=== PATIENT | female | born 1970 | race Caucasian/White ===

== ENCOUNTER 2020-02-21 07:58 | Outpatient (REF) | payer OTHER, SELFPAY ==
[2020-02-21 09:25] LABS: Alanine Aminotransferase 40 U/L (0-31); Albumin Level 4.3 g/dL (3.5-5.0); Anion Gap 12 (12-20); Aspartate Amino Transferase 23 U/L (5-31); Bilirubin Total 0.3 mg/dL (0.0-1.0); Blood Urea Nitrogen 9 mg/dL (9-16); Calcium 9.1 mg/dL (8.4-10.2); Carbon Dioxide 27 mmol/L (22-29); Chloride 106 mmol/L (96-108); Cholesterol 244 mg/dL; Estimated Glomerular Filt Rate > 60; Glucose Fasting 105 mg/dL (60-99); HDL Cholesterol 33 mg/dL; LDL Cholesterol Calculated 186 mg/dl; Potassium 4.4 mmol/l (3.3-5.1); Sodium 141 mmol/L (135-145); Total Protein 7.1 g/dL (6.5-8.0); Triglycerides 129 mg/dL
[2020-02-21 09:27] LABS: Alkaline Phosphatase 206 U/L (39-117)
[2020-02-21 09:52] LABS: Vitamin D 25-OH Total 18.6 ng/mL (>30)
[2020-02-21 10:23] LABS: T4 Thyroxine 9.3 ug/dL (4.5-12.0); Thyroid Stimulating Hormone 7.54 mIU/mL (0.32-4.0)
[2020-02-23 09:22] LABS: Folate 8.7 ng/mL (> or = 4.0); Vitamin B12 299 pg/mL (200-900)
== END 2020-02-21 07:59 | disposition home or self-care (01) ==
LOC: HO.LAB 07:58
PROVIDERS: PCP Internal Medicine; Visit Provider Internal Medicine
DX: E03.9 Hypothyroidism, unspecified (principal); E66.01 Morbid (severe) obesity due to excess calories; E78.00 Pure hypercholesterolemia, unspecified; K21.9 Gastro-esophageal reflux disease without esophagitis; Z00.00 Encounter for general adult medical examination without abnormal findings
CPT/HCPCS: 36415; 80053; 80061; 82306; 82607; 82746; 84436; 84443

== ENCOUNTER 2020-03-04 08:20 | Outpatient (REF) | payer OTHER, SELFPAY ==
--- NOTE | 2020-03-04 08:37 | US_ITS ---
EXAMINATION: US ABDOMEN COMPLETE CLINICAL INFORMATION: Abnormal results of liver function studies. COMPARISON: CT abdomen and pelvis 11/21/2019. Ultrasound abdomen 08/23/2007. X-ray abdomen 08/08/2007. TECHNIQUE: Real-time imaging of the abdominal viscera. FINDINGS: PANCREAS: The pancreatic head and body are unremarkable. The pancreatic tail is obscured by gas. ABDOMINAL AORTA: The proximal segment is normal in caliber. INFERIOR VENA CAVA: Visualized portions are normal. LIVER: There is diffuse increased liver parenchymal echogenicity, consistent with hepatic steatosis. The liver is normal in size and contour. No focal lesion or biliary ductal dilatation. GALLBLADDER: Normal. The gallbladder is physiologically distended without evidence of stones, sludge, polyps, wall thickening or pericholecystic fluid. COMMON BILE DUCT: Normal in caliber measuring 0.4 cm in diameter. RIGHT KIDNEY: Normal. No hydronephrosis. No renal calculi or focal parenchymal lesions. The kidney measures 10.7 cm in maximum dimension. LEFT KIDNEY: Normal. No hydronephrosis. No renal calculi or focal parenchymal lesions. The kidney measures 11.8 cm in maximum dimension. SPLEEN: Normal. The spleen measures 11.1 cm in maximum dimension. FREE FLUID: None. IMPRESSION: Hepatic steatosis. No focal hepatic lesion. No ductal dilatation. Otherwise unremarkable abdominal ultrasound.
== END 2020-03-04 08:21 | disposition home or self-care (01) ==
LOC: HO.US 08:20
PROVIDERS: Visit Provider Internal Medicine
DX: R94.5 Abnormal results of liver function studies (principal)
CPT/HCPCS: 76700

== ENCOUNTER 2020-03-17 10:22 | Outpatient (REF) | payer OTHER, SELFPAY ==
[2020-03-17 11:37] LABS: Glucose Urine UA NEG (NEG); Leukocyte Esterase Urine NEG (NEG); Nitrite Urine NEG (NEG); Specific Gravity - Urine >= 1.030 (1.005-1.025); Urine Blood 1+ (NEG); Urine Ketones NEG (NEG); Urine Protein NEG (NEG-TRACE)
[2020-03-17 11:39] LABS: Appearance Urine HAZY; Color Urine YELLOW
[2020-03-17 11:54] LABS: Alanine Aminotransferase 33 U/L (0-31); Albumin Level 4.4 g/dL (3.5-5.0); Alkaline Phosphatase 176 U/L (39-117); Aspartate Amino Transferase 22 U/L (5-31); Bilirubin Direct 0.2 mg/dL (0.0-0.5); Bilirubin Total 0.5 mg/dL (0.0-1.0); Total Protein 7.3 g/dL (6.5-8.0)
[2020-03-17 12:30] LABS: Mucus Urine 1+ /LPF; RBC Urine 0-2 /HPF (0); Squamous Epithelial Cell Urine 2+ /LPF
== END 2020-03-17 10:23 | disposition home or self-care (01) ==
LOC: HO.LAB 10:22
PROVIDERS: PCP Internal Medicine; Visit Provider Internal Medicine
DX: R94.5 Abnormal results of liver function studies (principal); R30.0 Dysuria
CPT/HCPCS: 80076; 81001; 87086

== ENCOUNTER 2020-03-31 09:57 | Outpatient (REF) | payer OTHER, SELFPAY ==
[2020-03-31 11:27] LABS: Glucose Urine UA NEG (NEG); Leukocyte Esterase Urine NEG (NEG); Nitrite Urine NEG (NEG); Specific Gravity - Urine 1.025 (1.005-1.025); Urine Blood TRACE (NEG); Urine Ketones NEG (NEG); Urine Protein NEG (NEG-TRACE)
[2020-03-31 11:30] LABS: Appearance Urine CLOUDY; Color Urine YELLOW
[2020-03-31 11:43] LABS: Bacteria Urine 1+ /LPF; RBC Urine 0-2 /HPF (0); Squamous Epithelial Cell Urine 3+ /LPF; WBC Urine 0-2 /HPF (0-4)
[2020-03-31 13:27] LABS: Free T4 (Free Thyroxine) 1.32 ng/dL (0.71-1.85); Thyroid Stimulating Hormone 3.57 uIU/mL (0.32-4.0)
== END 2020-03-31 09:58 | disposition home or self-care (01) ==
LOC: HO.LAB 09:57
PROVIDERS: PCP Internal Medicine; Visit Provider Internal Medicine
DX: E03.9 Hypothyroidism, unspecified (principal); R30.0 Dysuria
CPT/HCPCS: 81001; 84439; 84443

== ENCOUNTER → 2020-06-01 15:28 | Outpatient (BNVA) | payer OTHER, SELFPAY | PROVIDERS: PCP Internal Medicine; Visit Provider Urology | DX: R31.9 Hematuria, unspecified (principal) | CPT/HCPCS: 81002 ==

== ENCOUNTER 2020-07-01 15:45 | Outpatient (REF) | payer OTHER, SELFPAY ==
--- NOTE | ~2020-07-01 | XR_ITS ---
EXAMINATION: XR KNEE, LEFT CLINICAL INFORMATION: Pain post fall COMPARISON: Previous x-ray June 2011 TECHNIQUE: Four views of the left knee. FINDINGS: Bones and soft tissues are normal. No fracture or joint effusion. Alignment is anatomic. Joint spaces are well maintained. No abnormal soft tissue calcification. XR/XR knee LT 4V IMPRESSION: Normal left knee.
== END 2020-07-01 15:46 | disposition home or self-care (01) ==
LOC: HO.XRAY 15:45
PROVIDERS: PCP Internal Medicine; Visit Provider Nurse Practitioner Family
DX: M25.562 Pain in left knee (principal)
CPT/HCPCS: 73564

== ENCOUNTER 2020-07-29 08:13 | Outpatient (REF) | payer OTHER, SELFPAY ==
--- NOTE | 2020-07-29 08:29 | EMG_ITS ---
Right median and ulnar motor and sensory studies were performed. Right radial sensory study was performed and paraspinal muscles were tested with a needle. IMPRESSION: Unremarkable study with no evidence of entrapment neuropathy or radiculopathy. MD MONAE Jack/DARYA / [id number]
[2020-07-29 09:20] LABS: Glucose Urine UA NEG (NEG); Leukocyte Esterase Urine NEG (NEG); Nitrite Urine NEG (NEG); Specific Gravity - Urine >= 1.030 (1.005-1.025); Urine Blood 1+ (NEG); Urine Ketones NEG (NEG); Urine Protein TRACE MG/DL (NEG-TRACE)
[2020-07-29 09:22] LABS: Appearance Urine CLEAR; Color Urine YELLOW
[2020-07-29 09:31] LABS: Bacteria Urine 3+ /LPF; Mucus Urine 3+ /LPF; Squamous Epithelial Cell Urine 1+ /LPF
[2020-07-29 09:59] LABS: Alanine Aminotransferase 22 U/L (0-31); Albumin Level 4.3 g/dL (3.5-5.0); Alkaline Phosphatase 180 U/L (39-117); Anion Gap 12 (12-20); Aspartate Amino Transferase 14 U/L (5-31); Bilirubin Total 0.7 mg/dL (0.0-1.0); Blood Urea Nitrogen 8 mg/dL (9-16); Calcium 8.8 mg/dL (8.4-10.2); Carbon Dioxide 24 mmol/L (22-29); Chloride 107 mmol/L (96-108); Cholesterol 202 mg/dL; Estimated Glomerular Filt Rate > 60; Glucose Random 103 mg/dL (60-115); HDL Cholesterol 26 mg/dL; LDL Cholesterol Calculated 144 mg/dl; Potassium 4.1 mmol/L (3.3-5.1); Sodium 139 mmol/L (135-145); Total Protein 7.1 g/dL (6.5-8.0); Triglycerides 162 mg/dL
== END 2020-07-29 08:14 | disposition home or self-care (01) ==
LOC: HO.NEURO 08:13
PROVIDERS: PCP Internal Medicine; Visit Provider Internal Medicine
DX: R20.0 Anesthesia of skin (principal); E78.00 Pure hypercholesterolemia, unspecified
CPT/HCPCS: 36415; 80053; 80061; 81001; 95886; 95909

== ENCOUNTER 2020-09-07 11:31 | Outpatient (REF) | payer OTHER, SELFPAY ==
--- NOTE | ~2020-09-07 | XR_ITS ---
EXAMINATION: XR SHOULDER, RIGHT CLINICAL INFORMATION: Right shoulder pain COMPARISON: Radiographs right shoulder 05/16/2019 TECHNIQUE: Right shoulder is imaged in 3 views. FINDINGS: There is no fracture or dislocation or destructive process. The acromioclavicular alignment is normal. The glenohumeral joint is normal. There is borderline spur from the superior aspect greater tuberosity. There are no visible rotator cuff calcifications. XR/XR shoulder RT min 2V IMPRESSION: Unremarkable right shoulder.
== END 2020-09-07 11:32 | disposition home or self-care (01) ==
LOC: HO.HOSX 11:31
PROVIDERS: PCP Internal Medicine; Visit Provider Physician Assistant
DX: M75.41 Impingement syndrome of right shoulder (principal)
CPT/HCPCS: 73030

== ENCOUNTER 2020-09-16 07:00 | Outpatient (RCR) | payer OTHER, SELFPAY | END 2020-09-23 08:47 | disposition other institution (70) | LOC: HO.PTWFD 07:00 | PROVIDERS: PCP Internal Medicine; Visit Provider Internal Medicine | DX: M54.16 Radiculopathy, lumbar region (principal) | CPT/HCPCS: 97014; 97110; 97140; 97162; 97530; 97535 ==

== ENCOUNTER 2020-09-21 17:40 | Outpatient (REF) | payer OTHER, SELFPAY ==
--- NOTE | ~2020-09-21 | MR_ITS ---
EXAMINATION: MR SHOULDER WITHOUT CONTRAST, RIGHT CLINICAL INFORMATION: Impingement syndrome of right shoulder. Patient reports right shoulder pain for 2 years, increased since another fall in June 2020. COMPARISON: XR right shoulder 09/07/2020 TECHNIQUE: MRI of the shoulder without contrast was performed on a high-field scanner. FINDINGS: ROTATOR CUFF: There is a focal full-thickness insertional tear of the distal supraspinatus tendon measuring 11 mm transverse and 11 mm AP. This predominantly involves the anterior fibers. There is patchy tendinosis in the posterior fibers. There is mild distal infraspinatus and subscapularis tendinosis. The teres minor tendon is intact. There is a trace subacromial-subdeltoid bursal effusion. No muscle atrophy or fatty infiltration. BICEPS: Normal. CORACOACROMIAL ARCH: The undersurface of the acromion is flat with a broad-based subacromial spur. There is mild osteoarthritis of the acromioclavicular joint. There is focal moderate edema in the distal clavicle. LABRUM/CAPSULE: Normal. GLENOHUMERAL JOINT/MARROW: Unremarkable. MR/MR shoulder RT wo con IMPRESSION: 1. Focal full-thickness insertional tear of the distal anterior supraspinatus tendon. Mild infraspinatus and subscapularis tendinosis. 2. Broad-based subacromial spur. 3. Mild osteoarthritis of the acromioclavicular joint.
== END 2020-09-21 17:41 | disposition home or self-care (01) ==
LOC: HO.MRI 17:40
PROVIDERS: Visit Provider Physician Assistant
DX: M75.41 Impingement syndrome of right shoulder (principal)
CPT/HCPCS: 73221

== ENCOUNTER → 2020-10-04 14:23 | Outpatient (BNVA) | payer OTHER, SELFPAY | PROVIDERS: Visit Provider Physician Assistant ==

== ENCOUNTER 2020-10-05 07:00 | Outpatient (RCR) | payer OTHER, SELFPAY | END 2021-09-22 15:01 | disposition home or self-care (01) | LOC: HO.PTWFD 07:00 | PROVIDERS: Visit Provider Internal Medicine | DX: R20.0 Anesthesia of skin (principal) | CPT/HCPCS: 97014; 97035; 97110; 97140; 97161; 97535 ==

== ENCOUNTER 2020-10-20 06:00 | Day surgery (SDC) | payer OTHER, SELFPAY ==
[2020-10-13 12:36] VITALS: BMI 43.0
--- NOTE | 2020-10-19 09:08 | P.CONAN_ITS ---
Documented by User: Angelica Villarreal 10/19/20 09:09 HPI - Anesthesia Eval Consult details Narrative: 50yo F for Right Arthroscopic Rotator Cuff Repair PMFSH Active Problems Active Problems: All Active Problems (Updated 10/13/20 @ 12:40 by Roxi Sanchez) Lumbar radicular pain (Acute) Peripheral vascular disease (Acute) Right arm numbness (Acute) Pain in right axilla (Acute) Shoulder pain (Acute) Rotator cuff impingement syndrome of right shoulder (Acute) Rotator cuff tear, right (Acute) Status post rotator cuff repair (Acute) Left leg pain (Acute) Lumbar back pain (Acute) Knee pain, left (Acute) Hematuria (Acute) GERD (gastroesophageal reflux disease) (Acute) Anxiety (Acute) Hypercholesterolemia (Acute) Hypothyroid (Acute) Past Medical History Medical History Allergic rhinitis Anxiety Arthritis COVID-19 vaccine series completed Fatty liver Gallbladder disease GERD (gastroesophageal reflux disease) Hematuria Hypercholesterolemia Hypothyroid Irritable bowel syndrome with constipation Knee pain, left Left leg pain Lumbar back pain Lumbar degenerative disc disease Migraine Obesity Vitamin D deficiency Family History Family History Mother Cancer Heart disease Father Heart problem Surgical History Surgical History History of bladder surgery History of lumbar discectomy History of tonsillectomy Hx of colonoscopy Hx of dilation and curettage Social History Social History Are you a primary healthcare economics consultant to a significant other at home: No Do you presently have visiting nurse or other home services: No Alcohol intake: never Patient Tobacco Use Status: Never used Tobacco Use of substances other than those prescribed or required for medical reasons: No Have you been hit, kicked, punched, or otherwise hurt by someone within the past year? 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 Allergies Allergy/AdvReac Type Severity Reaction Status Date / Time oxycodone [Percocet] Allergy Severe rash Verified 10/20/20 06:32 Home Medications Medication Instructions Recorded Confirmed Last Taken Type folic acid 1 mg tablet 1 mg PO DAILY 04/29/20 10/13/20 Unknown History omeprazole magnesium 20 mg 20 mg PO DAILY 04/29/20 10/13/20 Unknown History tablet,delayed release simvastatin 5 mg tablet 5 mg PO DAILY 04/29/20 10/13/20 Unknown History Exam Exam Date and Time: October 19, 2020 0908 Height,Weight and Vital Signs: Height 5 ft 1 in Weight 103.419 kg Assessment and Plan Assessment Anesthesia Assessment: Chart Reviewed Documented by User: Destinee Thakkar 10/20/20 07:28 [facility] Past Medical History Medical History Allergic rhinitis Anxiety Arthritis COVID-19 vaccine series completed Fatty liver Gallbladder disease GERD (gastroesophageal reflux disease) Hematuria Hypercholesterolemia Hypothyroid Irritable bowel syndrome with constipation Knee pain, left Left leg pain Lumbar back pain Lumbar degenerative disc disease Migraine Obesity Vitamin D deficiency Family History Family History Mother Cancer Heart disease Father Heart problem Surgical History Surgical History History of bladder surgery History of lumbar discectomy History of tonsillectomy Hx of colonoscopy Hx of dilation and curettage Social History Social History Are you a primary healthcare economics consultant to a significant other at home: No Do you presently have visiting nurse or other home services: No Alcohol intake: never Patient Tobacco Use Status: Never used Tobacco Use of substances other than those prescribed or required for medical reasons: No Have you been hit, kicked, punched, or otherwise hurt by someone within the past year? 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 Allergies Allergy/AdvReac Type Severity Reaction Status Date / Time oxycodone [Percocet] Allergy Severe rash Verified 10/20/20 06:32 Home Medications Medication Instructions Recorded Confirmed Last Taken Type folic acid 1 mg tablet 1 mg PO DAILY 04/29/20 10/13/20 Unknown History omeprazole magnesium 20 mg 20 mg PO DAILY 04/29/20 10/13/20 Unknown History tablet,delayed release simvastatin 5 mg tablet 5 mg PO DAILY 04/29/20 10/13/20 Unknown History Exam Airway Mallampati Class: II TM Dist: >3cm Neck ROM: Full Assessment and Plan Assessment Anesthesia Assessment: Anesthesia Plan Discussed and Chart Reviewed Final Anesthetic Review NPO: Yes ASA Class: III Final Preanesthetic Review: No Changes in Pt Med Stat, Meds/Allgs Chart Reviewed, Consent Obtained/Reviewed and Anes Risks/Benef Reviewed Patient Risk: Intermediate Procedure Risk: Low Assessment/Block/Sedation in SS: Assess/Block/Sedation-SS Anesthetic Plan Anesthetic Plan: GA and Regional Block Disposition: Standard PACU
[2020-10-20] VITALS (10 sets, daily range): BP systolic 140–157; BP diastolic 81–88; PULSE 77–90; RESP 16–19; TEMP 36.1–36.6; O2SAT 93–99
[2020-10-20 06:34] LABS: UPreg QC Valid YES; Urine Pregnancy NEGATIVE (NEGATIVE)
[2020-10-20] MEDS: Lactated Ringers 1,000 ML 100 ML IVCONT (06:46)
--- NOTE | 2020-10-20 07:24 | MHC.SHP ---
Pre-Procedural Eval Section A The patient is an INPATIENT: No Changes since office visit: Yes Patient answered all questions; No Cold of Flu in the past 2 weeks, No New Medical Problems and No Changes in Medication The History & Physical has been completed within 30 days and I have reviewed it.: Yes Section B Chief Complaint: rotator cuff tear Allergies: Allergies Allergy/AdvReac Type Severity Reaction Status Date / Time oxycodone [Percocet] Allergy Severe rash Verified 10/20/20 06:32 Plan I have reviewed the history and physical and performed a pertinent physical examination on my patient. No changes have occurred unless specified.
--- NOTE | 2020-10-20 09:19 | PM.OP ---
Brief Operative Note Date of Service: 10/20/20 Pre-op diagnosis: right rtc tear Post-op diagnosis: other (1) right subscapularis tear 2) right supraspinatus tear) Procedure: 1) right subscapularis repair 2) right superior rotator cuff repair Implants: [employer] software and [employer] 5.0 helacoil knotless x 3 and 4.5 double loaded helacoil x2 Surgeon: Johny Villegas MD Anesthesia: GETA and regional Was an Licensing Manager used for this Procedure?: Yes Licensing Manager: Shelbie Hare Estimated blood loss (mL): 10 IV fluids (mL): 1,000 Pathology: none sent Condition: stable Disposition: PACU
--- NOTE | 2020-10-20 09:30 | P.OP_ITS ---
Operative Note Operative Note Date of Service: 10/20/20 Narrative: Pre-op diagnosis: right rtc tear Post-op diagnosis: other (1) right subscapularis tear 2) right supraspinatus tear) Procedure: 1) right subscapularis repair 2) right superior rotator cuff repair Implants: [employer] 5.0 helacoil knotless x 3 and 4.5 double loaded helacoil x2 Surgeon: Johny Villegas MD Anesthesia: GETA and regional Was an Global Project Manager used for this Procedure?: Yes Global Project Manager: Shelbie Hare Estimated blood loss (mL): 10 IV fluids (mL): 1,000 Pathology: none sent Condition: stable Disposition: PACU Procedure in detail: Patient was brought to the operating room and placed the the beach chair position. All bony prominences were well padded and she was prepped and draped in standard sterile fashion. A time out was called to identify proper site, proper procedure and proper surgeon. IV antibiotics per weight were administered. I began by making a posterolateral stab incision with a 15 blade. A blunt trochar was placed into the glenohumeral joint and insufflated the joint with saline and a 30 degree arthroscope was placed. I established an outside- in anterior portal just distal to the biceps tendon. I then began my inspection of the glenohumeral joint. The cartilaginous surfaces were pristine. There was no labral tearing. There was an undersurface superior rotator cuff tear and a insertional subscapularis tear with approximately 60-70% of the tendon torn. I placed two min tapes through the healthy portion of the tendon and then, after burring the insertion, inserted a 5.0 knotless helacoil with the attached suture ends. There was excellent fixation at the insertion site. The biceps was again examined and there was no tearing along its visible course. I then removed the trochar and entered the subacromial space. A direct lateral portal was then established and I performed a bursectomy. The cuff was then examined. There was a full thickness tear of the supraspinatus. I burred the footprint down to bleeding bone. I then placed two medial row 4.5 double loaded suture anchors and then brought these through the cuff. They were then attached to two lateral 4.5 knotless anchors in standard double row crossing pattern. There was excellent compression of the cuff and recreation of the normal anatomy. Once I was happy with the repair final images were captured and I removed all instrumentation. Wounds were closed with nylon and patient was placed in a sterile dressing and a sling. She was then extubated and brought to the recovery room. There were no known complications.
[2020-10-20] MEDS: Acetaminophen 325 MG TABLET 650 MG PO (10:00)
[2020-10-20] MEDS: Ketorolac Tromethamine 30 MG/ML VIAL IVPUSH (10:00)
[2020-10-20] MEDS: fentaNYL citrate/PF 100 MCG/2 ML VIAL 50 MCG IVPUSH (10:15)
== END 2020-10-20 11:48 | disposition home or self-care (01) ==
PROVIDERS: Nurse Practitioner; PCP Internal Medicine; Visit Provider Orthopaedic Surgery
PROC: (CPT 29827; principal; 2020-10-20 07:30)
DX: M75.121 Complete rotator cuff tear or rupture of right shoulder, not specified as traumatic (principal); Z88.8 Allergy status to other drugs, medicaments and biological substances
CPT/HCPCS: 29827; 29826; 81025; C1713; J0171; J0690; J1100; J1885; J2250; J2405; J3010

== ENCOUNTER → 2020-10-26 12:05 | Outpatient (BNVA) | payer OTHER, SELFPAY | PROVIDERS: Visit Provider Physician Assistant ==

== ENCOUNTER → 2020-11-01 08:56 | Outpatient (BNVA) | payer OTHER, SELFPAY | PROVIDERS: Visit Provider Physician Assistant ==

== ENCOUNTER → 2020-12-02 08:29 | Outpatient (BNVA) | payer OTHER, SELFPAY | PROVIDERS: Visit Provider Orthopaedic Surgery ==

== ENCOUNTER 2020-12-20 07:50 | Outpatient (REF) | payer OTHER, SELFPAY ==
[2020-12-20 13:17] LABS: MANUAL DIFF FLAG NO
[2020-12-20 13:22] LABS: Basophils Percent Auto 0.6 % (0-2); Eosinophils Absolute Auto 0.1 X10*3/uL (0.0-0.4); Eosinophils Percent Auto 0.7 % (0-4); Hemoglobin 13.4 g/dl (12.0-16.0); Imm Gran Abs Auto 0.02 X10*3/uL (0.00-0.03); Imm Gran Pct Auto 0.3 % (0.0-0.4); Lymphocytes Absolute Auto 1.8 X10*3/uL (1.2-4.9); Lymphocytes Percent Auto 26.2 % (20-40); Mean Corpuscular HGB Conc 32.7 g/dl (31.0-35.0); Mean Corpuscular Hemoglobin 29.3 pg (27.0-33.0); Mean Corpuscular Volume 89.7 fL (80-98); Mean Platelet Volume 11.9 fL (9.4-12.3); Monocytes Absolute Auto 0.8 X10*3/uL (0.1-1.2); Monocytes Percent Auto 10.8 % (2-11); Neutrophils Absolute Auto 4.3 X10*3/uL (2.0-8.3); Neutrophils Percent Auto 61.4 % (45-73); Platelet Count 282 X10*3/uL (160-400); Red Blood Count 4.57 X10*6/uL (4.20-5.50); Red Cell Distribution Width 11.9 % (11.0-16.0); White Blood Count 6.9 X10*3/uL (4.8-10.8)
[2020-12-20 13:53] LABS: Anion Gap 13 (12-20); Blood Urea Nitrogen 6 mg/dL (9-16); Calcium 9.6 mg/dL (8.4-10.2); Carbon Dioxide 25 mmol/L (22-29); Chloride 108 mmol/L (96-108); Estimated Glomerular Filt Rate > 60; Glucose Random 96 mg/dL (60-115); Potassium 3.8 mmol/L (3.3-5.1); Sodium 142 mmol/L (135-145)
[2020-12-22 21:32] LABS: HPV mRNA E6/E7 rflx Not Detected (Not Detected)
== END 2020-12-20 07:51 | disposition home or self-care (01) ==
LOC: HO.LAB 07:50
PROVIDERS: Absent Provider Internal Medicine; PCP Internal Medicine; Visit Provider Advanced Practice Midwife
DX: Z01.411 Encounter for gynecological examination (general) (routine) with abnormal findings (principal); Z11.51 Encounter for screening for human papillomavirus (HPV); R10.2 Pelvic and perineal pain; R51.9 Headache, unspecified; F43.9 Reaction to severe stress, unspecified
CPT/HCPCS: 36415; 80048; 85025; 87624; 88142

== ENCOUNTER 2021-01-03 09:55 | Outpatient (REF) | payer OTHER, SELFPAY ==
--- NOTE | ~2021-01-03 | XR_ITS ---
EXAMINATION: XR SHOULDER, RIGHT CLINICAL INFORMATION: Pain. COMPARISON: Multiple priors, most recent right shoulder MRI dated 09/21/2020. TECHNIQUE: AP external rotation, Grashey, scapular Y, and axillary views of the right shoulder. FINDINGS: Surgical sutures related to rotator cuff repair within the humeral head. No evidence of hardware complication. No acute fracture or dislocation. Small acromioclavicular and glenohumeral marginal osteophytes, unchanged. Redemonstration of subacromial spurring. No lytic or blastic osseous lesion. No abnormal soft tissue calcification. XR/XR shoulder RT min 2V IMPRESSION: 1. Postsurgical change related to rotator cuff repair. No evidence of hardware complication. 2. Mild acromioclavicular and glenohumeral osteoarthritis, unchanged. 3. Stable subacromial spurring.
== END 2021-01-03 09:56 | disposition home or self-care (01) ==
LOC: HO.HOSX 09:55
PROVIDERS: PCP Internal Medicine; Visit Provider Physician Assistant
DX: M25.511 Pain in right shoulder (principal); Z98.890 Other specified postprocedural states
CPT/HCPCS: 73030

== ENCOUNTER 2021-01-06 10:43 | Outpatient (REF) | payer OTHER, SELFPAY ==
--- NOTE | ~2021-01-06 | US_ITS ---
EXAMINATION: US PELVIS CLINICAL INFORMATION: Pelvic and perineal pain; the last menstrual period is not specified. COMPARISON: Pelvic ultrasound dated 10/21/2019. TECHNIQUE: Ultrasound of the pelvis is performed using both transabdominal and transvaginal transducers along with Doppler. Transvaginal imaging is performed due to inadequate visualization transabdominally. FINDINGS: Uterus: The uterus is anteverted and anteflexed. The uterus measures 10.2 x 4.2 x 5.9 cm. The double wall endometrial thickness is 0.6 mm. An intrauterine device is seen, properly situated within the endometrial canal. The uterus is smooth in contour and has normal myometrial echogenicity. FIBROIDS: There are 2 fibroids seen. 1. Location: Rightward fundus, myometrial. Size: 1.2 x 0.2 x 1.1 cm. Prior: 1.2 x 0.9 x 1.0 cm. Fibroid characteristics: Heterogeneously hypoechoic 2. Location: Posterior fundus, exophytic subserosal. Size: 3.6 x 2.4 x 3.3 cm. Prior: 3.1 x 2.2 x 2.5 cm. Fibroid characteristics: Hypoechoic. 3. Location: Posterior lower body, myometrial. Size: 0.7 x 0.5 x 0.7 cm. Prior: 1.1 x 0.7 x 0.9 cm. Fibroid characteristics: Hypoechoic. Adnexa: Both ovaries are visualized. There is normal color flow to the adnexa. There is no ovarian torsion. There is no pelvic ascites or fluid collection. Right ovary measures 2.4 x 2.0 x 2.1 cm (volume 7.5 mL). The right ovary contains a 2.1 x 2.1 x 1.5 cm anechoic, simple cyst. Left ovary measures 2.9 x 1.2 x 1.6 cm (volume 2.9 mL). US/US pelvic and transvaginal IMPRESSION: 1. Uterine fibroids are redemonstrated, as above. 2. An intrauterine device is seen, properly situated within the endometrial canal. 3. A 2.1 cm simple right ovarian cyst is incidentally noted.
== END 2021-01-06 10:44 | disposition home or self-care (01) ==
LOC: HO.US 10:43
PROVIDERS: PCP Internal Medicine; Visit Provider Advanced Practice Midwife
DX: R10.2 Pelvic and perineal pain (principal)
CPT/HCPCS: 76830; 76856

== ENCOUNTER → 2021-01-17 10:57 | Outpatient (BNVA) | payer OTHER, SELFPAY | PROVIDERS: PCP Internal Medicine; Visit Provider Physician Assistant ==

== ENCOUNTER → 2021-01-20 11:28 | Outpatient (BNVA) | payer OTHER, SELFPAY | PROVIDERS: PCP Internal Medicine; Visit Provider Advanced Practice Midwife ==

== ENCOUNTER → 2021-03-07 10:14 | Outpatient (BNVA) | payer OTHER, SELFPAY | PROVIDERS: Visit Provider Physician Assistant ==

== ENCOUNTER 2021-03-15 11:41 | Outpatient (REF) | payer OTHER, SELFPAY ==
--- NOTE | ~2021-03-15 | MM_ITS ---
EXAMINATION: MM SCREENING DIGITAL BREAST TOMOSYNTHESIS, BILATERAL CLINICAL INFORMATION: Screening. Asymptomatic. The lifetime risk of breast cancer based on the Tyrer-Cuzick Model is 10.5%. COMPARISON: Mammography: December 19, 2019 and studies dating back to May 29, 2013 TECHNIQUE: Digital breast tomosynthesis is performed in both the craniocaudal and mediolateral oblique views along with computer-aided detection (CAD). Synthesized 2D images are generated from the tomosynthesis. FINDINGS: There are scattered areas of fibroglandular density (ACR BI-RADS breast composition Category b). There are no significant masses, abnormal calcifications, or other abnormalities. MM/MM tomosynthesis screening BI IMPRESSION: There are no significant changes from prior study. ASSESSMENT: BI-RADS 1: Negative RECOMMENDATION: Routine annual mammography screening. This patient's information was entered into a reminder system with a target due date for their next mammogram.
== END 2021-03-15 11:42 | disposition home or self-care (01) ==
LOC: HO.MAMMO 11:41
PROVIDERS: Visit Provider Internal Medicine
DX: Z12.31 Encounter for screening mammogram for malignant neoplasm of breast (principal)
CPT/HCPCS: 77063; 77067

== ENCOUNTER 2021-04-21 14:00 | Outpatient (RCR) | payer OTHER, SELFPAY ==
--- NOTE | 2020-12-23 14:04 | MHC.PT.OD ---
[facility] [place] Office [place] Office [place] Office [address] Jamel Warner [address] [phone] F: [phone] F: [phone] F: [phone] F: [phone] Physical Therapy Daily Note Diagnosis: Script: M75.101 Unspecified rotator cuff tear and or rupture of R shoulderb not specified as trauamatic, M75.41 impingement syndrome of R shoulder, Z98.890 other specified post procedural states to bein 5-7 days s/p R RTC repair signed by Shelbie Hare 10/07/20 Date of Surgery: DOS 10/20/20 1) R Supraspinatus repair, 2)R subscapularis repair Dr. Villegas Date of Evaluation: 10/28/20 Date of Treatment: 12/23/20 Treatments to Date: 10 Cancellations to Date: No Shows to Date: Authorized Visits: Insurance End Date: Precautions/ Contraindications:hx R RTC repair 10/20/20 Dr. Villegas *No ER past 30 due to subscap repair* 1) Supraspinatus (complete rupture), 2) Subscapularis 60-70% torn Obtained Protocol per [facility] office on 11/01/20 see chart [employer] Subjective: Pt reports episode on Sunday12/17/20 was visiting who is in rehab for stroke, when he started to slide/slip out of chair, she quiclkly not thinking about it responded resulting in her attempting to lift/aide him with use of her right arm. Pt stated was up all night Sunday due to increased pain, on Sunday, was out walking to mailbox and had sharp pain in R anterior shoulder radiating to height of elbow. Pt spoke with Lisa Koroma PT over the phone on 12/22/20 due to concern (primary PT was unavail) regarding concern for severity of pain. She was advised to ice, monitor sx, and if no better phone Dr. Villegas office. Presents today reporting she cannot lift her arm as much as before, concern for status of RTW and increasing pain levels. Pt has been taking increased levels of extra strength tylenol with limited relief. Pain Score and Location: 7-8 R shoulder Objective Flowsheet: Tests & Measures Per protocol No ER >30 degrees due to subscap repair AROM Cervical ext 30 degrees (+) increased sx anterior R shoulder Increased pain with end range cervical rotation R and R SB, reports numbness radiating to elbow, intermittent to tricep, constant pain underarm, reports sharp and intense, pt ? nerve pain. Pt expressing R sided neck pain as well. Therapist phoned Dr. Villegas office to spoke with EMIR Gonzalez over the phone at time of around 10am (LM with office she was going to write a message to Dr. Villegas office regarding concern for patient status/pain) Pt expressing intermittent sx sharp intense ?nerve pain radiating to height of wrist and elbow, hypersensitive to palpation at site of upper trap, anterior R shoulder, and neck. (+) Spurling R with neck pain Exercises [facility] [address] [place] [address] Drive [address] [place] [address] Office Visit Report Signed Patient: Jose Harris PMR#: [id number] : 1970Acct:[id number] Age/Sex: 50 / FADM Date: 12/02/20 [facility] Attending Provider: Johny Villegas MD cc: Johny Villegas MD; Physician,Unknown ~ Intake Vital Signs 12/02/20 08:39 Height 5 ft 1 in Weight 215 lb BMI 40.6 Temp 97.1 F Temp Source Temporal Artery Scan Intake Visit Reasons: S/P RT.RTC repair 07/20/20 follow up Intake Note: Jose presents here today for S/P RT RTC repair 3. States she has been doing better. She feels like her ROM has been okay. States she is still wearing the sling because she was told to wear until this follow up appt. PT has been helping her with her shoulder movements. States she missed a few appts because her had a massive stroke and he is taking care of him now. Allergies oxycodone [Percocet] Allergy (Severe, Verified 12/02/20 08:43) rash HPI S/P RT.RTC repair 07/20/20 follow up HPI Details 6 weeks s/p right shoulder rtc repair. No complaints. Doing Pt. s/p subscapularis and supraspinatus PFSH Medical History Allergic rhinitis Anxiety Arthritis Fatty liver Gallbladder disease GERD (gastroesophageal reflux disease) Hematuria Hypercholesterolemia Hypothyroid Irritable bowel syndrome with constipation Knee pain, left Lumbar back pain Lumbar degenerative disc disease Migraine Obesity Vitamin D deficiency Surgical History History of bladder surgery History of lumbar discectomy History of tonsillectomy Hx of colonoscopy Hx of dilation and curettage Family History Mother Cancer Heart disease Father Heart problem Social History Are you a primary home child care provider to a significant other at home: No Do you presently have visiting nurse or other home services: No Alcohol intake: never Patient Tobacco Use Status: Never used Tobacco Current occupational status: employed 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 passive er to 30 and abd to 90. active ff to 80 Assessment & Plan Assessment & Plan (1) Status post rotator cuff repair: Code(s): Z98.890 - Other specified postprocedural states Plan - Johny Villegas MD: 2 weeks befor retunring to work. continue PT- large RTC repair protocol. f/u 6 w Coding Level of Care Code Global (22292) Diagnoses Status post rotator cuff repair Z98.890 Documented By:Johny Villegas MD12/02/20 0838 Signed By:<Electronically signed by Johny Villegas MD>12/02/20 0908 Pendulums at start of session, AAROM to 90 degrees limited by pain with compensation of UT observed with attempting to elevate further- Educated to start back slowly with table slides (she reports did not perform AAROM yesterday due to pains) Attempt for gentle PROM with therapist however pt verbalized increased sharp pain ~90 degrees of shoulder flexion supine. Reiterated more frequent icing, gentle AAROM table slides to tolerance, monitoring of sx. Therapist recommending follow up with Dr. Villegas due to episode of lifting/reaching with R UE> last week now increasing pain- episodes described as catching/ Education avoidance of Active abduction, avoidance ER beyond 30 degrees, Education joint protection Pt very sensitive to palpation at site of R UE region, distal repair site, anterior post site of shoulder Reports radiating pain down to height of elbow, lateral shoulder (+) Spurling (+) neck pain R sided ? Cervical radiculopathy compounding R RTC repair recovery- Pt was recently treated in walk-in clinic for concern of shingles along R side of face- now resolved... Await callback from Dr. Villegas office- re: worsening pain and radiating R UE symptoms. Pt advised to continue icing R shoulder x 10 minutes-15 minutes, avoid AROM, ensure movement is AAROM, monitor sx and location/frequency Pt Modalities Followed by 10 minutes ice post stretching to R shoulder. Assessment: Pt expresses episode last Sunday12/17/20 where she quickly used her RUE to aide her as he was sliding out of chair in rehab setting. She does not exhibit any evidence of bruising, reports progressive soreness>pain. Pt was seen Sunday exhibiting average tolerance for AAROM/PROM. On Thursday 12/21, worsening intemittent R UE sharp pain in shoulder. She phoned PT office on 12/22/20, spoke with Lisa Koroma, PT advised to monitor, ice, and if no better phone Dr. Villegas. Pt reports catching/numbness radiating to elbow>hand at times. Therapist phoned Dr. Villegas office today when patient was in office at 10am- recommending patient make a follow up with him due to change in status. AAROM limited by 85 flexion this date, poor tolerance for PROM >90 flexion, far less movement than previously demonstrated. Pt was given medication in walk in office due to concern for Shingles along R side of face (now resolved). She exhibits (+) neck pain, severe TTP distal site of supraspinatus, and along R UT region. She reports radiating R UE sx to elbow, radiating down tricep and into wrist. ? onset cervical radiculopathy vs compromised/inflamed R shoulder following lifting/abrupt use last week. Please advise: PT Plan: 1x/week x 6 weeks, 2x/week x 8 weeks thereafter PROM>AAROM>AROM per protocol NO ER > 30 degrees due to subscap repair Refer to Advanced CEU Medium to Large Rotator cuff repair protocol in chart. Short Term Goals: 1. PROM R shoulder flexion to 90 per protocol timelines. 2. Initiate I with donning/doffing sling MOD I with good safety/understanding. 3. Reduce pain by 25% in R shoulder. 4. Initiate AAROM shoulder program at six weeks per protocol with (+) compliance. 5. Strength R shoulder all planes 3/5 (per protocol guideline/clearance of MD) 6. Dressing MOD I. 7. I with pendulum HEP. Mcfp Goals: 1. AAROM R shoulder flexion to 160 degrees. 2. AAROM R shoulder abduction to 160 degrees with good scapulohumeral rhythm. 3. Strength R shoulder abduction 5/5 per MD /protocol guidance. 4. Lift a gallon of milk out of the fridge R shoulder as cleared per MD protocol guidance. 5. AROM R shoulder IR to midline to don belt. 6. ER AROM to wash hair MOD I with R UE. 7. I HEP AAROM/AROM/Strength upon completion of PT per protocol/clearance. Electronically signed by: Hannah King, PT, DPT
--- NOTE | 2021-03-03 10:53 | MHC.PT.OD ---
[facility] [place] Office [place] Office [place] Office [address] Jamel Warner [address] [phone] F: [phone] F: [phone] F: [phone] F: [phone] Physical Therapy Daily Note Diagnosis: Script: M75.101 Unspecified rotator cuff tear and or rupture of R shoulderb not specified as trauamatic, M75.41 impingement syndrome of R shoulder, Z98.890 other specified post procedural states to bein 5-7 days s/p R RTC repair signed by Shelbie Hare 10/07/20 Date of Surgery: DOS 10/20/20 1) R Supraspinatus repair, 2)R subscapularis repair Dr. Villegas Date of Evaluation: 10/28/20 Date of Treatment: 03/03/21 Treatments to Date: 20 Cancellations to Date: No Shows to Date: Authorized Visits: Insurance End Date: Precautions/ Contraindications:hx R RTC repair 10/20/20 Dr. Villegas *No ER past 30 due to subscap repair* 1) Supraspinatus (complete rupture), 2) Subscapularis 60-70% torn Obtained Protocol per [facility] office on 11/01/20 see chart [employer] Subjective: I had the best night I have had a in a long time. Im seeing the doctor on Sunday. Pain Score and Location: 3 R SHLDER Objective Flowsheet: Tests & Measures AAROM flexion 120 degrees AAROM scaption 130 degrees IR lateral buttocks [facility] [address] [place] [address] Office Visit Report Signed Patient: Jose Harris PMR#: [id number] : 1970Acct:[id number] Age/Sex: 50 / FADM Date: 01/17/21 Loc: HO.HOSDate of Service:01/17/21 Attending Provider: Shelbie Hare PA-C cc: Shelbie Hare PA-C; Calin Marx MD~ Intake Vital Signs 08/30/21 11:08 Height 5 ft 1 in Weight 215 lb BMI 40.6 Temp 97.8 F Intake Visit Reasons: RT.RTC repair 07/20/20 NE, follow up Intake Note: Jose presents today for a follow up of her right shoulder, she is s/p R RTC Repair 07/20/2020. She states that she is stil doing physical therapy and is making small progress. She feels that she is doing well and has no complaints Allergies oxycodone [Percocet] Allergy (Severe, Verified 01/10/21 17:23) rash HPI RT.RTC repair 07/20/20 NE, follow up HPI Details Patient presents the office today for routine follow-up status post right shoulder rotator cuff repair on 07/20/2020 Dr. Villegas. At her last appointment on 01/03/2021 patient states that she had a setback when she was at a rehab facility visiting her when he slid out of the wheelchair twice. She went to going catch him and noticed an increase in pain of the right shoulder. She has been attending physical therapy. She is still not at the range of motion that she was prior to this repeat injury. [facility] Medical History Allergic rhinitis Anxiety Arthritis Fatty liver Gallbladder disease GERD (gastroesophageal reflux disease) Hematuria Hypercholesterolemia Hypothyroid Irritable bowel syndrome with constipation Knee pain, left Lumbar back pain Lumbar degenerative disc disease Migraine Obesity Vitamin D deficiency Surgical History H/O rotator cuff surgery History of bladder surgery History of lumbar discectomy History of tonsillectomy Hx of colonoscopy Hx of dilation and curettage Family History Mother Cancer Heart disease Brain cancer Aortic aneurysm Father Heart problem Maternal Grandfather Lung cancer Paternal Aunt Lung cancer Maternal Aunt Heart disease Sister Substance abuse Maternal Uncle Substance abuse Social History Are you a primary wound care physician to a significant other at home: No Do you presently have visiting nurse or other home services: No Alcohol intake: never Patient Tobacco Use Status: Never used Tobacco service: No Current occupational status: employed 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 Review of Systems Const All systems reviewed & are unremarkable except as noted in HPI and below Physical Exam Vital Signs: Last Vital Signs Temp 97.8 F 01/17/21 11:08 Body Mass Index 40.6 Const General: cooperative and no acute distress Orientation/consciousness: patient oriented x3 Resp Effort & Inspection: normal respiratory effort and able to speak in complete sentences Cardio Peripheral pulses: Peripheral pulses 2+ throughout Skin General skin exam: no rashes or lesions noted Neuro General: patient oriented x3 Extrem Other: Right shoulder prior incision sites remain well approximated and healed. Patient is able to reach about 90? of forward flexion and abduction. Able to reach to back pocket. Sensation is intact. Radial pulse intact. Assessment & Plan Assessment & Plan (1) Rotator cuff tear, right: Code(s): M75.101 - Unspecified rotator cuff tear or rupture of right shoulder, not specified as traumatic Plan: Ms. Harris is a 50-year-old female who presents the office today status post right shoulder rotator cuff repair in 10/20/2020. She will continue working with physical therapy on range of motion. About 5-6 weeks ago she was visiting her in a nursing facility and he was slipping out of his wheelchair where she caught him. This situation happened twice and ever since then she has had a decrease in range of motion. At her last appointment on 01/03/2021 x-rays were obtained with good placement of the anchors. She will continue with physical therapy. I will see her back in 6 weeks for [id number] check, sooner if needed. Coding Level of Care Code Est Pt Level 3 (41572) Diagnoses Rotator cuff tear, right M75.101 Documented By:Shelbie HareC001/17/21 1108 Exercises [facility] [address] [place] [address] Drive [address] [place] [address] Office Visit Report Signed Patient: Jose Harris PMR#: [id number] : 1970Acct:[id number] Age/Sex: 50 / FADM Date: 12/02/20 [facility] Attending Provider: Johny Villegas MD cc: Johny Villegas MD; Physician,Unknown ~ Intake Vital Signs 12/02/20 08:39 Height 5 ft 1 in Weight 215 lb BMI 40.6 Temp 97.1 F Temp Source Temporal Artery Scan Intake Visit Reasons: S/P RT.RTC repair 07/20/20 follow up Intake Note: Jose presents here today for S/P RT RTC repair 07.20.20. States she has been doing better. She feels like her ROM has been okay. States she is still wearing the sling because she was told to wear until this follow up appt. PT has been helping her with her shoulder movements. States she missed a few appts because her had a massive stroke and he is taking care of him now. Allergies oxycodone [Percocet] Allergy (Severe, Verified 12/02/20 08:43) rash HPI S/P RT.RTC repair 07/20/20 follow up HPI Details 6 weeks s/p right shoulder rtc repair. No complaints. Doing Pt. s/p subscapularis and supraspinatus PFSH Medical History Allergic rhinitis Anxiety Arthritis Fatty liver Gallbladder disease GERD (gastroesophageal reflux disease) Hematuria Hypercholesterolemia Hypothyroid Irritable bowel syndrome with constipation Knee pain, left Lumbar back pain Lumbar degenerative disc disease Migraine Obesity Vitamin D deficiency Surgical History History of bladder surgery History of lumbar discectomy History of tonsillectomy Hx of colonoscopy Hx of dilation and curettage Family History Mother Cancer Heart disease Father Heart problem Social History Are you a primary wound care physician to a significant other at home: No Do you presently have visiting nurse or other home services: No Alcohol intake: never Patient Tobacco Use Status: Never used Tobacco Current occupational status: employed 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 passive er to 30 and abd to 90. active ff to 80 Assessment & Plan Assessment & Plan (1) Status post rotator cuff repair: Code(s): Z98.890 - Other specified postprocedural states Plan - Johny Villegas MD: 2 weeks befor retunring to work. continue PT- large RTC repair protocol. f/u 6 w Coding Level of Care Code Global (12344) Diagnoses Status post rotator cuff repair Z98.890 Documented By:Johny Villegas MD12/02/20 0838 Signed By:<Electronically signed by Johny Villegas MD>12/02/20 0908 AAROM bakari flexion and scaption x 10 sec hold x 10R (educated re: benefit of bakari for home). L SL ER for the right x 2 sets 10R with no added weight with towel roll, AAROM table slides reviewed for lumbar flexion shoulder flexion x 5R x 5 sec hold, AAROM shoulder scaption. Reiterated more frequent icing, gentle AAROM table slides to tolerance, monitoring of sx. Therapist recommending follow up with Dr. Villegas due to episode of lifting/reaching with R UE> last week now increasing pain- episodes described as catching/ Education avoidance of Active abduction, avoidance ER beyond 30 degrees, Education joint protection IASTM HG #7 to R anterior lateral deltoid with erythema response; application/removal with use, goals and education of sx to monitor. PROM end range stretching all planes to pain-free comfort pull. Reviewed AAROM HEP exercises. Reviewed body mechanics for assistance with aide of for rolling/bed mobility with cues for squat technique/hip hinge/golfer's lift- safety with R Shoulder- no heavy lifting; Educated to avoid lifting with R UE, continue UE stretching frequently throughout the day. Modalities Ice to R shoulder x 10 minutes. Assessment: Crystal ROM has been improving gradually. She expresses significant reduction in level of her pain since the last time she was seen by orthopedics. She is now able to sleep in SL for short periods; has been expressing intermittent parathesias down R UE. 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 She has been introduced to some positional/gentle light scapular exercises unweighted with good tolerance. Will work to progress formal strengthening if clearance by orthopedics is given at upcoming appt on SundayMar 07. Please advise. PT Plan: Await updated MD orders ? initiate strengthening; ROM at this time only per MD order; 2x/week x 8 weeks thereafter PROM>AAROM>AROM per protocol NO ER > 30 degrees due to subscap repair Refer to Advanced CEU Medium to Large Rotator cuff repair protocol as progressed by physician. Short Term Goals: 1. PROM R shoulder flexion to 90 per protocol timelines. 2. Initiate I with donning/doffing sling MOD I with good safety/understanding. 3. Reduce pain by 25% in R shoulder. 4. Initiate AAROM shoulder program at six weeks per protocol with (+) compliance. 5. Strength R shoulder all planes 3/5 (per protocol guideline/clearance of MD) 6. Dressing MOD I. 7. I with pendulum HEP. Prison Goals: 1. AAROM R shoulder flexion to 160 degrees. 2. AAROM R shoulder abduction to 160 degrees with good scapulohumeral rhythm. 3. Strength R shoulder abduction 5/5 per MD /protocol guidance. 4. Lift a gallon of milk out of the fridge R shoulder as cleared per MD protocol guidance. 5. AROM R shoulder IR to midline to don belt. 6. ER AROM to wash hair MOD I with R UE. 7. I HEP AAROM/AROM/Strength upon completion of PT per protocol/clearance. Electronically signed by: Hannah King, PT, DPT
== END 2021-06-07 07:37 | disposition home or self-care (01) ==
LOC: HO.PTWFD 14:00
PROVIDERS: PCP Internal Medicine; Visit Provider Orthopaedic Surgery
DX: M75.101 Unspecified rotator cuff tear or rupture of right shoulder, not specified as traumatic (principal); M75.41 Impingement syndrome of right shoulder; Z98.890 Other specified postprocedural states
CPT/HCPCS: 97014; 97110; 97140; 97162; 97530; 97535

== ENCOUNTER 2021-06-17 12:16 | Outpatient (REF) | payer OTHER, SELFPAY ==
--- NOTE | ~2021-06-17 | XR_ITS ---
EXAMINATION: XR LUMBOSACRAL SPINE CLINICAL INFORMATION: Lumbago with sciatica right side. COMPARISON: None TECHNIQUE: Three views of the lumbosacral spine. FINDINGS: There is normal lumbar lordosis. The vertebral heights and alignment are normal. There is loss of L4-L5 disc height with ventral spondylosis noted. The rest of the disc heights are normal. No visible acute fracture, dislocation or lytic process seen. Bilateral SI joints are symmetrical and normal. The paravertebral soft tissues are normal. XR/XR lumbar spine 2-3V IMPRESSION: Mild degenerative changes L4-L5 disc level with ventral spondylosis.
== END 2021-06-17 12:17 | disposition home or self-care (01) ==
LOC: HO.XRAY 12:16
PROVIDERS: Absent Provider Nurse Practitioner Family; PCP Internal Medicine; Visit Provider Physician Assistant
DX: G89.29 Other chronic pain (principal); M54.41 Lumbago with sciatica, right side; M54.42 Lumbago with sciatica, left side; M54.12 Radiculopathy, cervical region; Z98.890 Other specified postprocedural states
CPT/HCPCS: 72100

== ENCOUNTER 2021-07-19 07:46 | Outpatient (REF) | payer OTHER, SELFPAY ==
[2021-07-19 11:35] LABS: MANUAL DIFF FLAG NO
[2021-07-19 11:51] LABS: Basophils Absolute Auto 0.1 X10*3/uL (0.0-0.2); Basophils Percent Auto 0.7 % (0-2); Eosinophils Absolute Auto 0.1 X10*3/uL (0.0-0.4); Eosinophils Percent Auto 0.9 % (0-4); Hematocrit 41.3 % (37.0-47.0); Hemoglobin 13.6 g/dl (12.0-16.0); Imm Gran Abs Auto 0.02 X10*3/uL (0.00-0.03); Imm Gran Pct Auto 0.3 % (0.0-0.4); Lymphocytes Absolute Auto 1.5 X10*3/uL (1.2-4.9); Lymphocytes Percent Auto 20.5 % (20-40); Mean Corpuscular HGB Conc 32.9 g/dl (31.0-35.0); Mean Corpuscular Hemoglobin 29.9 pg (27.0-33.0); Mean Corpuscular Volume 90.8 fL (80.0-98.0); Mean Platelet Volume 11.6 fL (9.4-12.3); Monocytes Absolute Auto 0.7 X10*3/uL (0.1-1.2); Monocytes Percent Auto 9.5 % (2-11); Neutrophils Absolute Auto 5.1 x10*3/uL (2.0-8.3); Neutrophils Percent Auto 68.1 % (45-73); Platelet Count 271 X10*3/uL (160-400); Red Blood Count 4.55 X10*6/uL (4.20-5.50); Red Cell Distribution Width 12.1 % (11.0-16.0); White Blood Count 7.5 X10*3/uL (4.8-10.8)
[2021-07-19 12:02] LABS: Alanine Aminotransferase 35 U/L (0-31); Albumin Level 4.1 g/dL (3.5-5.0); Alkaline Phosphatase 241 U/L (39-117); Anion Gap 11 (12-20); Aspartate Amino Transferase 21 U/L (5-31); Bilirubin Total 0.4 mg/dL (0.0-1.0); Blood Urea Nitrogen 12 mg/dL (9-16); Calcium 9.9 mg/dL (8.4-10.2); Carbon Dioxide 26 mmol/L (22-29); Chloride 107 mmol/L (96-108); Cholesterol 232 mg/dL; Estimated Glomerular Filt Rate > 60; Glucose Random 104 mg/dL (60-115); HDL Cholesterol 35 mg/dL; LDL Cholesterol Calculated 168 mg/dl; Potassium 4.3 mmol/L (3.3-5.1); Sodium 140 mmol/L (135-145); Total Protein 6.9 g/dL (6.5-8.0); Triglycerides 145 mg/dL
[2021-07-19 12:23] LABS: Free T4 (Free Thyroxine) 1.12 ng/dL (0.71-1.85); Thyroid Stimulating Hormone 0.33 uIU/mL (0.32-4.0); Vitamin D 25-OH Total 14.3 ng/mL (>30)
[2021-07-19 12:49] LABS: Folate 2.5 ng/mL (> or = 4.0); Vitamin B12 333 pg/mL (200-900)
== END 2021-07-19 07:47 | disposition home or self-care (01) ==
LOC: HO.WFDLDS 07:46
PROVIDERS: Visit Provider Internal Medicine
DX: E78.00 Pure hypercholesterolemia, unspecified (principal)
CPT/HCPCS: 36415; 80053; 80061; 82306; 82607; 82746; 84439; 84443; 85025

== ENCOUNTER 2021-07-26 07:59 | Outpatient (REF) | payer OTHER, SELFPAY ==
[2021-07-26 11:51] LABS: Gamma Glutamyl Transpeptidase 49 U/L (7-33)
[2021-07-27 13:15] LABS: Mitochondrial Antibodies NEGATIVE (NEGATIVE)
[2021-07-29 11:17] LABS: 5' Nucleotidase 5 U/L (0-10); Angiotensin Converting Enzyme 94 U/L (9-67)
== END 2021-07-26 08:00 | disposition home or self-care (01) ==
LOC: HO.WFDLDS 07:59
PROVIDERS: Visit Provider Internal Medicine
DX: R74.8 Abnormal levels of other serum enzymes (principal)
CPT/HCPCS: 36415; 82164; 82977; 83915; 86255; 86256

== ENCOUNTER 2021-08-01 15:26 | Outpatient (REF) | payer OTHER, SELFPAY ==
--- NOTE | ~2021-08-01 | XR_ITS ---
EXAMINATION: XR KNEE, RIGHT CLINICAL INFORMATION: Arthritis COMPARISON: None TECHNIQUE: Four views of the right knee. FINDINGS: Bone alignment is normal. No fracture or dislocation is seen. The joint spaces are normal. There is no joint effusion. XR/XR knee RT 4V IMPRESSION: Normal right knee.
--- NOTE | ~2021-08-01 | XR_ITS ---
EXAMINATION: XR HIP, LEFT CLINICAL INFORMATION: Pain COMPARISON: None TECHNIQUE: Two views of the left hip. FINDINGS: Bone alignment is normal. No fracture or dislocation is seen. There are osteophytes at the superior lateral acetabulum. Joint space is otherwise normal. There is an IUD in the pelvis. Soft tissues are otherwise normal. XR/XR hip LT min 2V IMPRESSION: Mild arthritis.
== END 2021-08-01 15:27 | disposition home or self-care (01) ==
LOC: HO.XRAY 15:26
PROVIDERS: PCP Internal Medicine; Visit Provider Nurse Practitioner Women's Health
DX: M25.552 Pain in left hip (principal); M17.11 Unilateral primary osteoarthritis, right knee
CPT/HCPCS: 73502; 73564

== ENCOUNTER → 2021-08-08 14:11 | Outpatient (BNVA) | payer OTHER, SELFPAY | PROVIDERS: PCP Internal Medicine; Visit Provider Anesthesiology | DX: M96.1 Postlaminectomy syndrome, not elsewhere classified (principal); M54.12 Radiculopathy, cervical region; G89.4 Chronic pain syndrome | CPT/HCPCS: 99202 ==

== ENCOUNTER 2021-08-19 07:00 | Outpatient (RCR) | payer OTHER, SELFPAY | END 2021-12-02 14:30 | disposition home or self-care (01) | LOC: HO.PTWFD 07:00 | PROVIDERS: Visit Provider Nurse Practitioner Family | DX: M54.41 Lumbago with sciatica, right side (principal); M54.42 Lumbago with sciatica, left side; G89.29 Other chronic pain | CPT/HCPCS: 97012; 97014; 97110; 97140; 97162; 97535 ==

== ENCOUNTER 2021-09-15 07:49 | Outpatient (REF) | payer OTHER, SELFPAY ==
[2021-09-15 10:40] LABS: HBS Num1 10.44 mIU/mL (0-7.99); HBc Num1 0.11 S/CO (0.00-0.79); HBsAGNum1 0.18 S/CO (0.00-0.99); HIV AB/AG Nonreactive (Nonreactive); HIV Num 1 0.07 S/CO (0.00-0.99); Hepatitis B Core Antibody Nonreactive (Nonreactive); Hepatitis B Surface Antigen Negative (Negative); ~HepC Num1 0.09 S/CO (0.00-0.79); ~Hepatitis C Antibody Nonreactive (Nonreactive)
[2021-09-15 10:53] LABS: Ferritin 68 ng/mL (10-250)
[2021-09-15 11:38] LABS: HBS Num2 10.73 mIU/mL (0-7.99); HBS Num3 10.91 mIU/mL (0-7.99); ~Hepatitis B Surface Antibody GRAYZONE (Nonreactive)
[2021-09-16 07:30] LABS: Hepatitis A Antibody IgM 0.12 Index (0-0.79); ~Hepatitis A Antibody IgM Nonreactive (Nonreactive)
[2021-09-19 12:37] LABS: Alpha Fetoprotein 9.2 ng/mL
[2021-09-21 14:02] LABS: Smooth Muscle Antibody <20 U (<20)
== END 2021-09-15 07:50 | disposition home or self-care (01) ==
LOC: HO.LAB 07:49
PROVIDERS: PCP Internal Medicine; Referring Provider Internal Medicine; Visit Provider Nurse Practitioner
DX: R79.89 Other specified abnormal findings of blood chemistry (principal)
CPT/HCPCS: 36415; 82105; 82728; 86015; 86704; 86706; 86709; 86803; 87340; 87389

== ENCOUNTER 2021-10-06 10:37 | Outpatient (REF) | payer OTHER, SELFPAY ==
--- NOTE | ~2021-10-06 | US_ITS ---
EXAMINATION: US COMPLETE ABDOMEN WITH LIVER ELASTOGRAPHY CLINICAL INFORMATION: Abnormal LFTs. COMPARISON: None. TECHNIQUE: Real-time imaging of the abdominal viscera. Noninvasive ultrasound liver fibrosis assessment is performed using Matthew ElastPQ point quantification shear wave elastography (2D-SWE) with a C5-2 MHz transducer. Multiple elastography samples are obtained. FINDINGS: PANCREAS: The visualized pancreatic head and body are normal in appearance. The remainder of the pancreas is obscured from visualization by the overlying bowel gas. ABDOMINAL AORTA: The proximal, middle, and distal aortic segments are normal in caliber. INFERIOR VENA CAVA: Visualized portions are normal. LIVER: Normal. The liver demonstrates normal size, contour and echogenicity. No focal lesion or intrahepatic biliary duct dilatation. The right lobe measures 14.4 cm in length. The left lobe measures 11.4 cm in length. Portal flow is hepatopedal. Shear wave liver elastography median stiffness is 1.71 m/s (reference: normal median stiffness is 1.3 m/s or less). IQR/median stiffness to assess sampling precision is 0.11 (reference: good quality data set is IQR/median stiffness of 0.15 or less). GALLBLADDER: There are multiple radiopaque gallstones, at least 4, with one of the stones placed in the neck of the gallbladder. No wall thickening seen. No pericholecystic fluid collection. COMMON BILE DUCT: Normal in caliber measuring 0.2 cm in diameter. RIGHT KIDNEY: Normal. No hydronephrosis. No renal calculi or focal parenchymal lesions. The kidney measures 10.6 cm in maximum dimension. LEFT KIDNEY: Normal. No hydronephrosis. No renal calculi or focal parenchymal lesions. The kidney measures 10.9 cm in maximum dimension. SPLEEN: Normal. The spleen measures 11.3 cm in maximum dimension. There is a small accessory splenule measuring 1.4 x 1.6 x 1.7 cm. FREE FLUID: None. US/US abdomen comp w elastography IMPRESSION: 1. Cholelithiasis without wall thickening. One of the stones appears to be in the gallbladder neck. The rest of the abdominal ultrasound is unremarkable. 2. Liver elastography: Median liver stiffness. cACLD ruled out. REFERENCE: Society of Radiologists in Ultrasound Liver Stiffness Thresholds (2020): LIVER STIFFNESS THRESHOLDS: *Liver Stiffness equal or less than 1.3 m/s: High probability of being normal. *Liver Stiffness less than 1.7 m/s: In the absence of other known clinical signs, rules out compensated advanced chronic liver disease. *Liver Stiffness 1.7-2.1 m/s: Suggestive of compensated advanced chronic liver disease but need further test for confirmation. *Liver Stiffness over 2.1 m/s: Rules in compensated advanced chronic liver disease. *Liver Stiffness over 2.4 m/s: Suggestive of clinically significant portal hypertension. QUALITY OF DATA SET: *IQR/Median value equal or less than 0.15 implies a quality data set. *IQR/Median value over 0.15 implies a poor quality data set. SIGNIFICANT CHANGE FROM PRIOR EXAM: Significant change if liver stiffness measurement is 10% or greater from prior exam. OTHER CONSIDERATIONS: The stage of liver fibrosis may be overestimated in the setting of acute hepatitis, liver inflammation, elevated liver function tests, hepatic vascular congestion, obstructive cholestasis, non-fasting state, and infiltrative diseases such as amyloidosis and lymphoma. In some patients with NAFLD, the liver stiffness thresholds for compensated advanced chronic liver disease may be lower. In causes other than viral hepatitis and NAFLD, liver stiffness thresholds are not well established.
== END 2021-10-06 10:38 | disposition home or self-care (01) ==
LOC: HO.US 10:37
PROVIDERS: Visit Provider Nurse Practitioner
DX: R79.89 Other specified abnormal findings of blood chemistry (principal)
CPT/HCPCS: 76705; 76981

== ENCOUNTER 2021-10-11 11:36 | Outpatient (REF) | payer OTHER, SELFPAY ==
[2021-10-11 13:05] LABS: INTERNATIONAL NORM RATIO 1.1 (0.9-1.1); Prothrombin Time 12.6 SEC (9.9-13.0)
[2021-10-11 13:47] LABS: Alanine Aminotransferase 27 U/L (0-31); Alkaline Phosphatase 206 U/L (39-117); Aspartate Amino Transferase 17 U/L (5-31); Bilirubin Direct < 0.2 mg/dL (0.0-0.5); Bilirubin Total 0.3 mg/dL (0.0-1.0); Total Protein 6.8 g/dL (6.5-8.0)
[2021-10-12 09:41] LABS: EBV-VCA IgG Ab >750.00 U/mL; EBV-VCA IgM Ab <36.00 U/mL
[2021-10-12 13:07] LABS: Ceruloplasmin 26 mg/dL (18-53)
[2021-10-12 13:11] LABS: IgA 148 mg/dL (47-310); IgG 1058 mg/dL (600-1640); IgM 89 mg/dL (50-300)
== END 2021-10-11 11:37 | disposition home or self-care (01) ==
LOC: HO.LAB 11:36
PROVIDERS: PCP Internal Medicine; Referring Provider Internal Medicine; Visit Provider Nurse Practitioner
DX: R79.89 Other specified abnormal findings of blood chemistry (principal); K21.9 Gastro-esophageal reflux disease without esophagitis; K80.20 Calculus of gallbladder without cholecystitis without obstruction
CPT/HCPCS: 36415; 80076; 82390; 82784; 85610; 86664; 86665

== ENCOUNTER → 2021-10-21 07:38 | Outpatient (REF) | payer OTHER, SELFPAY ==
--- NOTE | ~2021-10-21 | NM_ITS ---
EXAMINATION: NM BILIARY TRACT WITH ORAL FATTY MEAL CLINICAL INFORMATION: Abnormal findings of blood chemistry, abdominal pain and bloating. COMPARISON: No previous biliary scan is available for comparison. Abdominal ultrasound dated 10/06/2021 is available for comparison. CT scan of the abdomen done pelvis dated 11/21/2019 is also available for comparison. TECHNIQUE: Serial gamma scintillation camera images were obtained over the abdomen for a total observation period of 128 minutes following the intravenous administration of 5 mCi Tc-99m Mebrofenin. FINDINGS: There is good concentration of activity in the liver by 5 minutes post injection. Biliary activity is visualized by 12 minutes. The gallbladder is well visualized by 30 minutes. Small bowel is well visualized by 20 minutes. At 60 minutes post Mebrofenin injection, 8 ounces of Ensure-plus Brand was administered orally and an additional 60 minutes of images were obtained. There is good emptying of the gallbladder following ingestion of the fatty meal. At the end of the study there is good clearance of activity from the liver and visualization of diffuse small bowel activity. The calculated gallbladder ejection fraction is 56% (normal gallbladder ejection fraction using Ensure supplement orally is greater than 33%). NM/NM hepatobiliary wo pharm IMPRESSION: Visualization of the gallbladder is evidence of a patent cystic duct and strong evidence against the diagnosis of acute cholecystitis. The common bile duct is patent. Gallbladder emptying and ejection fraction are normal. Liver function appears normal.
== END ==
LOC: HO.NUCMED 07:38
PROVIDERS: PCP Internal Medicine; Visit Provider Nurse Practitioner
DX: R79.89 Other specified abnormal findings of blood chemistry (principal)
CPT/HCPCS: 78226; A9537

== ENCOUNTER 2021-10-24 09:19 | Day surgery (SDC) | payer OTHER, SELFPAY ==
[2021-10-24] VITALS (7 sets, daily range): BP systolic 115–138; BP diastolic 58–83; PULSE 66–75; RESP 16–18; TEMP 36.1–36.7; O2SAT 98–100; BMI 37.8
--- NOTE | ~2021-10-24 | US_ITS ---
EXAMINATION: US-GUIDED LIVER BIOPSY CLINICAL INFORMATION: Elevated liver function tests. Fatty liver. COMPARISON: Previous abdominal ultrasound most recent September 2021. TECHNIQUE: Procedure and risks and benefits including bleeding and infection were discussed with the patient and informed consent was obtained. The right upper quadrant was prepped and draped in the usual sterile fashion. The skin and soft tissues were anesthetized with 1% lidocaine plain. Using ultrasound guidance and a coaxial system, access to the right lobe of the liver was obtained. Three 20-gauge FNA specimens were obtained. There is no complication. The patient received Versed 1 mg and fentanyl 50 mcg intravenously during the procedure. Total sedation time was 12 minutes. FINDINGS: Liver echotexture is slightly increased. No ascites or hematoma is seen post liver biopsy. US/US biopsy liver IMPRESSION: Ultrasound-guided liver biopsy.
[2021-10-24 10:15] LABS: MANUAL DIFF FLAG NO
[2021-10-24 10:20] LABS: Basophils Percent Auto 0.6 % (0-2); Eosinophils Absolute Auto 0.1 X10*3/uL (0.0-0.4); Eosinophils Percent Auto 0.8 % (0-4); Hematocrit 41.1 % (37.0-47.0); Hemoglobin 13.6 g/dl (12.0-16.0); Imm Gran Abs Auto 0.03 X10*3/uL (0.00-0.03); Imm Gran Pct Auto 0.4 % (0.0-0.4); Lymphocytes Absolute Auto 1.7 X10*3/uL (1.2-4.9); Lymphocytes Percent Auto 24.2 % (20-40); Mean Corpuscular HGB Conc 33.1 g/dl (31.0-35.0); Mean Corpuscular Hemoglobin 29.7 pg (27.0-33.0); Mean Corpuscular Volume 89.7 fL (80.0-98.0); Mean Platelet Volume 10.5 fL (9.4-12.3); Monocytes Absolute Auto 0.6 X10*3/uL (0.1-1.2); Monocytes Percent Auto 8.1 % (2-11); Neutrophils Absolute Auto 4.7 x10*3/uL (2.0-8.3); Neutrophils Percent Auto 65.9 % (45-73); Platelet Count 258 X10*3/uL (160-400); Red Blood Count 4.58 X10*6/uL (4.20-5.50); Red Cell Distribution Width 11.7 % (11.0-16.0); White Blood Count 7.1 X10*3/uL (4.8-10.8)
[2021-10-24 10:28] LABS: INTERNATIONAL NORM RATIO 1.1 (0.9-1.1); Prothrombin Time 12.1 SEC (9.9-13.0)
[2021-10-24] MEDS: Lidocaine HCl 1 % MPF 5 ML VIAL SUBCUT (11:39)
--- NOTE | 2021-10-24 11:42 | HO.RADPN ---
RADIOLOGY Narrative Narrative: Right lobe liver biopsy using coaxial system. 3 20 g core biopsies. No complication.
== END 2021-10-24 13:43 | disposition home or self-care (01) ==
PROVIDERS: Radiology Diagnostic Radiology; PCP Internal Medicine; Visit Provider Nurse Practitioner
DX: R74.8 Abnormal levels of other serum enzymes (principal); K75.81 Nonalcoholic steatohepatitis (NASH); K76.0 Fatty (change of) liver, not elsewhere classified; K80.20 Calculus of gallbladder without cholecystitis without obstruction; K21.9 Gastro-esophageal reflux disease without esophagitis; K58.1 Irritable bowel syndrome with constipation; E66.01 Morbid (severe) obesity due to excess calories; Z68.38 Body mass index [BMI] 38.0-38.9, adult; E78.00 Pure hypercholesterolemia, unspecified; E55.9 Vitamin D deficiency, unspecified; Z79.899 Other long term (current) drug therapy; Z88.8 Allergy status to other drugs, medicaments and biological substances
CPT/HCPCS: 36415; 47000; 76942; 85025; 85610; 85730; 88307; 88313; 99152; J2250; J3010

== ENCOUNTER 2021-12-27 08:13 | Outpatient (REF) | payer OTHER, SELFPAY ==
[2021-12-28 21:12] LABS: Follicle Stimulating Hormone 66.3 mIU/mL
== END 2021-12-27 08:14 | disposition home or self-care (01) ==
LOC: HO.WFDLDS 08:13
PROVIDERS: Visit Provider Advanced Practice Midwife
DX: R23.2 Flushing (principal)
CPT/HCPCS: 36415; 83001

== ENCOUNTER → 2022-01-18 12:46 | Outpatient (BNVA) | payer OTHER, SELFPAY | PROVIDERS: PCP Internal Medicine; Visit Provider Nurse Practitioner | DX: R10.10 Upper abdominal pain, unspecified (principal) | CPT/HCPCS: 99212 ==

== ENCOUNTER 2022-02-02 09:37 | Outpatient (REF) | payer OTHER, SELFPAY ==
--- NOTE | ~2022-02-02 | FL_ITS ---
EXAMINATION: XR UPPER GI SERIES WITH SMALL BOWEL CLINICAL INFORMATION: Upper abdominal pain. COMPARISON: None. TECHNIQUE: Routine upper GI air-contrast study was performed. Plant And Equipment Worker abdominal exam was obtained prior to GI study. FINDINGS: Following oral administration of thick barium and effervescent granules, there is normal propagation bolus from the oral cavity through the pharynx, esophagus into stomach without any evidence of obstruction, narrowing or stricture. On placing patient supine and prone, the course, caliber and peristalsis of the stomach and the duodenum and the duodenal loop is normal. No gastroesophageal reflux or hiatal hernia seen. On sequential images obtained through the small bowel loops, the course and caliber of the small bowel loops is normal. The ileocecal junction and the cecum is normal. Appendix is not seen. Plant And Equipment Worker view of the abdomen reveals scattered stool in the colon. There is an IUD in the pelvis. FLUOROSCOPY TIME: 2.9 minutes DOSE AREA PRODUCT: 59.529 uGy-m2 (microgray-meter squared) FL/FL upper GI small bowel IMPRESSION: Unremarkable upper GI exam and small bowel follow-through. The small bowel transit time is 60 minutes and less.
== END 2022-02-02 09:38 | disposition home or self-care (01) ==
LOC: HO.XRAY 09:37
PROVIDERS: PCP Internal Medicine; Visit Provider Nurse Practitioner
DX: R10.10 Upper abdominal pain, unspecified (principal)
CPT/HCPCS: 74240; 74248

== ENCOUNTER → 2022-02-07 12:37 | Outpatient (BNVA) | payer OTHER, SELFPAY | PROVIDERS: PCP Internal Medicine; Visit Provider Surgery | DX: K80.20 Calculus of gallbladder without cholecystitis without obstruction (principal); K75.81 Nonalcoholic steatohepatitis (NASH); G89.4 Chronic pain syndrome; K59.04 Chronic idiopathic constipation; M96.1 Postlaminectomy syndrome, not elsewhere classified; E66.9 Obesity, unspecified; Z68.41 Body mass index [BMI] 40.0-44.9, adult; K21.9 Gastro-esophageal reflux disease without esophagitis; F41.1 Generalized anxiety disorder | CPT/HCPCS: 99202 ==

== ENCOUNTER → 2022-02-14 08:39 | Outpatient (BNVA) | payer OTHER, SELFPAY | PROVIDERS: PCP Internal Medicine; Visit Provider Orthopaedic Surgery | DX: M65.4 Radial styloid tenosynovitis [de Quervain] (principal); R20.0 Anesthesia of skin | CPT/HCPCS: 20550; 99202; J1100 ==

== ENCOUNTER → 2022-02-15 12:19 | Outpatient (BNVA) | payer OTHER, SELFPAY | PROVIDERS: PCP Internal Medicine; Visit Provider Nurse Practitioner | DX: R10.10 Upper abdominal pain, unspecified (principal); K21.9 Gastro-esophageal reflux disease without esophagitis | CPT/HCPCS: 99212 ==

== ENCOUNTER 2022-03-09 06:51 | Day surgery (SDC) | payer OTHER, SELFPAY ==
[2022-03-03 15:15] VITALS: BMI 40.3
--- NOTE | 2022-03-08 12:06 | HO.ANESPROP2 ---
Documented by User: Angelica Villarreal NP 03/08/22 12:12 HPI - Anesthesia Eval Consult details Narrative: 52yo F for Cholecystectomy Laparoscopic, possible open, possible cholangiogram s/p liver biopsy 10/2021 with [facility] Active Problems Active Problems: All Active Problems (Updated 02/15/22 @ 14:03 by DEUCE Desai) Status post rotator cuff repair (Acute) Cervical radiculopathy (Acute) Degenerative lumbar disc (Acute) Spondylosis (Acute) Obesity (BMI 30-39.9) (Acute) Folic acid deficiency (Acute) Gallstones (Acute) Annual physical exam (Acute) LUCERO (nonalcoholic steatohepatitis) (Acute) Generalized anxiety disorder (Acute) Thumb tendonitis (Acute) Upper abdominal pain (Acute) De Quervain's tenosynovitis, right (Acute) Numbness of right hand (Acute) Chronic pain syndrome (Acute) Postlaminectomy syndrome of lumbar region (Acute) Fibroids (Acute) GERD (gastroesophageal reflux disease) (Acute) Hypercholesterolemia (Acute) Hypothyroid (Acute) Past Medical History Medical History Alkaline phosphatase elevation Allergic rhinitis Ankle swelling Annual physical exam Anxiety Arthritis Chronic idiopathic constipation Chronic low back pain with bilateral sciatica Chronic pain syndrome Elevated LFTs Encounter for annual routine gynecological examination Encounter to discuss test results Fatty liver Fibroids Folic acid deficiency Gallbladder disease GERD (gastroesophageal reflux disease) Hematuria Hot flashes Hypercholesterolemia Hypothyroid Irritable bowel syndrome with constipation Knee pain, left Lumbar back pain Lumbar degenerative disc disease Lumbar radicular pain Migraine Obesity Pain in right axilla Palpitations Pelvic pain in female Peripheral vascular disease Postlaminectomy syndrome of lumbar region Right arm numbness Rotator cuff tear, right Shoulder pain Vitamin D deficiency Family History Family History Mother Cancer Heart disease Brain cancer Aortic aneurysm Father Heart problem Maternal Grandfather Lung cancer Paternal Aunt Lung cancer Maternal Aunt Heart disease Sister Substance abuse Maternal Uncle Substance abuse Maternal Grandmother Brain cancer Surgical History Surgical History H/O colonoscopy H/O rotator cuff surgery History of bladder surgery History of liver biopsy History of lumbar discectomy History of tonsillectomy Hx of dilation and curettage Social History Social History Housing: House Are you a primary career orientation teacher to a significant other at home: No Do you presently have visiting nurse or other home services: No Alcohol intake: never Patient Tobacco Use Status: Never used Tobacco e-Cigarette/Vaping Use: Never Used Second Hand Smoke Exposure: No Use of substances other than those prescribed or required for medical reasons: No Are you DNR?: No Advance Directives: No Advance Directives Information Provided: Yes Patient : No service: No Current occupational status: employed 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 Current occupational exposures/hazards: No Cognitive needs: No Hearing needs: No Vision needs: No Meds Allergies Allergy/AdvReac Type Severity Reaction Status Date / Time oxycodone [Percocet] Allergy Severe rash Verified 03/09/22 07:49 Home Medications Medication Instructions Recorded Confirmed Last Taken Type omeprazole magnesium 20 mg 20 mg PO DAILY 04/29/20 03/03/22 Unknown History tablet,delayed release (Prilosec OTC) levonorgestrel 20 mcg/24 hours (8 1 device intrauterine ONCE 12/22/21 03/03/22 Unknown History yrs) 52 mg intrauterine device (Mirena) cholecalciferol (vitamin D3) 25 25 mcg PO DAILY 01/18/22 03/03/22 Unknown History mcg (1,000 unit) capsule Exam Exam Date and Time: March 08, 2022 1206 Height,Weight and Vital Signs: Height 5 ft 1 in Weight 96.785 kg Pertinent Lab Results Pertinent Lab Results: Laboratory Tests 10/24/21 10:11 WBC 7.1 Hgb 13.6 Hct 41.1 Plt Count 258 Laboratory Tests 10/24/21 10:11 PT 12.1 INR 1.1 APTT 35.0 Laboratory Tests 10/11/21 10/11/21 12:42 12:42 Total Bilirubin 0.3 Direct Bilirubin < 0.2 AST 17 ALT 27 Alkaline Phosphatase 206 H Total Protein 6.8 Albumin 4.0 Ceruloplasmin 26 Assessment and Plan Assessment Anesthesia Assessment: Chart Reviewed Documented by User: Jenny Wharton MD 03/09/22 09:17 [facility] Past Medical History Medical History Alkaline phosphatase elevation Allergic rhinitis Ankle swelling Annual physical exam Anxiety Arthritis Chronic idiopathic constipation Chronic low back pain with bilateral sciatica Chronic pain syndrome Elevated LFTs Encounter for annual routine gynecological examination Encounter to discuss test results Fatty liver Fibroids Folic acid deficiency Gallbladder disease GERD (gastroesophageal reflux disease) Hematuria Hot flashes Hypercholesterolemia Hypothyroid Irritable bowel syndrome with constipation Knee pain, left Lumbar back pain Lumbar degenerative disc disease Lumbar radicular pain Migraine Obesity Pain in right axilla Palpitations Pelvic pain in female Peripheral vascular disease Postlaminectomy syndrome of lumbar region Right arm numbness Rotator cuff tear, right Shoulder pain Vitamin D deficiency Functional capacity: independent ambulation Patient : No Family History Family History Mother Cancer Heart disease Brain cancer Aortic aneurysm Father Heart problem Maternal Grandfather Lung cancer Paternal Aunt Lung cancer Maternal Aunt Heart disease Sister Substance abuse Maternal Uncle Substance abuse Maternal Grandmother Brain cancer Family history of problems with anesthesia: No Surgical History Surgical History H/O colonoscopy H/O rotator cuff surgery History of bladder surgery History of liver biopsy History of lumbar discectomy History of tonsillectomy Hx of dilation and curettage History of Problems with Anesthesia: No Social History Social History Housing: House Are you a primary career orientation teacher to a significant other at home: No Do you presently have visiting nurse or other home services: No Alcohol intake: never Patient Tobacco Use Status: Never used Tobacco e-Cigarette/Vaping Use: Never Used Second Hand Smoke Exposure: No Use of substances other than those prescribed or required for medical reasons: No Are you DNR?: No Advance Directives: No Advance Directives Information Provided: Yes Patient : No service: No Current occupational status: employed 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 Current occupational exposures/hazards: No Cognitive needs: No Hearing needs: No Vision needs: No Meds Allergies Allergy/AdvReac Type Severity Reaction Status Date / Time oxycodone [Percocet] Allergy Severe rash Verified 03/09/22 07:49 Home Medications Medication Instructions Recorded Confirmed Last Taken Type omeprazole magnesium 20 mg 20 mg PO DAILY 04/29/20 03/03/22 Unknown History tablet,delayed release (Prilosec OTC) levonorgestrel 20 mcg/24 hours (8 1 device intrauterine ONCE 12/22/21 03/03/22 Unknown History yrs) 52 mg intrauterine device (Mirena) cholecalciferol (vitamin D3) 25 25 mcg PO DAILY 01/18/22 03/03/22 Unknown History mcg (1,000 unit) capsule Exam Airway Mallampati Class: III TM Dist: >3cm Neck ROM: Full Denture: Upper Heart: RRR Lungs: CTA Assessment and Plan Final Anesthetic Review Family History of Problems with Anesthesia: No History of Problems with Anesthesia: No ASA Class: II Final Preanesthetic Review: No Changes in Pt Med Stat, Meds/Allgs Chart Reviewed, Consent Obtained/Reviewed and Anes Risks/Benef Reviewed Patient Risk: Intermediate Procedure Risk: Intermediate Anesthetic Plan Anesthetic Plan: GA Disposition: Standard PACU
[2022-03-09] VITALS (10 sets, daily range): BP systolic 120–157; BP diastolic 71–85; PULSE 76–94; RESP 14–16; TEMP 36.6–37.2; O2SAT 95–98
[2022-03-09] MEDS: Lactated Ringers 1,000 ML 100 ML IVCONT (08:10)
[2022-03-09 08:16] LABS: Anion Gap 14 (12-20); Blood Urea Nitrogen 12 mg/dL (9-16); Calcium 9.4 mg/dL (8.4-10.2); Carbon Dioxide 26 mmol/L (22-29); Chloride 107 mmol/L (96-108); Creatinine Clr Calc Pharmacy 101.2; Estimated Glomerular Filt Rate > 60; Glucose Fasting 106 mg/dL (60-99); Sodium 143 mmol/L (135-145)
--- NOTE | 2022-03-09 08:29 | MHC.SHP ---
Pre-Procedural Eval Section A Date of Service: 03/09/22 The patient is an INPATIENT: No The History & Physical has been completed within 30 days and I have reviewed it.: Yes Section B Chief Complaint: Calculus of gallbladder without cholecystitis with Allergies: Allergies Allergy/AdvReac Type Severity Reaction Status Date / Time oxycodone [Percocet] Allergy Severe rash Verified 03/09/22 07:49 Plan I have reviewed the history and physical and performed a pertinent physical examination on my patient. No changes have occurred unless specified.
--- NOTE | 2022-03-09 08:29 | W.PM.OPN ---
Operative Note Operative Note Date of Service: 03/09/22 Narrative: Preop diagnosis: [Biliary colic] Postop diagnosis: [Same and] Procedure: [Laparoscopic cholecystectomy] Surgeon: Shamar Borjas MD Assist: [Lilli Storm PA-C] Anesthesia: [GET] Estimated blood loss: [10 cc] Specimen: [Gallbladder with contents] Intraoperative findings: [Cystic duct: 4-5 mm; cystic artery 2-3 mm. Critical view of safety demonstrated. Adhesions from the omentum to the neck and mid gallbladder requiring lysis of adhesions were noted] Indications: [The patient is a 52-year-old woman who is experienced several episodes of biliary colic, has a recent ultrasound demonstrating gallstones, when prior ultrasound did not demonstrate anything other than LUCERO. Interventional radiology biopsy of her liver confirms LUCERO.. She also has a history of chronic constipation and is followed in GI clinic for what sounds like irritable bowel syndrome with constipation features. We discussed the fact that some of her symptoms and like chronic calculous cholecystitis and her normal ejection fraction from HIDA scan did not reproduce symptoms, however she was interested in proceeding with cholecystectomy because the symptoms are progressing and impacting her ability to care for her . I explained the symptoms of biliary colic and recommended laparoscopic cholecystectomy. I reviewed the option of continued observation and 2nd opinion which was declined. I also reviewed the inherent risks to surgery which include, but are not limited to: Bleeding that could require another operation or blood transfusion, the need for open surgery, the unlikely but possible issue of bile leak that could require an ERCP, the risk of retained common duct stones that could require an ERCP, the risk of common bile duct injury which would require transfer to a larger institution for another operation. Patient seemed to understand her options, declined a gis physical scientist or 2nd opinion and wants to proceed. Instructions regarding diet and activity reviewed and apparently understood. The patient is advised to avoid rich fatty foods postoperatively to avoid GI distress/diarrhea and advised to not lift more than 20 lb for medical reasons to minimize the risk of hernia postoperatively. I recommended that she discuss these restrictions with her employer and that she is not disabled during this time frame but can perform light duty. The patient's questions seemed to be satisfactorily answered. The fact that some of her GI complaints including constipation or GI distress may not improve and may actually worsen was also discussed with the patient and understood.] Procedure: [The patient was identified in the preoperative holding area and again in a were room 3. She voided her urinary bladder phototypesetting equipment monitor, received Ancef, 2 g IV, sequential compression stockings were in place and she was placed supine on the table.The patient was identified in preoperative holding and again in the operating room and placed supine on the table. The patient voided bladder phototypesetting equipment monitor, sequential compression stockings were in place, subcu heparin had been administered and antibiotics per protocol were given. The patient was induced in general endotracheal anesthesia administered with excellent effect. An appropriate time-out was performed. A footboard was utilized. The patient's abdomen was widely prepped and draped in the usual manner for surgery using chlorhexidine. Preemptive local was used at all trocar insertion sites. At the supraumbilical location, after infiltrating local, a stab incision was made and placed a Veress needle without difficulty. An appropriate drop test was performed and a pneumoperitoneum of 15 mmHg was obtained using carbon dioxide. opening pressure was 7 mmHg. Next, the needle was withdrawn and a 5 mm/30 degree laparoscoped over Optiview trocar was used to access the abdomen without incident. Upon examining the abdomen, there was no evidence of injury from the Veress needle or trocar. Next, 5 mm trocars were placed in the epigastric, subcostal and right anterior axillary line just above the line of the umbilicus. Under direct laparoscopic vision, the 5 mm umbilical port was upsized to a 12 mm. The patient was then positioned in reverse Trendelenburg position and banked left. The gallbladder was clearly identified and grasped by its fundus. Adhesions from the omentum to the mid gallbladder and down to the neck were noted in required careful lysis of adhesions using sparing electrocautery on a setting of 25 w. The gallbladder was retracted cranially and anteriorly and dissection began in the cystic triangle. The cystic duct was identified at its junction on the gallbladder and dissection began laterally, then circumferentially dissected using the [place] dissector and hook. The cystic artery was then carefully identified and circumferentially dissected. Once dissection of both structures was complete and the critical view of safety demonstrated, the duct and artery were double clipped proximally and once distally and sharply divided. Electrocautery was used to remove the gallbladder from its fossa on the liver. Liver bed was inspected for hemostasis and the clips were noted to be on the respective structures. The gallbladder was placed in an Endo-Catch bag and delivered through the umbilicus under direct laparoscopic vision. The abdomen was again inspected with the laparoscoped and a abdomen deflated to assess for hemostasis. The patient was returned to neutral position, the abdomen deflated and the fascia of the supraumbilical incision closed with interrupted Vicryl sutures. Skin was closed with 4-0 Monocryl subcuticular sutures. Mastisol and Steri-Strips were applied followed by Band-Aids. The patient tolerated the procedure well and was extubated recovered in stable condition. All sponge instrument counts were correct. At the patient's request I called her , Mc, at [phone]. There was no answer, so a message was left noting that the operation went well and that staff would be in touch.
[2022-03-09 09:00] LABS: COVID-19 Test Negative (Negative); IDNOW Serial# 16C4AD1C
[2022-03-09] MEDS: fentaNYL citrate/PF 100 MCG/2 ML VIAL 25 MCG IVPUSH ×3 (10:19→10:34)
== END 2022-03-09 12:05 | disposition home or self-care (01) ==
PROVIDERS: Nurse Practitioner; PCP Internal Medicine; Visit Provider Surgery
PROC: 0FT44ZZ Resection of Gallbladder, Percutaneous Endoscopic Approach (ICD-10-PCS; CPT 47562; principal; 2022-03-09 08:40)
DX: K80.10 Calculus of gallbladder with chronic cholecystitis without obstruction (principal); K82.8 Other specified diseases of gallbladder; K75.81 Nonalcoholic steatohepatitis (NASH); K58.1 Irritable bowel syndrome with constipation; K21.9 Gastro-esophageal reflux disease without esophagitis; M54.42 Lumbago with sciatica, left side; M54.41 Lumbago with sciatica, right side; G89.4 Chronic pain syndrome; M96.1 Postlaminectomy syndrome, not elsewhere classified; I73.9 Peripheral vascular disease, unspecified; E55.9 Vitamin D deficiency, unspecified; E66.9 Obesity, unspecified; Z68.41 Body mass index [BMI] 40.0-44.9, adult; F41.1 Generalized anxiety disorder; Z79.899 Other long term (current) drug therapy; Z88.8 Allergy status to other drugs, medicaments and biological substances; Z20.822 Contact with and (suspected) exposure to COVID-19
CPT/HCPCS: 47562; 36415; 80048; 87635; 88304; C9088; J0131; J0690; J1100; J1885; J2250; J2405; J2795; J3010

== ENCOUNTER 2022-04-04 14:32 | Outpatient (REF) | payer OTHER, SELFPAY ==
--- NOTE | ~2022-04-04 | MM_ITS ---
EXAMINATION: MM SCREENING DIGITAL BREAST TOMOSYNTHESIS, BILATERAL CLINICAL INFORMATION: Screening. Asymptomatic. The lifetime risk of breast cancer based on the Tyrer-Cuzick Model is 15%. COMPARISON: Mammography: 03/15/2021, 12/19/2019, 08/02/2018 TECHNIQUE: Digital breast tomosynthesis is performed in both the craniocaudal and mediolateral oblique views along with computer-aided detection (CAD). Synthesized 2D images are generated from the tomosynthesis. FINDINGS: There are scattered areas of fibroglandular density (ACR BI-RADS breast composition Category b). There are no significant masses, abnormal calcifications, or other abnormalities. Parenchymal pattern is similar to prior studies. There is stable nodule central outer left breast. No developing density. The axilla and skin contours are unremarkable. MM/MM tomosynthesis screening BI IMPRESSION: No mammographic evidence of malignancy. ASSESSMENT: BI-RADS 2: Benign RECOMMENDATION: Routine annual mammography screening. This patient's information was entered into a reminder system with a target due date for their next mammogram.
[2022-04-04 16:35] LABS: Alanine Aminotransferase 64 U/L (0-31); Albumin Level 4.4 g/dL (3.5-5.0); Alkaline Phosphatase 196 U/L (39-117); Anion Gap 14 (12-20); Aspartate Amino Transferase 37 U/L (5-31); Bilirubin Total 0.7 mg/dL (0.0-1.0); Blood Urea Nitrogen 9 mg/dL (9-16); Calcium 9.8 mg/dL (8.4-10.2); Carbon Dioxide 25 mmol/L (22-29); Chloride 107 mmol/L (96-108); Cholesterol 225 mg/dL; Estimated Glomerular Filt Rate > 60; Free T4 (Free Thyroxine) 1.28 ng/dL (0.71-1.85); Glucose Random 88 mg/dL (60-115); HDL Cholesterol 35 mg/dL; LDL Cholesterol Calculated 164 mg/dl; Potassium 3.9 mmol/L (3.3-5.1); Sodium 142 mmol/L (135-145); Thyroid Stimulating Hormone 0.93 uIU/mL (0.32-4.0); Total Protein 7.1 g/dL (6.5-8.0); Triglycerides 131 mg/dL
== END 2022-04-04 14:33 | disposition home or self-care (01) ==
LOC: HO.MAMMO 14:32
PROVIDERS: PCP Internal Medicine; Visit Provider Internal Medicine
DX: Z12.31 Encounter for screening mammogram for malignant neoplasm of breast (principal); E03.9 Hypothyroidism, unspecified; E78.00 Pure hypercholesterolemia, unspecified
CPT/HCPCS: 36415; 77063; 77067; 80053; 80061; 84439; 84443

== ENCOUNTER 2022-07-24 12:48 | Outpatient (REF) | payer OTHER, SELFPAY ==
[2022-07-24 14:50] LABS: Alanine Aminotransferase 62 U/L (0-31); Albumin Level 4.3 g/dL (3.5-5.0); Alkaline Phosphatase 203 U/L (39-117); Anion Gap 12 (12-20); Aspartate Amino Transferase 34 U/L (5-31); Bilirubin Total 0.9 mg/dL (0.0-1.0); Blood Urea Nitrogen 7 mg/dL (9-16); Calcium 9.6 mg/dL (8.4-10.2); Carbon Dioxide 27 mmol/L (22-29); Chloride 107 mmol/L (96-108); Cholesterol 164 mg/dL; Estimated Glomerular Filt Rate > 60; Glucose Random 83 mg/dL (60-115); HDL Cholesterol 35 mg/dL; LDL Cholesterol Calculated 113 mg/dl; Potassium 4.2 mmol/L (3.3-5.1); Sodium 142 mmol/L (135-145); Total Protein 6.6 g/dL (6.5-8.0); Triglycerides 82 mg/dL
== END 2022-07-24 12:49 | disposition home or self-care (01) ==
LOC: HO.WFDLDS 12:48
PROVIDERS: Visit Provider Internal Medicine
DX: E78.00 Pure hypercholesterolemia, unspecified (principal)
CPT/HCPCS: 36415; 80053; 80061

== ENCOUNTER 2022-08-21 08:00 | Outpatient (RCR) | payer OTHER, SELFPAY | END 2023-06-19 12:06 | disposition home or self-care (01) | LOC: HO.PTWFD 08:00 | PROVIDERS: PCP Internal Medicine; Visit Provider Neurological Surgery | DX: Z98.890 Other specified postprocedural states (principal) | CPT/HCPCS: 97110; 97140; 97150; 97163; 97530; 97535 ==

== ENCOUNTER → 2022-12-06 10:16 | Outpatient (REF) | payer OTHER, SELFPAY ==
--- NOTE | 2022-12-06 10:19 | HM_ITS ---
* Total monitoring time 3 days. * Underlying rhythm is sinus. Average ventricular rate 70/Min. Range 50 to 112/Min. * Rare supraventricular ectopy with minimal burden. * Rare ventricular ectopy. One run of 5 beats. Monomorphic. * No significant pauses or AV blocks. * One patient marker, associated with sinus rhythm. MTDD
== END ==
LOC: HO.CARD 10:16
PROVIDERS: PCP Internal Medicine; Visit Provider Internal Medicine
DX: R00.2 Palpitations (principal)
CPT/HCPCS: 93242

== ENCOUNTER → 2022-12-06 10:19 | Outpatient (BNV) | payer OTHER, SELFPAY | PROVIDERS: PCP Internal Medicine; Visit Provider Internal Medicine | DX: I47.1 Supraventricular tachycardia (principal) | CPT/HCPCS: 93244 ==

== ENCOUNTER → 2023-01-10 12:54 | Outpatient (REF) | payer OTHER, SELFPAY ==
[2023-01-10 13:09] LABS: MANUAL DIFF FLAG NO
[2023-01-10 13:37] LABS: Basophils Absolute Auto 0.1 X10*3/uL (0.0-0.2); Basophils Percent Auto 0.6 % (0-2); Eosinophils Absolute Auto 0.1 X10*3/uL (0.0-0.4); Eosinophils Percent Auto 1.5 % (0-4); Hematocrit 41.5 % (37.0-47.0); Imm Gran Abs Auto 0.03 X10*3/uL (0.00-0.03); Imm Gran Pct Auto 0.4 % (0.0-0.4); Lymphocytes Absolute Auto 2.2 X10*3/uL (1.2-4.9); Lymphocytes Percent Auto 28.7 % (20-40); Mean Corpuscular HGB Conc 33.7 g/dl (31.0-35.0); Mean Corpuscular Volume 89.1 fL (80.0-98.0); Mean Platelet Volume 10.6 fL (9.4-12.3); Monocytes Absolute Auto 0.6 X10*3/uL (0.1-1.2); Monocytes Percent Auto 8.2 % (2-11); Neutrophils Absolute Auto 4.7 x10*3/uL (2.0-8.3); Neutrophils Percent Auto 60.6 % (45-73); Platelet Count 282 X10*3/uL (160-400); Red Blood Count 4.66 X10*6/uL (4.20-5.50); Red Cell Distribution Width 11.7 % (11.0-16.0); White Blood Count 7.8 X10*3/uL (4.8-10.8)
[2023-01-10 14:33] LABS: Alanine Aminotransferase 43 U/L (0-31); Albumin Level 4.4 g/dL (3.5-5.0); Alkaline Phosphatase 209 U/L (39-117); Anion Gap 12 (12-20); Aspartate Amino Transferase 26 U/L (5-31); Bilirubin Total 0.7 mg/dL (0.0-1.0); Blood Urea Nitrogen 7 mg/dL (9-16); Carbon Dioxide 27 mmol/L (22-29); Chloride 107 mmol/L (96-108); Cholesterol 203 mg/dL (<200); Estimated Glomerular Filt Rate > 60; Glucose Random 89 mg/dL (60-115); HDL Cholesterol 36 mg/dL (>40); LDL Cholesterol Calculated 145 mg/dL (<100); Potassium 3.5 mmol/L (3.3-5.1); Sodium 142 mmol/L (135-145); Total Protein 7.3 g/dL (6.5-8.0); Triglycerides 110 mg/dL (<150)
[2023-01-10 14:39] LABS: Thyroid Stimulating Hormone 2.87 uIU/mL (0.32-4.0); Vitamin D 25-OH Total 22.9 ng/mL (>30)
[2023-01-10 14:54] LABS: Vitamin B12 985 pg/mL (200-900)
== END ==
LOC: HO.SL 12:54
PROVIDERS: PCP Internal Medicine; Visit Provider Internal Medicine
DX: G47.10 Hypersomnia, unspecified (principal); R06.83 Snoring; R00.2 Palpitations; E78.00 Pure hypercholesterolemia, unspecified; E55.9 Vitamin D deficiency, unspecified
CPT/HCPCS: 36415; 80053; 80061; 82306; 82607; 82746; 84439; 84443; 85025; 95806

== ENCOUNTER → 2023-01-10 13:17 | Outpatient (BNV) | payer OTHER, SELFPAY | PROVIDERS: PCP Internal Medicine; Visit Provider Internal Medicine | DX: R06.83 Snoring (principal) | CPT/HCPCS: 95806 ==

== ENCOUNTER 2023-02-02 15:59 | Outpatient (AMB) | payer OTHER, SELFPAY ==
[2023-02-02 16:09] VITALS: BP 124/58; PULSE 67; O2SAT 100; BMI 42.3
--- NOTE | 2023-02-02 16:09 | MHC.PC.OV ---
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 [employer] Distribution: Not Required per policy Accompanied by: Self / Same As Patient Allergies oxycodone [Percocet] Allergy (Severe, Verified 02/02/23 16:09) rash Medication List - Last Reconciled 02/02/23 by Calin Marx MD cholecalciferol (vitamin D3) 25 mcg PO DAILY clotrimazole 1% 1 appl topical BID 4 weeks compress.stocking,knee,reg,lrg As directed 20-30 mm HG folic acid 1 mg PO DAILY 90 days levonorgestrel (Mirena) 1 device intrauterine ONCE levothyroxine 100 mcg PO QAM miconazole nitrate 2% (Zeasorb AF) 1 appl topical DAILY omeprazole magnesium (Prilosec OTC) 20 mg PO DAILY simvastatin 10 mg PO DAILY 90 days Tobacco use date assessed: 08/03/22 Dental Screening Dental Screen Date: 02/02/23 Did you have a dental visit in the last 12 months?: No Did you have a dental problem in the last 6 months where you did not have access to dental care?: Yes Was dental information given to patient?: Patient has dentist HPI PHYSICAL HPI Details 52-year-old obese female with fatty liver hypothyroid hypercholesterolemia GERD coming in for physical exam last seen in October 2022. Patient has lumbar disc herniation also has had surgery done May 2022. Mammogram is due March and colonoscopy is up-to-date. Patient had a sleep study 01/10/2023 for hypersomnia negative for sleep apnea. With the palpitations Holter monitor was done sinus rhythm average of 70 rare ventricular ectopy. [facility] Medical History Hot flashes Encounter for annual routine gynecological examination Chronic idiopathic constipation Elevated LFTs Chronic pain syndrome Postlaminectomy syndrome of lumbar region Folic acid deficiency Chronic low back pain with bilateral sciatica Pelvic pain in female Fibroids Encounter to discuss test results Palpitations Alkaline phosphatase elevation Annual physical exam Ankle swelling Arthritis Rotator cuff tear, right Shoulder pain Lumbar back pain Knee pain, left Pain in right axilla Right arm numbness Hematuria Peripheral vascular disease Lumbar radicular pain Fatty liver Gallbladder disease Anxiety Irritable bowel syndrome with constipation Hypercholesterolemia Obesity GERD (gastroesophageal reflux disease) Lumbar degenerative disc disease Vitamin D deficiency Migraine Allergic rhinitis Hypothyroid Surgical History History of liver biopsy Gallstones H/O colonoscopy H/O rotator cuff surgery History of bladder surgery History of tonsillectomy Hx of dilation and curettage History of lumbar discectomy Family History (Updated 02/02/23 @ 16:33 by Calin Marx MD) Mother Cancer Heart disease Brain cancer Aortic aneurysm Father Heart problem Maternal Grandfather Lung cancer Paternal Aunt Lung cancer Maternal Aunt Heart disease Sister Substance abuse Maternal Uncle Substance abuse Heart problem Maternal Grandmother Brain cancer Social History Housing: House Are you a primary pediatric care coordinator to a significant other at home: No Do you presently have visiting nurse or other home services: No Alcohol intake: never Patient Tobacco Use Status: Never used Tobacco e-Cigarette/Vaping Use: Never Used Second Hand Smoke Exposure: No service: No Current occupational status: employed 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 1. Little interest or pleasure in doing things: nearly every day 2. Feeling down, depressed, or hopeless: nearly every day 3. Trouble falling or staying asleep, or sleeping too much: nearly every day 4. Feeling tired or having little energy: nearly every day 5. Poor appetite or overeating: nearly every day 6. Feeling bad about yourself - or that you are a failure or have let yourself or your family down: nearly every day 7. Trouble concentrating on things, such as reading the newspaper or watching television: nearly every day 8. Moving or speaking so slowly that other people could have noticed. Or the opposite - being so fidgety or restless that you have been moving around a lot more than usual: nearly every day 9. Thoughts that you would be better off or of hurting yourself in some way: nearly every day Total score: 27 Depression Screening Interpretation: Positive Source: Developed by Drs. Hector Hou, Monica Torres, Reynaldo Medley and colleagues, with an educational bernard from [employer]. Thrive Questionnaire Date Thrive assessed: 08/03/22 AUDIT C Alcohol Use Questionnaire (AUDIT-C) 1. How often do you have a drink containing alcohol?: Never Total Score: 0 CAROLE-7 AMB Questionnaire CAROLE-7 Date CAROLE - 7 assessed: 08/03/22 Source: Developed by Drs. Hector Hou, Monica Torres, Reynaldo Medley and colleagues, with an educational bernard from [employer]. Review of Systems Const Denies poor appetite and Denies weakness Eyes Denies no additional complaints ENT Reports Normal hearing present, Denies dizziness, Denies nasal congestion, Denies tinnitus and Denies sore throat Card Denies chest pain, Denies syncope, Denies rapid heart rate and Denies dyspnea Resp Denies cough and Denies dyspnea GI Denies change in stool character, Reports constipation, Denies diarrhea, Denies nausea and Denies vomiting Denies urinary frequency, Denies difficulty voiding and Denies dysuria Neuro Reports Normal hearing present, Denies confusion, Denies dizziness, Denies syncope and Denies weakness Psych Denies confusion Physical exam (Primary Care) Vital Signs: Last Vital Signs Pulse 67 02/02/23 16:09 BP 124/58 L 02/02/23 16:09 Pulse Ox 100 02/02/23 16:09 Oxygen Delivery Method Room Air 02/02/23 16:09 BMI result Body Mass Index 42.3 Tobacco/Smoking Status: Tobacco use Status Tobacco use date assessed 08/03/22 02/02/23 16:13 Patient Tobacco Use Status Never used Tobacco 02/02/23 16:13 e-Cigarette/Vaping Use Never Used 02/02/23 16:13 PHQ-9: PHQ-9 Score PHQ-9: Total score 27 02/02/23 16:13 Depression Screening Interpretation: Positive Thrive Assessment: Date of Thrive Assessment Date Thrive assessed 08/03/22 02/02/23 16:13 Const General: No confusion Orientation/consciousness: No confusion HENMT Head: Yes normocephalic Ears: external ears normal and TM's normal bilaterally Face and sinus: Yes normal facial exam Mouth: moist mucous membranes Throat: Yes tonsils normal Eyes Conjunctivae: conjunctivae normal Pupils: Equal, round and reactive pupils present and Pupil accommodation reflex normal Direct Ophthalmoscopy: normal light reflex Neck Neck: No lymphadenopathy Thyroid: Thyroid normal Chest Chest palpation & inspection: normal inspection of the chest Resp Effort & Inspection: normal respiratory effort and no audible wheezes Auscultation: clear to auscultation bilaterally, no crackles, no wheezes and lung sounds not diminished Cardio Rate: regular rate Rhythm: regular rhythm Peripheral pulses: radial pulses present and dorsalis pedis present GI Palpation (GI): no masses Auscultation: normal bowel sounds and normoactive bowel sounds Rectal Exam - Female: deferred Skin General skin exam: no rashes or lesions noted Rashes: no rashes Neuro General: No confusion Cranial nerves: Yes Equal, round and reactive pupils present and Yes Normal hearing present Cognition (Neuro): normal cognition Gait exam (Neuro): Normal gait present Motor exam (neuro): 5/5 motor strength present throughout Deep tendon reflexes (DTR's): Right brachioradialis reflex intensity grade: 2+, Left brachioradialis reflex intensity grade: 2+, Right patellar reflex intensity grade: 2+ and Left patellar reflex intensity grade: 2+ Extrem General: No edema Assessment and Plan Assessment & Plan (1) Annual physical exam: Code(s): Z00.00 - Encounter for general adult medical examination without abnormal findings (2) LUCERO (nonalcoholic steatohepatitis): Code(s): K75.81 - Nonalcoholic steatohepatitis (LUCERO) Plan: Low-fat diet and exercise. patient needs to lose weight (3) Obesity (BMI 30-39.9): Code(s): E66.9 - Obesity, unspecified Plan: Diet and exercise (4) Generalized anxiety disorder: Code(s): F41.1 - Generalized anxiety disorder (5) Hypothyroid: Code(s): E03.9 - Hypothyroidism, unspecified Qualifiers: Hypothyroidism type: acquired Qualified Code(s): E03.9 - Hypothyroidism, unspecified Plan: Continue with thyroid medication (6) GERD (gastroesophageal reflux disease): Code(s): K21.9 - Gastro-esophageal reflux disease without esophagitis Qualifiers: Esophagitis presence: without esophagitis Qualified Code(s): K21.9 - Gastro-esophageal reflux disease without esophagitis Plan: Avoid the foods that causes that usually spicy foods, tomato products, juices, coffee, soda and foods that your sensitive to. After eating do not lie down, allow 3-4 hours before in lie down. And keep the head of bed above 30 degrees to avoid the acid from going up. (7) Hypercholesterolemia: Code(s): E78.00 - Pure hypercholesterolemia, unspecified Plan: Avoid fried foods, chicken skin, eggs, butter margarine, pastries and meat. Be it pork or beef they have a lot of cholesterol LDL goal of less than 130 and triglyceride of less than 150. Patient is on simvastatin 10 mg (8) Lumbar disc herniation: Comment: L4-L5 May 2022Jan2022 bilateral decompression with left-sided complete facetectomy and pars ectomy L4-L5 left transforaminal an annulotomy, diskectomy with bilateral [address] Robertson Code(s): M51.26 - Other intervertebral disc displacement, lumbar region (9) Hearing difficulty: Code(s): H91.90 - Unspecified hearing loss, unspecified ear (10) Urinary incontinence: Code(s): R32 - Unspecified urinary incontinence Orders: Orders US renal BI Today R32 - Unspecified urinary incontinence Lipid Panel 3 Months E78.00 - Pure hypercholesterolemia, unspecified Comprehensive Met. Panel 3 Months E78.00 - Pure hypercholesterolemia, unspecified PT Evaluation and Treatment Today M96.1 - Postlaminectomy syndrome, not elsewhere classified US bladder Today R32 - Unspecified urinary incontinence Referrals Speech and Hearing Referral H91.90 - Unspecified hearing loss, unspecified ear Coding Level of Care Code Est Pt Prev Care 40-64y(10757) Diagnoses Annual physical exam Z00.00 LUCERO (nonalcoholic steatohepatitis) K75.81 Obesity (BMI 30-39.9) E66.9 Generalized anxiety disorder F41.1 Acquired hypothyroidism E03.9 Hypothyroidism type: acquired Gastroesophageal reflux disease without esophagitis K21.9 Esophagitis presence: without esophagitis Hypercholesterolemia E78.00 Lumbar disc herniation M51.26 Hearing difficulty H91.90 Urinary incontinence R32 Additional Codes PHQ-9 - 46617 - PHQ-9 Billing: ([id number])
== END 2023-02-02 16:55 | disposition home or self-care (01) ==
PROVIDERS: PCP Internal Medicine; Visit Provider Internal Medicine
DX: Z00.00 Encounter for general adult medical examination without abnormal findings (principal); E03.9 Hypothyroidism, unspecified; E66.01 Morbid (severe) obesity due to excess calories; Z68.41 Body mass index [BMI] 40.0-44.9, adult; K75.81 Nonalcoholic steatohepatitis (NASH); F41.1 Generalized anxiety disorder; E78.00 Pure hypercholesterolemia, unspecified; M51.26 Other intervertebral disc displacement, lumbar region; H91.90 Unspecified hearing loss, unspecified ear; R32 Unspecified urinary incontinence
CPT/HCPCS: 99396

== ENCOUNTER 2023-02-16 12:23 | Outpatient (REF) | payer OTHER, SELFPAY ==
--- NOTE | ~2023-02-16 | US_ITS ---
EXAMINATION: US RETROPERITONEAL COMPLETE (RENAL) CLINICAL INFORMATION: Unspecified urinary incontinence. COMPARISON: Ultrasound abdomen complete with the elastography 10/06/2021. Ultrasound abdomen complete 03/04/2020. CT abdomen and pelvis 11/21/2019. TECHNIQUE: Real-time imaging of the kidneys and bladder. FINDINGS: RIGHT KIDNEY: 11.4 x 5.1 x 5.0 cm (SAG x AP x TRV). The kidney is normal in size, contour, and echogenicity. Renal cortical thickness is normal. No calculi or focal parenchymal lesions. No hydronephrosis. LEFT KIDNEY: 11.0 x 4.8 x 5.4 cm (SAG x AP x TRV). The kidney is normal in size, contour, and echogenicity. Renal cortical thickness is normal. No calculi or focal parenchymal lesions. No hydronephrosis. BLADDER: Well distended and normal. Bilateral ureteral jets are demonstrated. Prevoid bladder volume is 204 mL. Postvoid bladder volume is 4 mL. US/US retroperitoneal comp IMPRESSION: Unremarkable examination.
== END 2023-02-16 12:24 | disposition home or self-care (01) ==
LOC: HO.US 12:23
PROVIDERS: PCP Internal Medicine; Visit Provider Internal Medicine
DX: R32 Unspecified urinary incontinence (principal)
CPT/HCPCS: 76770

== ENCOUNTER 2023-03-07 07:38 | Outpatient (AMB) | payer OTHER, SELFPAY ==
--- NOTE | 2023-03-07 08:01 | A.OFFVIS_ITS ---
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 Scribed for ANDRIA Brandt by Myrna Read medical assistant float, on 03/07/2023 EST. Dietetics Teacher Required: No Information Interpreted: non-clinical & clinical Health Unit Supervisor: Health Unit Supervisor Present (Aidyn) Allergies oxycodone [Percocet] Allergy (Severe, Verified 03/07/23 09:07) rash Is last menstrual period known: No Post menopausal: Yes HPI HPI Comments History of Present Illness Details She is a postmenopausal woman presenting for annual exam. Patient admits she tries to eat a healthy diet including Calcium and Vitamin D. She does not stay active with exercise. Admits hot flashes. Currently not sexually active. Uses Mirena and is doing well. Denies vaginal itching and irritation. Denies family hx of breast, colon and ovarian cancer. Last pap smear 12/20/20. Last mammogram 04/04/22. UTD on colonoscopy. FOR[facility]LY [facility], [facility]–1983 Medical History Hot flashes Encounter for annual routine gynecological examination Chronic idiopathic constipation Elevated LFTs Chronic pain syndrome Postlaminectomy syndrome of lumbar region Folic acid deficiency Chronic low back pain with bilateral sciatica Pelvic pain in female Fibroids Encounter to discuss test results Palpitations Alkaline phosphatase elevation Annual physical exam Ankle swelling Arthritis Rotator cuff tear, right Shoulder pain Lumbar back pain Knee pain, left Pain in right axilla Right arm numbness Hematuria Peripheral vascular disease Lumbar radicular pain Fatty liver Gallbladder disease Anxiety Irritable bowel syndrome with constipation Hypercholesterolemia Obesity GERD (gastroesophageal reflux disease) Lumbar degenerative disc disease Vitamin D deficiency Migraine Allergic rhinitis Hypothyroid Surgical History History of liver biopsy Gallstones H/O colonoscopy H/O rotator cuff surgery History of bladder surgery History of tonsillectomy Hx of dilation and curettage History of lumbar discectomy Family History Mother Cancer Heart disease Brain cancer Aortic aneurysm Father Heart problem Maternal Grandfather Lung cancer Paternal Aunt Lung cancer Maternal Aunt Heart disease Sister Substance abuse Maternal Uncle Substance abuse Heart problem Maternal Grandmother Brain cancer Social History Housing: House Are you a primary urgent care nurse practitioner to a significant other at home: No Do you presently have visiting nurse or other home services: No Alcohol intake: never Patient Tobacco Use Status: Never used Tobacco e-Cigarette/Vaping Use: Never Used Second Hand Smoke Exposure: No service: No Current occupational status: employed 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 Current occupational exposures/hazards: No Cognitive needs: No Hearing needs: No Vision needs: Yes Female Reproductive History Menstrual Age of Menarche: 11 control method: progestin IUCD (Mirena; IUD strings visible 03/07/23.) Total pregnancies: 3 Ab spontaneous: 3 Date of last pap smear: 12/20/20 (negative) Date of Mammogram: 04/04/22 Physical Exam Vital Signs: Last Vital Signs BP 120/76 03/07/23 08:09 BMI result Body Mass Index 42.5 Const General: cooperative, healthy appearing, no acute distress, well developed and alert Orientation/consciousness: patient oriented x3 HEENT Head: Yes normal to inspection Eyes General: appearance normal, both eyes and all related structures Neck Neck: Yes normal visual inspection Thyroid: Thyroid normal Chest Chest palpation & inspection: normal inspection of the chest Breast/axilla inspection: normal inspection of the breasts (no puckering, dimpling, peau de orange, retraction, discharge, masses) Breast/axilla palpation: normal palpation of the breasts Resp Effort & Inspection: normal respiratory effort GI Inspection: Yes normal to inspection Palpation (GI): Soft to palpation (to palpation) Rectal Exam - Female: deferred General: Yes bladder normal to inspection External Female Exam: normal external appearance and normal appearance of the urethra Speculum Exam - Vagina: normal appearance of the vagina, normal palpation and normal vaginal discharge Speculum Exam - Cervix: normal appearance of the cervix, normal palpation and Other cervical findings present (IUD strings visible) Bimanual exam- vagina & uterus: normal palpation and normal palpation Bimanual Exam- Adnexa, other: normal adnexae and no masses Skin General skin exam: no rashes or lesions noted Neuro General: patient oriented x3 Cognition (Neuro): normal cognition Extrem General: Yes normal to inspection Psych Attitude: cooperative Thought process: Normal thought process present Assessment & Plan Assessment & Plan (1) Encounter for well woman exam: Code(s): Z01.419 - Encounter for gynecological examination (general) (routine) without abnormal findings Plan: Discussed: Current recommendations for pap smears per ASCCP guidelines. Breast awareness and periodic self breast exams. Encouraged yearly mammograms. Maintaining a healthy lifestyle including a well balanced diet including Calcium and Vitamin D and routine exercise. All of her questions and concerns were addressed to the best of my ability. RTO in 1 year for AG. (2) Hot flashes: Code(s): R23.2 - [place] Plan: Lab work ordered. Pending results, follow up yearly for level, consider IUD removal when FSH level is sustained or if there is any other CI to continued IUD use sooner. Orders: Orders Follicle Stimulating Hormone Today R23.2 - [place] Coding Level of Care Code Est Pt Prev Care 40-64y(69881) Diagnoses Encounter for well woman exam Z01.419 Hot flashes R23.2
[2023-03-07 08:09] VITALS: BP 120/76; BMI 42.5
== END 2023-03-07 08:27 | disposition home or self-care (01) ==
PROVIDERS: PCP Internal Medicine; Visit Provider Advanced Practice Midwife
DX: Z01.419 Encounter for gynecological examination (general) (routine) without abnormal findings (principal); R23.2 Flushing
CPT/HCPCS: 99396

== ENCOUNTER → 2023-03-07 07:38 | Outpatient (BNVA) | payer OTHER, SELFPAY | PROVIDERS: PCP Internal Medicine; Visit Provider Advanced Practice Midwife ==

== ENCOUNTER 2023-03-07 08:36 | Outpatient (AMB) | payer OTHER, SELFPAY ==
[2023-03-07 08:41] VITALS: BP 130/84; PULSE 67; O2SAT 99; BMI 42.3
--- NOTE | 2023-03-07 08:41 | MHC.PC.OV ---
Vital Signs 03/07/23 08:41 Height 5 ft 1 in Weight 224 lb 0.4 oz BMI 42.3 BP 130/84 Blood Pressure Location Lt brachial Position Sitting Pulse 67 Pulse Source Pulse Oximeter Temp Source Skin Pulse Oximetry (%) 99 Oxygen Delivery Method Room Air Intake Visit Reasons: Right Arm Hard To Lift Intake Note: pt states right arm X1 week Allergies oxycodone [Percocet] Allergy (Severe, Verified 03/07/23 09:07) rash Medication List - Last Reconciled 03/07/23 by CAM Casanova cholecalciferol (vitamin D3) 25 mcg PO DAILY compress.stocking,knee,reg,lrg As directed 20-30 mm HG folic acid 1 mg PO DAILY 90 days levonorgestrel (Mirena) 1 device intrauterine ONCE levothyroxine 100 mcg PO QAM omeprazole magnesium (Prilosec OTC) 20 mg PO DAILY simvastatin 10 mg PO DAILY 90 days Tobacco use date assessed: 03/07/23 HPI Right Arm Hard To Lift HPI Details Patient is a 53-year-old female who presents today for office visit due to right elbow pain that radiates down to her fingers. Patient of Dr. Marx. Medical history significant for hypothyroid, hypercholesterolemia, GERD, numbness of right hand, chronic pain syndrome among others. Patient denies any right elbow injury. Patient reports hard time to lift things with her right hand. Reports intermittent tingling in her right hand fingers. Reports taking ibuprofen 400 mg with no much improvement. Reports that pain is worse at night. Pain presently 5/10 scale and slightly worse with range of motion. [facility] Medical History Hot flashes Encounter for annual routine gynecological examination Chronic idiopathic constipation Elevated LFTs Chronic pain syndrome Postlaminectomy syndrome of lumbar region Folic acid deficiency Chronic low back pain with bilateral sciatica Pelvic pain in female Fibroids Encounter to discuss test results Palpitations Alkaline phosphatase elevation Annual physical exam Ankle swelling Arthritis Rotator cuff tear, right Shoulder pain Lumbar back pain Knee pain, left Pain in right axilla Right arm numbness Hematuria Peripheral vascular disease Lumbar radicular pain Fatty liver Gallbladder disease Anxiety Irritable bowel syndrome with constipation Hypercholesterolemia Obesity GERD (gastroesophageal reflux disease) Lumbar degenerative disc disease Vitamin D deficiency Migraine Allergic rhinitis Hypothyroid Surgical History History of liver biopsy Gallstones H/O colonoscopy H/O rotator cuff surgery History of bladder surgery History of tonsillectomy Hx of dilation and curettage History of lumbar discectomy Family History Mother Cancer Heart disease Brain cancer Aortic aneurysm Father Heart problem Maternal Grandfather Lung cancer Paternal Aunt Lung cancer Maternal Aunt Heart disease Sister Substance abuse Maternal Uncle Substance abuse Heart problem Maternal Grandmother Brain cancer Social History Housing: House Are you a primary critical care clinical nurse specialist to a significant other at home: No Do you presently have visiting nurse or other home services: No Alcohol intake: never Patient Tobacco Use Status: Never used Tobacco e-Cigarette/Vaping Use: Never Used Second Hand Smoke Exposure: No service: No Current occupational status: employed 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 How often do you have a drink containing alcohol?: Never Total Score: 0 Score Reviewed/Action Taken: No CAROLE-7 AMB Questionnaire CAROLE-7 Date CAROLE - 7 assessed: 08/03/22 Source: Developed by Drs. Hector Hou, Monica Torres, Reynaldo Medley and colleagues, with an educational bernard from [employer]. Review of Systems Const Denies body aches, Denies chills, Denies fever(s) and Denies headache(s) ENT Denies dizziness, Denies otalgia, Denies headache(s), Denies nasal discharge, Denies sinus pain and Denies sore throat Card Denies chest pain, Denies edema, Denies lightheadedness and Denies dyspnea Resp Denies cough, Denies dyspnea and Denies wheezing GI Denies abdominal pain and Denies nausea Musc Reports as per HPI, Denies myalgias, Reports arthralgias and Reports tingling Skin/Breast Denies rash Neuro Denies dizziness, Denies headache(s) and Reports tingling Aller/Immun Denies wheezing Physical exam (Primary Care) Vital Signs: Last Vital Signs Pulse 67 03/07/23 08:41 BP 130/84 03/07/23 08:41 Pulse Ox 99 03/07/23 08:41 Oxygen Delivery Method Room Air 03/07/23 08:41 BMI result Body Mass Index 42.3 Tobacco/Smoking Status: Tobacco use Status Tobacco use date assessed 03/07/23 03/07/23 08:47 Patient Tobacco Use Status Never used Tobacco 03/07/23 08:42 e-Cigarette/Vaping Use Never Used 03/07/23 08:42 Thrive Assessment: Date of Thrive Assessment Date Thrive assessed 08/03/22 03/07/23 08:42 Const General: cooperative and no acute distress Orientation/consciousness: patient oriented x3 HENMT Head: Yes normocephalic and Yes atraumatic Throat: Yes posterior oropharynx normal Eyes General: appearance normal, both eyes and all related structures Neck Neck: Yes normal visual inspection and Yes full ROM Resp Effort & Inspection: normal respiratory effort and able to speak in complete sentences Auscultation: clear to auscultation bilaterally, no crackles, no rales, no rhonchi and no wheezes Cardio Rate: regular rate Rhythm: regular rhythm Heart sounds: S1 normal heart sound present and S2 normal heart sound present GI Auscultation: normal bowel sounds Skin General skin exam: no rashes or lesions noted Neuro General: patient oriented x3 Gait exam (Neuro): Normal gait present Motor exam (neuro): 5/5 motor strength present throughout Extrem Other: Right hand negative Phalen's and Tinel's General: Yes full ROM and No edema Right upper extremity: elbow/forearm Details: normal to inspection, tenderness (Lateral anterior aspect), abnormal ROM (Mild pain with range of motion) and distal pulses intact; no swelling, no unusual warmth, no ecchymosis and no crepitus Assessment and Plan Assessment & Plan (1) Right elbow pain: Code(s): M25.521 - Pain in right elbow Plan: Suspect lateral epicondylitis - will treat with ibuprofen 600 mg every 8 hours as needed, will provide patient with cyclobenzaprine b.i.d. p.r.n.-educated about drowsiness. Will refer to occupational therapy. Patient can also try heat/cold packs p.r.n.. Follow-up if no improvement after OT. Patient agreed with the plan. Orders: Orders OT Evaluation and Treatment Today M25.521 - Pain in right elbow Medications: New ibuprofen 600 mg PO Q8H PRN 30 tabs 0RF pain M25.521 - Pain in right elbow cyclobenzaprine 5 mg PO BID PRN 14 tabs 0RF muscle spasm M25.521 - Pain in right elbow Coding Level of Care Code Est Pt Level 3 (55553) Diagnoses Right elbow pain M25.521
== END 2023-03-07 09:18 | disposition home or self-care (01) ==
PROVIDERS: PCP Internal Medicine; Visit Provider Nurse Practitioner Family
DX: M25.521 Pain in right elbow (principal)
CPT/HCPCS: 99213

== ENCOUNTER 2023-04-10 15:40 | Outpatient (REF) | payer OTHER, SELFPAY ==
--- NOTE | ~2023-04-10 | MM_ITS ---
EXAMINATION: MM SCREENING DIGITAL BREAST TOMOSYNTHESIS, BILATERAL CLINICAL INFORMATION: Screening. Asymptomatic. COMPARISON: Mammography: 04/04/2022, 03/15/2021, 12/19/2019, 08/02/2018 TECHNIQUE: Digital breast tomosynthesis is performed in both the craniocaudal and mediolateral oblique views along with computer-aided detection (CAD). Synthesized 2D images are generated from the tomosynthesis. FINDINGS: There are scattered areas of fibroglandular density (ACR BI-RADS breast composition Category b). There are no suspicious masses, suspicious grouped calcifications, or areas of architectural distortion in either breast. The parenchymal pattern is stable from prior exams. There is stable nodule central outer left breast. No developing density. The axilla and skin contours are unremarkable. MM/MM tomosynthesis screening BI IMPRESSION: No mammographic evidence of malignancy. ASSESSMENT: BI-RADS BI-RADS 2 - Benign Findings RECOMMENDATION: Routine annual mammography screening. 1 year F/U This examination should not preclude the clinical evaluation of a suspicious palpable abnormality. This patient's information was entered into a reminder system with a target due date for their next mammogram.
== END 2023-04-10 15:41 | disposition home or self-care (01) ==
LOC: HO.MAMMO 15:40
PROVIDERS: PCP Internal Medicine; Visit Provider Internal Medicine
DX: Z12.31 Encounter for screening mammogram for malignant neoplasm of breast (principal)
CPT/HCPCS: 77063; 77067

== ENCOUNTER → 2023-04-10 16:00 | Outpatient (BNV) | payer OTHER, SELFPAY | PROVIDERS: PCP Internal Medicine; Visit Provider Radiology Diagnostic Radiology | DX: Z12.31 Encounter for screening mammogram for malignant neoplasm of breast (principal) | CPT/HCPCS: 77063; 77067 ==

== ENCOUNTER 2023-04-24 15:00 | Outpatient (RCR) | payer OTHER, SELFPAY ==
--- NOTE | 2023-03-27 15:25 | MHC.OT.EP ---
[address] [phone] Occupational Therapy Plan of Care Patient Name: Jose Harris Date of Evaluation: 03/27/23 Diagnosis: Right elbow pain Pain Location: Resting ache/discomfort 3/10 Sharp shooting pain w/ heavier use or poor positioning, radiates to hand Pain Score: 3 Pain Scale Used: Numeric (0 - 10) Aggravating Factors: Heavy use, sleep position Alleviating Factors: Ibuprofen 600 mg, ice packs works in the moment Assessment: 53 yo female presents w/ right elbow pain, worsening over the past few months. No specific trauma noted, but having more difficulty w/ daily activities and requested PCP assessment, now w/ referral to OT. On assessment, pt noted pain in elbow and dorsal forearm that radiates down to her hand w/ numbness and tingling worsening at nighttime. She has good range and sensation, but decreased gross grasp and even moreso w/ elbow extended. Pt w/ tenderness to palpate over dorsal forearm and increased pain/tingling w/ prolonged elbow flex test. Symptoms consistent w/ lateral epicondylitis/radial extensor overuse injury. She will benefit from cont'd therapy to address activity modification, joint protection, pain/inflammation management and progression of functional strength. Frequency and Duration: The patient will be seen 2x/wk for 4 weeks Short Term Goals: Ind w/ nighttime position modification to reduce numbness/tingling symptoms Ind w/ activity modification to reduce outstretched reaching/use Good follow through w/ initiation of HEP and Mill's stretch Animal Rides Manager Goals: Pain free right elbow/forearm Gross grasp >40lb w/ zero to minimal pain Pt to report ease w/ moderate lifting tasks in home (cooking, cleaning, assisting , etc) Ind w/ progression of isometric strengthening exercises Treatment Plan: Therapeutic Exercise Therapeutic Activity Home Exercise Program Splinting Patient Education ADL Training Ultrasound Iontophoresis MHP Cold Packs Soft Tissue Mobilization Kinesiotaping Dexamethasone Nighttime resting wrist orthosis PRN Electronically Signed By: Shannan Williamson OTR/L CHT Please Sign and return to therapist. Thank you once again for your referral.
--- NOTE | 2023-04-26 13:53 | MHC.OT.DC ---
[address] [phone] F: [phone] Occupational Therapy Discharge Note Patient Name: Jose Harris Provider: CAM Casanova Diagnosis: Right elbow pain Date of Evaluation: 03/27/23 Date of Discharge: 04/26/23 Treatments to Date: 5 Discharge Status: Recommend MD Follow-up Discharge Summary: Jose was referred to OT w/ right lateral epicondylitis, likely resulting from overuse w/ home activities. We have trialed course of occupational therapy w/ thermal/cold modalities, stretching, counter force brace wear, joint protection, soft tissue massage and mobilization and iontophoresis w/ dexamethasone. 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 Pain continues to be exacerbated w/ heavy work and unable to progress past stretches for lat epi program. She has good understanding of home program to this point, but may benefit from referral to orthopedics if unable to implement changes in her daily routine. Electronically Signed By: RAVEN Martin/[place] RICHEY Reviewed/agree with student documentation: Therapist: RAVEN Martin/[place] RICHEY Please Sign and return to therapist, thank you for your referral.
== END 2023-04-26 13:54 | disposition home or self-care (01) ==
LOC: HO.OT 15:00
PROVIDERS: PCP Internal Medicine; Visit Provider Nurse Practitioner Family
DX: M25.521 Pain in right elbow (principal)
CPT/HCPCS: 29125; 97033; 97035; 97140; 97165; 97535; 97760

== ENCOUNTER 2023-05-26 09:15 | Outpatient (REF) | payer OTHER, SELFPAY ==
[2023-05-28 18:19] LABS: Follicle Stimulating Hormone 77.9 mIU/mL
== END 2023-05-26 09:16 | disposition home or self-care (01) ==
LOC: HO.LAB 09:15
PROVIDERS: Absent Provider Internal Medicine; PCP Internal Medicine; Visit Provider Advanced Practice Midwife
DX: R23.2 Flushing (principal); E78.00 Pure hypercholesterolemia, unspecified
CPT/HCPCS: 36415; 80053; 80061; 83001

== ENCOUNTER 2023-06-12 13:18 | Outpatient (AMB) | payer OTHER, SELFPAY ==
--- NOTE | 2023-06-12 13:32 | A.OFFVIS_ITS ---
Intake Intake Visit Reasons: New Prob- Right tennis elbow Intake Note: Jose is a 53 year old right hand dominant female who presents today for a evaluation of her right elbow pain. Patient reports off and on pain for a couple months. Patient is taking ibuprofen which is giving her mild relief. Hx of PT with no relief. Patient states that her pain is focused on her elbow, however it radiates up to her bicep causing her to have a burning sensation. Having numbness and tingling at night in her whole arm. Allergies oxycodone [Percocet] Allergy (Severe, Verified 06/12/23 13:35) rash HPI New Prob- Right tennis elbow HPI Details 53-year-old female who presents in the [facility] today for an evaluation of right elbow pain. The patient was seen by her PCP on 03/07/2023 where she reported difficulty lifting and radiating pain from her right elbow to her right hand. She was referred to occupational therapy, which she did attend, but found no relief. While in the office today the patient reports intermittent pain for a few months. She states she has been taking Ibuprofen with mild relief. She reports her pain is mainly in her right elbow and states it radiates up to her bicep with a burning sensation. She confirms numbness and tingling through out the entire upper extremity at night. She reports the elbow pain radiates down towards the hand and occasionally towards the bicep area to the shoulder when she raises her arm above her head. She reports feeling a pulling sensation in the shoulder. [facility] Medical History Hot flashes Encounter for annual routine gynecological examination Chronic idiopathic constipation Elevated LFTs Chronic pain syndrome Postlaminectomy syndrome of lumbar region Folic acid deficiency Chronic low back pain with bilateral sciatica Pelvic pain in female Fibroids Encounter to discuss test results Palpitations Alkaline phosphatase elevation Annual physical exam Ankle swelling Arthritis Rotator cuff tear, right Shoulder pain Lumbar back pain Knee pain, left Pain in right axilla Right arm numbness Hematuria Peripheral vascular disease Lumbar radicular pain Fatty liver Gallbladder disease Anxiety Irritable bowel syndrome with constipation Hypercholesterolemia Obesity GERD (gastroesophageal reflux disease) Lumbar degenerative disc disease Vitamin D deficiency Migraine Allergic rhinitis Hypothyroid Surgical History History of liver biopsy Gallstones H/O colonoscopy H/O rotator cuff surgery History of bladder surgery History of tonsillectomy Hx of dilation and curettage History of lumbar discectomy Family History Mother Cancer Heart disease Brain cancer Aortic aneurysm Father Heart problem Maternal Grandfather Lung cancer Paternal Aunt Lung cancer Maternal Aunt Heart disease Sister Substance abuse Maternal Uncle Substance abuse Heart problem Maternal Grandmother Brain cancer Social History Housing: House Are you a primary critical care rn to a significant other at home: No Do you presently have visiting nurse or other home services: No Alcohol intake: never Patient Tobacco Use Status: Never used Tobacco e-Cigarette/Vaping Use: Never Used Second Hand Smoke Exposure: No service: No Current occupational status: employed 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 Current occupational exposures/hazards: No Cognitive needs: No Hearing needs: No Vision needs: Yes Female Reproductive History Menstrual Age of Menarche: 11 Review of Systems Const All systems reviewed & are unremarkable except as noted in HPI and below Physical Exam Const General: cooperative and no acute distress Orientation/consciousness: patient oriented x3 Resp Effort & Inspection: normal respiratory effort and able to speak in complete sentences Cardio Peripheral pulses: Peripheral pulses 2+ throughout Skin General skin exam: no rashes or lesions noted Neuro General: patient oriented x3 Extrem Other: Right elbow: Normal to inspection. No ecchymosis, erythema, or edema. No tenderness to palpation over the olecranon. No tenderness to the medial. Pain reported at the lateral epicondyle, this is not reproducible. NVI. Right hand: Normal to inspection. No ecchymosis, erythema, or edema. Able to perform full finger flexion, extension, abduction, adduction, finger cross, okay sign, and thumbs up without deficit. Able to make a closed fist. Sensation intact. Capillary refill is brisk. Radial pulse intact. Right shoulder: Full shoulder ROM. Pain is unchanged with head rotation, flexion, or extension. Assessment & Plan Assessment & Plan (1) Cervical radiculopathy: Code(s): M54.12 - Radiculopathy, cervical region Plan Ms. Harris is a 53-year-old female who presents in the office today for an evaluation of right elbow pain. The patient was seen by her PCP on 03/07/2023 where she reported difficulty lifting and radiating pain from her right elbow to her right hand. She was referred to occupational therapy, which she did attend, but found no relief. While in the office today the patient reports intermittent pain for a few months. She states she has been taking Ibuprofen with mild relief. She reports her pain is mainly in her right elbow and states it radiates up to her bicep with a burning sensation. She confirms numbness and tingling through out the entire upper extremity at night. She reports the elbow pain radiates down towards the hand and occasionally towa rds the bicep area to the shoulder when she raises her arm above her head. She reports feeling a pulling sensation in the shoulder. Due to the patient reporting total right upper extremity numbness and tingling at night I have ordered an EMG study. The patient had an EMG in 07/2020 but states her current symptoms are completely different from the symptoms she was having in 2020. Follow up will be after the EMG is obtained, or sooner if needed. EMG of the right upper extremity, obtained on 07/29/2020, revealed: Unremarkable study with no evidence of entrapment neuropathy or radiculopathy. Orders: Orders NE electromyogram (EMG) Today M25.521 - Pain in right elbow Patient Instructions: Scribed for Shelbie Hare PA-C by Diana Roger medical unit secretary, on 06/12/2023 at 1:26 pm, EST. Coding Level of Care Code Est Pt Level 3 (68317) Diagnoses Cervical radiculopathy M54.12
== END 2023-06-12 13:46 | disposition home or self-care (01) ==
PROVIDERS: PCP Internal Medicine; Visit Provider Physician Assistant
DX: M54.12 Radiculopathy, cervical region (principal)
CPT/HCPCS: 99213

== ENCOUNTER → 2023-06-12 13:18 | Outpatient (BNVA) | payer OTHER, SELFPAY | PROVIDERS: PCP Internal Medicine; Visit Provider Physician Assistant ==

== ENCOUNTER 2023-06-26 15:59 | Outpatient (AMB) | payer OTHER, SELFPAY ==
[2023-06-26 15:59] VITALS: BP 128/82; PULSE 63; O2SAT 100; BMI 41.8
--- NOTE | 2023-06-26 15:59 | A.OFFPC_ITS ---
Vital Signs 06/26/23 15:59 Height 5 ft 1 in Weight 221 lb 0.2 oz BMI 41.8 BP 128/82 Blood Pressure Location Lt brachial Position Sitting Pulse 63 Pulse Source Pulse Oximeter Pulse Oximetry (%) 100 Oxygen Delivery Method Room Air Intake Visit Reasons: Bilateral Ear Pain Reserve Operator Required: No Allergies oxycodone [Percocet] Allergy (Severe, Verified 06/26/23 16:04) rash Tobacco use date assessed: 06/26/23 Dental Screening Dental Screen Date: 06/26/23 HPI Bilateral Ear Pain HPI Details 53-year-old obese female with LUCERO gener alized anxiety disorder hypothyroidism GERD hypercholesterolemia coming in for an acute problem. Complaining of bilateral ear pain. hearing piercing sound bilateral for: Months now. No vomiting no fevers no cough does have morning allergies of sneezing and stuffiness prompting for consultation. [facility] Medical History Hot flashes Encounter for annual routine gynecological examination Chronic idiopathic constipation Elevated LFTs Chronic pain syndrome Postlaminectomy syndrome of lumbar region Folic acid deficiency Chronic low back pain with bilateral sciatica Pelvic pain in female Fibroids Encounter to discuss test results Palpitations Alkaline phosphatase elevation Annual physical exam Ankle swelling Arthritis Rotator cuff tear, right Shoulder pain Lumbar back pain Knee pain, left Pain in right axilla Right arm numbness Hematuria Peripheral vascular disease Lumbar radicular pain Fatty liver Gallbladder disease Anxiety Irritable bowel syndrome with constipation Hypercholesterolemia Obesity GERD (gastroesophageal reflux disease) Lumbar degenerative disc disease Vitamin D deficiency Migraine Allergic rhinitis Hypothyroid Surgical History History of liver biopsy Gallstones H/O colonoscopy H/O rotator cuff surgery History of bladder surgery History of tonsillectomy Hx of dilation and curettage History of lumbar discectomy Family History Mother Cancer Heart disease Brain cancer Aortic aneurysm Father Heart problem Maternal Grandfather Lung cancer Paternal Aunt Lung cancer Maternal Aunt Heart disease Sister Substance abuse Maternal Uncle Substance abuse Heart problem Maternal Grandmother Brain cancer Social History Housing: House Are you a primary geriatric personal care aide to a significant other at home: No Do you presently have visiting nurse or other home services: No Alcohol intake: never Patient Tobacco Use Status: Never used Tobacco e-Cigarette/Vaping Use: Never Used Second Hand Smoke Exposure: No service: No Current occupational status: employed 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 Current occupational exposures/hazards: No Cognitive needs: No Hearing needs: No Vision needs: Yes Female Reproductive History Menstrual Age of Menarche: 11 Questionnaire Thrive Questionnaire Date Thrive assessed: 06/26/23 I am a: Patient What is your living situation today?: I have a steady place to live Within the past 12 months, did the food you bought not last and you didn't have the money to get more?: Never true Within the past 12 months, did you worry whether your food would run out before you got money to buy more?: Never true Do you have trouble paying for medicines?: No Do you have trouble getting transportation to medical appointments?: No Do you have trouble paying your heating and electricity bill?: No Do you have trouble taking care of your child, family member or friend?: No Do you have trouble with day-to-day activities such as bathing, preparing meals, shopping, managing finances, etc.?: No Are you currently unemployed and looking for a job?: No Are you interested in more education?: No Please select the resources that you would like help with: None THRIVE Score: 0 AUDIT C Alcohol Use Questionnaire (AUDIT-C) 1. How often do you have a drink containing alcohol?: Never Total Score: 0 Score Reviewed/Action Taken: No CAROLE-7 AMB Questionnaire CAROLE-7 Date CAROLE - 7 assessed: 06/26/23 Source: Developed by Drs. Hector Hou, Monica Torres, Reynaldo Medley and colleagues, with an educational bernard from [employer]. Physical exam (Primary Care) Vital Signs: Last Vital Signs Pulse 63 06/26/23 15:59 BP 128/82 06/26/23 15:59 Pulse Ox 100 06/26/23 15:59 Oxygen Delivery Method Room Air 06/26/23 15:59 BMI result Body Mass Index 41.8 Tobacco/Smoking Status: Tobacco use Status Tobacco use date assessed 06/26/23 06/26/23 16:01 Patient Tobacco Use Status Never used Tobacco 06/26/23 16:01 e-Cigarette/Vaping Use Never Used 06/26/23 16:01 Thrive Assessment: Date of Thrive Assessment Date Thrive assessed 06/26/23 06/26/23 16:01 Const Other: NOTED bilateral perforated TM Assessment and Plan Assessment & Plan (1) Otitis media: Code(s): H66.90 - Otitis media, unspecified, unspecified ear Plan: antibiotic sent and if not better - call and will refer to ENT Medications: New amoxicillin-pot clavulanate 875-125 mg 1 tab PO BID 14 tabs 0RF H66.90 - Otitis media, unspecified, unspecified ear Coding Level of Care Code Est Pt Level 3 (46872) Diagnoses Otitis media H66.90
== END 2023-06-26 16:37 | disposition home or self-care (01) ==
PROVIDERS: PCP Internal Medicine; Visit Provider Internal Medicine
DX: H66.90 Otitis media, unspecified, unspecified ear (principal)
CPT/HCPCS: 99213

== ENCOUNTER 2023-07-19 13:01 | Outpatient (REF) | payer OTHER, SELFPAY ==
--- NOTE | 2023-07-19 13:44 | EMG_ITS ---
Chief complaint: Right elbow pain, numbness in fingers Reason for referral: Evaluate for Carpal Tunnel Syndrome versus ulnar neuropathy Referred by: Shelbie DALTON Procedure done: Right upper extremity NCS/EMG Precautions and/or limitations: None The limb temperature was monitored continuously and remained between 32-36 degrees C during the performance of the NCS. Nerve Conduction Studies Anti Sensory Summary Table ?Stim Site NR Onset (ms) Norm Onset (ms) Peak (ms) Norm Peak (ms) O-P Amp (?V) Norm O-P Amp Site1 Site2 Delta-0 (ms) Dist (cm) Teo (m/s) Norm Teo (m/s) Right Median Anti Sensory (2nd Digit) Wrist ? 3.0 3.6 <3.6 73.8 >10 Wrist 2nd Digit 3.0 14.0 47 Right Ulnar Anti Sensory (5th Digit) Wrist ? 2.7 3.3 <3.7 19.3 >15.0 Wrist 5th Digit 2.7 14.0 52 Motor Summary Table ?Stim Site NR Onset (ms) Norm Onset (ms) O-P Amp (mV) Norm O-P Amp iAmp (mV) Amp (1st) (%) Site1 Site2 Delta-0 (ms) Dist (cm) Teo (m/s) Norm Teo (m/s) Right Median Motor (Abd Poll Brev) Wrist ? 3.3 <3.9 12.5 >4.5 13.7 100.0 Elbow Wrist 3.5 20.0 57 >45 Elbow ? 6.8 12.5 13.6 100.0 Right Ulnar Motor (Abd Dig Minimi) Wrist ? 2.8 <3.0 8.5 >5 10.6 100.0 B Elbow Wrist 3.0 17.0 57 >45 B Elbow ? 5.8 7.9 10.1 92.9 A Elbow B Elbow 1.1 10.0 91 >45 A Elbow ? 6.9 8.0 10.2 94.1 Comparison Summary Table ?Stim Site NR Peak (ms) Norm Peak (ms) P-T Amp (?V) Site1 Site2 Delta-P (ms) Norm Delta (ms) Right Median/Radial Dig I Comparison (Digit 1 - 10cm) Median ? 2.8 <2.9 135.7 Median Radial 0.3 Radial ? 2.5 <2.8 43.7 EMG ?Side Muscle Nerve Root Ins Act Fibs Psw Amp Dur Poly Recrt Int Pat Comment Right 1stDorInt Ulnar C8-T1 Nml Nml Nml Nml Nml 0 Nml Complete Right FlexCarRad Median C6-7 Nml Nml Nml Nml Nml 0 Nml Complete Right Biceps Musculocut C5-6 Nml Nml Nml Nml Nml 0 Nml Complete Right Triceps Radial C6-7-8 Nml Nml Nml Nml Nml 0 Nml Complete Right Deltoid Axillary C5-6 Nml Nml Nml Nml Nml 0 Nml Complete FINDINGS: All motor and sensory nerves tested showed normal latencies, amplitudes and conduction velocities. Concentric needle EMG was performed in selected muscles of the right upper extremity. Study did not reveal signs of electric abnormalities as shown in the table below. IMPRESSION: 1. This is a normal study. 2. There is no electrodiagnostic evidence for median neuropathy, ulnar neuropathy, brachial plexopathy, or cervical radiculopathy. Thank you for your kind referral. Sherry Gama MD, ELIE Board Certified, [place] [employer] and Rehabilitation (ABPMR) Board Certified, [place] Board [employer] Electrodiagnostic Medicine (ABEM) [place] [id number] [facility]
== END 2023-07-19 13:02 | disposition home or self-care (01) ==
LOC: HO.NEURO 13:01
PROVIDERS: PCP Internal Medicine; Visit Provider Physician Assistant
DX: M25.521 Pain in right elbow (principal); R20.0 Anesthesia of skin
CPT/HCPCS: 95886; 95909

== ENCOUNTER → 2023-07-19 13:44 | Outpatient (BNV) | payer OTHER, SELFPAY | PROVIDERS: PCP Internal Medicine; Visit Provider Physical Medicine & Rehabilitation | DX: M25.521 Pain in right elbow (principal); R20.0 Anesthesia of skin | CPT/HCPCS: 95886; 95909 ==

== ENCOUNTER 2023-08-02 13:36 | Outpatient (AMB) | payer OTHER, SELFPAY ==
[2023-08-02 13:40] VITALS: BP 148/88; PULSE 73; O2SAT 98; BMI 41.9
--- NOTE | 2023-08-02 13:40 | MHC.PC.OV ---
Vital Signs 08/02/23 13:40 Height 5 ft 1 in Weight 222 lb BMI 41.9 BP 148/88 H Blood Pressure Location Lt brachial Position Sitting Pulse 73 Pulse Source Pulse Oximeter Pulse Oximetry (%) 98 Oxygen Delivery Method Room Air Intake Visit Reasons: follow up, lab review Allergies oxycodone [Percocet] Allergy (Severe, Verified 08/02/23 13:41) rash Tobacco use date assessed: 06/26/23 Dental Screening Dental Screen Date: 08/02/23 Did you have a dental visit in the last 12 months?: Yes Did you have a dental problem in the last 6 months where you did not have access to dental care?: No Was dental information given to patient?: Patient has dentist HPI follow up, lab review HPI Details 53-year-old morbidly obese female with hypothyroidism hypercholesterolemia GERD post laminectomy syndrome of the lumbar region with chronic pain generalized anxiety disorder fatty liver coming in for follow-up. Last seen in June having ear infection. And patient was treated with no relief and so referred to ear nose and throat. Patient's mammogram is up-to-date colonoscopy up-to-date. Review of the notes patient had a nerve conduction test showing normal study right elbow [facility] Medical History Hot flashes Encounter for annual routine gynecological examination Chronic idiopathic constipation Elevated LFTs Chronic pain syndrome Postlaminectomy syndrome of lumbar region Folic acid deficiency Chronic low back pain with bilateral sciatica Pelvic pain in female Fibroids Encounter to discuss test results Palpitations Alkaline phosphatase elevation Annual physical exam Ankle swelling Arthritis Rotator cuff tear, right Shoulder pain Lumbar back pain Knee pain, left Pain in right axilla Right arm numbness Hematuria Peripheral vascular disease Lumbar radicular pain Fatty liver Gallbladder disease Anxiety Irritable bowel syndrome with constipation Hypercholesterolemia Obesity GERD (gastroesophageal reflux disease) Lumbar degenerative disc disease Vitamin D deficiency Migraine Allergic rhinitis Hypothyroid Surgical History History of liver biopsy Gallstones H/O colonoscopy H/O rotator cuff surgery History of bladder surgery History of tonsillectomy Hx of dilation and curettage History of lumbar discectomy Family History Mother Cancer Heart disease Brain cancer Aortic aneurysm Father Heart problem Maternal Grandfather Lung cancer Paternal Aunt Lung cancer Maternal Aunt Heart disease Sister Substance abuse Maternal Uncle Substance abuse Heart problem Maternal Grandmother Brain cancer Social History Housing: House Are you a primary career representative to a significant other at home: No Do you presently have visiting nurse or other home services: No Alcohol intake: never Patient Tobacco Use Status: Never used Tobacco e-Cigarette/Vaping Use: Never Used Second Hand Smoke Exposure: No service: No Current occupational status: employed 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 1. Little interest or pleasure in doing things: nearly every day 2. Feeling down, depressed, or hopeless: nearly every day 3. Trouble falling or staying asleep, or sleeping too much: nearly every day 4. Feeling tired or having little energy: nearly every day 5. Poor appetite or overeating: nearly every day 6. Feeling bad about yourself - or that you are a failure or have let yourself or your family down: nearly every day 7. Trouble concentrating on things, such as reading the newspaper or watching television: nearly every day 8. Moving or speaking so slowly that other people could have noticed. Or the opposite - being so fidgety or restless that you have been moving around a lot more than usual: nearly every day 9. Thoughts that you would be better off or of hurting yourself in some way: nearly every day Total score: 27 Depression Screening Interpretation: Positive Depression Screening Done: Yes Source: Developed by Drs. Hector Hou, Monica Torres, Reynaldo Medley and colleagues, with an educational bernard from [employer]. Thrive Questionnaire Date Thrive assessed: 06/26/23 AUDIT C Alcohol Use Questionnaire (AUDIT-C) 1. How often do you have a drink containing alcohol?: Never Total Score: 0 Score Reviewed/Action Taken: No CAROLE-7 AMB Questionnaire CAROLE-7 Date CAROLE - 7 assessed: 06/26/23 Source: Developed by Monica Mcleod B.W. Brian, Reynaldo Medley and colleagues, with an educational bernard from [employer]. Physical exam (Primary Care) Vital Signs: Last Vital Signs Pulse 73 08/02/23 13:40 BP 148/88 H 08/02/23 13:40 Pulse Ox 98 08/02/23 13:40 Oxygen Delivery Method Room Air 08/02/23 13:40 BMI result Body Mass Index 41.9 Tobacco/Smoking Status: Tobacco use Status Tobacco use date assessed 06/26/23 08/02/23 13:45 Patient Tobacco Use Status Never used Tobacco 08/02/23 13:45 e-Cigarette/Vaping Use Never Used 08/02/23 13:45 PHQ-9: PHQ-9 Score PHQ-9: Total score 27 08/02/23 13:45 Depression Screening Interpretation: Positive Thrive Assessment: Date of Thrive Assessment Date Thrive assessed 06/26/23 08/02/23 13:45 Const General: alert; No acute distress Eyes Conjunctivae: conjunctivae normal Resp Auscultation: clear to auscultation bilaterally Cardio Rate: regular rate Rhythm: regular rhythm GI Inspection: Yes normal to inspection Extrem General: Yes normal to inspection and No edema Assessment and Plan Assessment & Plan (1) Hypothyroid: Code(s): E03.9 - Hypothyroidism, unspecified Qualifiers: Hypothyroidism type: acquired Qualified Code(s): E03.9 - Hypothyroidism, unspecified Plan: Continue with thyroid medication (2) Hypercholesterolemia: Code(s): E78.00 - Pure hypercholesterolemia, unspecified Plan: Avoid fried foods, chicken skin, eggs, butter margarine, pastries and meat. Be it pork or beef they have a lot of cholesterol LDL goal of less than 130 and triglyceride of less than 150 on simvastatin 10 mg once a day (3) GERD (gastroesophageal reflux disease): Code(s): K21.9 - Gastro-esophageal reflux disease without esophagitis Qualifiers: Esophagitis presence: without esophagitis Qualified Code(s): K21.9 - Gastro-esophageal reflux disease without esophagitis Plan: Avoid the foods that causes that usually spicy foods, tomato products, juices, coffee, soda and foods that your sensitive to. After eating do not lie down, allow 3-4 hours before in lie down. And keep the head of bed above 30 degrees to avoid the acid from going up. (4) Generalized anxiety disorder: Code(s): F41.1 - Generalized anxiety disorder Plan: decline referral counselling nor med (5) LUCERO (nonalcoholic steatohepatitis): Code(s): K75.81 - Nonalcoholic steatohepatitis (LUCERO) Plan: Low-fat diet and exercise (6) Morbid obesity: Code(s): E66.01 - Morbid (severe) obesity due to excess calories Plan: Patient is advised to keep active and exercise (7) Blood pressure elevated without history of HTN: Code(s): R03.0 - Elevated blood-pressure reading, without diagnosis of hypertension Plan: check BP at home and record (8) Impaired fasting glucose: Code(s): R73.01 - Impaired fasting glucose Orders: Orders Complete Blood Count Auto Diff 6 Months E03.9 - Hypothyroidism, unspecified Comprehensive Met. Panel 6 Months E03.9 - Hypothyroidism, unspecified Free T4 (Free Thyroxine) 6 Months E03.9 - Hypothyroidism, unspecified Vitamin B12 and Folate 6 Months E03.9 - Hypothyroidism, unspecified Thyroid Stimulating Hormone 6 Months E03.9 - Hypothyroidism, unspecified Hemoglobin A1c 6 Months E03.9 - Hypothyroidism, unspecified Vitamin D 25-OH Total 6 Months E03.9 - Hypothyroidism, unspecified Lipid Panel 6 Months E03.9 - Hypothyroidism, unspecified, E78.00 - Pure hypercholesterolemia, unspecified Erythrocyte Sedimentation Rate 6 Months E03.9 - Hypothyroidism, unspecified C Reactive Protein 6 Months E03.9 - Hypothyroidism, unspecified Coding Level of Care Code Est Pt Level 4 (73763) Diagnoses Acquired hypothyroidism E03.9 Hypothyroidism type: acquired Hypercholesterolemia E78.00 Gastroesophageal reflux disease without esophagitis K21.9 Esophagitis presence: without esophagitis Generalized anxiety disorder F41.1 LUCERO (nonalcoholic steatohepatitis) K75.81 Morbid obesity E66.01 Blood pressure elevated without history of HTN R03.0 Impaired fasting glucose R73.01 Additional Codes PHQ-9 - 34279 - PHQ-9 Billing: ([id number])
== END 2023-08-02 14:02 | disposition home or self-care (01) ==
PROVIDERS: PCP Internal Medicine; Visit Provider Internal Medicine
DX: E03.9 Hypothyroidism, unspecified (principal); E78.00 Pure hypercholesterolemia, unspecified; K21.9 Gastro-esophageal reflux disease without esophagitis; F41.1 Generalized anxiety disorder; K75.81 Nonalcoholic steatohepatitis (NASH); R03.0 Elevated blood-pressure reading, without diagnosis of hypertension; R73.01 Impaired fasting glucose
CPT/HCPCS: 99214

== ENCOUNTER 2023-08-09 15:00 | Outpatient (RCR) | payer OTHER, SELFPAY ==
--- NOTE | 2023-07-02 17:19 | MHC.PT.EP ---
[facility] [place] [facility] [place] [facility] [place] [facility] [address] Jamel Warner [address] [phone] F: [phone] F: [phone] F: [phone] F: [phone] Physical Therapy Plan of Care Date of Evaluation: 07/02/23 Date of Surgery: one year Diagnosis: Dx: postlaminectomy syndrome of lumbar spine (RL) PT Dx: post-lumbar fusion L4-L5 Assessment: pt is a 53 y/o female presenting to physical therapy w/ referring diagnosis of postlaminectomy syndrome of lumbar spine. pt most recently had L4-L5 spinal fusion back in June 2022. Impairments include pain, decreased range of motion, decreased strength, impaired functional mobility, impaired postural awareness, and altered ambulation mechanics. pt is a good candidate for skilled PT due to age, potential remediation of impairments, typical disease/condition progression and prognosis, comorbidities, and motivation. pt would benefit from skilled PT intervention to provide a tailored strengthening and stretching exercise program, functional training, gait training, postural re-training, neuromuscular re-education, modalities as needed for pain, equipment safety demonstration. Frequency and Duration: The patient will be seen 2x/wk for 5 wks Short Term Goals: pt will be I w/ HEP to promote self-management of condition. pt will demo proper sitting posture w/ lumbar roll to promote neutral spine w/ seated ADLs. Communicable Disease Specialist Goals: pt will report a statistically significant improvement in self-reported outcome measure, Chu, to promote return to PLOF. pt will demo proper lifting/transferring mechanics w/ neutral spine for caretaking activities. Treatment Plan: Modalities to reduce pain, spasms and effusion. Manual therapy to restore motion and function. Therapeutic exercise to improve strength and flexibility. Neuromuscular re-education for posture and balance. Therapeutic activities to return to functional activities of daily living. Electronically signed by: Dorcas Ruiz PT, DPT Please sign and return to therapist. Thank you for your referral.
--- NOTE | 2023-09-13 11:55 | MHC.PT.DC ---
[facility] [place] Office [place] Office [place] Office [address] Jamel Warner [address] [phone] F: [phone] F: [phone] F: [phone] F: [phone] Physical Therapy Discharge Report Diagnosis: MD Dx: postlaminectomy syndrome of lumbar spine (RL) PT Dx: post-lumbar fusion L4-L5 Date of Surgery: one year Date of Evaluation: 07/02/23 Date of Discharge: 09/13/23 Treatments to Date: 8 Cancellations to Date: 3 No Shows to Date: 2 Discharge Status: Visit Non-compliance Discharge Summary: The patient overall feels she is doing the same. I do not feel she is compliant with her home exercise program as she required cueing on how to perform exercises she's been doing since her first visit. I encouraged her to take more ownership of her HEP. We discussed following up for one time a week for a few more weeks to oversee her taking ownership of her HEP but she no showed two consecutive visits. She is discharged for non-compliance. Electronically signed by: Dorcas Ruiz PT, DPT Please sign and return to therapist. Thank you for your referral.
== END 2023-09-13 11:56 | disposition home or self-care (01) ==
LOC: HO.PT 15:00
PROVIDERS: PCP Internal Medicine; Visit Provider Internal Medicine
DX: M96.1 Postlaminectomy syndrome, not elsewhere classified (principal)
CPT/HCPCS: 97110; 97140; 97162; 97530

== ENCOUNTER 2023-08-22 13:16 | Outpatient (AMB) | payer OTHER, SELFPAY ==
--- NOTE | 2023-08-22 13:24 | A.OFFVIS_ITS ---
Intake Vital Signs 08/22/23 13:25 Height 5 ft 1 in Weight 222 lb BMI 41.9 BP 124/76 Intake Visit Reasons: IUd removal Clinical Rn Manager: Clinical Rn Manager Present (E[place]) Allergies oxycodone [Percocet] Allergy (Severe, Verified 08/22/23 13:25) rash HPI HPI Comments History of Present Illness Details Patient is here today for an IUD removal. [facility] Medical History Hot flashes Encounter for annual routine gynecological examination Chronic idiopathic constipation Elevated LFTs Chronic pain syndrome Postlaminectomy syndrome of lumbar region Folic acid deficiency Chronic low back pain with bilateral sciatica Pelvic pain in female Fibroids Encounter to discuss test results Palpitations Alkaline phosphatase elevation Annual physical exam Ankle swelling Arthritis Rotator cuff tear, right Shoulder pain Lumbar back pain Knee pain, left Pain in right axilla Right arm numbness Hematuria Peripheral vascular disease Lumbar radicular pain Fatty liver Gallbladder disease Anxiety Irritable bowel syndrome with constipation Hypercholesterolemia Obesity GERD (gastroesophageal reflux disease) Lumbar degenerative disc disease Vitamin D deficiency Migraine Allergic rhinitis Hypothyroid Surgical History History of liver biopsy Gallstones H/O colonoscopy H/O rotator cuff surgery History of bladder surgery History of tonsillectomy Hx of dilation and curettage History of lumbar discectomy Family History Mother Cancer Heart disease Brain cancer Aortic aneurysm Father Heart problem Maternal Grandfather Lung cancer Paternal Aunt Lung cancer Maternal Aunt Heart disease Sister Substance abuse Maternal Uncle Substance abuse Heart problem Maternal Grandmother Brain cancer Social History Housing: House Are you a primary healthcare economics manager to a significant other at home: No Do you presently have visiting nurse or other home services: No Alcohol intake: never Patient Tobacco Use Status: Never used Tobacco e-Cigarette/Vaping Use: Never Used Second Hand Smoke Exposure: No service: No Current occupational status: employed 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 Current occupational exposures/hazards: No Cognitive needs: No Hearing needs: No Vision needs: Yes Female Reproductive History Menstrual Age of Menarche: 11 Review of Systems Const All systems reviewed & are unremarkable except as noted in HPI and below Physical Exam Vital Signs: Last Vital Signs BP 124/76 08/22/23 13:25 BMI result Body Mass Index 41.9 Const General: cooperative, healthy appearing and no acute distress Orientation/consciousness: patient oriented x3 GI Inspection: Yes normal to inspection Palpation (GI): Soft to palpation and Other GI palpation findings present (Nontender) Rectal Exam - Female: visual inspection normal General: Yes bladder normal to palpation External Female Exam: normal appearance of the urethra Speculum Exam - Vagina: normal appearance of the vagina, normal palpation and normal vaginal discharge Speculum Exam - Cervix: normal appearance of the cervix, normal palpation and Other cervical findings present (IUD strings present at the os) Bimanual exam- vagina & uterus: normal bimanual exam, normal palpation, uterine size normal, bladder normal to palpation, normal palpation, uterine shape normal and non-tender Bimanual Exam- Adnexa, other: normal adnexae Neuro General: patient oriented x3 Office Procedures Contraception Insert/Removal Details Details: She was counseled regarding the removal of her IUD. She was consented for the procedure along with anticipatory guidance for the removal and the consents form was signed. She desires to proceed with the IUD removal. IUD Removal Procedure: The patient was placed in the dorsal lithotomy position. A speculum was inserted vaginally and the cervix and strings were visualized at the os. A ring forcep was utilized, and the patient was asked to give a deep cough while the strings were grasped and gently tugged at the same time, removing the IUD device intact. Minimal bleeding was observed. All of the equipment was removed. The patient tolerated the procedure well and left the office in good condition. IUD Removal Information: You may have light bleeding for several days, tapering off to a brown or pink color. Mild cramping after removal is common. Monitor menses, if any heavy or prolonged or closely spaced bleeding episodes to call the office for further evaluation. Menopausal diagnosis will be after no menses for 12 months. This note is constructed using voice recognition software. While every effort has been made to ensure accuracy, field hockey coach errors may have been included. 68719 - Removal Assessment & Plan Assessment & Plan (1) Encounter for IUD removal: Code(s): Z30.432 - Encounter for removal of intrauterine contraceptive device Plan See procedure notes. Next visit is plan for her annual February 2024. This note is constructed using voice recognition software. While every effort has been made to ensure accuracy, field hockey coach errors may have been included. Coding Level of Care Code Procedure Only Diagnoses Encounter for IUD removal Z30.432 CPT Codes Details - Contraception: 53941 - Removal ([id number])
[2023-08-22 13:25] VITALS: BP 124/76; BMI 41.9
== END 2023-08-22 14:17 | disposition home or self-care (01) ==
LOC: HO.HWS 13:16
PROVIDERS: PCP Internal Medicine; Visit Provider Advanced Practice Midwife
DX: Z30.432 Encounter for removal of intrauterine contraceptive device (principal)
CPT/HCPCS: 58301

== ENCOUNTER → 2023-08-22 13:16 | Outpatient (BNVA) | payer OTHER, SELFPAY | PROVIDERS: PCP Internal Medicine; Visit Provider Advanced Practice Midwife | DX: Z30.432 Encounter for removal of intrauterine contraceptive device (principal) | CPT/HCPCS: 58301 ==

== ENCOUNTER 2023-09-27 10:39 | Outpatient (REF) | payer OTHER, SELFPAY ==
[2023-09-27 10:57] LABS: MANUAL DIFF FLAG NO
[2023-09-27 11:11] LABS: Basophils Percent Auto 0.4 % (0-2); Eosinophils Absolute Auto 0.1 X10*3/uL (0.0-0.4); Eosinophils Percent Auto 1.1 % (0-4); Hematocrit 41.3 % (37.0-47.0); Hemoglobin 14.2 g/dl (12.0-16.0); Imm Gran Abs Auto 0.03 X10*3/uL (0.00-0.03); Imm Gran Pct Auto 0.4 % (0.0-0.4); Lymphocytes Absolute Auto 2.1 X10*3/uL (1.2-4.9); Lymphocytes Percent Auto 28.3 % (20-40); Mean Corpuscular HGB Conc 34.4 g/dl (31.0-35.0); Mean Corpuscular Hemoglobin 30.3 pg (27.0-33.0); Mean Corpuscular Volume 88.2 fL (80.0-98.0); Mean Platelet Volume 11.1 fL (9.4-12.3); Monocytes Absolute Auto 0.6 X10*3/uL (0.1-1.2); Monocytes Percent Auto 8.7 % (2-11); Neutrophils Absolute Auto 4.4 x10*3/uL (2.0-8.3); Neutrophils Percent Auto 61.1 % (45-73); Platelet Count 258 X10*3/uL (160-400); Red Blood Count 4.68 X10*6/uL (4.20-5.50); Red Cell Distribution Width 11.7 % (11.0-16.0); White Blood Count 7.3 X10*3/uL (4.8-10.8)
[2023-09-27 11:22] LABS: Estimated Average Glucose 105 mg/dL; Hemoglobin A1c % 5.3 % (<6.0)
[2023-09-27 11:55] LABS: Erythrocyte Sedimentation Rate 18 MM/HR (0-20)
[2023-09-27 12:33] LABS: Alanine Aminotransferase 43 U/L (0-31); Albumin Level 4.2 g/dL (3.5-5.0); Alkaline Phosphatase 202 U/L (39-117); Anion Gap 14 (12-20); Aspartate Amino Transferase 27 U/L (5-31); Bilirubin Total 0.6 mg/dL (0.0-1.0); Blood Urea Nitrogen 6 mg/dL (9-16); C Reactive Protein 0.93 mg/dL (< or = 0.50); Calcium 9.8 mg/dL (8.4-10.2); Carbon Dioxide 24 mmol/L (22-29); Chloride 108 mmol/L (96-108); Cholesterol 151 mg/dL (<200); Estimated Glomerular Filt Rate > 60; Glucose Random 94 mg/dL (60-115); HDL Cholesterol 38 mg/dL (>40); LDL Cholesterol Calculated 98 mg/dL (<100); Sodium 142 mmol/L (135-145); Total Protein 7.2 g/dL (6.5-8.0); Triglycerides 78 mg/dL (<150)
[2023-09-27 12:35] LABS: Free T4 (Free Thyroxine) 1.16 ng/dL (0.71-1.85); Thyroid Stimulating Hormone 0.66 uIU/mL (0.32-4.0); Vitamin D 25-OH Total 17.9 ng/mL (>30)
[2023-09-27 12:40] LABS: Folate 5.8 ng/mL (> or = 4.0); Vitamin B12 1058 pg/mL (200-900)
== END 2023-09-27 10:40 | disposition home or self-care (01) ==
LOC: HO.LAB 10:39
PROVIDERS: PCP Internal Medicine; Visit Provider Internal Medicine
DX: E03.9 Hypothyroidism, unspecified (principal); E78.00 Pure hypercholesterolemia, unspecified
CPT/HCPCS: 36415; 80053; 80061; 82306; 82607; 82746; 83036; 84439; 84443; 85025; 85652; 86140

== ENCOUNTER 2023-10-12 07:50 | Outpatient (REF) | payer OTHER, SELFPAY ==
[2023-10-12 08:50] LABS: Appearance Urine Cloudy; Color Urine Yellow; Glucose Urine UA Negative (Negative); Leukocyte Esterase Urine Moderate (2+) (Negative); Nitrite Urine Negative (Negative); PH 5.5 (5.0-9.0); Specific Gravity - Urine 1.025 (1.005-1.025); UMIC TRIGGER UACC YES; Urine Blood Moderate (2+) (Negative); Urine Ketones Negative (Negative); Urine Protein Trace mg/dL (Neg-Trace)
[2023-10-12 09:15] LABS: Bacteria Urine 4+ (None Seen); Calcium Oxalate Crystals Urine Present; Hyaline Casts Urine 0-2 /LPF (0-2); RBC Urine 0-2 /HPF (0-2); UACC Culture Trigger YES
== END 2023-10-12 07:51 | disposition home or self-care (01) ==
LOC: HO.LAB 07:50
PROVIDERS: PCP Internal Medicine; Visit Provider Internal Medicine
DX: R39.9 Unspecified symptoms and signs involving the genitourinary system (principal)
CPT/HCPCS: 81001; 87086

== ENCOUNTER 2023-11-13 07:55 | Outpatient (REF) | payer OTHER, SELFPAY ==
[2023-11-13 09:07] LABS: Appearance Urine Clear; Color Urine Yellow; Glucose Urine UA Negative (Negative); Leukocyte Esterase Urine Trace (Negative); Nitrite Urine Negative (Negative); PH 5.5 (5.0-9.0); UMIC TRIGGER UACC YES; Urine Blood Negative (Negative); Urine Ketones Negative (Negative); Urine Protein Negative (Neg-Trace)
[2023-11-13 09:21] LABS: Bacteria Urine 2+ (None Seen); Calcium Oxalate Crystals Urine Present; Hyaline Casts Urine 0-2 /LPF (0-2); RBC Urine 0-2 /HPF (0-2); Squamous Epithelial Cell Urine 0-2 /HPF (0-2); WBC Urine 0-5 /HPF (0-5)
== END 2023-11-13 07:56 | disposition home or self-care (01) ==
LOC: HO.LAB 07:55
PROVIDERS: PCP Internal Medicine; Visit Provider Internal Medicine
DX: R39.9 Unspecified symptoms and signs involving the genitourinary system (principal)
CPT/HCPCS: 81001; 81003

== ENCOUNTER 2024-01-03 14:52 | Emergency (ER) | payer OTHER, SELFPAY ==
--- NOTE | ~2024-01-03 | XR_ITS ---
EXAMINATION: XR CHEST CLINICAL INFORMATION: Left-sided chest pain. COMPARISON: Chest radiograph dated 08/28/2015. TECHNIQUE: 2 views of the chest were obtained. FINDINGS: The heart is normal in size. The lungs are clear. There is no pleural effusion or pneumothorax. No acute osseous abnormality. There are cholecystectomy clips. XR/XR chest 2V IMPRESSION: No acute cardiopulmonary disease.
--- NOTE | 2024-01-03 14:55 | ECG_ITS ---
Test Reason : CHEST PAINS Blood Pressure : / mmHG Vent. Rate : 078 BPM Atrial Rate : 078 BPM P-R Int : 142 ms QRS Dur : 072 ms QT Int : 408 ms P-R-T Axes : 060 -07 044 degrees QTc Int : 465 ms Normal sinus rhythm Normal ECG When compared with ECG of 19-AUG-2015 15:31, No significant change was found Referred By: Diana Del Cid Electronically Signed By:EDY AVITIA
[2024-01-03 15:29] VITALS: BP 150/83; PULSE 77; RESP 16; TEMP 37; O2SAT 96; BMI 42.5
--- NOTE | 2024-01-03 15:29 | ED.CHESTPAIN ---
HPI - Chest Pain General Chief Complaint: Chest Pain Stated Complaint: Chest pain Time Seen by Provider: 01/03/24 18:29 Source: patient Mode of arrival: ambulatory Limitations: no limitations History of Present Illness ED Provider: Nadine RICHARDS HPI narrative: 53-year-old female history of obesity, hypertension, hyperlipidemia, nonalcoholic steatohepatitis, anxiety, hypothyroidism, GERD presenting with left-sided chest pain that started at approximately 08:30 this morning, she reports stabbing pain that lasted continuously for about a minute and then has been having intermittent aching sharp pains in the left side of her chest with some associated shortness of breath. Patient denies smoking, history of malignancy, long travel, history of PE or DVT. Patient is not on blood thinners. Denies fevers, chills, cough, nausea, vomiting, abdominal pain, sick contacts, headache, vision changes, weakness Related Data Home Medications ?Medication ?Instructions ?Recorded ?Confirmed omeprazole magnesium 20 mg 20 mg PO DAILY 04/29/20 03/07/23 tablet,delayed release (Prilosec OTC) cholecalciferol (vitamin D3) 25 25 mcg PO DAILY 01/18/22 03/07/23 mcg (1,000 unit) capsule Previous Rx's ?Medication ?Instructions ?Recorded folic acid 1 mg tablet 1 mg PO DAILY 90 days #90 tabs 01/22/22 compress.stocking,knee,reg,lrg #12 ea 11/16/22 cyclobenzaprine 5 mg tablet 5 mg PO BID PRN muscle spasm #14 03/07/23 tabs ibuprofen 600 mg tablet 600 mg PO Q8H PRN pain #30 tabs 03/07/23 simvastatin 10 mg tablet 10 mg PO DAILY 90 days #90 tabs 06/03/23 sulfamethoxazole 800 1 tab PO BID #14 tabs 10/12/23 mg-trimethoprim 160 mg tablet (Bactrim DS) levothyroxine 100 mcg tablet 100 mcg PO QAM #90 tabs 10/22/23 Allergies Allergy/AdvReac Type Severity Reaction Status Date / Time oxycodone [Percocet] Allergy Severe rash Verified 01/03/24 15:31 Review of Systems Review of Systems: Yes all other systems are reviewed and are negative PMFSH Past Medical History Attestation statement: The following information was validated with the patient. Source: old records reviewed and nursing notes reviewed Medical History Hot flashes Encounter for annual routine gynecological examination Chronic idiopathic constipation Elevated LFTs Chronic pain syndrome Postlaminectomy syndrome of lumbar region Folic acid deficiency Chronic low back pain with bilateral sciatica Pelvic pain in female Fibroids Encounter to discuss test results Palpitations Alkaline phosphatase elevation Annual physical exam Ankle swelling Arthritis Rotator cuff tear, right Shoulder pain Lumbar back pain Knee pain, left Pain in right axilla Right arm numbness Hematuria Peripheral vascular disease Lumbar radicular pain Fatty liver Gallbladder disease Anxiety Irritable bowel syndrome with constipation Hypercholesterolemia Obesity GERD (gastroesophageal reflux disease) Lumbar degenerative disc disease Vitamin D deficiency Migraine Allergic rhinitis Hypothyroid Surgical History History of liver biopsy Gallstones H/O colonoscopy H/O rotator cuff surgery History of bladder surgery History of tonsillectomy Hx of dilation and curettage History of lumbar discectomy Family History Family History Mother Cancer Heart disease Brain cancer Aortic aneurysm Father Heart problem Maternal Grandfather Lung cancer Paternal Aunt Lung cancer Maternal Aunt Heart disease Sister Substance abuse Maternal Uncle Substance abuse Heart problem Maternal Grandmother Brain cancer Social History Social History Housing: House Are you a primary weekend caregiver to a significant other at home: No Do you presently have visiting nurse or other home services: No Alcohol intake: never Patient Tobacco Use Status: Never used Tobacco e-Cigarette/Vaping Use: Never Used Second Hand Smoke Exposure: No Advance Directives: No Advance Directives Information Provided: No service: No Current occupational status: employed 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 Oriented X3.? No acute distress.? Head: Normocephalic, atraumatic, no step-offs or deformities Eyes: Pupils equal, round and reactive to light.? ENT: Pharynx normal.? Neck: Normal inspection.? Neck supple.? CVS: Normal heart rate and rhythm.? Pulses normal.? Respiratory: No respiratory distress.? Breath sounds normal.? Abdomen: Soft and nontender.? Skin: Skin warm and dry.? Normal skin color.? Normal skin turgor.? Extremities: No lower extremity edema.? No calf ttp. 5/5 strength to bilateral upper and lower extremities Neuro: Oriented X 3.? No motor deficit.? No sensory deficit. CN 2-12 intact Course Course Course Narrative: This is a Rapid Medical Examination (RME) performed by Yogesh Del Cid PA-C in triage. Full HPI, ROS, assessment and treatment plan per primary provider in the Main ED. 53 yo female with history of morbid obesity, PVS, hypothyroidism, HLD, GERD, chronic pain syndrome, nonsmoker who presents to the ER for evaluation of acute onset of sharp non-radiating left sided chest pain that occurred at 830am, lasted about 1 minute and took her breath away. Has some mild, 1/10 residual dull pain. No hx similar episodes. VSS in triage. Plan: EKG, CXR, Labs Reevaluation(s) Reevaluation #1: CBC unremarkable. Chemistry no acute findings requiring intervention chronically elevated ALT and alk-phos. Troponin negative x2 BNP normal. D-dimer negative low suspicion for PE. No indication for CTA unlikely that this is pulmonary embolism. Chest x-ray unremarkable. COVID negative. At this time patient will be discharged home. Advised to return with any new or worsening symptoms. Will give her cardiology follow-up. Educated patient on diagnosis and treatment plan, answered all question, patient verbalizes understanding. At this time patient will be discharged home, advised to return with new or worsening symptoms. Educated on worrisome signs and symptoms and when to return. At this time I feel comfortable discharge home. Time: 19:40 Medical Decision Making Medical Decision Making MDM Narrative: 53-year-old female presents with chest pain since this morning with some residual discomfort and shortness of breath Physical exam benign History and physical exam concerning for ACS versus stable angina versus noncardiac related chest pain versus PE. Unlikely dissection, acute respiratory distress. Pneumonia and viral symptoms will be ruled out. Also rule out metabolic derangements. I do not suspect CHF. Plan labs, imaging, viral testing Differential Diagnosis Differential Diagnoses: The differential diagnosis associated with the presentation includes History and physical exam concerning for ACS versus stable angina versus noncardiac related chest pain versus PE. Unlikely dissection, acute respiratory distress. Pneumonia and viral symptoms will be ruled out. Also rule out metabolic derangements. I do not suspect CHF. Admission/Observation Consideration of admission/observation: Escalation of care including admission/observation considered Possible Lab Data MDM Lab Attestation statement: I reviewed the patient's lab results. 01/03/24 16:13 01/03/24 16:13 Labs: Lab Results 01/03/24 01/03/24 01/03/24 Range/Units 16:13 18:02 18:44 WBC 8.7 (4.8-10.8) X10*3/uL RBC 4.73 (4.20-5.50) X10*6/uL Hgb 14.3 (12.0-16.0) g/dl Hct 42.1 (37.0-47.0) % MCV 89.0 (80.0-98.0) fL MCH 30.2 (27.0-33.0) pg MCHC 34.0 (31.0-35.0) g/dl RDW 11.9 (11.0-16.0) % Plt Count 276 (160-400) X10*3/uL MPV 10.8 (9.4-12.3) fL Immature Gran % (Auto) 0.3 (0.0-0.4) % Neut % (Auto) 63.4 (45-73) % Lymph % (Auto) 25.1 (20-40) % Amelia % (Auto) 9.6 (2-11) % Eos % (Auto) 1.0 (0-4) % Baso % (Auto) 0.6 (0-2) % Lymph # (Auto) 2.2 (1.2-4.9) X10*3/uL Amelia # (Auto) 0.8 (0.1-1.2) X10*3/uL Eos # (Auto) 0.1 (0.0-0.4) X10*3/uL Baso # (Auto) 0.1 (0.0-0.2) X10*3/uL Abs Immat Gran (auto) 0.03 (0.00-0.03) X10*3/uL Absolute Neuts (auto) 5.5 (2.0-8.3) x10*3/uL Absolute Nucleated RBC 0.000 (0.0-0.012) X10*3/uL Nucleated RBC % (auto) 0.0 (0.0-0.2) /100WBC D-Dimer High Sensitivty 188 NG/ML Sodium 142 (135-145) mmol/L Potassium 4.0 (3.3-5.1) mmol/L Chloride 108 (96-108) mmol/L Carbon Dioxide 29 (22-29) mmol/L Anion Gap 9 L (12-20) BUN 7 L (9-16) mg/dL Creatinine 0.68 (0.5-1.4) mg/dL Estim Creat Clear Calc 106.2 Estimated GFR > 60 Random Glucose 110 (60-115) mg/dL Calcium 10.2 (8.4-10.2) mg/dL Magnesium 2.0 (1.6-2.6) mg/dL Total Bilirubin 0.3 (0.0-1.0) mg/dL Direct Bilirubin 0.1 (0.0-0.5) mg/dL AST 24 (5-31) U/L ALT 46 H (0-31) U/L Alkaline Phosphatase 222 H (39-117) U/L Troponin I High Sens < 2.7 < 2.7 (<3.5-17.0) ng/L B-Natriuretic Peptide 29 (<100) pg/mL Total Protein 7.3 (6.5-8.0) g/dL Albumin 4.3 (3.5-5.0) g/dL Independent Interpretation I performed an independent interpretation of an: EKG (non ischemic Vent. Rate : 078 BPM Atrial Rate : 078 BPM P-R Int : 142 ms QRS Dur : 072 ms QT Int : 408 ms P-R-T Axes : 060 -07 044 degrees QTc Int : 465 ms Normal sinus rhythm Normal ECG When compared with ECG of 19-AUG-2015 15:31, No significant change was found) and Plain X-Ray (XR/XR chest 2V IMPRESSION: No acute cardiopulmonary disease.) Tests considered The following testing was considered but not selected: Dimer negative w/ low suspicion --> no indication for CTA HEART Score for Major Cardiac Events from [email or web address] on 01/03/2024 All calculations should be rechecked by clinician prior to use RESULT SUMMARY: 2 points Low Score (0-3 points)

Risk of MACE of 0.9-1.7%. INPUTS: History ?> 0 = Slightly suspicious EKG ?> 0 = Normal Age ?> 1 = 45-64 Risk factors ?> 1 = 1-2 risk factors Initial troponin ?> 0 = <=ormal limit Critical Care Time Critical Care Time Critical Care Time: Yes Total Critical Care Time: 35 Attestation: I attest to this time spent taking care of the patient, obtaining history, physical, reviewing labs, imaging, speaking to my attending, specialist or hospitalist. Discharge Plan Discharge Clinical Impression: Chest pain Patient Disposition: Still a Patient Instructions: Chest Pain (ED) Additional Instructions: Take your medications as prescribed. If you were prescribed antibiotics today, it is important that you take your medication to their entirety, do not skip any doses, do not finish them early. Follow-up with your primary care provider this week. Return to the emergency department with new or worsening symptoms. Such as fevers, chills, chest pain, shortness of breath, nausea, vomiting, dizziness, headache, vision changes, lethargy In case of emergency call 911 Please follow-up with cardiology may require a Holter monitor for further evaluation of this. No signs of heart attack at this time. Screening test for blood clot was negative. Your vital signs are good and your cardiac enzymes were good. XR/XR chest 2V IMPRESSION: No acute cardiopulmonary disease. Prescriptions: No Action folic acid 1 mg tablet 1 mg PO DAILY 90 Days Qty: 90 1RF simvastatin 10 mg tablet 10 mg PO DAILY 90 Days Qty: 90 3RF sulfamethoxazole-trimethoprim [Bactrim DS] 800-160 mg tablet 1 tab PO BID Qty: 14 0RF levothyroxine 100 mcg tablet 100 mcg PO QAM Qty: 90 3RF omeprazole magnesium [Prilosec OTC] 20 mg tablet,delayed release (DR/EC) 20 mg PO DAILY (DME) compress.stocking,knee,reg,lrg Misc See Rx Instructions .Route Qty: 12 0RF Rx Instructions: As directed 20-30 mm HG ibuprofen 600 mg tablet 600 mg PO Q8H PRN (Reason: pain) Qty: 30 0RF cyclobenzaprine 5 mg tablet 5 mg PO BID PRN (Reason: muscle spasm) Qty: 14 0RF cholecalciferol (vitamin D3) 25 mcg (1,000 unit) capsule 25 mcg PO DAILY Referrals: [facility] [Provider Group] - 2 days ED Physician,Generic [Physician] - 2 days Print Language: Divehi
[2024-01-03 16:00] VITALS: BP 156/95; PULSE 81; RESP 20; TEMP 36.7; O2SAT 100
[2024-01-03 16:18] LABS: MANUAL DIFF FLAG NO
[2024-01-03 16:19] LABS: Basophils Absolute Auto 0.1 X10*3/uL (0.0-0.2); Basophils Percent Auto 0.6 % (0-2); Eosinophils Absolute Auto 0.1 X10*3/uL (0.0-0.4); Hematocrit 42.1 % (37.0-47.0); Hemoglobin 14.3 g/dl (12.0-16.0); Imm Gran Abs Auto 0.03 X10*3/uL (0.00-0.03); Imm Gran Pct Auto 0.3 % (0.0-0.4); Lymphocytes Absolute Auto 2.2 X10*3/uL (1.2-4.9); Lymphocytes Percent Auto 25.1 % (20-40); Mean Corpuscular Hemoglobin 30.2 pg (27.0-33.0); Mean Platelet Volume 10.8 fL (9.4-12.3); Monocytes Absolute Auto 0.8 X10*3/uL (0.1-1.2); Monocytes Percent Auto 9.6 % (2-11); Neutrophils Absolute Auto 5.5 x10*3/uL (2.0-8.3); Neutrophils Percent Auto 63.4 % (45-73); Platelet Count 276 X10*3/uL (160-400); Red Blood Count 4.73 X10*6/uL (4.20-5.50); Red Cell Distribution Width 11.9 % (11.0-16.0); White Blood Count 8.7 X10*3/uL (4.8-10.8)
[2024-01-03 16:37] LABS: Alanine Aminotransferase 46 U/L (0-31); Albumin Level 4.3 g/dL (3.5-5.0); Alkaline Phosphatase 222 U/L (39-117); Anion Gap 9 (12-20); Aspartate Amino Transferase 24 U/L (5-31); Bilirubin Direct 0.1 mg/dL (0.0-0.5); Bilirubin Total 0.3 mg/dL (0.0-1.0); Blood Urea Nitrogen 7 mg/dL (9-16); Calcium 10.2 mg/dL (8.4-10.2); Carbon Dioxide 29 mmol/L (22-29); Chloride 108 mmol/L (96-108); Creatinine Clr Calc Pharmacy 106.2; Estimated Glomerular Filt Rate > 60; Glucose Random 110 mg/dL (60-115); Sodium 142 mmol/L (135-145); Total Protein 7.3 g/dL (6.5-8.0)
[2024-01-03 16:49] LABS: Troponin-I High Sensitivity < 2.7 ng/L (<3.5-17.0)
[2024-01-03 18:00] VITALS: BP 173/95; PULSE 78; RESP 14; TEMP 36.9; O2SAT 100
[2024-01-03 18:33] LABS: Troponin-I High Sensitivity < 2.7 ng/L (<3.5-17.0)
[2024-01-03 19:02] LABS: D Dimer High Sensitivity 188 NG/ML
[2024-01-03 19:06] LABS: B Type Natriuretic Peptide 29 pg/mL (<100)
[2024-01-03 19:53] VITALS: BP 148/78; PULSE 78; RESP 14; TEMP 36.9; O2SAT 100
[2024-01-03 19:57] VITALS: BP 148/78; PULSE 76; RESP 14; TEMP 36.7; O2SAT 99
== END 2024-01-03 19:59 | disposition home or self-care (01) ==
PROVIDERS: Physician Assistant; Emergency Provider Emergency Medicine Emergency Medical Services; PCP Internal Medicine
DX: R07.89 Other chest pain (principal); R06.02 Shortness of breath; Z79.899 Other long term (current) drug therapy
CPT/HCPCS: 36415; 71046; 80048; 80076; 83735; 83880; 84484; 85025; 85379; 93005; 99283; 99284

== ENCOUNTER 2024-01-09 08:44 | Outpatient (AMB) | payer OTHER, SELFPAY ==
[2024-01-09 08:50] VITALS: BP 138/70; PULSE 72; O2SAT 98; BMI 42.7
--- NOTE | 2024-01-09 08:50 | MHC.PC.OV ---
Vital Signs 01/09/24 08:50 Height 5 ft 1 in Weight 226 lb BMI 42.7 BP 138/70 Blood Pressure Location Lt brachial Position Sitting Pulse 72 Pulse Source Pulse Oximeter Pulse Oximetry (%) 98 Oxygen Delivery Method Room Air Intake Visit [place]asons[place] [facility] [place] Chest pain Intake Note: Patient is here for hospital discharge follow up. 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 Allergies oxycodone [Percocet] Allergy (Severe, Verified 01/09/24 08:50) rash Medication List - Last Reconciled 01/09/24 by Renetta Brannon PA-C cholecalciferol (vitamin D3) 25 mcg PO DAILY compress.stocking,knee,reg,lrg As directed 20-30 mm HG cyclobenzaprine 5 mg PO BID PRN folic acid 1 mg PO DAILY 90 days ibuprofen 600 mg PO Q8H PRN levothyroxine 100 mcg PO QAM omeprazole magnesium (Prilosec OTC) 20 mg PO DAILY simvastatin 10 mg PO DAILY 90 days sulfamethoxazole-trimethoprim 800-160 mg (Bactrim DS) 1 tab PO BID Tobacco use date assessed: 06/26/23 Dental Screening Dental Screen Date: 08/02/23 HPI [facility] [place] Chest pain HPI Details 53-year-old female with past medical history of hypothyroid, hypercholesterolemia, GERD, generalized anxiety disorder, LUCERO, impaired glucose tolerance last seen by Dr. Marx July 2023 coming in for hospital follow up.? In review of the notes, patient was seen in [facility] ED 01/03/2024 for chest pain lab work and troponins within normal limits, chest x-ray unremarkable, EKG normal, COVID negative.? Patient was discharged home and follow up with Cardiology. Since she was sitting at her desk when she extreme chest pain that took her breath away. Since the initial episode that brought her to the ER she has not had repeat of this chest pain. She does mentioned she has been having palpitations for several months now she has them throughout the day but also at night often wakes her up from sleep. The palpitations she describes as pounding sometimes associated with shortness of breath. The longest episodes last 5-10 minutes however most episodes last a few seconds. She has not ever been evaluated by Cardiology but has had a Holter monitor in the past. Denies any chest pain with exercise. [facility] Medical History Hot flashes Encounter for annual routine gynecological examination Chronic idiopathic constipation Elevated LFTs Chronic pain syndrome Postlaminectomy syndrome of lumbar region Folic acid deficiency Chronic low back pain with bilateral sciatica Pelvic pain in female Fibroids Encounter to discuss test results Palpitations Alkaline phosphatase elevation Annual physical exam Ankle swelling Arthritis Rotator cuff tear, right Shoulder pain Lumbar back pain Knee pain, left Pain in right axilla Right arm numbness Hematuria Peripheral vascular disease Lumbar radicular pain Fatty liver Gallbladder disease Anxiety Irritable bowel syndrome with constipation Hypercholesterolemia Obesity GERD (gastroesophageal reflux disease) Lumbar degenerative disc disease Vitamin D deficiency Migraine Allergic rhinitis Hypothyroid Surgical History History of liver biopsy Gallstones H/O colonoscopy H/O rotator cuff surgery History of bladder surgery History of tonsillectomy Hx of dilation and curettage History of lumbar discectomy Family History Mother Cancer Heart disease Brain cancer Aortic aneurysm Father Heart problem Maternal Grandfather Lung cancer Paternal Aunt Lung cancer Maternal Aunt Heart disease Sister Substance abuse Maternal Uncle Substance abuse Heart problem Maternal Grandmother Brain cancer Social History Housing: House Are you a primary family day care provider to a significant other at home: No Do you presently have visiting nurse or other home services: No Alcohol intake: never Patient Tobacco Use Status: Never used Tobacco e-Cigarette/Vaping Use: Never Used Second Hand Smoke Exposure: No service: No Current occupational status: employed 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 How often do you have a drink containing alcohol?: Never 3. How often do you have six or more drinks on one occasion?: Never Total Score: 0 Score Reviewed/Action Taken: No CAROEL-7 AMB Questionnaire CAROLE-7 Date CAROLE - 7 assessed: 06/26/23 Source: Developed by Drs. Hector Hou, Monica Torres, Reynaldo Medley and colleagues, with an educational bernard from [employer]. Review of Systems Const Denies body aches, Denies chills, Denies fever(s) and Reports headache(s) (Occasional) Eyes Reports no additional complaints ENT Denies dizziness and Reports headache(s) (Occasional) Card Denies chest pain, Denies syncope, Denies edema, Reports irregular heart rhythm, Denies lightheadedness and Denies dyspnea Resp Denies cough and Denies dyspnea GI Denies abdominal pain, Denies nausea and Denies vomiting Reports no additional complaints Musc Reports no additional complaints and Denies abnormal gait Skin/Breast Reports system reviewed and no additional complaints, except as documented Neuro Denies abnormal gait, Denies dizziness, Denies syncope and Reports headache(s) (Occasional) Psych Reports no additional complaints Physical exam (Primary Care) Vital Signs: Last Vital Signs Pulse 72 01/09/24 08:50 BP 138/70 01/09/24 08:50 Pulse Ox 98 01/09/24 08:50 Oxygen Delivery Method Room Air 01/09/24 08:50 BMI result Body Mass Index 42.7 Tobacco/Smoking Status: Tobacco use Status Tobacco use date assessed 06/26/23 01/09/24 08:51 Patient Tobacco Use Status Never used Tobacco 01/09/24 08:51 e-Cigarette/Vaping Use Never Used 01/09/24 08:51 Thrive Assessment: Date of Thrive Assessment Date Thrive assessed 06/26/23 01/09/24 08:51 Const General: cooperative, healthy appearing, comfortable and no acute distress Orientation/consciousness: patient oriented x3 HENMT Head: Yes normocephalic Ears: hearing grossly normal bilaterally General nose exam: Normal external nose present Eyes General: appearance normal, both eyes and all related structures Conjunctivae: conjunctivae normal Neck Neck: Yes full ROM and Yes no lymphadenopathy Resp Effort & Inspection: normal respiratory effort Auscultation: clear to auscultation bilaterally, no crackles, no rales, no rhonchi and no wheezes Cardio Rate: regular rate Rhythm: regular rhythm Skin General skin exam: no rashes or lesions noted Neuro General: patient oriented x3 Gait exam (Neuro): Normal gait present Extrem General: Yes normal to inspection, Yes full ROM and No edema Psych Affect: normal affect Attitude: cooperative Insight: Good insight present (Psych) Judgement: Good judgement present (Psych) Assessment and Plan Assessment & Plan (1) Palpitations: Code(s): R00.2 - Palpitations Plan: Patient has history of palpitations and has previously had Holter monitor which she had revealed an underlying rhythm of normal sinus rhythm. We will order for repeat Holter monitor as palpitations have been worsening and increasing. Also referred to Cardiology per recommendation from ER. Follow up at next appointment or sooner pending results of Holter monitor. (2) Generalized anxiety disorder: Code(s): F41.1 - Generalized anxiety disorder Plan: Patient has been having increased anxiety and stress surrounding family matters. Has previously had a counselor in the past and found this beneficial. Referral for counselor sent today. Plan This note was constructed using voice recognition software. While every effort has been made to ensure accuracy and development manager, still areas may have been included sometimes these areas may affect the content or meeting of the given symptoms. Total time spent caring for the patient today was 30 minutes. This includes time spent before the visit reviewing the chart, time spent during the visit, and time spent after the visit and documentation. Orders: Orders ECG 3 day holter monitor Today R00.2 - Palpitations Referrals Counseling Referral F41.1 - Generalized anxiety disorder Cardiology Referral R00.2 - Palpitations Coding Level of Care Code Est Pt Level 4 (66724) Diagnoses Palpitations R00.2 Generalized anxiety disorder F41.1
== END 2024-01-09 09:23 | disposition home or self-care (01) ==
PROVIDERS: PCP Internal Medicine
DX: R00.2 Palpitations (principal); F41.1 Generalized anxiety disorder
CPT/HCPCS: 99214

== ENCOUNTER → 2024-01-16 12:50 | Outpatient (REF) | payer OTHER, SELFPAY ==
--- NOTE | 2024-01-16 12:54 | HM_ITS ---
* Total monitoring time about 3 days. * Underlying rhythm is sinus with an average rate of 73/Min. * Rare supraventricular ectopy. * Occasional ventricular ectopy with a burden of 1.3%. Rare couplets. No significant runs. * No significant pauses or AV blocks. * No patient markers or diary events. MTDD
== END ==
LOC: HO.CARD 12:50
PROVIDERS: PCP Internal Medicine
DX: R00.2 Palpitations (principal)
CPT/HCPCS: 93242

== ENCOUNTER → 2024-01-16 12:54 | Outpatient (BNV) | payer OTHER, SELFPAY | PROVIDERS: PCP Internal Medicine; Visit Provider Internal Medicine | DX: I47.10 Supraventricular tachycardia, unspecified (principal) | CPT/HCPCS: 93244 ==

== ENCOUNTER 2024-02-05 12:21 | Outpatient (AMB) | payer OTHER, SELFPAY ==
[2024-02-05 12:29] VITALS: BP 132/80; PULSE 69; O2SAT 95; BMI 42.9
--- NOTE | 2024-02-05 12:29 | A.OFFPC_ITS ---
Vital Signs 02/05/24 12:29 Height 5 ft 1 in Weight 227 lb BMI 42.9 BP 132/80 Blood Pressure Location Lt brachial Position Sitting Pulse 69 Pulse Source Pulse Oximeter Pulse Oximetry (%) 95 Oxygen Delivery Method Room Air Intake Visit Reasons: PE needs repeat leslye w md anders Allergies oxycodone [Percocet] Allergy (Severe, Verified 01/09/24 08:50) rash Medication List - Last Reconciled 02/05/24 by Calin Marx MD compress.stocking,knee,reg,lrg As directed 20-30 mm HG ibuprofen 600 mg PO Q8H PRN levothyroxine 100 mcg PO QAM omeprazole magnesium (Prilosec OTC) 20 mg PO DAILY simvastatin 10 mg PO DAILY 90 days Tobacco use date assessed: 06/26/23 Dental Screening Dental Screen Date: 08/02/23 HPI PE needs repeat leslye anders HPI Details 53-year-old morbidly obese female with g eneralized anxiety disorder hypothyroid hypercholesterolemia GERD lumbar post laminectomy syndrome Patterson coming in for physical exam last seen in 01/08/2024. Patient's mammogram is up-to-date colonoscopy December 2017. Patient had a Holter done for palpitations 01/27/2024 patient was also in the emergency room in January 02 for chest pain workup has been negative. hearing problem [facility] Medical History (Updated 02/05/24 @ 12:42 by Calin Marx MD) Obesity (BMI 30-39.9) Hot flashes Encounter for annual routine gynecological examination Chronic idiopathic constipation Elevated LFTs Chronic pain syndrome Postlaminectomy syndrome of lumbar region Folic acid deficiency Chronic low back pain with bilateral sciatica Pelvic pain in female Fibroids Encounter to discuss test results Palpitations Alkaline phosphatase elevation Annual physical exam Ankle swelling Arthritis Rotator cuff tear, right Shoulder pain Lumbar back pain Knee pain, left Pain in right axilla Right arm numbness Hematuria Peripheral vascular disease Lumbar radicular pain Fatty liver Gallbladder disease Anxiety Irritable bowel syndrome with constipation Hypercholesterolemia Obesity GERD (gastroesophageal reflux disease) Lumbar degenerative disc disease Vitamin D deficiency Migraine Allergic rhinitis Hypothyroid Surgical History History of liver biopsy Gallstones H/O colonoscopy H/O rotator cuff surgery History of bladder surgery History of tonsillectomy Hx of dilation and curettage History of lumbar discectomy Family History Mother Cancer Heart disease Brain cancer Aortic aneurysm Father Heart problem Maternal Grandfather Lung cancer Paternal Aunt Lung cancer Maternal Aunt Heart disease Sister Substance abuse Maternal Uncle Substance abuse Heart problem Maternal Grandmother Brain cancer Social History Housing: House Are you a primary career education teacher to a significant other at home: No Do you presently have visiting nurse or other home services: No Alcohol intake: never Patient Tobacco Use Status: Never used Tobacco Tobacco use type: Cigarette e-Cigarette/Vaping Use: Never Used Second Hand Smoke Exposure: No service: No Current occupational status: employed 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 1. Little interest or pleasure in doing things: not at all 2. Feeling down, depressed, or hopeless: not at all 3. Trouble falling or staying asleep, or sleeping too much: not at all 4. Feeling tired or having little energy: not at all 5. Poor appetite or overeating: not at all 6. Feeling bad about yourself - or that you are a failure or have let yourself or your family down: not at all 7. Trouble concentrating on things, such as reading the newspaper or watching television: not at all 8. Moving or speaking so slowly that other people could have noticed. Or the opposite - being so fidgety or restless that you have been moving around a lot more than usual: not at all 9. Thoughts that you would be better off or of hurting yourself in some way: not at all Total score: 0 Depression Screening Interpretation: Negative Depression Screening Done: Yes 76479 - PHQ-9 Billing: Yes Source: Developed by Drs. Hector Hou, Monica Torres, Reynaldo Medley and colleagues, with an educational bernard from [employer]. Thrive Questionnaire Date Thrive assessed: 02/03/24 I am a: Patient What is your living situation today?: I have a steady place to live Within the past 12 months, did the food you bought not last and you didn't have the money to get more?: Sometimes True Within the past 12 months, did you worry whether your food would run out before you got money to buy more?: I choose not to answer this question Do you have trouble paying for medicines?: No Do you have trouble getting transportation to medical appointments?: No Do you have trouble paying your heating and electricity bill?: Yes Do you have trouble taking care of your child, family member or friend?: I choose not to answer this question Do you have trouble with day-to-day activities such as bathing, preparing meals, shopping, managing finances, etc.?: No Are you currently unemployed and looking for a job?: No Are you interested in more education?: I choose not to answer this question Please select the resources that you would like help with: None Currently or been in a relationship where the following occur: No concerns reported THRIVE Score: 2 AUDIT C Alcohol Use Questionnaire (AUDIT-C) 1. How often do you have a drink containing alcohol?: Never 3. How often do you have six or more drinks on one occasion?: Never Total Score: 0 CAROLE-7 AMB Questionnaire CAROLE-7 Date CAROLE - 7 assessed: 02/05/24 Feeling nervous, anxious, or on edge: 0 = Not at all Not being able to stop or control worryin = Not at all Worrying too much about different things: 0 = Not at all Trouble relaxin = Not at all Being so restless that it is hard to sit still: 0 = Not at all Becoming easily annoyed or irritable: 0 = Not at all Feeling afraid as if something awful might happen: 0 = Not at all Total CAROLE-7 score (0-4 normal; 5-9 mild; 10-14 moderate; 15-21 severe): 0 Source: Developed by Drs. Hector Hou, Monica Torres, Reynaldo Medley and colleagues, with an educational bernard from [employer] CAROLE-7 Assessment Billing CAROLE-7 Assessment Tool: CAROLE-7 Assessment 75321 Review of Systems Const Denies poor appetite and Denies weakness Eyes Denies no additional complaints ENT Reports Normal hearing present, Denies dizziness, Denies nasal congestion, Denies tinnitus and Denies sore throat Card Denies chest pain, Denies syncope, Denies rapid heart rate and Denies dyspnea Resp Denies cough and Denies dyspnea GI Denies change in stool character, Reports constipation, Denies diarrhea, Denies nausea and Denies vomiting Denies urinary frequency, Denies difficulty voiding and Denies dysuria Neuro Reports Normal hearing present, Denies confusion, Denies dizziness, Denies syncope and Denies weakness Psych Denies confusion Physical exam (Primary Care) Vital Signs: Last Vital Signs Pulse 69 02/05/24 12:29 BP 132/80 02/05/24 12:29 Pulse Ox 95 02/05/24 12:29 Oxygen Delivery Method Room Air 02/05/24 12:29 BMI result Body Mass Index 42.9 Tobacco/Smoking Status: Tobacco use Status Tobacco use date assessed 06/26/23 02/05/24 12:36 Patient Tobacco Use Status Never used Tobacco 02/05/24 12:36 Tobacco use type Cigarette 02/05/24 12:36 e-Cigarette/Vaping Use Never Used 02/05/24 12:36 PHQ-9: PHQ-9 Score PHQ-9: Total score 0 02/05/24 12:36 Depression Screening Interpretation: Negative Thrive Assessment: Date of Thrive Assessment Date Thrive assessed 02/03/24 02/05/24 12:36 Currently or been in a relationship where the following occur: No concerns reported Const General: No confusion Orientation/consciousness: No confusion HENMT Head: Yes normocephalic Ears: external ears normal and TM's normal bilaterally Face and sinus: Yes normal facial exam Mouth: moist mucous membranes Throat: Yes tonsils normal Eyes Conjunctivae: conjunctivae normal Pupils: Equal, round and reactive pupils present and Pupil accommodation reflex normal Direct Ophthalmoscopy: normal light reflex Neck Neck: No lymphadenopathy Thyroid: Thyroid normal Chest Chest palpation & inspection: normal inspection of the chest Resp Effort & Inspection: normal respiratory effort and no audible wheezes Auscultation: clear to auscultation bilaterally, no crackles, no wheezes and lung sounds not diminished Cardio Rate: regular rate Rhythm: regular rhythm Peripheral pulses: radial pulses present and dorsalis pedis present GI Other: guaiac negative Palpation (GI): no masses Auscultation: normal bowel sounds and normoactive bowel sounds Skin General skin exam: no rashes or lesions noted Rashes: no rashes Neuro General: No confusion Cranial nerves: Yes Equal, round and reactive pupils present and Yes Normal hearing present Cognition (Neuro): normal cognition Gait exam (Neuro): Normal gait present Motor exam (neuro): 5/5 motor strength present throughout Deep tendon reflexes (DTR's): Right brachioradialis reflex intensity grade: 2+, Left brachioradialis reflex intensity grade: 2+, Right patellar reflex intensity grade: 2+ and Left patellar reflex intensity grade: 2+ Extrem General: No edema Assessment and Plan Assessment & Plan (1) Annual physical exam: Code(s): Z00.00 - Encounter for general adult medical examination without abnormal findings Plan: Patient is advised to eat healthy, keep well hydrated, keep active and have adequate sleep. (2) Morbid obesity: Code(s): E66.01 - Morbid (severe) obesity due to excess calories Plan: Diet and exercise (3) Impaired fasting glucose: Code(s): R73.01 - Impaired fasting glucose Plan: Decrease the amount of carbohydrate intake, pasta, bread, rice and potatoes are all sugar and that is aside from all the sweet stuff, remember that fruits are good but they are Sweet also. (4) PATTERSON (nonalcoholic steatohepatitis): Code(s): K75.81 - Nonalcoholic steatohepatitis (PATTERSON) Plan: Low-fat diet and exercise (5) Generalized anxiety disorder: Code(s): F41.1 - Generalized anxiety disorder Plan: Discussed about counseling and therapy (6) Postlaminectomy syndrome of lumbar region: Code(s): M96.1 - Postlaminectomy syndrome, not elsewhere classified Plan: Continue to keep active and lose the weight (7) Hypothyroid: Code(s): E03.9 - Hypothyroidism, unspecified Qualifiers: Hypothyroidism type: acquired Qualified Code(s): E03.9 - Hypothyroidism, unspecified Plan: Continue with thyroid medication (8) Hypercholesterolemia: Code(s): E78.00 - Pure hypercholesterolemia, unspecified Plan: Avoid fried foods, chicken skin, eggs, butter margarine, pastries and meat. Be it pork or beef they have a lot of cholesterol on simvastatin LDL goal of less than 130 and triglyceride of less than 150 (9) GERD (gastroesophageal reflux disease): Code(s): K21.9 - Gastro-esophageal reflux disease without esophagitis Qualifiers: Esophagitis presence: without esophagitis Qualified Code(s): K21.9 - Gastro-esophageal reflux disease without esophagitis Plan: Avoid the foods that causes that usually spicy foods, tomato products, juices, coffee, soda and foods that your sensitive to. After eating do not lie down, allow 3-4 hours before in lie down. And keep the head of bed above 30 degrees to avoid the acid from going up. Orders: Orders Complete Blood Count Auto Diff 6 Months E78.00 - Pure hypercholesterolemia, unspecified Hemoglobin A1c 6 Months E78.00 - Pure hypercholesterolemia, unspecified Vitamin D 25-OH Total 6 Months E78.00 - Pure hypercholesterolemia, unspecified Thyroid Stimulating Hormone 6 Months E78.00 - Pure hypercholesterolemia, unspecified Comprehensive Met. Panel 6 Months E78.00 - Pure hypercholesterolemia, unspecified Lipid Panel 6 Months E78.00 - Pure hypercholesterolemia, unspecified Free T4 (Free Thyroxine) 6 Months E78.00 - Pure hypercholesterolemia, unspecified Vitamin B12 and Folate 6 Months E78.00 - Pure hypercholesterolemia, unspecified Referrals Psychiatry Outpatient Consultation Service F41.1 - Generalized anxiety disorder Coding Level of Care Code Est Pt Prev Care 40-64y(78484) Diagnoses Annual physical exam Z00.00 Morbid obesity E66.01 Impaired fasting glucose R73.01 PATTERSON (nonalcoholic steatohepatitis) K75.81 Generalized anxiety disorder F41.1 Postlaminectomy syndrome of lumbar region M96.1 Acquired hypothyroidism E03.9 Hypothyroidism type: acquired Hypercholesterolemia E78.00 Gastroesophageal reflux disease without esophagitis K21.9 Esophagitis presence: without esophagitis Additional Codes CAROLE-7 Assessment Billing - CAROLE-7 Assessment Tool: CAROLE-7 Assessment 65879 ([id number])
== END 2024-02-05 13:07 | disposition home or self-care (01) ==
PROVIDERS: PCP Internal Medicine; Visit Provider Internal Medicine
DX: Z00.00 Encounter for general adult medical examination without abnormal findings (principal); E66.01 Morbid (severe) obesity due to excess calories; R73.01 Impaired fasting glucose; K75.81 Nonalcoholic steatohepatitis (NASH); F41.1 Generalized anxiety disorder; M96.1 Postlaminectomy syndrome, not elsewhere classified; E03.9 Hypothyroidism, unspecified; E78.00 Pure hypercholesterolemia, unspecified; K21.9 Gastro-esophageal reflux disease without esophagitis

== ENCOUNTER → 2024-02-05 12:21 | Outpatient (BNVA) | payer OTHER, SELFPAY | PROVIDERS: PCP Internal Medicine; Visit Provider Internal Medicine | DX: Z00.00 Encounter for general adult medical examination without abnormal findings (principal); R73.01 Impaired fasting glucose; K75.81 Nonalcoholic steatohepatitis (NASH); F41.1 Generalized anxiety disorder; E66.01 Morbid (severe) obesity due to excess calories; Z68.41 Body mass index [BMI] 40.0-44.9, adult; M96.1 Postlaminectomy syndrome, not elsewhere classified; E03.9 Hypothyroidism, unspecified; E78.00 Pure hypercholesterolemia, unspecified; K21.9 Gastro-esophageal reflux disease without esophagitis | CPT/HCPCS: 96127 ==

== ENCOUNTER 2024-03-19 07:54 | Outpatient (AMB) | payer OTHER, SELFPAY ==
--- NOTE | 2024-03-19 07:55 | A.OFFVIS_ITS ---
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 She is doing well with no concerns. Attempting to eat a healthy diet and stays active. Currently not sexually active due to husbands medical condition. Last pap smear; 2020. Last mammogram; 2022. Appointment scheduled for April. Colonoscopy is UTD. Denies any family history of breast, ovarian or colon cancer. [facility] Medical History (Updated 03/19/24 @ 08:33 by Chloe Michael CNM) Generalized anxiety disorder Obesity (BMI 30-39.9) Hot flashes Encounter for annual routine gynecological examination Chronic idiopathic constipation Elevated LFTs Chronic pain syndrome Postlaminectomy syndrome of lumbar region Folic acid deficiency Chronic low back pain with bilateral sciatica Pelvic pain in female Fibroids Encounter to discuss test results Palpitations Alkaline phosphatase elevation Annual physical exam Ankle swelling Arthritis Rotator cuff tear, right Shoulder pain Lumbar back pain Knee pain, left Pain in right axilla Right arm numbness Hematuria Peripheral vascular disease Lumbar radicular pain Fatty liver Gallbladder disease Anxiety Irritable bowel syndrome with constipation Hypercholesterolemia Obesity GERD (gastroesophageal reflux disease) Lumbar degenerative disc disease Vitamin D deficiency Migraine Allergic rhinitis Hypothyroid Surgical History History of liver biopsy Gallstones H/O colonoscopy H/O rotator cuff surgery History of bladder surgery History of tonsillectomy Hx of dilation and curettage History of lumbar discectomy Family History Mother Cancer Heart disease Brain cancer Aortic aneurysm Father Heart problem Maternal Grandfather Lung cancer Paternal Aunt Lung cancer Maternal Aunt Heart disease Sister Substance abuse Maternal Uncle Substance abuse Heart problem Maternal Grandmother Brain cancer Social History Housing: House Are you a primary home visit field care manager to a significant other at home: No Do you presently have visiting nurse or other home services: No Alcohol intake: never Patient Tobacco Use Status: Never used Tobacco Tobacco use type: Cigarette e-Cigarette/Vaping Use: Never Used Second Hand Smoke Exposure: No service: No Current occupational status: employed 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 Current occupational exposures/hazards: No Cognitive needs: No Hearing needs: No Vision needs: Yes Female Reproductive History Menstrual Age of Menarche: 11 Menopause type: natural Total pregnancies: 3 Full term: 3 Number of Living Children: 3 Date of last pap smear: 12/20/20 (neg pap and hpv) Date of Mammogram: 04/10/23 (Bir[facility] 2) Physical Exam Vital Signs: Last Vital Signs BP 110/74 03/19/24 07:57 BMI result Body Mass Index 43.5 Assessment & Plan Assessment & Plan (1) Encounter for well woman exam with routine gynecological exam: Code(s): Z01.419 - Encounter for gynecological examination (general) (routine) without abnormal findings Category: Medical Plan: Discussed: Current recommendations for pap smears per ASCCP guidelines. Breast awareness, periodic self breast exams and yearly mammogram. Maintain a healthy lifestyle, well balanced diet including Calcium 1,200 mg and Vitamin D 600 IU daily, and routine exercise. Contact the office with any postmenopausal bleeding. Patient verbalizes understanding and agrees to the plan of care. She was given opportunity to ask questions and all questions were answered to the best of my ability. RTO in 1 year for annual statement services representative exam. This note is constructed using voice recognition software. While every effort has been made to ensure accuracy, leasing associate errors may have been included. Coding Level of Care Code Est Pt Prev Care 40-64y(57542) Diagnoses Encounter for well woman exam with routine gynecological exam Z01.419
[2024-03-19 07:57] VITALS: BP 110/74; BMI 43.5
== END 2024-03-19 09:13 | disposition home or self-care (01) ==
LOC: HO.HWS 07:55
PROVIDERS: PCP Internal Medicine; Visit Provider Advanced Practice Midwife
DX: Z01.419 Encounter for gynecological examination (general) (routine) without abnormal findings (principal)
CPT/HCPCS: 99396

== ENCOUNTER → 2024-03-19 07:54 | Outpatient (BNVA) | payer OTHER, SELFPAY | PROVIDERS: PCP Internal Medicine; Visit Provider Advanced Practice Midwife ==

== ENCOUNTER 2024-03-26 13:42 | Outpatient (AMB) | payer OTHER, SELFPAY ==
[2024-03-26 13:48] VITALS: BP 136/80; PULSE 71; O2SAT 98; BMI 43.1
--- NOTE | 2024-03-26 13:48 | MHC.PC.OV ---
Vital Signs 03/26/24 13:48 Height 5 ft 1 in Weight 228 lb BMI 43.1 BP 136/80 Blood Pressure Location Lt brachial Position Sitting Pulse 71 Pulse Source Pulse Oximeter Pulse Oximetry (%) 98 Oxygen Delivery Method Room Air Intake Visit Reasons: Lower back pain radiating left leg after fall. Allergies oxycodone [Percocet] Allergy (Severe, Verified 03/26/24 13:49) rash Tobacco use date assessed: 06/26/23 Dental Screening Dental Screen Date: 08/02/23 HPI Lower back pain radiating left leg after fall. HPI Details 54-year-old morbidly obese female with hypothyroidism hypercholesterolemia GERD history of post laminectomy syndrome lumbar generalized anxiety disorder nonalcoholic steatohepatitis impaired glucose tolerance coming in for an acute problem last seen in 02/08/2024. Patient's mammogram is due, colonoscopy done in 2018. decline flu shot hanging up clothes - fell backward. 3 weeks ago had bruise. low back pain R shoulder pain. Patient's last fall was in June for the lower back this time slipped in ice. Discussed about avoiding falls with preventing stepping on stools. [facility] Medical History (Updated 03/26/24 @ 14:16 by Calin Marx MD) Generalized anxiety disorder Obesity (BMI 30-39.9) Hot flashes Encounter for annual routine gynecological examination Chronic idiopathic constipation Elevated LFTs Chronic pain syndrome Postlaminectomy syndrome of lumbar region Folic acid deficiency Chronic low back pain with bilateral sciatica Pelvic pain in female Fibroids Encounter to discuss test results Palpitations Alkaline phosphatase elevation Annual physical exam Ankle swelling Arthritis Rotator cuff tear, right Shoulder pain Lumbar back pain Knee pain, left Pain in right axilla Right arm numbness Hematuria Peripheral vascular disease Lumbar radicular pain Fatty liver Gallbladder disease Anxiety Irritable bowel syndrome with constipation Hypercholesterolemia Obesity GERD (gastroesophageal reflux disease) Lumbar degenerative disc disease Vitamin D deficiency Migraine Allergic rhinitis Hypothyroid Surgical History History of liver biopsy Gallstones H/O colonoscopy H/O rotator cuff surgery History of bladder surgery History of tonsillectomy Hx of dilation and curettage History of lumbar discectomy Family History Mother Cancer Heart disease Brain cancer Aortic aneurysm Father Heart problem Maternal Grandfather Lung cancer Paternal Aunt Lung cancer Maternal Aunt Heart disease Sister Substance abuse Maternal Uncle Substance abuse Heart problem Maternal Grandmother Brain cancer Social History Housing: House Are you a primary childcare center administrator to a significant other at home: No Do you presently have visiting nurse or other home services: No Alcohol intake: never Patient Tobacco Use Status: Never used Tobacco Tobacco use type: Cigarette e-Cigarette/Vaping Use: Never Used Second Hand Smoke Exposure: No service: No Current occupational status: employed 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 1. Little interest or pleasure in doing things: not at all 2. Feeling down, depressed, or hopeless: not at all 3. Trouble falling or staying asleep, or sleeping too much: not at all 4. Feeling tired or having little energy: not at all 5. Poor appetite or overeating: not at all 6. Feeling bad about yourself - or that you are a failure or have let yourself or your family down: not at all 7. Trouble concentrating on things, such as reading the newspaper or watching television: not at all 8. Moving or speaking so slowly that other people could have noticed. Or the opposite - being so fidgety or restless that you have been moving around a lot more than usual: not at all 9. Thoughts that you would be better off or of hurting yourself in some way: not at all Total score: 0 Depression Screening Interpretation: Negative Depression Screening Done: Yes 24441 - PHQ-9 Billing: Yes Source: Developed by Drs. Hector Hou, Monica Torres, Reynaldo Medley and colleagues, with an educational bernard from [employer]. Thrive Questionnaire Date Thrive assessed: 02/03/24 I am a: Patient What is your living situation today?: I have a steady place to live Within the past 12 months, did the food you bought not last and you didn't have the money to get more?: Sometimes True Within the past 12 months, did you worry whether your food would run out before you got money to buy more?: I choose not to answer this question Do you have trouble paying for medicines?: No Do you have trouble getting transportation to medical appointments?: No Do you have trouble paying your heating and electricity bill?: Yes Do you have trouble taking care of your child, family member or friend?: I choose not to answer this question Do you have trouble with day-to-day activities such as bathing, preparing meals, shopping, managing finances, etc.?: No Are you currently unemployed and looking for a job?: No Are you interested in more education?: I choose not to answer this question Please select the resources that you would like help with: None Currently or been in a relationship where the following occur: No concerns reported THRIVE Score: 2 AUDIT C Alcohol Use Questionnaire (AUDIT-C) 1. How often do you have a drink containing alcohol?: Never 3. How often do you have six or more drinks on one occasion?: Never Total Score: 0 CAROLE-7 AMB Questionnaire CAROLE-7 Date CAROLE - 7 assessed: 02/05/24 Source: Developed by Drs. Hector Hou, Monica Torres, Reynaldo Medley and colleagues, with an educational bernard from [employer]. Physical exam (Primary Care) Vital Signs: Last Vital Signs Pulse 71 03/26/24 13:48 BP 136/80 03/26/24 13:48 Pulse Ox 98 03/26/24 13:48 Oxygen Delivery Method Room Air 03/26/24 13:48 BMI result Body Mass Index 43.1 Tobacco/Smoking Status: Tobacco use Status Tobacco use date assessed 06/26/23 03/26/24 13:59 Patient Tobacco Use Status Never used Tobacco 03/26/24 13:59 Tobacco use type Cigarette 03/26/24 13:59 e-Cigarette/Vaping Use Never Used 03/26/24 13:59 PHQ-9: PHQ-9 Score PHQ-9: Total score 0 03/26/24 13:59 Depression Screening Interpretation: Negative Thrive Assessment: Date of Thrive Assessment Date Thrive assessed 02/03/24 03/26/24 13:59 Currently or been in a relationship where the following occur: No concerns reported Const General: alert; No acute distress Eyes Conjunctivae: conjunctivae normal Resp Auscultation: clear to auscultation bilaterally Cardio Rate: regular rate Rhythm: regular rhythm GI Inspection: Yes normal to inspection Back/Spine/Pelvis Other: Tender on the lumbar vertebral area as well as on paravertebral as well as sacroiliac area no gluteal tenderness. As for the right shoulder can move all ranges of motion with some tenderness on palpation of the shoulder. Bicipital tendonitis right shoulder Extrem General: Yes normal to inspection and No edema Coding Level of Care Code Est Pt Level 4 (13846) Diagnoses Breast cancer screening by mammogram Z12.31 Acquired hypothyroidism E03.9 Hypothyroidism type: acquired Hypercholesterolemia E78.00 Lumbar disc herniation M51.26 Acute midline low back pain without sciatica M54.50 Chronicity: acute Back pain laterality: midline Sciatica presence: without sciatica Injury of right shoulder, initial encounter S49.91XA Encounter type: initial encounter Additional Codes PHQ-9 - 75724 - PHQ-9 Billing: Yes ([id number]) Assessment & Plan Assessment & Plan (1) Breast cancer screening by mammogram: Code(s): Z. - Encounter for screening mammogram for malignant neoplasm of breast Category: Medical Plan: Patient is reminded about mammogram (2) Hypothyroid: Code(s): E03.9 - Hypothyroidism, unspecified Category: Medical Qualifiers: Hypothyroidism type: acquired Qualified Code(s): E03.9 - Hypothyroidism, unspecified Plan: Last thyroid test was done in 10/08/2023 (3) Hypercholesterolemia: Code(s): E78.00 - Pure hypercholesterolemia, unspecified Category: Medical Plan: Avoid fried foods, chicken skin, eggs, butter margarine, pastries and meat. Be it pork or beef they have a lot of cholesterol LDL goal of less than 130 and triglyceride of less than 150 on simvastatin and the last blood work was in 10/08/2023 (4) Lumbar disc herniation: Comment: L4-L5 May 2022Jan2022 bilateral decompression with left-sided complete facetectomy and pars ectomy L4-L5 left transforaminal an annulotomy, diskectomy with bilateral [address] Robertson Code(s): M51.26 - Other intervertebral disc displacement, lumbar region Category: Medical Plan: Patient is taking some anti-inflammatory, because of the fall x-ray is requested (5) Low back pain: Comment: fall 02/2024 Code(s): M54.50 - Low back pain, unspecified Category: Medical Qualifiers: Chronicity: acute Back pain laterality: midline Sciatica presence: without sciatica Qualified Code(s): M54.50 - Low back pain, unspecified Plan: Because of the fall x-ray is requested and physical therapy (6) Right shoulder injury: Comment: 02/2024 Code(s): S49.91XA - Unspecified injury of right shoulder and upper arm, initial encounter Category: Medical Qualifiers: Encounter type: initial encounter Qualified Code(s): S49.91XA - Unspecified injury of right shoulder and upper arm, initial encounter Plan: Because of the fall x-rays requested as well as physical therapy Orders: Orders XR shoulder RT min 2V Today S49.91XA - Unspecified injury of right shoulder and upper arm, initial encounter XR lumbar spine 2-3V Today M54.50 - Low back pain, unspecified PT Evaluation and Treatment Today M54.50 - Low back pain, unspecified, S49.91XA - Unspecified injury of right shoulder and upper arm, initial encounter
== END 2024-03-26 14:14 | disposition home or self-care (01) ==
LOC: HO.HMCH 13:42
PROVIDERS: PCP Internal Medicine; Visit Provider Internal Medicine
DX: E03.9 Hypothyroidism, unspecified (principal); E78.00 Pure hypercholesterolemia, unspecified; Z12.31 Encounter for screening mammogram for malignant neoplasm of breast; M51.26 Other intervertebral disc displacement, lumbar region; M54.50 Low back pain, unspecified; S49.91XA Unspecified injury of right shoulder and upper arm, initial encounter

== ENCOUNTER 2024-03-26 13:42 | Outpatient (REF) | payer OTHER, SELFPAY ==
--- NOTE | ~2024-03-26 | XR_ITS ---
EXAMINATION: XR LUMBOSACRAL SPINE CLINICAL INFORMATION: Low back pain, unspecified M54.50. Patient states fall a week ago and pain in shoulder/back. COMPARISON: XR Lumbar spine 06/17/2021 . TECHNIQUE: Three views of the lumbosacral spine. FINDINGS: Since the prior exam, there has been posterior fusion and discectomy of L4-5 with transpedicular screws, posterior connecting rods, and disc prosthesis. Hardware is intact, well seated, in anatomic alignment. No periscrew lucencies. Otherwise, minimal levoconvex scoliosis. Mild straightening normal lordosis. No significant subluxation. No compression deformities, fractures, or suspicious bone lesions. Mild degenerative disc changes present with moderate changes at L3-4. Mild changes at L5-S1. Degenerative facet changes spanning L3-S1. Imaged sacrum and SI joints appear normal. No soft tissue abnormalities aside from cholecystectomy clips. XR/XR lumbar spine 2-3V IMPRESSION: 1. Post TLIF L4-5 without complication. 2. No acute findings lumbar spine. 3. Degenerative ancillary findings as detailed. Electronically signed by: Raman Cary MD 05/08/2024 11:30 AM [facility]
--- NOTE | ~2024-03-26 | XR_ITS ---
EXAMINATION: XR SHOULDER RIGHT CLINICAL INFORMATION: Unspecified injury of right shoulder and upper arm, initial encounter S49.91XA. Patient states fall a week ago and pain in shoulder/back. COMPARISON: XR Right shoulder 01/03/2021 TECHNIQUE: AP external rotation, Grashey, scapular Y, and axillary views of the right shoulder. FINDINGS: Normal bony mineralization. No fracture, dislocation, or suspicious bone lesion. Minor/minimal subluxation and degenerative change of the AC joint. Low-grade AC separation is a consideration. Correlate with point tenderness. Mild degenerative changes in the glenohumeral joint. There has been prior rotator cuff repair with surgical anchors in the humeral head. Subacromial space is preserved. No significant subacromial spurring. Remainder the bony and soft tissue structures appear normal. XR/XR shoulder RT min 2V IMPRESSION: 1. No fracture or suspicious bone lesion. Possible low-grade AC separation versus chronic from mild degenerative change. Correlate with point tenderness. 2. Mild degenerative changes glenohumeral joint. 3. Post rotator cuff repair. No subacromial narrowing. Electronically signed by: Raman Cary MD 05/08/2024 11:15 AM [facility]
== END 2024-03-26 13:43 | disposition home or self-care (01) ==
LOC: HO.XRAY 13:42
PROVIDERS: PCP Internal Medicine; Visit Provider Internal Medicine
DX: S49.91XA Unspecified injury of right shoulder and upper arm, initial encounter (principal); M54.50 Low back pain, unspecified
CPT/HCPCS: 72100; 73030; 96127

== ENCOUNTER → 2024-03-26 14:26 | Outpatient (BNV) | payer OTHER, SELFPAY | PROVIDERS: PCP Internal Medicine; Visit Provider Radiology Diagnostic Radiology | DX: M54.50 Low back pain, unspecified (principal); M25.511 Pain in right shoulder | CPT/HCPCS: 72100; 73030 ==

== ENCOUNTER 2024-04-10 15:35 | Outpatient (REF) | payer OTHER, SELFPAY ==
[2024-04-10 17:39] LABS: Appearance Urine Cloudy; Color Urine Yellow; Glucose Urine UA Negative (Negative); Leukocyte Esterase Urine Moderate (2+) (Negative); Nitrite Urine Negative (Negative); Specific Gravity - Urine 1.015 (1.005-1.025); UMIC TRIGGER UACC YES; Urine Blood Negative (Negative); Urine Ketones Negative (Negative); Urine Protein Negative (Neg-Trace)
[2024-04-10 17:51] LABS: Bacteria Urine 4+ (None Seen); RBC Urine 0-2 /HPF (0-2); UACC Culture Trigger YES; WBC Urine 21-50 /HPF (0-5)
== END 2024-04-10 15:36 | disposition home or self-care (01) ==
LOC: HO.LAB 15:35
PROVIDERS: PCP Internal Medicine; Visit Provider Internal Medicine
DX: R39.9 Unspecified symptoms and signs involving the genitourinary system (principal)
CPT/HCPCS: 81001; 87086

== ENCOUNTER 2024-04-23 14:59 | Outpatient (REF) | payer OTHER, SELFPAY ==
--- NOTE | ~2024-04-23 | MM_ITS ---
EXAMINATION: MM SCREENING DIGITAL BREAST TOMOSYNTHESIS, BILATERAL CLINICAL INFORMATION: Screening. Asymptomatic. COMPARISON: Mammography: Comparison is made with available priors TECHNIQUE: Digital breast mammography with tomosynthesis is performed in both the craniocaudal and mediolateral oblique views along with computer-aided detection (CAD). FINDINGS: There are scattered areas of fibroglandular density (ACR BI-RADS breast composition Category b). Oval mass upper outer left breast anterior to middle depth is stable dating back to 2021. There are no significant masses, abnormal calcifications, or other abnormalities. MM/MM tomosynthesis screening BI IMPRESSION: No mammographic evidence of malignancy. ASSESSMENT: BI-RADS BI-RADS 1 - Negative RECOMMENDATION: Routine annual mammography screening. 1 year F/U This examination should not preclude the clinical evaluation of a suspicious palpable abnormality. This patient's information was entered into a reminder system with a target due date for their next mammogram. Electronically signed by: Lorena Fang DO 04/30/2024 08:46 AM [facility]
== END 2024-04-23 15:00 | disposition home or self-care (01) ==
LOC: HO.MAMMO 14:59
PROVIDERS: PCP Internal Medicine; Visit Provider Internal Medicine
DX: Z12.31 Encounter for screening mammogram for malignant neoplasm of breast (principal)
CPT/HCPCS: 77063; 77067

== ENCOUNTER → 2024-04-23 15:45 | Outpatient (BNV) | payer OTHER, SELFPAY | PROVIDERS: PCP Internal Medicine; Visit Provider Internal Medicine | DX: Z12.31 Encounter for screening mammogram for malignant neoplasm of breast (principal) | CPT/HCPCS: 77063; 77067 ==

== ENCOUNTER 2024-04-28 14:33 | Outpatient (AMB) | payer OTHER, SELFPAY ==
[2024-04-28 14:43] VITALS: BP 120/62; PULSE 73; BMI 44.2
--- NOTE | 2024-04-28 14:43 | A.OFFVIS_ITS ---
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 Patient is a pleasant 54-year-old female with prior history of impaired fasting glucose, obesity, hyperlipidemia. Has had palpitations for many years, mostly felt as fluttering in his chest and sometimes skipped heartbeats. More recently around the time of the Holter monitor she had more frequent palpitations including waking her from sleep. Her she is more bothered by episodes of chest discomfort which describes as sharp chest pain that happen while she was sitting at work not excessively stressed out suddenly having chest pain associated shortness of breath that lasted for about a minute. Since then she has had couple more episodes. No exertional related chest pain. She does not exercise much as she says she is full-time working as well as taking care of her who had a stroke in the past. She is taking all her medications but not interested in additional medications. She had a Holter monitor in December which showed frequent isolated PVCs, reviewing the strip appear to be unifocal. She says the symptoms of palpitation/fluttering have improved. She denies any heart failure symptoms. Denies any lightheadedness, syncope. [facility] Medical History Generalized anxiety disorder Obesity (BMI 30-39.9) Hot flashes Encounter for annual routine gynecological examination Chronic idiopathic constipation Elevated LFTs Chronic pain syndrome Postlaminectomy syndrome of lumbar region Folic acid deficiency Chronic low back pain with bilateral sciatica Pelvic pain in female Fibroids Encounter to discuss test results Palpitations Alkaline phosphatase elevation Annual physical exam Ankle swelling Arthritis Rotator cuff tear, right Shoulder pain Lumbar back pain Knee pain, left Pain in right axilla Right arm numbness Hematuria Peripheral vascular disease Lumbar radicular pain Fatty liver Gallbladder disease Anxiety Irritable bowel syndrome with constipation Hypercholesterolemia Obesity GERD (gastroesophageal reflux disease) Lumbar degenerative disc disease Vitamin D deficiency Migraine Allergic rhinitis Hypothyroid Surgical History History of liver biopsy Gallstones H/O colonoscopy H/O rotator cuff surgery History of bladder surgery History of tonsillectomy Hx of dilation and curettage History of lumbar discectomy Family History Mother Cancer Heart disease Brain cancer Aortic aneurysm Father Heart problem Maternal Grandfather Lung cancer Paternal Aunt Lung cancer Maternal Aunt Heart disease Sister Substance abuse Maternal Uncle Substance abuse Heart problem Maternal Grandmother Brain cancer Social History Housing: House Are you a primary spiritual care coordinator to a significant other at home: No Do you presently have visiting nurse or other home services: No Alcohol intake: never Patient Tobacco Use Status: Never used Tobacco Tobacco use type: Cigarette e-Cigarette/Vaping Use: Never Used Second Hand Smoke Exposure: No service: No Current occupational status: employed 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 Current occupational exposures/hazards: No Cognitive needs: No Hearing needs: No Vision needs: Yes Female Reproductive History Menstrual Age of Menarche: 11 Review of Systems Const Denies weakness ENT Denies dizziness Card Denies chest pain, Denies chest pain with activity, Denies syncope, Denies rapid heart rate, Denies pedal edema, Denies edema, Denies leg edema, Denies lightheadedness, Reports palpitations, Denies dyspnea, Denies dyspnea on exert ion and Denies orthopnea Resp Denies cough, Denies dyspnea and Denies dyspnea on exertion GI Denies hematochezia and Denies change in stool character Musc Denies abnormal gait, Denies muscle cramps, Denies muscle weakness, Denies numbness, Denies radiating pain into limb and Denies tingling Neuro Denies abnormal gait, Denies dizziness, Denies syncope, Denies numbness, Denies tingling and Denies weakness Endo Reports palpitations Physical Exam Vital Signs: Last Vital Signs Pulse 73 04/28/24 14:43 BP 120/62 04/28/24 14:43 BMI result Body Mass Index 44.2 Const General: cooperative, comfortable, no acute distress, alert, awake, Physically active and well groomed Nutritional Appearance: obese Orientation/consciousness: patient oriented x3 Limitations: no limitations HEENT Head: Yes normocephalic and Yes atraumatic Neck Neck: Yes trachea midline, Yes supple and Yes no JVD Resp Effort & Inspection: normal respiratory effort Auscultation: clear to auscultation bilaterally Cardio Jugular venous distension: no JVD Rate: regular rate Rhythm: regular rhythm Heart sounds: S1 normal heart sound present, S2 normal heart sound present, no click, no gallops, no murmurs and no rubs GI Auscultation: normal bowel sounds Skin General skin exam: no rashes or lesions noted Neuro General: patient oriented x3 and no focal motor deficits Extrem General: Yes no clubbing, cyanosis or edema Psych Appearance: grossly normal Office Procedures EKG Details: EKG shows normal sinus rhythm with low-voltage QRS most likely due to body habitus otherwise normal EKG 86321-[id number], Complete Assessment & Plan Assessment & Plan (1) Atypical chest pain: Code(s): R07.89 - Other chest pain Category: Medical Plan: Atypical chest pain this middle-aged woman with risk factors of hyperlipidemia borderline elevated sugar levels with obesity. Likelihood of obstructive coronary artery disease lows. Baseline EKGs normal. Would suggest exercise treadmill stress test to evaluate for myocardial ischemia. Also suggest an echocardiogram to evaluate LV systolic and diastolic function to evaluate for RV size and function as well as RV systolic pressure. These tests will be scheduled in near future. If stress test is normal at optimal workload, would suggest further screening if she is interested with coronary calcium score. (2) PVC (premature ventricular contraction): Code(s): I49.3 - Ventricular premature depolarization Category: Medical Plan: Presence of PVCs which isolated unifocal. Will suggest a structural workup of the heart including with the he in exercise treadmill stress test to evaluate for ischemia and echocardiogram to evaluate LV systolic function. She says she is not significantly bothered or limited in her functionality with PVCs and would likely not pursue pharmacotherapy. We discussed options of treatment with beta-blockers. She is at this point time wanting to defer medical therapy unless needed. We discussed benign nature of isolated PVCs in the setting of normal structure of the heart. She understands and agrees. Will follow up in the clinic in 2 months time, sooner p.r.n.. Thank you for allowing me to partake in his care Orders: Orders CA echo transthoracic complete Today I49.3 - Ventricular premature depolarization CA stress test Today R07.89 - Other chest pain Coding Level of Care Code New Pt Level 4 (44125) Complex EM visit Add On G2211 Diagnoses Atypical chest pain R07.89 PVC (premature ventricular contraction) I49.3 CPT Codes EKG - CPT: 50717-[id number], Complete ([id number])
== END 2024-04-28 15:06 | disposition home or self-care (01) ==
PROVIDERS: PCP Internal Medicine; Visit Provider Internal Medicine Cardiovascular Disease
DX: R07.89 Other chest pain (principal); I49.3 Ventricular premature depolarization
CPT/HCPCS: 93010; 99204

== ENCOUNTER → 2024-04-28 14:33 | Outpatient (BNVA) | payer OTHER, SELFPAY | PROVIDERS: PCP Internal Medicine; Visit Provider Internal Medicine Cardiovascular Disease | DX: R07.89 Other chest pain (principal); I49.3 Ventricular premature depolarization | CPT/HCPCS: 93005 ==

== ENCOUNTER 2024-05-12 08:51 | Outpatient (AMB) | payer OTHER, SELFPAY ==
--- NOTE | 2024-05-12 09:05 | MHC.OFFVIS ---
Intake Visit Reasons: OV - right shoulder pain Intake Note: Jose is a 54 year old female who presents today for a follow up of her right shoulder pain. Hx of Rt RTC Repair 07/20/2020 KI. Patient reports about a month ago she feel while she was hanging her husbands clothes while she was standing on a stool. She mentions that her pain is anterior and sometimes radiates up to her neck. Reaching and laying down makes her pain worse. Patient has tried and failed Tylenol. Allergies oxycodone [Percocet] Allergy (Severe, Verified 05/12/24 09:11) rash HPI HPI OV - right shoulder pain: Details: 54-year-old noeki-ndri-kttorxsn female who presents in the office today, for an evaluation of right shoulder pain. The patient was seen by her PCP on 03/26/24 and complained experiencing right shoulder pain and low back pain. She has a history of multiple falls. She had a fall in 02/2024. She was hanging up her clothes and fell backward. X-rays of the right shoulder were ordered. I last saw the patient in the office on 06/12/23, when an EMG order was placed for further evaluation of her symptoms. While in the office today, the patient reports right shoulder pain. She mentions experiencing pain on the anterior part that occasionally radiates up to her neck. Her pain aggravates when reaching and lying down. She confirms her fall that occurred a month ago. She had a fall while hanging her 's clothes standing on a stool. She has tried and failed Tylenol without benefit. The patient has a surgical history of right rotator cuff repair on 07/21/23 KI. [facility] Medical History Generalized anxiety disorder Obesity (BMI 30-39.9) Hot flashes Encounter for annual routine gynecological examination Chronic idiopathic constipation Elevated LFTs Chronic pain syndrome Postlaminectomy syndrome of lumbar region Folic acid deficiency Chronic low back pain with bilateral sciatica Pelvic pain in female Fibroids Encounter to discuss test results Palpitations Alkaline phosphatase elevation Annual physical exam Ankle swelling Arthritis Rotator cuff tear, right Shoulder pain Lumbar back pain Knee pain, left Pain in right axilla Right arm numbness Hematuria Peripheral vascular disease Lumbar radicular pain Fatty liver Gallbladder disease Anxiety Irritable bowel syndrome with constipation Hypercholesterolemia Obesity GERD (gastroesophageal reflux disease) Lumbar degenerative disc disease Vitamin D deficiency Migraine Allergic rhinitis Hypothyroid Surgical History History of liver biopsy Gallstones H/O colonoscopy H/O rotator cuff surgery History of bladder surgery History of tonsillectomy Hx of dilation and curettage History of lumbar discectomy Family History Mother Cancer Heart disease Brain cancer Aortic aneurysm Father Heart problem Maternal Grandfather Lung cancer Paternal Aunt Lung cancer Maternal Aunt Heart disease Sister Substance abuse Maternal Uncle Substance abuse Heart problem Maternal Grandmother Brain cancer Social History Housing: House Are you a primary home care and home health aides teacher to a significant other at home: No Do you presently have visiting nurse or other home services: No Alcohol intake: never Patient Tobacco Use Status: Never used Tobacco Tobacco use type: Cigarette e-Cigarette/Vaping Use: Never Used Second Hand Smoke Exposure: No service: No Current occupational status: employed 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 Current occupational exposures/hazards: No Cognitive needs: No Hearing needs: No Vision needs: Yes Female Reproductive History Menstrual Age of Menarche: 11 Review of Systems Const All systems reviewed & are unremarkable except as noted in HPI and below Physical Exam Const General: cooperative, healthy appearing and no acute distress Resp Effort & Inspection: normal respiratory effort and able to speak in complete sentences Cardio Rate: regular rate Peripheral pulses: Peripheral pulses 2+ throughout GI Palpation (GI): Soft to palpation Skin Lesions: no lesions Rashes: no rashes Extrem Other: Right shoulder: Forward flexion and abduction to 80 degrees. Able to reach the back pocket. Pain with crossbody reach. 3/4 strength with an empty can test. Negative drop arm. 4/5 strength with belly lift off. NVI. Assessment & Plan Assessment & Plan (1) Hx of repair of right rotator cuff: Code(s): Z98.890 - Other specified postprocedural states Category: Surgical (2) Painful arc syndrome of right shoulder: Code(s): M75.101 - Unspecified rotator cuff tear or rupture of right shoulder, not specified as traumatic Category: Medical Plan 54-year-old tzaqr-ohxx-cyenlzom female who presents in the office today, for an evaluation of right shoulder pain. The patient was seen by her PCP on 03/26/24 and complained experiencing right shoulder pain and low back pain. She has a history of multiple falls. She had a fall in 02/2024. She was hanging up her clothes and fell backward. X-rays of the right shoulder were ordered. I last saw the patient in the office on 06/12/23, when an EMG order was placed for further evaluation of her symptoms. While in the office today, the patient reports right shoulder pain. She mentions experiencing pain on the anterior part that occasionally radiates up to her neck. Her pain aggravates when reaching and lying down. She confirms her fall that occurred a month ago. She had a fall while hanging her 's clothes standing on a stool. She has tried and failed Tylenol without benefit. The patient has a surgical history of right rotator cuff repair on 07/21/23 KI. I have placed a referral to physical therapy today. Should the patient continue to experience pain after 6 weeks, then the next step would be MRI imaging of the right shoulder to further evaluate the integrity of the shoulder and surrounding structures. Follow-up will be in 6 weeks, or sooner if needed. X-rays of the right shoulder, which were obtained while in the office today and were reviewed by me, Shelbie Hare PA-C, revealed: Negative for any acute fracture or dislocation. Prior rotator cuff anchor remains intact. X-rays of the right shoulder, obtained on 03/26/24, revealed: 1. No fracture or suspicious bone lesion. Possible low-grade AC separation versus chronic from mild degenerative change. Correlate with point tenderness. 2. Mild degenerative changes glenohumeral joints. 3. Post rotator cuff repair. No subacromial narrowing. Orders: Orders XR shoulder LT min 2V 05/12/24 M25.519 - Pain in unspecified shoulder PT Evaluation and Treatment 05/12/24 M75.101 - Unspecified rotator cuff tear or rupture of right shoulder, not specified as traumatic, S46.001A - Unspecified injury of muscle(s) and tendon(s) of the rotator cuff of right shoulder, initial encounter, Z98.890 - Other specified postprocedural states Patient Instructions: Scribed by Maria C Young, medical office technologist, for Shelbie Hare PA-C on 05/12/24 at 9:18 am EST. Coding Level of Care Code Global (00328) Diagnoses Hx of repair of right rotator cuff Z98.890 Painful arc syndrome of right shoulder M75.101
== END 2024-05-12 09:30 | disposition home or self-care (01) ==
PROVIDERS: PCP Internal Medicine; Visit Provider Physician Assistant
DX: M25.511 Pain in right shoulder (principal); M75.101 Unspecified rotator cuff tear or rupture of right shoulder, not specified as traumatic
CPT/HCPCS: 99213

== ENCOUNTER 2024-05-12 15:26 | Outpatient (REF) | payer OTHER, SELFPAY | END 2024-05-12 15:27 | disposition home or self-care (01) | LOC: HO.HOSX 15:26 | PROVIDERS: Visit Provider Physician Assistant | DX: Z13.89 Encounter for screening for other disorder (principal) ==

== ENCOUNTER → 2024-05-26 07:44 | Outpatient (REF) | payer OTHER, SELFPAY ==
--- NOTE | 2024-05-26 07:47 | CA_ITS ---
Transthoracic Echocardiogram Patient (Last, First, Middle): Gavi Harris P Gender: Female Date of : 1970 Age: 54 Procedure Date: 05/26/2024 Procedure Type: Transthoracic Echocardiogram Location: OP Height: 154. cm Weight: 102.06 kg BSA: 1.98 m2 Heart Rate: 61 bpm BP: 132 / 80 mmHg Cell Biologist: DONG Referring MD: Sesar Randle MD Symptoms: I49.3 - Ventricular premature depolarization Study Quality: Adequate ECG Rhythm: Sinus Conclusions: - The left ventricular systolic function is normal. The calculated ejection fraction is 65% by biplane method. - No obvious valvular pathology seen on this study. Findings Left Ventricle Normal left ventricular cavity size. There is normal left ventricular wall thickness. The left ventricular systolic function is normal. The calculated ejection fraction is 65% by biplane method. There is no evidence of regional wall motion abnormalities. Diastolic function is normal for age. LV peak GLS -18.1%. Right Ventricle Normal right ventricular cavity size and systolic function. Atria Both atria are normal in size. Aortic Valve There is a normal trileaflet aortic valve. There is no aortic valve stenosis. There is no aortic valve regurgitation. Mitral Valve The mitral valve appears normal. There is no mitral valve regurgitation. There is no mitral valve stenosis. Pulmonic Valve The pulmonic valve is likely normal. Tricuspid Valve Normal tricuspid valve structure. There is no tricuspid valve regurgitation. There is no evidence of pulmonary hypertension. Great Vessels The asc aorta is normal in size. Venous The inferior vena cava is normal in size and collapses greater than 50% with inspiration. Pericardium/Pleural There is no evidence of pericardial effusion. Prior Study Comparison No significant change compared to prior study dated: 09/20/2015. Recommendations, Care & Conclusions No obvious valvular pathology seen on this study. Measurements 2D Linear Measurements IVSd: 0.88 0.6-0.9/0.6-1.0 cm LVIDd: 4.14 3.9-5.3/4.2-5.9 cm LVIDd Index: 2.09 2.4-3.2/2.2-3.1 cm/m2 LVIDs: 2.52 2.0-3.6 cm LVPWd: 0.95 0.7-1.1 cm LA Diam: 3.40 2.7-3.8/3.0-4.0 cm LAIDs Index: 1.72 1.5-2.3 cm/m2 LV Mass: 146.82 67-162/88-224 g LV Mass Index: 74.15 43-95/49-115 g/m2 LVOT Diam: 1.90 3.0+(-)1.3 cm 2D Systolic Function EF 4C: 61.50 >55% EF 2C: 68.90 >55% EF BiP: 64.70 >55% Mitral Valve MV Pk E: 0.84 MV PK A: 0.89 MV Decel Time: 222.00 E/A: 0.90 E'Lateral: 10.40 E'Medial: 8.70 E/E' Med: 9.60 E/E' Lat: 8.00 PHT: 65.00 MVA PHT: 3.38 Decel Thayer: 3.77 Aortic Valve AoV Pk Teo: 1.16 AoV Mn Teo: 0.88 AoV VTI: 0.29 AoV Pk Grad: 5.00 Aov Mn Grad: 3.00 PARISH Cont.VTI: 2.31 LVOT LVOT Pk Teo: 1.04 LVOT Mn Teo: 0.72 LVOT VTI: 0.24 LVOT Pk Grad: 4.00 LVOT Mn Grad: 2.00 LVOT Diam: 1.90 LVOT Area: 2.84 Diastolic Function MV Pk E: 0.84 MV Pk A: 0.89 E/A: 0.90 E'Medial: 8.70 E/E' Med: 9.60 E' Laterial: 10.40 E/E' Lat: 8.00 Right Ventricle TAPSE (mm): 22.60 TVS' Teo: 11.40 Tricuspid Valve RA Press: 3.00 Great Vessels Aorta Sinus of Valsalva: 3.00 2.0-3.5 cm Ao Asc: 2.90 2.1-3.4 cm Pulmonary Valve PV Pk Teo: 0.87 Peak PV Grad: 3.00 Updated in Other Vendor System with Status of Final Avila Medrano MD electronically signed on 05/27/2024 3:48:11 PM with status of Final
--- NOTE | 2024-05-26 07:47 | CA_ITS ---
Acquisition Time: 2024-05-26 08:55:22 Total Exercise Time: 00:07:01 Test Indications: Abnormal ECG CP Medications: LEVOTHYROXINE SIMVASTATIN OMEPRAZOLE Protocol: KEERTHI Max HR: 146 BPM 87% of Pred: 167 BPM Max BP: 168/088 mmHG Max Work Load: 7.9 METS Exercise Stress Test with exercise 7 mins and 1 secs of Keerthi Protocol, slowed the speed at Stage 3 to 3 mph per request, achieving 87% MPHR, with moderate SOB, no chest discomfort, with isolated PAC, with normotensive response to exercise. Without EKG changes meeting criteria for ischemia. In recovery, breathing returned to baseline. Test reviewed with Dr. Medrano. Referred By: Sesar Randle Overread By: Arnaud Michaels
== END ==
LOC: HO.CARD 07:44
PROVIDERS: PCP Internal Medicine; Visit Provider Internal Medicine Cardiovascular Disease
DX: I49.3 Ventricular premature depolarization (principal)
CPT/HCPCS: 93017; 93306; 93356

== ENCOUNTER → 2024-05-26 07:47 | Outpatient (BNV) | payer OTHER, SELFPAY | PROVIDERS: PCP Internal Medicine | DX: R06.02 Shortness of breath (principal); I49.1 Atrial premature depolarization | CPT/HCPCS: 93016; 93018; 93320; 93350; 93356 ==

== ENCOUNTER 2024-06-18 07:57 | Outpatient (REF) | payer OTHER, SELFPAY ==
[2024-06-18 09:05] LABS: MANUAL DIFF FLAG NO
[2024-06-18 09:34] LABS: Basophils Absolute Auto 0.1 X10*3/uL (0.0-0.2); Basophils Percent Auto 0.8 % (0-2); Eosinophils Absolute Auto 0.1 X10*3/uL (0.0-0.4); Eosinophils Percent Auto 1.4 % (0-4); Hematocrit 42.9 % (37.0-47.0); Hemoglobin 14.5 g/dl (12.0-16.0); Imm Gran Abs Auto 0.02 X10*3/uL (0.00-0.03); Imm Gran Pct Auto 0.3 % (0.0-0.4); Lymphocytes Absolute Auto 1.8 X10*3/uL (1.2-4.9); Lymphocytes Percent Auto 25.5 % (20-40); Mean Corpuscular HGB Conc 33.8 g/dl (31.0-35.0); Mean Corpuscular Volume 88.6 fL (80.0-98.0); Mean Platelet Volume 11.3 fL (9.4-12.3); Monocytes Absolute Auto 0.7 X10*3/uL (0.1-1.2); Monocytes Percent Auto 9.2 % (2-11); Neutrophils Absolute Auto 4.5 x10*3/uL (2.0-8.3); Neutrophils Percent Auto 62.8 % (45-73); Platelet Count 297 X10*3/uL (160-400); Red Blood Count 4.84 X10*6/uL (4.20-5.50); Red Cell Distribution Width 11.7 % (11.0-16.0); White Blood Count 7.1 X10*3/uL (4.8-10.8)
[2024-06-18 09:35] LABS: Appearance Urine Cloudy; Color Urine Yellow; Glucose Urine UA Negative (Negative); Leukocyte Esterase Urine Small (1+) (Negative); Nitrite Urine Negative (Negative); PH 5.5 (5.0-9.0); UMIC TRIGGER UACC YES; Urine Blood Negative (Negative); Urine Ketones Negative (Negative); Urine Protein Negative (Neg-Trace)
[2024-06-18 09:44] LABS: Estimated Average Glucose 103 mg/dL; Hemoglobin A1C 124.7426 umol/L; Hemoglobin A1c % 5.2 % (<6.0); Total Hemoglobin (HGBA1C) 3770.5179 umol/L
[2024-06-18 09:53] LABS: Bacteria Urine 3+ (None Seen); Hyaline Casts Urine 0-2 /LPF (0-2); RBC Urine 0-2 /HPF (0-2); UACC Culture Trigger YES
[2024-06-18 10:05] LABS: Alanine Aminotransferase 59 U/L (0-31); Albumin Level 4.3 g/dL (3.5-5.0); Anion Gap 12 (12-20); Aspartate Amino Transferase 37 U/L (5-31); Bilirubin Total 0.4 mg/dL (0.0-1.0); Blood Urea Nitrogen 5 mg/dL (9-16); Calcium 10.1 mg/dL (8.4-10.2); Carbon Dioxide 25 mmol/L (22-29); Chloride 108 mmol/L (96-108); Cholesterol 211 mg/dL (<200); Estimated Glomerular Filt Rate > 60; Glucose Random 105 mg/dL (60-115); HDL Cholesterol 37 mg/dL (>40); LDL Cholesterol Calculated 146 mg/dL (<100); Sodium 141 mmol/L (135-145); Total Protein 7.8 g/dL (6.5-8.0); Triglycerides 141 mg/dL (<150)
[2024-06-18 10:27] LABS: Thyroid Stimulating Hormone 0.41 uIU/mL (0.32-4.0); Vitamin D 25-OH Total 18.2 ng/mL (>30)
[2024-06-18 10:37] LABS: Folate 6.7 ng/mL (> or = 4.0); Vitamin B12 1286 pg/mL (200-900)
[2024-06-18 11:01] LABS: Alkaline Phosphatase 237 U/L (39-117)
== END 2024-06-18 07:58 | disposition home or self-care (01) ==
LOC: HO.LAB 07:57
PROVIDERS: PCP Internal Medicine; Visit Provider Internal Medicine
DX: E78.00 Pure hypercholesterolemia, unspecified (principal)
CPT/HCPCS: 36415; 80053; 80061; 81001; 82306; 82607; 82746; 83036; 84439; 84443; 85025; 87086

== ENCOUNTER 2024-06-27 09:38 | Outpatient (AMB) | payer OTHER, SELFPAY ==
--- NOTE | 2024-06-27 09:39 | A.OFFVIS_ITS ---
Vital Signs 06/27/24 09:47 Height 5 ft 1 in Weight 233 lb BMI 44.0 Handedness Right Intake Visit Reasons: OV - right shoulder pain Intake Note: Jose is a 54 year old right hand dominant female who presents today for a follow up of her right shoulder pain. Hx of Rt RTC Repair 07/20/2020 KI. Patient reports she had a fall about 2 weeks ago. She was going to grab her mail and it was dark, she was wearing flip flops. When her flip fop got stuck on the concrete out side which lead her to trip and fall. She mentions that she is feeling very sore on her clavicle, shoulder and elbow. Allergies oxycodone [Percocet] Allergy (Severe, Verified 06/27/24 09:43) rash HPI HPI OV - right shoulder pain: Details: Ms. Harris is a 54-year-old right-hand dominant female who presents to the office today for follow-up of right shoulder pain. The patient had a right shoulder rotator cuff repair performed on 07/19/[address] Allen. She has been attending physical therapy. However, about 2 weeks ago she was wearing flip-flops and she tripped over a curb landing on outstretched hands trying to brace her fall and protect her head. Ever since then, she has reported a decrease in range of motion and an increase in pain. [facility] Medical History Generalized anxiety disorder Obesity (BMI 30-39.9) Hot flashes Encounter for annual routine gynecological examination Chronic idiopathic constipation Elevated LFTs Chronic pain syndrome Postlaminectomy syndrome of lumbar region Folic acid deficiency Chronic low back pain with bilateral sciatica Pelvic pain in female Fibroids Encounter to discuss test results Palpitations Alkaline phosphatase elevation Annual physical exam Ankle swelling Arthritis Rotator cuff tear, right Shoulder pain Lumbar back pain Knee pain, left Pain in right axilla Right arm numbness Hematuria Peripheral vascular disease Lumbar radicular pain Fatty liver Gallbladder disease Anxiety Irritable bowel syndrome with constipation Hypercholesterolemia Obesity GERD (gastroesophageal reflux disease) Lumbar degenerative disc disease Vitamin D deficiency Migraine Allergic rhinitis Hypothyroid Surgical History History of liver biopsy Gallstones H/O colonoscopy H/O rotator cuff surgery History of bladder surgery History of tonsillectomy Hx of dilation and curettage History of lumbar discectomy Family History Mother Cancer Heart disease Brain cancer Aortic aneurysm Father Heart problem Maternal Grandfather Lung cancer Paternal Aunt Lung cancer Maternal Aunt Heart disease Sister Substance abuse Maternal Uncle Substance abuse Heart problem Maternal Grandmother Brain cancer Social History Housing: House Are you a primary doggy daycare activities director to a significant other at home: No Do you presently have visiting nurse or other home services: No Alcohol intake: never Patient Tobacco Use Status: Never used Tobacco Tobacco use type: Cigarette e-Cigarette/Vaping Use: Never Used Second Hand Smoke Exposure: No service: No Current occupational status: employed 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 Current occupational exposures/hazards: No Cognitive needs: No Hearing needs: No Vision needs: Yes Female Reproductive History Menstrual Age of Menarche: 11 Review of Systems Const All systems reviewed & are unremarkable except as noted in HPI and below Physical Exam Vital Signs: BMI result Body Mass Index 44.0 Const General: cooperative, healthy appearing and no acute distress Resp Effort & Inspection: normal respiratory effort and able to speak in complete sentences Cardio Rate: regular rate Peripheral pulses: Peripheral pulses 2+ throughout GI Palpation (GI): Soft to palpation Skin Lesions: no lesions Rashes: no rashes Extrem Other: Right shoulder: Forward flexion and abduction to 90 degrees. Able to reach the back pocket. Pain with crossbody reach. 3/4 strength with an empty can test. Negative drop arm. 4/5 strength with belly lift off. NVI. Assessment & Plan Assessment & Plan (1) Status post rotator cuff repair: Code(s): Z98.890 - Other specified postprocedural states Category: Surgical (2) Hx of repair of right rotator cuff: Code(s): Z98.890 - Other specified postprocedural states Category: Surgical (3) Injury of right rotator cuff: Code(s): S46.001A - Unspecified injury of muscle(s) and tendon(s) of the rotator cuff of right shoulder, initial encounter Category: Medical Plan Ms. Harris is a 54-year-old right-hand dominant female who presents to the office today for follow-up of right shoulder pain. The patient had a right shoulder rotator cuff repair performed on 07/19/[address] Allen. She has been attending physical therapy. However, about 2 weeks ago she was wearing flip-flops and she tripped over a curb landing on outstretched hands trying to brace her fall and protect her head. Ever since then, she has reported a decrease in range of motion and an increase in pain. Hole in the office today, we discussed the role of MRI to further evaluate the integrity of the right shoulder. As the patient has had continuing pain and repeat injuries to the right shoulder. She will continue to attend physical therapy in the meantime. I would like to see her back after the MRI is obtained, sooner if needed. Orders: Orders MR shoulder RT wo con Today S46.001A - Unspecified injury of muscle(s) and tendon(s) of the rotator cuff of right shoulder, initial encounter, Z98.890 - Other specified postprocedural states Coding Level of Care Code Est Pt Level 3 (02282) Diagnoses Status post rotator cuff repair Z98.890 Hx of repair of right rotator cuff Z98.890 Injury of right rotator cuff S46.001A
[2024-06-27 09:47] VITALS: BMI 44.0
== END 2024-06-27 10:07 | disposition home or self-care (01) ==
PROVIDERS: PCP Internal Medicine; Visit Provider Physician Assistant
DX: S46.001A Unspecified injury of muscle(s) and tendon(s) of the rotator cuff of right shoulder, initial encounter (principal)
CPT/HCPCS: 99213

== ENCOUNTER → 2024-06-27 09:38 | Outpatient (BNVA) | payer OTHER, SELFPAY | PROVIDERS: PCP Internal Medicine; Visit Provider Physician Assistant ==

== ENCOUNTER 2024-06-30 08:55 | Outpatient (AMB) | payer OTHER, SELFPAY ==
[2024-06-30 09:11] VITALS: BP 138/78; PULSE 65; BMI 43.7
--- NOTE | 2024-06-30 09:11 | MHC.OFFVIS ---
Vital Signs 06/30/24 09:11 Height 5 ft 1 in Weight 231 lb 7.766 oz BMI 43.7 BP 138/78 Blood Pressure Location Lt brachial Position Sitting Pulse 65 Pulse Source Pulse Oximeter Intake Visit Reasons: 2 mth s/p ett/ echo/ NS [employer]ification Operator Required: No Allergies oxycodone [Percocet] Allergy (Severe, Verified 06/30/24 09:13) rash Medication List - Last Reconciled 06/30/24 by ALEIDA SainzC [email or web address],lrg As directed 20-30 mm HG ibuprofen 600 mg PO Q8H PRN levothyroxine 100 mcg PO QAM omeprazole magnesium (Prilosec OTC) 20 mg PO DAILY simvastatin 10 mg PO DAILY 90 days HPI HPI 2 mth s/p ett/ echo/ NS: Details: Coco Kirkland is a 54-year-old female with past medical history of morbid obesity, impaired fasting glucose, hyperlipidemia who underwent cardiac evaluation for atypical chest discomfort. She had a echocardiogram, stress test and Holter monitor and now presents for follow-up. Today she reports that she has not had recurrent chest discomfort since her last visit in April. She tells me she had been getting sharp pains below her left breast and 1 episode where it was extreme. Her symptom is not brought on by exertion. No shortness of breath, PND, orthopnea or edema. She will feel an occasional heart palpitation which does not cause much concern. She admits to being under high stress. No lightheadedness, presyncope, syncope. She reports being active throughout the day but does no routine exercise. She was not taking her cholesterol medication consistently at the time of most recent labs. [facility] Medical History Generalized anxiety disorder Obesity (BMI 30-39.9) Hot flashes Encounter for annual routine gynecological examination Chronic idiopathic constipation Elevated LFTs Chronic pain syndrome Postlaminectomy syndrome of lumbar region Folic acid deficiency Chronic low back pain with bilateral sciatica Pelvic pain in female Fibroids Encounter to discuss test results Palpitations Alkaline phosphatase elevation Annual physical exam Ankle swelling Arthritis Rotator cuff tear, right Shoulder pain Lumbar back pain Knee pain, left Pain in right axilla Right arm numbness Hematuria Peripheral vascular disease Lumbar radicular pain Fatty liver Gallbladder disease Anxiety Irritable bowel syndrome with constipation Hypercholesterolemia Obesity GERD (gastroesophageal reflux disease) Lumbar degenerative disc disease Vitamin D deficiency Migraine Allergic rhinitis Hypothyroid Surgical History History of liver biopsy Gallstones H/O colonoscopy H/O rotator cuff surgery History of bladder surgery History of tonsillectomy Hx of dilation and curettage History of lumbar discectomy Family History Mother Cancer Heart disease Brain cancer Aortic aneurysm Father Heart problem Maternal Grandfather Lung cancer Paternal Aunt Lung cancer Maternal Aunt Heart disease Sister Substance abuse Maternal Uncle Substance abuse Heart problem Maternal Grandmother Brain cancer Social History Housing: House Are you a primary home visit field care manager to a significant other at home: No Do you presently have visiting nurse or other home services: No Alcohol intake: never Patient Tobacco Use Status: Never used Tobacco Tobacco use type: Cigarette e-Cigarette/Vaping Use: Never Used Second Hand Smoke Exposure: No service: No Current occupational status: employed 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 Current occupational exposures/hazards: No Cognitive needs: No Hearing needs: No Vision needs: Yes Female Reproductive History Menstrual Age of Menarche: 11 Review of Systems Const All systems reviewed & are unremarkable except as noted in HPI and below ENT Denies dizziness Card Details: brief stabbing below left breast, heart palpitations Denies chest pain, Denies chest pain at rest, Denies chest pain with activity, Denies rapid heart rate, Denies pedal edema, Denies edema, Denies leg edema, Denies lightheadedness, Denies palpitations, Denies dyspnea, Denies dyspnea on exertion and Denies orthopnea Resp Denies cough, Denies dyspnea and Denies dyspnea on exertion GI Denies hematochezia and Denies change in stool character Musc Denies abnormal gait, Denies limited range of motion, Denies muscle cramps, Denies muscle weakness, Denies numbness, Denies radiating pain into limb, Denies stiffness and Denies tingling Neuro Denies abnormal gait, Denies dizziness, Denies numbness and Denies tingling Endo Denies palpitations Physical Exam Vital Signs: Last Vital Signs Pulse 65 06/30/24 09:11 BP 138/78 02/10/25 09:11 BMI result Body Mass Index 43.7 Const General: cooperative, healthy appearing, comfortable and no acute distress Orientation/consciousness: patient oriented x3 Neck Neck: Yes normal visual inspection and Yes no JVD Resp Effort & Inspection: normal respiratory effort Auscultation: clear to auscultation bilaterally, no crackles, no rales, no rhonchi and no wheezes Cardio Jugular venous distension: no JVD Rate: regular rate Rhythm: regular rhythm Heart sounds: S1 normal heart sound present, S2 normal heart sound present, no murmurs and no rubs Neuro General: patient oriented x3 Extrem General: Yes normal to inspection, No no pedal edema and No calf tenderness Psych Appearance: grossly normal Mental Status: mental status grossly normal Speech and movement: Normal speech and movement present Assessment & Plan Assessment & Plan (1) Atypical chest pain: Code(s): R07.89 - Other chest pain Category: Medical Plan: Report of sharp pains below left breast -nonexertional. Overall atypical for angina. She does have cardiac risk factors of obesity, impaired fasting glucose and hyperlipidemia. Her EKG last visit shows normal sinus rhythm with no acute ST or T-wave abnormalities, rate 73. Echocardiogram done 05/26/2024 shows EF 65%, no valve abnormalities. Exercise stress test done 05/26/2024 with exercise 7 minutes, moderate shortness of breath and no EKG changes. Test results reviewed with her in detail. Her sharp pains have improved. Offered reassurance that this is noncardiac pain. Discussed risk factor modification and signs and symptoms of true angina. Benefits of exercise and weight loss reviewed. Cardiology follow-up p.r.n.. (2) Hypercholesterolemia: Code(s): E78.00 - Pure hypercholesterolemia, unspecified Category: Medical Plan: [place] LDL goal less than 100. She has impaired fasting glucose and if she does become diabetic her LDL goal will be less than 70. Labs done 06/18/2024 showed LDL 146 which is elevated. She is on simvastatin but tells me she was not taking it consistently at the time of that lab draw. Recommend that she have a repeat lab draw in the upcoming months to re-evaluate. (3) Morbid obesity: Code(s): E66.01 - Morbid (severe) obesity due to excess calories Category: Medical Plan: As above (4) PVC (premature ventricular contraction): Code(s): I49.3 - Ventricular premature depolarization Category: Medical Plan: She had previously reported heart palpitations. A Holter monitor done 01/16/2024 shows sinus rhythm with average heart rate 73, frequent isolated PVCs, 1.3%. This was reviewed with her on last visit. At this time she still reports occasional palpitations but she is not overly concerned. Reviewed stress reduction, adequate rest, exercise and reduction in caffeine as ways to help reduce palpitations/PVCs. No med management needed at this time Plan Time spent on chart review, documentation, interview and assessment Coding Level of Care Code Est Pt Level 3 (81139) Complex EM visit Add On G2211 Diagnoses Atypical chest pain R07.89 Hypercholesterolemia E78.00 Morbid obesity E66.01 PVC (premature ventricular contraction) I49.3 Time Spent (min) 24
== END 2024-06-30 09:32 | disposition home or self-care (01) ==
PROVIDERS: PCP Internal Medicine; Visit Provider Nurse Practitioner Family
DX: R07.89 Other chest pain (principal); E78.00 Pure hypercholesterolemia, unspecified; E66.01 Morbid (severe) obesity due to excess calories; I49.3 Ventricular premature depolarization
CPT/HCPCS: 99213

== ENCOUNTER → 2024-06-30 08:55 | Outpatient (BNVA) | payer OTHER, SELFPAY | PROVIDERS: PCP Internal Medicine; Visit Provider Nurse Practitioner Family ==

== ENCOUNTER → 2024-07-17 07:47 | Outpatient (BNV) | payer OTHER, SELFPAY | PROVIDERS: PCP Internal Medicine; Visit Provider Radiology Diagnostic Radiology | DX: M67.813 Other specified disorders of tendon, right shoulder (principal) | CPT/HCPCS: 73221 ==

== ENCOUNTER 2024-07-17 07:48 | Outpatient (REF) | payer OTHER, SELFPAY ==
--- NOTE | ~2024-07-17 | MR_ITS ---
EXAMINATION: MR SHOULDER, RIGHT CLINICAL INFORMATION: Prior rotator cuff surgery 2020, recent injury from falling. Decreased range of motion. 54-year-old female. COMPARISON: MR right shoulder 09/21/2020. Right shoulder plain films 03/26/2024. TECHNIQUE: Multiplanar multisequence MR imaging of the right shoulder was done without IV contrast. Examination performed on a 1.5 [employer] Siemens unit utilizing standard sequences. FINDINGS: Surgical anchors present within the greater tuberosity of the humerus, relating to supraspinatus and subscapularis tendon repairs. Rotator Cuff and Biceps Tendon: Supraspinatus: Prior repair. There is a focal likely full-thickness tear of the mid/posterior aspect of the tendon, measuring 10 mm in sagittal plane, and 8 mm in coronal plane (series 17, image 14; series 13, images 8-9). A few scant fibers remain intact although this is likely a full-thickness tear of the posterior and mid tendon. The anterior fibers of the tendon appear intact. There is increased intrasubstance signal within the posterior fibers with mild mild thickening, findings consistent with tendinopathy. There is a small fluid signal gap of the interface of the infraspinatus and supraspinatus tendons (series 13, image 12), measuring 3 mm in diameter. This may be related to prior surgical change as opposed to recurrent tearing. The supraspinatus muscle belly is normal in appearance and signal. No atrophy. Infraspinatus: Grossly the tendon appears intact without discrete tear. No significant signal alterations. The muscle belly is mildly atrophic. Subscapularis: Prior repair. The repaired tendon appears intact without discrete tear. The muscle belly is normal in bulk and signal. Teres Minor: Intact and normal in signal. Normal muscular bulk and signal. Biceps Long Head: Normally located within the bicipital groove. The tendon has normal morphology. Tendon is subluxed medially superiorly, unknown if this is residua of prior subscapularis/transverse humeral ligament tear. It had a similar appearance on the prior exam. The rotator interval aspect of the tendon demonstrates increased intrasubstance signal and mild thickening, suggestive of tendinopathy. The anchor appears intact. AC Joint and Acromiohumeral Arch: Mild hypertrophic arthropathy with mild joint capsular distention, and mild periarticular edema. There is mild undersurface and superior surface spurring. No definite AC separation. There is no significant encroachment on the supraspinatus outlet. There is a type II acromion present. Glenohumeral Joint and Labrum: Normal joint fluid. Mild signal alteration in the anterior labrum could represent degenerative type tearing. Grossly the inferior labrum, posterior labrum, and superior labrum appear intact. There is a probable superior sublabral foramen. Mild signal alteration in the inferior glenoid cartilage without definite defects seen. Normal cartilaginous thickness without focal defect. Mild superficial eburnation and minimal thinning of the humeral head articular cartilage. No full-thickness defects identified. No regions of subchondral bone plate edema. Osseous Structures: Aside from the above, no additional gross bone marrow edema or suspicious abnormal signal. Susceptibility artifact in the humeral head abutting the surgical anchors. Spino-glenoid Notch: Normal. Quadrilateral Space: Normal. Other: There is fluid in the subacromial/subdeltoid bursa, nonspecific in the setting of a full-thickness rotator cuff tear. MR/MR shoulder RT wo con IMPRESSION: 1. Prior supraspinatus and subscapularis rotator cuff repair with surgical anchors in place. There appears to be a likely full-thickness supraspinatus tear involving the mid and posterior fibers, measuring 10 x 8 mm. There is associated tendinopathy of the intact anterior fibers. 2. No definite recurrent tear of the subscapularis tendon. No tear of the infraspinatus tendon. Infraspinatus muscle belly is somewhat small, likely reflective of mild atrophy. 3. There is probable mild degenerative type tearing of the anterior labrum. 4. The long head of the biceps tendon is mildly subluxed anteriorly out of the groove superiorly, likely related to old subscapularis tearing. 5. Mild degenerative arthritis in the glenohumeral joint without full-thickness cartilaginous defect. Moderate AC joint arthritis with mild undersurface spurring. No definite AC separation. Electronically signed by: Raman Cary MD 07/17/2024 09:18 AM [facility]
== END 2024-07-17 07:49 | disposition home or self-care (01) ==
LOC: HO.MRI 07:48
PROVIDERS: PCP Internal Medicine; Visit Provider Physician Assistant
DX: S46.001D Unspecified injury of muscle(s) and tendon(s) of the rotator cuff of right shoulder, subsequent encounter (principal); Z98.890 Other specified postprocedural states
CPT/HCPCS: 73221

== ENCOUNTER 2024-08-04 15:44 | Outpatient (AMB) | payer OTHER, SELFPAY ==
[2024-08-04 16:13] VITALS: BP 126/82; PULSE 83; O2SAT 98; BMI 43.5
--- NOTE | 2024-08-04 16:13 | A.OFFPC_ITS ---
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 Required: No Accompanied by: Self / Same As Patient Allergies oxycodone [Percocet] Allergy (Severe, Verified 08/04/24 16:13) rash Medication List - Last Reconciled 08/04/24 by Calin Marx MD compress.[email or web address],reg,lrg As directed 20-30 mm HG ibuprofen 600 mg PO Q8H PRN levothyroxine 100 mcg PO QAM omeprazole magnesium (Prilosec OTC) 20 mg PO DAILY simvastatin 10 mg PO DAILY 90 days Tobacco use date assessed: 08/04/24 Dental Screening Dental Screen Date: 08/04/24 Did you have a dental visit in the last 12 months?: Yes Did you have a dental problem in the last 6 months where you did not have access to dental care?: No Was dental information given to patient?: Patient has dentist [facility] Medical History Generalized anxiety disorder Obesity (BMI 30-39.9) Hot flashes Encounter for annual routine gynecological examination Chronic idiopathic constipation Elevated LFTs Chronic pain syndrome Postlaminectomy syndrome of lumbar region Folic acid deficiency Chronic low back pain with bilateral sciatica Pelvic pain in female Fibroids Encounter to discuss test results Palpitations Alkaline phosphatase elevation Annual physical exam Ankle swelling Arthritis Rotator cuff tear, right Shoulder pain Lumbar back pain Knee pain, left Pain in right axilla Right arm numbness Hematuria Peripheral vascular disease Lumbar radicular pain Fatty liver Gallbladder disease Anxiety Irritable bowel syndrome with constipation Hypercholesterolemia Obesity GERD (gastroesophageal reflux disease) Lumbar degenerative disc disease Vitamin D deficiency Migraine Allergic rhinitis Hypothyroid Surgical History History of liver biopsy Gallstones H/O colonoscopy H/O rotator cuff surgery History of bladder surgery History of tonsillectomy Hx of dilation and curettage History of lumbar discectomy Family History Mother Cancer Heart disease Brain cancer Aortic aneurysm Father Heart problem Maternal Grandfather Lung cancer Paternal Aunt Lung cancer Maternal Aunt Heart disease Sister Substance abuse Maternal Uncle Substance abuse Heart problem Maternal Grandmother Brain cancer Social History Housing: House Are you a primary career services manager to a significant other at home: No Do you presently have visiting nurse or other home services: No Alcohol intake: never Patient Tobacco Use Status: Never used Tobacco Tobacco use type: Cigarette e-Cigarette/Vaping Use: Never Used Second Hand Smoke Exposure: No service: No Current occupational status: employed 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 1. Little interest or pleasure in doing things: not at all 2. Feeling down, depressed, or hopeless: not at all 3. Trouble falling or staying asleep, or sleeping too much: not at all 4. Feeling tired or having little energy: not at all 5. Poor appetite or overeating: not at all 6. Feeling bad about yourself - or that you are a failure or have let yourself or your family down: not at all 7. Trouble concentrating on things, such as reading the newspaper or watching television: not at all 8. Moving or speaking so slowly that other people could have noticed. Or the opposite - being so fidgety or restless that you have been moving around a lot more than usual: not at all 9. Thoughts that you would be better off or of hurting yourself in some way: not at all Total score: 0 Depression Screening Interpretation: Negative Depression Screening Done: Yes 00306 - PHQ-9 Billing: Yes Source: Developed by Drs. Hector Hou, Monica Torres, Reynaldo Medley and colleagues, with an educational bernard from [employer]. Thrive Questionnaire Date Thrive assessed: 08/04/24 I am a: Patient What is your living situation today?: I have a steady place to live Within the past 12 months, did the food you bought not last and you didn't have the money to get more?: Sometimes True Within the past 12 months, did you worry whether your food would run out before you got money to buy more?: I choose not to answer this question Do you have trouble paying for medicines?: No Do you have trouble getting transportation to medical appointments?: No Do you have trouble paying your heating and electricity bill?: Yes Do you have trouble taking care of your child, family member or friend?: I choose not to answer this question Do you have trouble with day-to-day activities such as bathing, preparing meals, shopping, managing finances, etc.?: No Are you currently unemployed and looking for a job?: No Are you interested in more education?: I choose not to answer this question Please select the resources that you would like help with: None Currently or been in a relationship where the following occur: No concerns reported THRIVE Score: 2 AUDIT C Alcohol Use Questionnaire (AUDIT-C) 1. How often do you have a drink containing alcohol?: Never 3. How often do you have six or more drinks on one occasion?: Never Total Score: 0 CAROLE-7 AMB Questionnaire CAROLE-7 Date CAROLE - 7 assessed: 08/04/24 Feeling nervous, anxious, or on edge: 0 = Not at all Not being able to stop or control worryin = Not at all Worrying too much about different things: 0 = Not at all Trouble relaxin = Not at all Being so restless that it is hard to sit still: 0 = Not at all Becoming easily annoyed or irritable: 0 = Not at all Feeling afraid as if something awful might happen: 0 = Not at all Total CAROLE-7 score (0-4 normal; 5-9 mild; 10-14 moderate; 15-21 severe): 0 Source: Developed by Drs. Hector Hou, Monica Torres, Reynaldo Medley and colleagues, with an educational bernard from [employer]. Physical exam (Primary Care) Vital Signs: Last Vital Signs Pulse 83 08/04/24 16:13 BP 126/82 08/04/24 16:13 Pulse Ox 98 08/04/24 16:13 Oxygen Delivery Method Room Air 08/04/24 16:13 BMI result Body Mass Index 43.5 Tobacco/Smoking Status: Tobacco use Status Tobacco use date assessed 08/04/24 08/04/24 16:19 Patient Tobacco Use Status Never used Tobacco 08/04/24 16:19 Tobacco use type Cigarette 08/04/24 16:19 e-Cigarette/Vaping Use Never Used 08/04/24 16:19 PHQ-9: PHQ-9 Score PHQ-9: Total score 0 08/04/24 16:58 Depression Screening Interpretation: Negative Thrive Assessment: Date of Thrive Assessment Date Thrive assessed 08/04/24 08/04/24 16:19 Currently or been in a relationship where the following occur: No concerns reported Const General: alert; No acute distress Eyes Conjunctivae: conjunctivae normal Resp Auscultation: clear to auscultation bilaterally Cardio Rate: regular rate Rhythm: regular rhythm GI Inspection: Yes normal to inspection Extrem General: Yes normal to inspection and No edema Coding Level of Care Code Est Pt Level 4 (87594) Diagnoses Hx of repair of right rotator cuff Z98.890 Atypical chest pain R07.89 Impaired fasting glucose R73.01 Morbid obesity E66.01 Hypercholesterolemia E78.00 Acquired hypothyroidism E03.9 Hypothyroidism type: acquired Gastroesophageal reflux disease without esophagitis K21.9 Esophagitis presence: without esophagitis Generalized anxiety disorder F41.1 Additional Codes PHQ-9 - 09567 - PHQ-9 Billing: Yes ([id number]) Assessment & Plan Assessment & Plan (1) Hx of repair of right rotator cuff: Code(s): Z98.890 - Other specified postprocedural states Category: Surgical Plan: Patient is being followed up by ortho and has advised physical therapy (2) Atypical chest pain: Code(s): R07.89 - Other chest pain Category: Medical Plan: Patient has seen Cardiology, noncardiac (3) Impaired fasting glucose: Code(s): R73.01 - Impaired fasting glucose Category: Medical Plan: Decrease the amount of carbohydrate intake, pasta, bread, rice and potatoes are all sugar and that is aside from all the sweet stuff, remember that fruits are good but they are Sweet also. (4) Morbid obesity: Code(s): E66.01 - Morbid (severe) obesity due to excess calories Category: Medical Plan: Diet and exercise (5) Hypercholesterolemia: Code(s): E78.00 - Pure hypercholesterolemia, unspecified Category: Medical Plan: Avoid fried foods, chicken skin, eggs, butter margarine, pastries and meat. Be it pork or beef they have a lot of cholesterol LDL goal of less than 100 and triglyceride of less than 150 patient on simvastatin 10 mg once a day (6) Hypothyroid: Code(s): E03.9 - Hypothyroidism, unspecified Category: Medical Qualifiers: Hypothyroidism type: acquired Qualified Code(s): E03.9 - Hypothyroidism, unspecified Plan: Continue with thyroid medication (7) GERD (gastroesophageal reflux disease): Code(s): K21.9 - Gastro-esophageal reflux disease without esophagitis Category: Medical Qualifiers: Esophagitis presence: without esophagitis Qualified Code(s): K21.9 - Gastro-esophageal reflux disease without esophagitis Plan: Avoid the foods that causes that usually spicy foods, tomato products, juices, coffee, soda and foods that your sensitive to. After eating do not lie down, allow 3-4 hours before in lie down. And keep the head of bed above 30 degrees to avoid the acid from going up. (8) Generalized anxiety disorder: Comment: [facility] mike[facility]ram 07/2024 Code(s): F41.1 - Generalized anxiety disorder Category: Medical Plan: Discussed about counseling and therapy Plan History of Present Illness The patient is a 54-year-old female presenting with multiple chronic conditions and a recent follow-up on musculoskeletal issues. Her medical history includes hypothyroidism, hypercholesterolemia, lumbar postlaminectomy syndrome, and generalized anxiety disorder. She follows up on a recent fall that led to a shoulder injury confirmation through MRI, which indicated rotator cuff repair with associated tendinopathy and mild degenerative changes. Her LDL cholesterol level remains elevated despite simvastatin treatment, and recent cardiovascular evaluation painted a reassuring picture with normal echocardiogram and stress test results. Her diabetes management is under control, though recent labs point to elevated liver enzymes and low vitamin D. Ongoing anxiety management involves therapy without pharmacologic treatment, and GERD is controlled with medication. Health Maintenance - LDL cholesterol management discussions targeted a goal of less than 100 mg/dL, with adjustments to simvastatin dosage planned. - Vitamin D deficiency identified, with supplementation recommended. - Cardiovascular risk management includes ongoing lipid control and cardiovascular assessment (stress test, echocardiogram). - Patient is up to date with mammograms and colon screenings. - Discussed flu and tetanus vaccinations, with the patient declining the flu vaccine but confirmed tetanus vaccine status. Social History - Family stressors noted with no specific details on family planning or employment. - Currently receiving counseling for anxiety. - Reported lack of vitamin D supplementation and minimal flu vaccine uptake. Review of Systems - Musculoskeletal: Reports chronic lumbar pain and issues following a shoulder injury and past rotator cuff repair. - Cardiovascular: Reports non-cardiac chest pain episodes. - Gastrointestinal: Reports GERD but denies recent exacerbations. - Psychiatric: Reports anxiety and ongoing counseling but denies the use of psychotropic medications. Physical Exam Results - Imaging: MRI revealed history of rotator cuff repair with tendinopathy and mild degenerative changes in the anterior labrum; degenerative arthritis in the glenohumeral joint and AC joint arthritis. - Echocardiogram: Ejection fraction 65% with no obvious valvular pathology. - Stress test: No ECG changes. - Labs: Normal blood count and electrolytes; elevated liver function tests; fasting glucose elevated, A1c is within target range; LDL 146 mg/dL; vitamin D deficiency. Plan We have continued with a multidisciplinary approach to address the numerous chronic and acute conditions of the patient. Her simvastatin dosage has been increased to improve cholesterol management, and vitamin D supplementation was prescribed. GERD treatment will continue, and anxiety will be managed through ongoing counseling. It's pivotal to ensure regular follow-ups with orthopedics and close monitoring of her hepatic status. Cardiovascular health appears stable as per recent cardiology evaluations, but ongoing vigilance is required given her cholesterol status. A detailed review of upcoming lab tests and diagnostic imaging, particularly concerning endocrine and hepatic function, has been initiated. Patient was informed and verbally consented to the use of an ambient scribe for clinic note documentation during this visit. Discussion Notes I have discussed the importance of optimizing her cholesterol levels and the potential benefits of increasing simvastatin dosage to 20 mg daily as part of cardiovascular risk reduction. The patient consented to this adjustment with the understanding of its purpose and significance. We reviewed the importance of managing vitamin D deficiency and its implications, especially in the colder months when sunlight exposure is reduced. We explored options for anxiety management, emphasizing therapy and lifestyle modifications without the introduction of additional pharmacotherapy at this moment. The impact of family stress was acknowledged, and the patient was supported in her current counseling efforts. Furthermore, the patient has been informed about the normal findings from her recent cardiovascular evaluations and the rationale for continuing her current comprehensive management strategy. Future steps will be contingent upon follow-up results and the manifestation of any emerging symptoms. Patient Instructions - Increase simvastatin dose to 20 mg daily to help lower cholesterol. - Start vitamin D supplementation, especially during the winter months. - Continue current GERD medications as prescribed. - Maintain regular counseling sessions for anxiety support. - Monitor blood sugar levels regularly and maintain a balanced diet. - Follow-up with ortho and physical therapy as advised. - Keep up with regular lab work and follow-up appointments to track health status. Orders: Orders Comprehensive Met. Panel 3 Months E78.00 - Pure hypercholesterolemia, unspecified Free T4 (Free Thyroxine) 3 Months E78.00 - Pure hypercholesterolemia, unspecified Lipid Panel 3 Months E78.00 - Pure hypercholesterolemia, unspecified Complete Blood Count Auto Diff 3 Months E78.00 - Pure hypercholesterolemia, unspecified Thyroid Stimulating Hormone 3 Months E78.00 - Pure hypercholesterolemia, unspecified Medications: New cholecalciferol (vitamin D3) 50 mcg PO DAILY 90 caps 3RF 90 days E55.9 - Vitamin D deficiency, unspecified, E78.00 - Pure hypercholesterolemia, unspecified Changed From simvastatin 10 mg PO DAILY 90 days 90 tabs 3RF E78.00 - Pure hypercholesterolemia, unspecified To simvastatin 20 mg PO DAILY 90 tabs 3RF 90 days E78.00 - Pure hypercholesterolemia, unspecified
== END 2024-08-04 17:08 | disposition home or self-care (01) ==
LOC: HO.HMCH 15:45
PROVIDERS: PCP Internal Medicine; Visit Provider Internal Medicine
DX: R73.01 Impaired fasting glucose (principal); E66.01 Morbid (severe) obesity due to excess calories; Z68.41 Body mass index [BMI] 40.0-44.9, adult; R07.89 Other chest pain; Z98.890 Other specified postprocedural states; E78.00 Pure hypercholesterolemia, unspecified; E03.9 Hypothyroidism, unspecified; K21.9 Gastro-esophageal reflux disease without esophagitis; F41.1 Generalized anxiety disorder

== ENCOUNTER → 2024-08-04 15:44 | Outpatient (BNVA) | payer OTHER, SELFPAY | PROVIDERS: PCP Internal Medicine; Visit Provider Internal Medicine | DX: E03.9 Hypothyroidism, unspecified (principal); R07.89 Other chest pain; R73.01 Impaired fasting glucose; E78.00 Pure hypercholesterolemia, unspecified; K21.9 Gastro-esophageal reflux disease without esophagitis; F41.1 Generalized anxiety disorder; Z79.899 Other long term (current) drug therapy; Z98.890 Other specified postprocedural states | CPT/HCPCS: 96127 ==

== ENCOUNTER 2024-08-11 08:54 | Outpatient (RCR) | payer OTHER, SELFPAY ==
--- NOTE | 2024-06-03 16:02 | MHC.PT.EP ---
[facility] [place] Office [place] Office [place] Office [address] Jamel Warner [address] [phone] F: [phone] F: [phone] F: [phone] F: [phone] Physical Therapy Plan of Care Date of Evaluation: 06/02/24 Date of Surgery: Diagnosis: s/p RTC repair fall with painful arc. Assessment: Pt is a 54 y/o female with PMHx of Chronic pain syndrome, Arthritis,, Peripheral vascular disease, GERD, Hypothyroid, lumbar discectomy who is referred to PT for eval and treat of R shoulder pain s/p fall who is s/p R RTC performed on 07/20/2020 who reports about 9 weeks ago she was standing on a stool to hang some laundry and fell backwards while trying to grab on with R arm; her condition is resulting in decreased tolerance for reaching high shelves, dressing pullovers, carrying objects of weight, laying on her R side, as well as performing heavy HH chores and reaching her back and neck for hygiene and dressing secondary to decreased R shoulder ROM and strength, decreased scapular posture, TTP of anterior/ superior R shoulder and pain. Pt is deemed an appropriate candidate to receive skilled PT services to address their physical impairments in order to improve their functional ability. Frequency and Duration: The patient will be seen 2 x/ wk x 5 wks. Short Term Goals: Initiate home program. Improve baseline pain to < 4/10; initial: 6/10 Shelter Goals: I with home program. Pt will improve SPADI outcome by at least 13 points. Pt will be able to dress pullovers with managed Sx. Pt will be able to place objects on high shelves with managed Sx. Treatment Plan: Modalities to reduce pain, spasms and effusion. Manual therapy to restore motion and function. Therapeutic exercise to improve strength and flexibility. Neuromuscular re-education for posture and balance. Therapeutic activities to return to functional activities of daily living. Electronically signed by: Isaias Vickers PT. Please sign and return to therapist. Thank you for your referral.
--- NOTE | 2024-10-01 11:38 | MHC.PT.DC ---
[facility] [place] [facility] [place] [facility] [place] [facility] [address] Jamel Warner [address] [phone] F: [phone] F: [phone] F: [phone] F: [phone] Physical Therapy Discharge Report Diagnosis: s/p RTC repair fall with painful arc. Date of Surgery: Date of Evaluation: 06/02/24 Date of Discharge: 10/01/24 Treatments to Date: 13 Cancellations to Date: 4 No Shows to Date: Discharge Status: Patient Elected to Stop Discharge Summary: Pt had been making slow progress in therapy before her last apt where she reported she closed a trunk door on it that AM and stated she may reach out to the surgeon for her concerns. Pt had not followed up with therapy since logging 4 cancellations. Electronically signed by: Isaias Vickers PT. Please sign and return to therapist. Thank you for your referral.
== END 2024-10-01 11:38 | disposition home or self-care (01) ==
LOC: HO.PT 08:54
PROVIDERS: PCP Internal Medicine; Visit Provider Physician Assistant
DX: M75.101 Unspecified rotator cuff tear or rupture of right shoulder, not specified as traumatic (principal); S46.001D Unspecified injury of muscle(s) and tendon(s) of the rotator cuff of right shoulder, subsequent encounter; Z98.890 Other specified postprocedural states
CPT/HCPCS: 97110; 97140; 97161

== ENCOUNTER 2024-08-22 12:09 | Outpatient (AMB) | payer OTHER, SELFPAY ==
--- NOTE | 2024-08-22 12:13 | MHC.OFFVIS ---
Vital Signs 08/22/24 12:15 Height 5 ft 1 in Weight 230 lb BMI 43.5 Intake Visit Reasons: OV- Right shoulder MRI review Intake Note: Gavi is a 54 year old right hand dominant female who presents today for a right shoulder MRI review. Hx of Rt RTC Repair 07/20/2020 KI, with a fall in June causing increased pain. Allergies oxycodone [Percocet] Allergy (Severe, Verified 08/22/24 12:15) rash HPI HPI OV- Right shoulder MRI review: Details: Gavi is a 54 year old right hand dominant female who presents today for a right shoulder MRI review. Hx of Rt RTC Repair 07/20/2020 KI, with a fall in June causing increased pain. SHe has had worsening right shoulder pain for about one year. She describes sharp pain with abduction. She states it feels weak and she is not able to perform the activities she was able to after the initial surgery. [facility] [place] Medical History Generalized anxiety disorder Obesity (BMI 30-39.9) Hot flashes Encounter for annual routine gynecological examination Chronic idiopathic constipation Elevated LFTs Chronic pain syndrome Postlaminectomy syndrome of lumbar region Folic acid deficiency Chronic low back pain with bilateral sciatica Pelvic pain in female Fibroids Encounter to discuss test results Palpitations Alkaline phosphatase elevation Annual physical exam Ankle swelling Arthritis Rotator cuff tear, right Shoulder pain Lumbar back pain Knee pain, left Pain in right axilla Right arm numbness Hematuria Peripheral vascular disease Lumbar radicular pain Fatty liver Gallbladder disease Anxiety Irritable bowel syndrome with constipation Hypercholesterolemia Obesity GERD (gastroesophageal reflux disease) Lumbar degenerative disc disease Vitamin D deficiency Migraine Allergic rhinitis Hypothyroid Surgical History History of liver biopsy Gallstones H/O colonoscopy H/O rotator cuff surgery History of bladder surgery History of tonsillectomy Hx of dilation and curettage History of lumbar discectomy Family History Mother Cancer Heart disease Brain cancer Aortic aneurysm Father Heart problem Maternal Grandfather Lung cancer Paternal Aunt Lung cancer Maternal Aunt Heart disease Sister Substance abuse Maternal Uncle Substance abuse Heart problem Maternal Grandmother Brain cancer Social History Housing: House Are you a primary residential child care counselor to a significant other at home: No Do you presently have visiting nurse or other home services: No Alcohol intake: never Patient Tobacco Use Status: Never used Tobacco Tobacco use type: Cigarette e-Cigarette/Vaping Use: Never Used Second Hand Smoke Exposure: No service: No Current occupational status: employed 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 IMPRESSION: 1. Prior supraspinatus and subscapularis rotator cuff repair with surgical anchors in place. There appears to be a likely full-thickness supraspinatus tear involving the mid and posterior fibers, measuring 10 x 8 mm. There is associated tendinopathy of the intact anterior fibers. 2. No definite recurrent tear of the subscapularis tendon. No tear of the infraspinatus tendon. Infraspinatus muscle belly is somewhat small, likely reflective of mild atrophy. 3. There is probable mild degenerative type tearing of the anterior labrum. 4. The long head of the biceps tendon is mildly subluxed anteriorly out of the groove superiorly, likely related to old subscapularis tearing. 5. Mild degenerative arthritis in the glenohumeral joint without full-thickness cartilaginous defect. Moderate AC joint arthritis with mild undersurface spurring. No definite AC separation. Assessment & Plan Assessment & Plan (1) Hx of repair of right rotator cuff: Code(s): Z98.890 - Other specified postprocedural states Category: Surgical Plan: This is a 54-year-old woman with a injury to her right rotator cuff. She had rotator cuff surgery about 4 years ago and seems to have re-injured her shoulder. She has tried physical therapy and has not had any benefit. MRI shows a full-thickness tear adjacent to the prior repair. I had a long discussion regarding treatment options and I recommend surgical rotator cuff repair. I discussed the risks, benefits and alternatives to surgery. She expressed understanding and we will proceed forward accordingly. Coding Level of Care Code Est Pt Level 4 (55357) Diagnoses Hx of repair of right rotator cuff Z98.890
[2024-08-22 12:15] VITALS: BMI 43.5
== END 2024-08-22 12:36 | disposition home or self-care (01) ==
LOC: HO.HOS 12:11
PROVIDERS: PCP Internal Medicine; Visit Provider Orthopaedic Surgery
DX: S46.011A Strain of muscle(s) and tendon(s) of the rotator cuff of right shoulder, initial encounter (principal); S46.111A Strain of muscle, fascia and tendon of long head of biceps, right arm, initial encounter; M19.011 Primary osteoarthritis, right shoulder
CPT/HCPCS: 99214

== ENCOUNTER → 2024-08-22 12:09 | Outpatient (BNVA) | payer OTHER, SELFPAY | PROVIDERS: PCP Internal Medicine; Visit Provider Orthopaedic Surgery ==

== ENCOUNTER 2024-09-01 07:41 | Emergency (ER) | payer OTHER, SELFPAY ==
[2024-09-01 07:43] VITALS: BP 152/79; PULSE 88; RESP 16; TEMP 37.2; O2SAT 100; BMI 44.1
[2024-09-01 07:59] LABS: MANUAL DIFF FLAG NO
[2024-09-01 08:03] LABS: Basophils Absolute Auto 0.1 X10*3/uL (0.0-0.2); Basophils Percent Auto 0.9 % (0-2); Eosinophils Absolute Auto 0.1 X10*3/uL (0.0-0.4); Eosinophils Percent Auto 2.1 % (0-4); Hematocrit 41.9 % (37.0-47.0); Hemoglobin 14.1 g/dl (12.0-16.0); Imm Gran Abs Auto 0.03 X10*3/uL (0.00-0.03); Imm Gran Pct Auto 0.6 % (0.0-0.4); Lymphocytes Absolute Auto 1.1 X10*3/uL (1.2-4.9); Lymphocytes Percent Auto 20.4 % (20-40); Mean Corpuscular HGB Conc 33.7 g/dl (31.0-35.0); Mean Corpuscular Hemoglobin 30.1 pg (27.0-33.0); Mean Corpuscular Volume 89.3 fL (80.0-98.0); Mean Platelet Volume 10.7 fL (9.4-12.3); Monocytes Absolute Auto 0.8 X10*3/uL (0.1-1.2); Monocytes Percent Auto 14.4 % (2-11); Neutrophils Absolute Auto 3.3 x10*3/uL (2.0-8.3); Neutrophils Percent Auto 61.6 % (45-73); Platelet Count 207 X10*3/uL (160-400); Red Blood Count 4.69 X10*6/uL (4.20-5.50); Red Cell Distribution Width 11.6 % (11.0-16.0); White Blood Count 5.4 X10*3/uL (4.8-10.8)
[2024-09-01 08:21] LABS: Anion Gap 14 (12-20); Blood Urea Nitrogen 8 mg/dL (9-16); Calcium 9.4 mg/dL (8.4-10.2); Carbon Dioxide 24 mmol/L (22-29); Chloride 107 mmol/L (96-108); Creatinine Clr Calc Pharmacy 104.2; Estimated Glomerular Filt Rate > 60; Glucose Random 108 mg/dL (60-115); Potassium 3.7 mmol/L (3.3-5.1); Sodium 141 mmol/L (135-145)
--- NOTE | 2024-09-01 08:54 | ED.GENADULT ---
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 Patient reports she started developing a erythematous painful area on her forehead and swollen lymph nodes on Sunday08/26/24, which she initially believed to be a pimple or bug bite. She reports the redness continued to spread down her forehead towards her eye and the pain worsened, so she went to the [facility] urgent care in [place] on Sunday08/29/24, where she was diagnosed with cellulitis and prescribed cephalexin. She presents today complaining of worsening symptoms and now a 2nd area of localized pain/erythema of the nasal bridge. She reports associated symptoms of clear watery discharge from her eyes. Denies fever, chills, drainage/oozing, recent illness/sick contacts, hearing changes, sore throat, chest pain, SOB, abdominal pain, N/V/D, urinary symptoms, numbness/tingling, other new wounds/rashes, trauma to area. Denies alcohol, drug, cigarette use. Denies hx of varicella or shingles vaccination. States that she has been taking her medication as prescribed, including her cephalexin. Onset (ago): day(s) Location: face Relieving factors: none Exacerbating factors: none Associated symptoms: headaches Treatments prior to arrival: NSAID and other (cephalexin as prescribed) Related Data Home Medications ?Medication ?Instructions ?Recorded ?Confirmed omeprazole magnesium 20 mg 20 mg PO DAILY 04/29/20 08/04/24 tablet,delayed release (Prilosec OTC) Previous Rx's ?Medication ?Instructions ?Recorded compress.stocking,knee,reg,lrg #12 ea 11/16/22 ibuprofen 600 mg tablet 600 mg PO Q8H PRN pain #30 tabs 03/07/23 levothyroxine 100 mcg tablet 100 mcg PO QAM #90 tabs 10/22/23 cholecalciferol (vitamin D3) 50 50 mcg PO DAILY 90 days #90 caps 08/04/24 mcg (2,000 unit) capsule simvastatin 20 mg tablet 20 mg PO DAILY 90 days #90 tabs 08/04/24 prednisone 20 mg tablet 40 mg (2 x 20 mg) PO DAILY 5 days 09/01/24 #10 tabs valacyclovir 1 gram tablet 1,000 mg PO TID 7 days #21 tabs 09/01/24 Allergies Allergy/AdvReac Type Severity Reaction Status Date / Time oxycodone [Percocet] Allergy Severe rash Verified 09/01/24 07:45 Review of Systems Constitutional: Constitutional: Reports no additional constitutional complaints, Denies chills, Denies fever(s), Reports headache(s) and Denies night sweats Eyes: Eyes: Reports no additional eye complaints, Denies diplopia, Reports eye discharge (watery from both eyes), Denies loss of vision and Denies eye pain Comments: Reports clear watery discharge since Sunday08/29/24. Denies vision loss or pain and has full EOM. ENT: Reports Normal hearing present, Denies dizziness, Denies ear discharge, Reports headache(s) and Denies nasal congestion Cardiovascular: Cardiovascular: Reports no additional cardiovascular complaints, Denies chest pain, Denies lightheadedness, Denies Loss of Consciousness and Denies dyspnea Respiratory: Respiratory: Reports no additional respiratory complaints and Denies dyspnea Gastrointestinal: Gastrointestinal: Reports no additional gastrointestinal complaints, Denies abdominal pain, Denies melena, Denies hematochezia, Denies change in bowel habits and Denies change in stool character Genitourinary: Genitourinary: Denies hematuria, Denies urinary frequency, Denies dysuria, Denies urinary incontinence, Denies urinary hesitancy and Denies urinary urgency Musculoskeletal: Musculoskeletal: Reports no additional musculoskeletal complaints, Denies numbness and Denies tingling Neurologic: Reports Normal hearing present, Denies dizziness, Reports headache(s), Denies loss of vision, Denies numbness and Denies tingling Psychiatric: Psychiatric: Reports no additional psychiatric complaints Endocrine: Endocrine: Reports no additional endocrine complaints Hematologic/Lymphatic: Hematologic/Lymphatic: Reports no additional hematologic/lymphatic complaints Allergic/Immunologic: Allergic/Immunologic: Reports no additional allergic/immunologic complaints PMFSH Past Medical History Attestation statement: The following information was validated with the patient. Source: old records reviewed and nursing notes reviewed Medical History Generalized anxiety disorder Obesity (BMI 30-39.9) Hot flashes Encounter for annual routine gynecological examination Chronic idiopathic constipation Elevated LFTs Chronic pain syndrome Postlaminectomy syndrome of lumbar region Folic acid deficiency Chronic low back pain with bilateral sciatica Pelvic pain in female Fibroids Encounter to discuss test results Palpitations Alkaline phosphatase elevation Annual physical exam Ankle swelling Arthritis Rotator cuff tear, right Shoulder pain Lumbar back pain Knee pain, left Pain in right axilla Right arm numbness Hematuria Peripheral vascular disease Lumbar radicular pain Fatty liver Gallbladder disease Anxiety Irritable bowel syndrome with constipation Hypercholesterolemia Obesity GERD (gastroesophageal reflux disease) Lumbar degenerative disc disease Vitamin D deficiency Migraine Allergic rhinitis Hypothyroid Surgical History History of liver biopsy Gallstones H/O colonoscopy H/O rotator cuff surgery History of bladder surgery History of tonsillectomy Hx of dilation and curettage History of lumbar discectomy Family History Family History Mother Cancer Heart disease Brain cancer Aortic aneurysm Father Heart problem Maternal Grandfather Lung cancer Paternal Aunt Lung cancer Maternal Aunt Heart disease Sister Substance abuse Maternal Uncle Substance abuse Heart problem Maternal Grandmother Brain cancer Social History Social History Housing: House Are you a primary professional healthcare representative to a significant other at home: No Do you presently have visiting nurse or other home services: No Alcohol intake: never Patient Tobacco Use Status: Never used Tobacco Tobacco use type: Cigarette Smoked in Last 30 Days: No e-Cigarette/Vaping Use: Never Used Second Hand Smoke Exposure: No Use of substances other than those prescribed or required for medical reasons: No Advance Directives: No Advance Directives Information Provided: Yes Patient : No service: No Current occupational status: employed 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 Current occupational exposures/hazards: No Cognitive needs: No Hearing needs: No Vision needs: Yes Physical Exam ED Vital Signs: Vital Signs - 24 hr 09/01/24 07:43 09/01/24 10:44 Temperature 98.9 F 98.2 F Pulse Rate 88 86 Respiratory Rate 16 16 Blood Pressure 152/79 H 148/80 H Pulse Oximetry 100 100 Oxygen Delivery Method Room Air Room Air BMI result Body Mass Index 44.1 Const General: cooperative, no acute distress, alert and awake Nutritional Appearance: well nourished Orientation/consciousness: patient oriented x3 Limitations: no limitations HENMT Other: Erythematous, tender area with 3 crusted lesions, centrally located on the forehead without fluctuance/induration, drainage/oozing. Smaller, similar area present on the superior nasal bridge. No painful EOM, bruising, or other signs of trauma. Head: Yes normal to inspection, Yes atraumatic and No periorbital ecchymosis Ears: hearing grossly normal bilaterally and external ears normal General nose exam: Normal external nose present, no nasal discharge noted and no epistaxis Face and sinus: Yes sinuses nontender, Yes face symmetric, No abrasion, No ecchymosis, Yes erythema, No fluctuance, No laceration and Yes Facial tenderness on exam of face and sinuses Face images: 1. erythematous area with 3 scabbed over areas - consistent with ruptured vesicles 2. small erythematous area with a central scab consistent with a ruptured vesicle Mouth: Normal oral and palatal mucosa present, moist mucous membranes, no drooling and no muffled voice Teeth and gingiva: dentures Throat: Yes posterior oropharynx normal and Yes uvula midline Eyes General: appearance normal, both eyes and all related structures Periorbital: periorbital findings normal Eyelids: Yes eyelids normal Conjunctivae: conjunctivae normal Pupils: Equal, round and reactive pupils present EOM: EOMs intact bilaterally Neck Neck: Yes normal visual inspection, Yes full ROM and Yes lymphadenopathy (Anterior chain/postauriclar lymphadenopathy present) Chest Chest palpation & inspection: normal inspection of the chest Resp Effort & Inspection: normal respiratory effort and able to speak in complete sentences GI Inspection: Yes normal to inspection Neuro General: patient oriented x3, moves all extremities and CN's II-XI intact bilaterally Cranial nerves: Yes Equal, round and reactive pupils present and Yes Normal hearing present Cognition (Neuro): normal cognition Extrem General: Yes normal to inspection, Yes full ROM and Yes capillary refill normal Psych Appearance: grossly normal Mental Status: mental status grossly normal Affect: normal affect Attitude: cooperative Thought process: Normal thought process present Thought content: Normal thought content present Insight: Good insight present (Psych) Medications Administered Discontinued Medications Generic Name Dose Route Start Last Admin Trade Name Alexandr PRN Reason Stop Dose Admin Fluorescein Sodium 1 strip 09/01/24 10:07 09/01/24 10:10 Fluorescein Sodium Strip EYE-RIGHT 09/01/24 10:08 1 strip ONCE ONE Administration Medical Decision Making Medical Decision Making 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 Patient's physical exam was as noted in the physical exam portion of this note and more concerning for shingles rather than cellulitis. Patient's blood work showed an elevated ESR of 21 and CRP of 1.09 but otherwise unremarkable. I consulted with my attending physician, Dr. Eugene, who agreed with probable shingles and recommended treatment with PO Prednisone, PO Valcyclovir, and finishing her previously prescribed cephalexin. Patient's right eye was examined with fluorescein and was normal. I explained my physical exam findings as well as all test results to the patient. I answered all questions asked by the patient. I stressed the importance of the patient taking her medication as directed (either prescribed or as the over the counter packaging recommends). I stressed the importance of the patient following up with her primary care provider and an tube sizer and cutter operator. I stressed the importance of the patient returning to the emergency department immediately if her symptoms were to worsen or if she were to develop any dizziness, shortness of breath, difficulty breathing, chest pain, blurry vision, loss of vision, nausea, vomiting, abdominal pain, fever, chills, back pain, or any other complaints. Patient verbalized agreement and understanding with this treatment plan and discharge. Differential Diagnosis Differential Diagnoses: The differential diagnosis associated with the presentation includes Shingles Worsening cellulitis Rash Admission/Observation Consideration of admission/observation: Escalation of care including admission/observation considered Patient would have been admitted to the hospital had her work up had any findings where hospital admission was appropriate and her clinical presentation warranted hospital admission. Lab Data [facility] Lab Attestation statement: I reviewed the patient's lab results. My interpretation of these results are in the [facility] Rationale portion of this note. 09/01/24 07:55 09/01/24 07:55 Labs: Lab Results 09/01/24 Range/Units 07:55 WBC 5.4 (4.8-10.8) X10*3/uL RBC 4.69 (4.20-5.50) X10*6/uL Hgb 14.1 (12.0-16.0) g/dl Hct 41.9 (37.0-47.0) % MCV 89.3 (80.0-98.0) fL MCH 30.1 (27.0-33.0) pg MCHC 33.7 (31.0-35.0) g/dl RDW 11.6 (11.0-16.0) % Plt Count 207 D (160-400) X10*3/uL MPV 10.7 (9.4-12.3) fL Immature Gran % (Auto) 0.6 H (0.0-0.4) % Neut % (Auto) 61.6 (45-73) % Lymph % (Auto) 20.4 (20-40) % [place] % (Auto) 14.4 H (2-11) % Eos % (Auto) 2.1 (0-4) % Baso % (Auto) 0.9 (0-2) % Lymph # (Auto) 1.1 L (1.2-4.9) X10*3/uL [place] # (Auto) 0.8 (0.1-1.2) X10*3/uL Eos # (Auto) 0.1 (0.0-0.4) X10*3/uL Baso # (Auto) 0.1 (0.0-0.2) X10*3/uL Abs Immat Gran (auto) 0.03 (0.00-0.03) X10*3/uL Absolute Neuts (auto) 3.3 (2.0-8.3) x10*3/uL Absolute Nucleated RBC 0.000 (0.0-0.012) X10*3/uL Nucleated RBC % (auto) 0.0 (0.0-0.2) /100WBC ESR 21 H (0-20) MM/HR Sodium 141 (135-145) mmol/L Potassium 3.7 (3.3-5.1) mmol/L Chloride 107 (96-108) mmol/L Carbon Dioxide 24 (22-29) mmol/L Anion Gap 14 (12-20) BUN 8 L (9-16) mg/dL Creatinine 0.70 (0.5-1.4) mg/dL Estim Creat Clear Calc 104.2 Estimated GFR > 60 Random Glucose 108 (60-115) mg/dL Calcium 9.4 D (8.4-10.2) mg/dL C-Reactive Protein 1.09 H (< or = 0.50) mg/dL Prescription Management I considered prescription management with: Antiviral (patient started on Valcyclovir for probably shingles) and Antibiotic (patient told to continue her prescribed cephalexin) Discharge Plan Discharge Clinical Impression: Shingles Patient Disposition: Home, Self-Care Instructions: Shingles (ED) Additional Instructions: Your examination is concerning for shingles. You should continues the antibiotic you were prescribed and begin taking the steroid and anti-viral that I have prescribed today. Follow up with your primary care provider and your tube sizer and cutter operator. Return to the emergency department immediately if your symptoms worsen or if you develop any numbness, tingling, dizziness, shortness of breath, difficulty breathing, chest pain, blurry vision, loss of vision, nausea, vomiting, abdominal pain, fever, chills, back pain, or any other complaints. Please see the information below about our Patient Portal. If you are not yet enrolled in the [facility] Patient Portal, you will receive an enrollment email invitation following your visit to any [facility] care setting. You may also self-enroll in the Patient Portal by visiting our website: [email or web address] The following information is required to access the Patient Portal: - Your [facility] Medical Record Number - Your personal home email address (must match what is in your electronic medical record, Registration staff can assist with this) - Name - Date of Capabilities of the Patient Portal: - Message some providers - View upcoming appointments - Access your health summary, medical history, and visit history - View current conditions and allergies - View procedure and lab results - View your medications, including guidelines, side effects, and precautions - Complete pre-appointment questionnaires requested by your provider - Ready summary reports of your office visits and procedures To access the Patient Portal Mobile Sheyla, follow these directions: - Search [employer]uresavant in the Sheyla Store or [employer] Store - Download the Sheyla - Search for [facility] - Enter your login/password Prescriptions: New valacyclovir 1 gram tablet 1,000 mg PO TID 7 Days Qty: 21 0RF prednisone 20 mg tablet 40 mg PO DAILY 5 Days Qty: 10 0RF No Action levothyroxine 100 mcg tablet 100 mcg PO QAM Qty: 90 3RF omeprazole magnesium [Prilosec OTC] 20 mg tablet,delayed release (DR/EC) 20 mg PO DAILY (DME) compress.stocking,knee,reg,lrg Misc See Rx Instructions .Route Qty: 12 0RF Rx Instructions: As directed 20-30 mm HG ibuprofen 600 mg tablet 600 mg PO Q8H PRN (Reason: pain) Qty: 30 0RF simvastatin 20 mg tablet 20 mg PO DAILY 90 Days Qty: 90 3RF cholecalciferol (vitamin D3) 50 mcg (2,000 unit) capsule 50 mcg PO DAILY 90 Days Qty: 90 3RF Referrals: Tanmay Shaw [Physician] - Po,Calin Draper MD [Primary Care Provider] - Interventions: ED Discharge Assessment Last Done: 09/01/24 10:44 Discharge Date/Time: 09/01/24 10:45 Print Language: Prydeinig
--- NOTE | 2024-09-01 09:18 | PC.NURSE ---
patient a&ox3, c/o 12/28 forhead/headache, area red/swollen, vss, plan of care ongoing
[2024-09-01 10:09] LABS: C Reactive Protein 1.09 mg/dL (< or = 0.50)
[2024-09-01] MEDS: Fluorescein Sodium STRIP 1 STRIP EYE-RIGHT (10:10)
[2024-09-01 10:40] LABS: Erythrocyte Sedimentation Rate 21 MM/HR (0-20)
[2024-09-01 10:44] VITALS: BP 148/80; PULSE 86; RESP 16; TEMP 36.8; O2SAT 100
== END 2024-09-01 10:45 | disposition home or self-care (01) ==
PROVIDERS: Physician Assistant Medical; Emergency Provider Emergency Medicine; PCP Internal Medicine
DX: B02.8 Zoster with other complications (principal); Z79.899 Other long term (current) drug therapy
CPT/HCPCS: 36415; 80048; 85025; 85652; 86140; 99283; 99284

== ENCOUNTER 2024-09-03 11:26 | Outpatient (AMB) | payer OTHER, SELFPAY ==
[2024-09-03 11:33] VITALS: BP 130/82; PULSE 82; O2SAT 98; BMI 44.4
--- NOTE | 2024-09-03 11:33 | MHC.PC.OV ---
Vital Signs 09/03/24 11:33 Height 5 ft 1 in Weight 235 lb BMI 44.4 BP 130/82 Blood Pressure Location Lt brachial Position Sitting Pulse 82 Pulse Source Pulse Oximeter Pulse Oximetry (%) 98 Oxygen Delivery Method Room Air Int[place] [facility] [place]fection on Face Allergies oxycodone [Percocet] Allergy (Severe, Verified 09/03/24 11:34) rash Medication List - Last Reconciled 09/03/24 by Calin Marx MD cephalexin 250 mg PO BID cholecalciferol (vitamin D3) 50 mcg PO DAILY 90 days compress.stocking,knee,reg,lrg As directed 20-30 mm HG ibuprofen 600 mg PO Q8H PRN levothyroxine 100 mcg PO QAM omeprazole magnesium (Prilosec OTC) 20 mg PO DAILY simvastatin 20 mg PO DAILY 90 days valacyclovir 1,000 mg PO TID 7 days Tobacco use date assessed: 08/04/24 Dental Screening Dental Screen Date: 08/04/24 [facility] Medical History Generalized anxiety disorder Obesity (BMI 30-39.9) Hot flashes Encounter for annual routine gynecological examination Chronic idiopathic constipation Elevated LFTs Chronic pain syndrome Postlaminectomy syndrome of lumbar region Folic acid deficiency Chronic low back pain with bilateral sciatica Pelvic pain in female Fibroids Encounter to discuss test results Palpitations Alkaline phosphatase elevation Annual physical exam Ankle swelling Arthritis Rotator cuff tear, right Shoulder pain Lumbar back pain Knee pain, left Pain in right axilla Right arm numbness Hematuria Peripheral vascular disease Lumbar radicular pain Fatty liver Gallbladder disease Anxiety Irritable bowel syndrome with constipation Hypercholesterolemia Obesity GERD (gastroesophageal reflux disease) Lumbar degenerative disc disease Vitamin D deficiency Migraine Allergic rhinitis Hypothyroid Surgical History History of liver biopsy Gallstones H/O colonoscopy H/O rotator cuff surgery History of bladder surgery History of tonsillectomy Hx of dilation and curettage History of lumbar discectomy Family History (Updated 09/03/24 @ 12:27 by Calin Marx MD) Mother Cancer Heart disease Brain cancer Aortic aneurysm Father Heart problem Maternal Grandfather Lung cancer Paternal Aunt Lung cancer Maternal Aunt Heart disease Breast cancer Sister Substance abuse Maternal Uncle Substance abuse Heart problem Maternal Grandmother Brain cancer Social History Housing: House Are you a primary career and guidance counselor to a significant other at home: No Do you presently have visiting nurse or other home services: No Alcohol intake: never Patient Tobacco Use Status: Never used Tobacco Tobacco use type: Cigarette e-Cigarette/Vaping Use: Never Used Second Hand Smoke Exposure: No service: No Current occupational status: employed 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 1. Little interest or pleasure in doing things: not at all 2. Feeling down, depressed, or hopeless: not at all 3. Trouble falling or staying asleep, or sleeping too much: not at all 4. Feeling tired or having little energy: not at all 5. Poor appetite or overeating: not at all 6. Feeling bad about yourself - or that you are a failure or have let yourself or your family down: not at all 7. Trouble concentrating on things, such as reading the newspaper or watching television: not at all 8. Moving or speaking so slowly that other people could have noticed. Or the opposite - being so fidgety or restless that you have been moving around a lot more than usual: not at all 9. Thoughts that you would be better off or of hurting yourself in some way: not at all Total score: 0 Depression Screening Interpretation: Negative Depression Screening Done: Yes 88776 - PHQ-9 Billing: Yes Source: Developed by Drs. Hector Hou, Monica Torres, Reynaldo Medley and colleagues, with an educational bernard from [employer]. Thrive Questionnaire Date Thrive assessed: 08/04/24 CAROLE-7 AMB Questionnaire CAROLE-7 Date CAROLE - 7 assessed: 08/04/24 Source: Developed by Drs. Hector Hou, Monica Torres, Reynaldo Medley and colleagues, with an educational bernard from [employer]. Review of Systems Const Denies poor appetite and Denies weakness Eyes Denies no additional complaints ENT Reports Normal hearing present, Denies dizziness, Denies nasal congestion, Denies tinnitus and Denies sore throat Card Denies chest pain, Denies syncope, Denies rapid heart rate and Denies dyspnea Resp Denies cough and Denies dyspnea GI Denies change in stool character, Reports constipation, Denies diarrhea, Denies nausea and Denies vomiting Denies urinary frequency, Denies difficulty voiding and Denies dysuria Neuro Reports Normal hearing present, Denies confusion, Denies dizziness, Denies syncope and Denies weakness Psych Denies confusion Physical exam (Primary Care) Vital Signs: Last Vital Signs Pulse 82 09/03/24 11:33 BP 130/82 09/03/24 11:33 Pulse Ox 98 09/03/24 11:33 Oxygen Delivery Method Room Air 09/03/24 11:33 BMI result Body Mass Index 44.4 Tobacco/Smoking Status: Tobacco use Status Tobacco use date assessed 08/04/24 09/03/24 11:35 Patient Tobacco Use Status Never used Tobacco 09/03/24 11:35 Tobacco use type Cigarette 09/03/24 11:35 e-Cigarette/Vaping Use Never Used 09/03/24 11:35 PHQ-9: PHQ-9 Score PHQ-9: Total score 0 09/03/24 12:22 Depression Screening Interpretation: Negative Thrive Assessment: Date of Thrive Assessment Date Thrive assessed 08/04/24 09/03/24 11:35 Const General: No confusion Orientation/consciousness: No confusion HENMT Head: Yes normocephalic Ears: external ears normal and TM's normal bilaterally Face and sinus: Yes normal facial exam Mouth: moist mucous membranes Throat: Yes tonsils normal Eyes Conjunctivae: conjunctivae normal Pupils: Equal, round and reactive pupils present and Pupil accommodation reflex normal Direct Ophthalmoscopy: normal light reflex Neck Neck: No lymphadenopathy Thyroid: Thyroid normal Chest Chest palpation & inspection: normal inspection of the chest Resp Effort & Inspection: normal respiratory effort and no audible wheezes Auscultation: clear to auscultation bilaterally, no crackles, no wheezes and lung sounds not diminished Cardio Rate: regular rate Rhythm: regular rhythm Peripheral pulses: radial pulses present and dorsalis pedis present GI Palpation (GI): no masses Auscultation: normal bowel sounds and normoactive bowel sounds Rectal Exam - Female: deferred Skin General skin exam: no rashes or lesions noted Rashes: no rashes Neuro General: No confusion Cranial nerves: Yes Equal, round and reactive pupils present and Yes Normal hearing present Cognition (Neuro): normal cognition Gait exam (Neuro): Normal gait present Motor exam (neuro): 5/5 motor strength present throughout Deep tendon reflexes (DTR's): Right brachioradialis reflex intensity grade: 2+, Left brachioradialis reflex intensity grade: 2+, Right patellar reflex intensity grade: 2+ and Left patellar reflex intensity grade: 2+ Extrem General: No edema Coding Level of Care Code Est Pt Prev Care 40-64y(91722) Diagnoses Annual physical exam Z00.00 Hx of repair of right rotator cuff Z98.890 Injury of right rotator cuff S46.001A LUCERO (nonalcoholic steatohepatitis) K75.81 Acquired hypothyroidism E03.9 Hypothyroidism type: acquired Hypercholesterolemia E78.00 Gastroesophageal reflux disease without esophagitis K21.9 Esophagitis presence: without esophagitis Postlaminectomy syndrome of lumbar region M96.1 Generalized anxiety disorder F41.1 Left paraspinal back pain M54.89 Additional Codes PHQ-9 - 30206 - PHQ-9 Billing: Yes ([id number]) Assessment & Plan Assessment & Plan (1) Annual physical exam: Code(s): Z00.00 - Encounter for general adult medical examination without abnormal findings Category: Medical Plan: Patient is advised to eat healthy, keep well hydrated, keep active and have adequate sleep. (2) Hx of repair of right rotator cuff: Code(s): Z98.890 - Other specified postprocedural states Category: Surgical Plan: Patient has a scheduled surgery under Orthopedics (3) Injury of right rotator cuff: Code(s): S46.001A - Unspecified injury of muscle(s) and tendon(s) of the rotator cuff of right shoulder, initial encounter Category: Medical Plan: Re-injury from fall. (4) LUCERO (nonalcoholic steatohepatitis): Code(s): K75.81 - Nonalcoholic steatohepatitis (LUCERO) Category: Medical Plan: Low-fat diet and exercise (5) Hypothyroid: Code(s): E03.9 - Hypothyroidism, unspecified Category: Medical Qualifiers: Hypothyroidism type: acquired Qualified Code(s): E03.9 - Hypothyroidism, unspecified Plan: Continue with thyroid medication (6) Hypercholesterolemia: Code(s): E78.00 - Pure hypercholesterolemia, unspecified Category: Medical Plan: Avoid fried foods, chicken skin, eggs, butter margarine, pastries and meat. Be it pork or beef they have a lot of cholesterol LDL goal of less than 130 and triglyceride of less than 150 on simvastatin 20 mg once a day (7) GERD (gastroesophageal reflux disease): Code(s): K21.9 - Gastro-esophageal reflux disease without esophagitis Category: Medical Qualifiers: Esophagitis presence: without esophagitis Qualified Code(s): K21.9 - Gastro-esophageal reflux disease without esophagitis Plan: Avoid the foods that causes that usually spicy foods, tomato products, juices, coffee, soda and foods that your sensitive to. After eating do not lie down, allow 3-4 hours before in lie down. And keep the head of bed above 30 degrees to avoid the acid from going up. (8) Postlaminectomy syndrome of lumbar region: Code(s): M96.1 - Postlaminectomy syndrome, not elsewhere classified Category: Medical Plan: Continuing to be active (9) Generalized anxiety disorder: Comment: [facility] autumn 07/2024 Code(s): F41.1 - Generalized anxiety disorder Category: Medical Plan: Stable (10) Left paraspinal back pain: Code(s): M54.89 - Other dorsalgia Category: Medical Plan History of Present Illness The patient is a 54-year-old female presenting for a physical examination and evaluation of chronic conditions, alongside recent concern for a full-thickness rotator cuff tear in the right shoulder. Her medical history is significant for obesity, hypothyroidism, elevated cholesterol levels, GERD, lumbar post-laminectomy syndrome, hepatic steatosis, and impaired glucose tolerance. She has previously undergone right shoulder rotator cuff surgery and continues to experience pain and dysfunction following a re-injury, confirmed by MRI. Blood work revealed elevated cholesterol, specifically an LDL of 146 mg/dL, and vitamin D deficiency. Additionally, she has a family history of cancer affecting multiple members, including maternal brain cancer. Recently, she presented to the ER with shingles, and treatment inaccurately included antibiotics; prednisone was also prescribed. She follows a low-fat diet and exercise regimen as recommended for her cholesterol management. Health Maintenance - Mammogram up to date as of April 2024. - Colonoscopy last performed in 2018; due for repeat evaluation. - Low-fat diet and regular exercise for weight and cholesterol management. - Continue thyroid medication. - Simvastatin 20 mg daily for hypercholesterolemia; LDL target <130 mg/dL. - Discussed the importance of maintaining a healthy lifestyle to address obesity and improve cholesterol levels. - Hepatic steatosis monitoring and intervention as necessary. Social History - No alcohol or tobacco use reported. - Concerns regarding vaccination status/avoidance in family members, particularly noted with recent measles concerns. - Family history significant for brain and lung cancers. - Reports challenges with hearing issues and dental maintenance. Review of Systems - Constitutional: Reports weight gain. - HEENT: Denies dizziness, vomiting; reports chronic hearing difficulties. - Respiratory: Denies shortness of breath, cough. - Cardiovascular: Denies chest pain, palpitations, syncope. - Gastrointestinal: Denies difficulty swallowing, constipation; reports gastric reflux. - Musculoskeletal: Reports right shoulder pain, back pain. - Neurological: Denies headaches; reports facial pain associated with shingles. - Endocrine: Reports past diagnoses of hypothyroidism. - Hematologic: Denies bleeding disorders, anemia. Physical Exam General: Cooperative, healthy appearing, comfortable, no acute distress and well developed Orientation: Patient oriented x3 Limitations: No limitations Head: Normal to inspection Ears: Hearing problems noted, patient has always had hearing issues Nose: Normal external nose present Face and sinus: Normal facial exam, but patient reports pain in the face Eyes: Appearance normal, both eyes and all related structures Neck: Normal visual inspection and Yes full ROM Respiratory: Normal respiratory effort and able to speak in complete sentences. Clear to auscultation bilaterally Cardiovascular: Regular rate and rhythm. Normal S1 and S2 GI: Normal to inspection. Soft to palpation and nontender Skin: No rashes or lesions noted Neuro: Patient oriented x3 Extremities: Normal to inspection Results - Labs: Elevated blood sugar (108 mg/dL), LDL cholesterol (146 mg/dL), low vitamin D, normal complete blood count, normal electrolytes, normal renal function. - Diagnostics: MRI confirmed full-thickness tear of the right rotator cuff. Plan The patient will continue on simvastatin 20 mg daily with a focus on lifestyle changes to achieve cholesterol management goals. We discussed maintaining thyroid medication and the importance of ongoing physical activity. With rotator cuff surgery scheduled, no additional physical therapy is planned preoperatively. Prednisone prescribed previously for shingles is to be discontinued. Further routine blood work will monitor liver and glucose levels. The need for continued vigilance concerning preventive care, including ordered screenings and general health maintenance, was reaffirmed. Patient was informed and verbally consented to the use of an ambient scribe for clinic note documentation during this visit. Discussion Notes I discussed with the patient her cholesterol management, emphasizing the role of simvastatin and dietary changes. The plan for rotator cuff surgery was reviewed given previous MRI findings supporting surgical intervention. The discontinuation of prednisone was agreed upon, and I clarified the lack of indication for continuing antibiotic therapy for the recent shingles. We discussed her thyroid management and emphasized the importance of adherence to her current medication. Preventive screenings were outlined, and family history considerations were noted. I advised on maintaining an active lifestyle and hydrated state for overall health. Concerns regarding vaccine avoidance in family members and implications for public health were addressed, advising caution. Patient Instructions - Continue taking simvastatin 20 mg once daily. - Maintain a low-fat diet and regular exercise. - Discontinue prednisone for shingles treatment. - Take thyroid medication as prescribed. - Follow up on vaccination status and family disease screening. - Keep hydrated and engage in physical activity as tolerated. - Return for regular physical check-ups and screenings. - Seek medical attention for any increase in shoulder pain or other symptoms. - Monitor blood sugar levels and consult for follow-up tests. - Rest after shingles exposure until recovery and scabs fall off, avoiding close contact with unvaccinated individuals. - Plan for shoulder surgery as scheduled. Medications: New cyclobenzaprine 10 mg PO BEDTIME PRN 30 tabs 0RF muscle spasm M54.89 - Other dorsalgia Refilled simvastatin 20 mg PO DAILY 90 tabs 3RF 90 days E78.00 - Pure hypercholesterolemia, unspecified
== END 2024-09-03 12:47 | disposition home or self-care (01) ==
LOC: HO.HMCH 11:27
PROVIDERS: PCP Internal Medicine; Visit Provider Internal Medicine
DX: Z00.00 Encounter for general adult medical examination without abnormal findings (principal); Z98.890 Other specified postprocedural states; S46.001A Unspecified injury of muscle(s) and tendon(s) of the rotator cuff of right shoulder, initial encounter; K75.81 Nonalcoholic steatohepatitis (NASH); E03.9 Hypothyroidism, unspecified; E78.00 Pure hypercholesterolemia, unspecified; K21.9 Gastro-esophageal reflux disease without esophagitis; M96.1 Postlaminectomy syndrome, not elsewhere classified; F41.1 Generalized anxiety disorder; M54.89 Other dorsalgia

== ENCOUNTER → 2024-09-03 11:26 | Outpatient (BNVA) | payer OTHER, SELFPAY | PROVIDERS: PCP Internal Medicine; Visit Provider Internal Medicine | DX: Z00.01 Encounter for general adult medical examination with abnormal findings (principal); S46.001A Unspecified injury of muscle(s) and tendon(s) of the rotator cuff of right shoulder, initial encounter; K75.81 Nonalcoholic steatohepatitis (NASH); E03.9 Hypothyroidism, unspecified; E78.00 Pure hypercholesterolemia, unspecified; K21.9 Gastro-esophageal reflux disease without esophagitis; M96.1 Postlaminectomy syndrome, not elsewhere classified; F41.1 Generalized anxiety disorder; M54.89 Other dorsalgia; W19.XXXA Unspecified fall, initial encounter; Y93.9 Activity, unspecified; Y92.9 Unspecified place or not applicable; Y99.9 Unspecified external cause status; Z79.899 Other long term (current) drug therapy | CPT/HCPCS: 96127 ==

== ENCOUNTER 2024-10-03 11:26 | Outpatient (AMB) | payer OTHER, SELFPAY ==
--- NOTE | 2024-10-03 11:30 | MHC.OFFVIS ---
Vital Signs 10/03/24 11:46 Height 5 ft 1 in Weight 235 lb BMI 44.4 Handedness Right Intake Visit Reasons: Preop RT revision RTC repair 10/08/24 NE Intake Note: Mckayla is a 54 year old female who presents today for a pre op appointment for her right revision RTC repair 10/08/24 NE. Patient was given a pain management form, pendulum exercises and protocol and fitted for her ultra sling. Allergies oxycodone [Percocet] Allergy (Severe, Verified 10/03/24 11:45) rash HPI HPI Preop RT revision RTC repair 10/08/24 NE: Details: Ms. Harris is a 54-year-old female who presents to the office today for her history and physical examination pending right shoulder revision rotator cuff repair scheduled for 10/08/[address] Villegas. [facility] Medical History (Updated 10/03/24 @ 14:35 by Shelbie Hare PA-C) Rotator cuff tear, right Generalized anxiety disorder Obesity (BMI 30-39.9) Hot flashes Encounter for annual routine gynecological examination Chronic idiopathic constipation Elevated LFTs Chronic pain syndrome Postlaminectomy syndrome of lumbar region Folic acid deficiency Chronic low back pain with bilateral sciatica Pelvic pain in female Fibroids Encounter to discuss test results Palpitations Alkaline phosphatase elevation Annual physical exam Ankle swelling Arthritis Shoulder pain Lumbar back pain Knee pain, left Pain in right axilla Right arm numbness Hematuria Peripheral vascular disease Lumbar radicular pain Fatty liver Gallbladder disease Anxiety Irritable bowel syndrome with constipation Hypercholesterolemia Obesity GERD (gastroesophageal reflux disease) Lumbar degenerative disc disease Vitamin D deficiency Migraine Allergic rhinitis Hypothyroid Surgical History History of liver biopsy Gallstones H/O colonoscopy H/O rotator cuff surgery History of bladder surgery History of tonsillectomy Hx of dilation and curettage History of lumbar discectomy Family History (Updated 09/03/24 @ 12:27 by Calin Marx MD) Mother Cancer Heart disease Brain cancer Aortic aneurysm Father Heart problem Maternal Grandfather Lung cancer Paternal Aunt Lung cancer Maternal Aunt Heart disease Breast cancer Sister Substance abuse Maternal Uncle Substance abuse Heart problem Maternal Grandmother Brain cancer Social History Housing: House Are you a primary patient centered care specialist to a significant other at home: No Do you presently have visiting nurse or other home services: No Alcohol intake: never Patient Tobacco Use Status: Never used Tobacco Tobacco use type: Cigarette e-Cigarette/Vaping Use: Never Used Second Hand Smoke Exposure: No service: No Current occupational status: employed 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 Current occupational exposures/hazards: No Cognitive needs: No Hearing needs: No Vision needs: Yes Female Reproductive History Menstrual Age of Menarche: 11 Review of Systems Const All systems reviewed & are unremarkable except as noted in HPI and below Physical Exam Vital Signs: BMI result Body Mass Index 44.4 Const General: cooperative, healthy appearing, comfortable, no acute distress, well developed, alert and awake Orientation/consciousness: patient oriented x3 HEENT Head: Yes normal to inspection, Yes normocephalic and Yes atraumatic Eyes General: appearance normal, both eyes and all related structures Neck Neck: Yes normal visual inspection and Yes no lymphadenopathy Resp Effort & Inspection: normal respiratory effort and able to speak in complete sentences Cardio Rate: regular rate Peripheral pulses: Peripheral pulses 2+ throughout GI Inspection: Yes normal to inspection Palpation (GI): Soft to palpation Skin General skin exam: no rashes or lesions noted Neuro General: patient oriented x3 Extrem Other: 4+/5 EC30/80/120/L5 Psych Mental Status: mental status grossly normal Assessment & Plan Assessment & Plan (1) Hx of repair of right rotator cuff: Code(s): Z98.890 - Other specified postprocedural states Category: Surgical Plan I discussed in detail the procedure and what to expect pre and post operatively. We discussed the risks, benefits and alternatives to the surgery as well as the rehabilitation course. The risks; which include, but are not limited to infection, bleeding, nerve injury, ongoing pain, swelling, and stiffness, perioperative risk of injury to bones and soft tissues, and blood clots. Post operative medications were sent to the pharmacy, Vicodin and MS Liu, while in the office today. The patient was instructed that she should obtain the prescription prior to surgery but should not consume until after the procedure; as these should only be taken for postoperative pain management. Should the patient take these medications before surgery, a refill will not be sent to the pharmacy until their scheduled refill date. hydrocodone-acetaminophen 5-325 mg (Vicodin) PO Q4-6H PRN, quantity 42 tabs for 7 days and morphine ER 15 mg (MS Contin) PO Q12H PRN, quantity 6 tabs for 3 days Additionally patient was fit for an abduction sling while in the office today off the shelf. I?ve answered all questions and with their understanding they have consented to move forward with right shoulder revision rotator cuff repair with Dr. Villegas Orders: Orders PT Evaluation and Treatment 09/29/24 Z98.890 - Other specified postprocedural states Coding Level of Care Code Global (05358) Diagnoses Hx of repair of right rotator cuff Z98.890
[2024-10-03 11:46] VITALS: BMI 44.4
== END 2024-10-03 11:46 | disposition home or self-care (01) ==
LOC: HO.HOS 11:26
PROVIDERS: PCP Internal Medicine; Visit Provider Physician Assistant
DX: Z98.890 Other specified postprocedural states (principal)
CPT/HCPCS: 99024

== ENCOUNTER 2024-10-08 07:16 | Day surgery (SDC) | payer OTHER, SELFPAY ==
[2024-10-06 07:40] VITALS: BMI 44.4
--- NOTE | 2024-10-06 16:07 | P.CONAN_ITS ---
Documented by User: Angelica Villarreal NP 10/06/24 16:12 HPI - Anesthesia Eval Consult details Narrative: 54yo F for Right Revision Arthroscopic Rotator Cuff Repair Cardiac w/u 04/2024 by [facility] Cardiology for atypical CP - negative echo, stress, holter, ekg. PRN f/u only. [facility] Active Problems Active Problems: All Active Problems Rotator cuff tear, right (Acute) Left paraspinal back pain (Acute) Hx of repair of right rotator cuff (Acute) Injury of right rotator cuff (Acute) Painful arc syndrome of right shoulder (Acute) Atypical chest pain (Acute) PVC (premature ventricular contraction) (Acute) Right shoulder injury (Acute) Low back pain (Acute) Breast cancer screening by mammogram (Acute) Encounter for well woman exam with routine gynecological exam (Acute) Impaired fasting glucose (Acute) Blood pressure elevated without history of HTN (Acute) Morbid obesity (Acute) Otitis media (Acute) Right elbow pain (Acute) Urinary incontinence (Acute) Hearing difficulty (Acute) Hypersomnia (Acute) Peripheral vascular disease (Acute) Palpitations (Acute) Lumbar disc herniation (Acute) Tinea corporis (Acute) Status post rotator cuff repair (Acute) Cervical radiculopathy (Acute) Degenerative lumbar disc (Acute) Spondylosis (Acute) Folic acid deficiency (Acute) Annual physical exam (Acute) LUCERO (nonalcoholic steatohepatitis) (Acute) Generalized anxiety disorder (Acute) Thumb tendonitis (Acute) Upper abdominal pain (Acute) De Quervain's tenosynovitis, right (Acute) Numbness of right hand (Acute) Chronic pain syndrome (Acute) Postlaminectomy syndrome of lumbar region (Acute) Fibroids (Acute) GERD (gastroesophageal reflux disease) (Acute) Hypercholesterolemia (Acute) Hypothyroid (Acute) Past Medical History Medical History (Updated 10/03/24 @ 14:35 by Shelbie Hare PA-C) Generalized anxiety disorder Hot flashes Encounter for annual routine gynecological examination Chronic idiopathic constipation Elevated LFTs Chronic pain syndrome Postlaminectomy syndrome of lumbar region Folic acid deficiency Obesity (BMI 30-39.9) Chronic low back pain with bilateral sciatica Pelvic pain in female Fibroids Encounter to discuss test results Palpitations Alkaline phosphatase elevation Annual physical exam Ankle swelling Arthritis Rotator cuff tear, right Shoulder pain Lumbar back pain Knee pain, left Pain in right axilla Right arm numbness Hematuria Peripheral vascular disease Lumbar radicular pain Fatty liver Gallbladder disease Anxiety Irritable bowel syndrome with constipation Hypercholesterolemia Obesity GERD (gastroesophageal reflux disease) Lumbar degenerative disc disease Vitamin D deficiency Migraine Allergic rhinitis Hypothyroid Family History Family History (Updated 09/03/24 @ 12:27 by Calin Marx MD) Mother Cancer Heart disease Brain cancer Aortic aneurysm Father Heart problem Maternal Grandfather Lung cancer Paternal Aunt Lung cancer Maternal Aunt Heart disease Breast cancer Sister Substance abuse Maternal Uncle Substance abuse Heart problem Maternal Grandmother Brain cancer Family history of problems with anesthesia: No Surgical History Surgical History (Updated 10/08/24 @ 06:30 by Karlie Sevilla RN) History of cholecystectomy History of liver biopsy H/O colonoscopy H/O rotator cuff surgery History of bladder surgery History of tonsillectomy Hx of dilation and curettage History of lumbar discectomy History of Problems with Anesthesia: No Social History Social History Housing: House Are you a primary rn long term care to a significant other at home: No Do you presently have visiting nurse or other home services: No Alcohol intake: never Patient Tobacco Use Status: Never used Tobacco Tobacco use type: Cigarette e-Cigarette/Vaping Use: Never Used Second Hand Smoke Exposure: No service: No Current occupational status: employed 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 Current occupational exposures/hazards: No Cognitive needs: No Hearing needs: No Vision needs: Yes Meds Allergies Allergy/AdvReac Type Severity Reaction Status Date / Time oxycodone [Percocet] Allergy Severe rash Verified 10/08/24 06:29 Home Medications ?Medication ?Instructions ?Recorded ?Confirmed ?Last Taken ?Type omeprazole magnesium 20 mg 20 mg PO DAILY 04/29/20 10/08/24 Unknown History tablet,delayed release (Prilosec OTC) Exam Height,Weight and Vital Signs: Height 5 ft 1 in Weight 106.594 kg Pertinent Lab Results Pertinent Lab Results: Laboratory Tests 09/01/24 07:55 WBC 5.4 Hgb 14.1 Hct 41.9 Plt Count 207 D Sodium 141 Potassium 3.7 Chloride 107 Carbon Dioxide 24 BUN 8 L Creatinine 0.70 Narrative Narrative: ECHO 05/2024 Conclusions: - The left ventricular systolic function is normal. The calculated ejection fraction is 65% by biplane method. - No obvious valvular pathology seen on this study. Stress 05/2024 Protocol: TRELL Max HR: 146 BPM 87% of Pred: 167 BPM Max BP: 168/088 mmHG Max Work Load: 7.9 METS Exercise Stress Test with exercise 7 mins and 1 secs of Trell Protocol, slowed the speed at Stage 3 to 3 mph per request, achieving 87% MPHR, with moderate SOB, no chest discomfort, with isolated PAC, with normotensive response to exercise. Without EKG changes meeting criteria for ischemia. In recovery, breathing returned to baseline. Test reviewed with Dr. Medrano. EKG 04/2024 EKG Details: EKG shows normal sinus rhythm with low-voltage QRS most likely due to body habitus otherwise normal EKG Holter 2023 * Total monitoring time about 3 days. * Underlying rhythm is sinus with an average rate of 73/Min. * Rare supraventricular ectopy. * Occasional ventricular ectopy with a burden of 1.3%. Rare couplets. No significant runs. * No significant pauses or AV blocks. * No patient markers or diary events. Assessment and Plan Assessment Anesthesia Assessment: Chart Reviewed Final Anesthetic Review Family History of Problems with Anesthesia: No History of Problems with Anesthesia: No Documented by User: Dorcas Wong MD 10/08/24 07:08 [facility] Past Medical History Medical History (Updated 10/03/24 @ 14:35 by Shelbie Hare PA-C) Generalized anxiety disorder Hot flashes Encounter for annual routine gynecological examination Chronic idiopathic constipation Elevated LFTs Chronic pain syndrome Postlaminectomy syndrome of lumbar region Folic acid deficiency Obesity (BMI 30-39.9) Chronic low back pain with bilateral sciatica Pelvic pain in female Fibroids Encounter to discuss test results Palpitations Alkaline phosphatase elevation Annual physical exam Ankle swelling Arthritis Rotator cuff tear, right Shoulder pain Lumbar back pain Knee pain, left Pain in right axilla Right arm numbness Hematuria Peripheral vascular disease Lumbar radicular pain Fatty liver Gallbladder disease Anxiety Irritable bowel syndrome with constipation Hypercholesterolemia Obesity GERD (gastroesophageal reflux disease) Lumbar degenerative disc disease Vitamin D deficiency Migraine Allergic rhinitis Hypothyroid Family History Family History (Updated 09/03/24 @ 12:27 by Calin Marx MD) Mother Cancer Heart disease Brain cancer Aortic aneurysm Father Heart problem Maternal Grandfather Lung cancer Paternal Aunt Lung cancer Maternal Aunt Heart disease Breast cancer Sister Substance abuse Maternal Uncle Substance abuse Heart problem Maternal Grandmother Brain cancer Surgical History Surgical History (Updated 10/08/24 @ 06:30 by Karlie Sevilla RN) History of cholecystectomy History of liver biopsy H/O colonoscopy H/O rotator cuff surgery History of bladder surgery History of tonsillectomy Hx of dilation and curettage History of lumbar discectomy Social History Social History Housing: House Are you a primary rn long term care to a significant other at home: No Do you presently have visiting nurse or other home services: No Alcohol intake: never Patient Tobacco Use Status: Never used Tobacco Tobacco use type: Cigarette e-Cigarette/Vaping Use: Never Used Second Hand Smoke Exposure: No service: No Current occupational status: employed 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 Current occupational exposures/hazards: No Cognitive needs: No Hearing needs: No Vision needs: Yes Meds Allergies Allergy/AdvReac Type Severity Reaction Status Date / Time oxycodone [Percocet] Allergy Severe rash Verified 10/08/24 06:29 Home Medications ?Medication ?Instructions ?Recorded ?Confirmed ?Last Taken ?Type omeprazole magnesium 20 mg 20 mg PO DAILY 04/29/20 10/08/24 Unknown History tablet,delayed release (Prilosec OTC) Exam Airway Mallampati Class: II TM Dist: >3cm Neck ROM: Full Heart: rrr Lungs: cta Assessment and Plan Assessment Anesthesia Assessment: Anesthesia Plan Discussed Final Anesthetic Review NPO: Yes ASA Class: III Final Preanesthetic Review: No Changes in Pt Med Stat, Meds/Allgs Chart Reviewed and Consent Obtained/Reviewed Patient Risk: Intermediate Procedure Risk: Intermediate Anesthetic Plan Anesthetic Plan: GA Disposition: Standard PACU
[2024-10-08] VITALS (8 sets, daily range): BP systolic 125–146; BP diastolic 68–84; PULSE 72–88; RESP 16; TEMP 36.1–36.7; O2SAT 89–97; BMI 44.3
[2024-10-08] MEDS: Lactated Ringers 1,000 ML 100 ML IVCONT (06:47)
--- NOTE | 2024-10-08 07:18 | MHC.SHP ---
Pre-Procedural Eval Section A - 24 Hr Update-Section A only Date of Service: 10/08/24 The patient is an INPATIENT: No Changes since office visit: No Cold of Flu in the past 2 weeks, No New Medical Problems, No Changes in Medication and No Patient answered all questions The patient has been examined within 24 hours of the surgical procedure. The History & Physical has been completed within 30 days and I have reviewed it.: Yes Section B - Complete if H&P > 30 days Chief Complaint: Other specified postprocedural states Allergies: Allergies Allergy/AdvReac Type Severity Reaction Status Date / Time oxycodone [Percocet] Allergy Severe rash Verified 10/08/24 06:29 Plan I have reviewed the history and physical and performed a pertinent physical examination on my patient. No changes have occurred unless specified. Time Spent With Patient Time: Total time managing care of this patient today ____ minutes.
--- NOTE | 2024-10-08 09:25 | PM.OP ---
Brief Operative Note Date of Service: 10/08/24 Pre-op diagnosis: Right RTC tear Post-op diagnosis: same Procedure: Revision Right rotator cuff repair Implants: S&N double loaded 4.75 Helacoil x 2, Knotless Helacoil 5.5 x 2; Regeneten large collagen bioinductive patch Surgeon: Johny Villegas MD Anesthesia: GETA and regional Was an Repertoire Manager used for this Procedure?: Yes Repertoire Manager: Shelbie Hare Estimated blood loss (mL): 20 IV fluids (mL): 1,000 Pathology: none sent Condition: stable Disposition: PACU
--- NOTE | 2024-10-09 08:38 | W.PM.OPN ---
Operative Note Operative Note Date of Service: 10/08/24 Narrative: Date of Service: 10/08/24 Pre-op diagnosis: Right RTC tear Post-op diagnosis: same Procedure: Revision Right rotator cuff repair Implants: S&N double loaded 4.75 Helacoil x 2, Knotless Helacoil 5.5 x 2; Regeneten large collagen bioinductive patch Surgeon: Johny Villegas MD Anesthesia: GETA and regional Was an Coal Gasification Technician used for this Procedure?: Yes Coal Gasification Technician: Shelbie Hare Estimated blood loss (mL): 20 IV fluids (mL): 1,000 Pathology: none sent Condition: stable Disposition: PACU Procedure in detail: Patient was brought to the operating room and placed the the beach chair position. All bony prominences were well padded and the limb was prepped and draped in standard sterile fashion. A time out was called to identify proper site, proper procedure and proper surgeon. IV antibiotics per weight were administered. I began by making a posterolateral stab incision with a 15 blade. A blunt trochar was placed into the glenohumeral joint and I insufflated the joint with saline and a 30 degree arthroscope was placed. I established an outside- in anterior portal just distal to the biceps tendon. I then began my inspection of the glenohumeral joint. There was an intact biceps anchor and there were minimal cartilage changes at the inferior glenoid without humeral head changes. There was a prior RTC repair with areas of adjacent full thickness involvement. The subcapularis was intact. I debrided the loose cartilage of the glenoid and the degenerative labral tearing.. I then removed the trochar and entered the subacromial space. A direct lateral portal was then established and I performed a bursectomy. The cuff was then examined. The anterior aspect of the prior rotator cuff repair. Intact but the posterior was ragged and there was tearing both anterior and posterior to the position of the prior lateral anchor. I debrided this with a shaver and there was a undersurface portion at the junction of the infra and supraspinatus and more posteriorly that was a bursal component. I removed any excess suture and was left with what amounted to be a full-thickness tear of the posterior 50% of the supraspinatus and the infraspinatus. This was mobile. I placed 24.75 medial row anchors via accessory superior lateral portals I then shuttled the sutures through the infraspinatus in the anterior half of the supraspinatus. I then debrided the bare area down to bleeding bone with a spherical bur. Once I was satisfied with this I brought the 8 limbs down to 2 lateral 5.5 mm knotless Healicoil anchors. I had an anatomic repair and was satisfied with the moravian of normal anatomy. Given that this was a revision with tissue that was compromised I elected to place a large Regeneten bio inductive collagen implant over the repair. The implant was shuttled in posteriorly and kept in place with 6 soft tissue peek charlie and 2 lateral bone anchors. Once I was satisfied with the repair final images were captured and I removed all instrumentation. Portals were closed with nylon. Patient was placed in an abduction sling, extubated and brought to the recovery room in stable condition. There were no known complications.
== END 2024-10-08 12:08 | disposition home or self-care (01) ==
LOC: HO.SSS 07:16
PROVIDERS: PCP Internal Medicine; Visit Provider Orthopaedic Surgery
PROC: (CPT 29827; principal; 2024-10-08 07:30)
DX: M75.101 Unspecified rotator cuff tear or rupture of right shoulder, not specified as traumatic (principal); R20.0 Anesthesia of skin; Z98.890 Other specified postprocedural states; G89.4 Chronic pain syndrome; M25.519 Pain in unspecified shoulder; M19.90 Unspecified osteoarthritis, unspecified site; F41.1 Generalized anxiety disorder; R79.89 Other specified abnormal findings of blood chemistry; E53.8 Deficiency of other specified B group vitamins; E55.9 Vitamin D deficiency, unspecified; R74.8 Abnormal levels of other serum enzymes; K76.0 Fatty (change of) liver, not elsewhere classified; K21.9 Gastro-esophageal reflux disease without esophagitis; I73.9 Peripheral vascular disease, unspecified; E78.00 Pure hypercholesterolemia, unspecified; E66.9 Obesity, unspecified; Z68.41 Body mass index [BMI] 40.0-44.9, adult; Z79.899 Other long term (current) drug therapy
CPT/HCPCS: 29827; C1713; C1763; J0131; J0171; J0330; J0665; J0690; J1885; J2003; J2250; J2405; J2704; J3010

== ENCOUNTER → 2024-10-08 07:16 | Outpatient (BNV) | payer OTHER, SELFPAY | PROVIDERS: PCP Internal Medicine; Visit Provider Orthopaedic Surgery | DX: S46.011A Strain of muscle(s) and tendon(s) of the rotator cuff of right shoulder, initial encounter (principal) | CPT/HCPCS: 29827 ==

== ENCOUNTER 2024-10-16 10:07 | Outpatient (AMB) | payer OTHER, SELFPAY ==
--- NOTE | 2024-10-16 10:11 | MHC.OFFVIS ---
Intake Visit Reasons: PO RT revision RTC repair 10/08/24 NE Intake Note: Mckayla is a 54 year old right hand dominant female who presents today for a post op appointment for her right revision RTC repair 10/08/24 NE. Patient reports she is doing well. Her pain is tolerable at the moment. Bandages were removed. Allergies oxycodone [Percocet] Allergy (Severe, Verified 10/16/24 10:16) rash HPI HPI PO RT revision RTC repair 10/08/24 NE: Details: Ms. Harris is a 54-year-old female who presents to the office today status post right shoulder revision rotator cuff repair performed on 10/08/[address] Villegas. Patient presents to the office today in her sling positioned appropriately. She attended her 1st physical therapy session yesterday. She is overall doing very well. No additional complaints PFSH Medical History (Updated 10/03/24 @ 14:35 by Shelbie Hare PA-C) Generalized anxiety disorder Hot flashes Encounter for annual routine gynecological examination Chronic idiopathic constipation Elevated LFTs Chronic pain syndrome Postlaminectomy syndrome of lumbar region Folic acid deficiency Obesity (BMI 30-39.9) Chronic low back pain with bilateral sciatica Pelvic pain in female Fibroids Encounter to discuss test results Palpitations Alkaline phosphatase elevation Annual physical exam Ankle swelling Arthritis Rotator cuff tear, right Shoulder pain Lumbar back pain Knee pain, left Pain in right axilla Right arm numbness Hematuria Peripheral vascular disease Lumbar radicular pain Fatty liver Gallbladder disease Anxiety Irritable bowel syndrome with constipation Hypercholesterolemia Obesity GERD (gastroesophageal reflux disease) Lumbar degenerative disc disease Vitamin D deficiency Migraine Allergic rhinitis Hypothyroid Surgical History (Updated 10/08/24 @ 06:30 by Karlie Gonzalez RN) History of cholecystectomy History of liver biopsy H/O colonoscopy H/O rotator cuff surgery History of bladder surgery History of tonsillectomy Hx of dilation and curettage History of lumbar discectomy Family History (Updated 09/03/24 @ 12:27 by Calin Marx MD) Mother Cancer Heart disease Brain cancer Aortic aneurysm Father Heart problem Maternal Grandfather Lung cancer Paternal Aunt Lung cancer Maternal Aunt Heart disease Breast cancer Sister Substance abuse Maternal Uncle Substance abuse Heart problem Maternal Grandmother Brain cancer Social History Housing: House Are you a primary manager home healthcare to a significant other at home: No Do you presently have visiting nurse or other home services: No Alcohol intake: never Comment: counts correct Patient Tobacco Use Status: Never used Tobacco Tobacco use type: Cigarette e-Cigarette/Vaping Use: Never Used Second Hand Smoke Exposure: No service: No Current occupational status: employed 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 Sutures intact. No surrounding erythema or drainage. No signs of infection. Forward flexion abduction to 45 degrees. External rotation to neutral. NVI. Assessment & Plan Assessment & Plan (1) Hx of repair of right rotator cuff: Code(s): Z98.890 - Other specified postprocedural states Category: Surgical (2) Rotator cuff tear, right: Code(s): M75.101 - Unspecified rotator cuff tear or rupture of right shoulder, not specified as traumatic Category: Medical Plan Ms. Harris is a 54-year-old female who presents to the office today status post right shoulder revision rotator cuff repair performed on 10/08/[address] Villegas. Patient presents to the office today in her sling positioned appropriately. She attended her 1st physical therapy session yesterday. She is overall doing very well. No additional complaints While the office today, sutures removed and Steri-Strips were applied. She was placed back into a sling. She will be in the sling for roughly 6 weeks. She is unable to drive during this time. She will continue attend physical therapy. She will follow up in [address] Villegas, sooner if needed. Coding Level of Care Code Global (98385) Diagnoses Hx of repair of right rotator cuff Z98.890 Rotator cuff tear, right M75.101
== END 2024-10-16 10:33 | disposition home or self-care (01) ==
LOC: HO.HOS 10:07
PROVIDERS: PCP Internal Medicine; Visit Provider Physician Assistant
DX: Z98.890 Other specified postprocedural states (principal); M75.101 Unspecified rotator cuff tear or rupture of right shoulder, not specified as traumatic
CPT/HCPCS: 99024

== ENCOUNTER 2024-11-10 10:49 | Outpatient (AMB) | payer OTHER, SELFPAY ==
--- NOTE | 2024-11-10 10:57 | MHC.OFFVIS ---
Intake Visit Reasons: PO RT revision RTC repair 10/08/24 NE Intake Note: Mckayla is a 54 year old right hand dominant female who presents today for a post operative appointment about 6 weeks s/p Right RTC repair revision 10/08/24. Patient reports that she has tingling into the hand, but no numbness. Physical therapy is going well. She was having sharp pains with exercises at Physical therapy because of this they changed her exercises. She has not felt much relief with these changes. Allergies oxycodone (Percocet) Allergy (Severe, Verified 11/10/24 11:01) rash HPI HPI PO RT revision RTC repair 10/08/24 NE: Details: Mckayla is a 54 year old right hand dominant female who presents today for a post operative appointment about 6 weeks s/p Right RTC repair revision 10/08/24. Patient reports that she has tingling into the hand, but no numbness. Physical therapy is going well. She was having sharp pains with exercises at Physical therapy because of this they changed her exercises. She has not felt much relief with these changes. [facility] Medical History (Updated 10/03/24 @ 14:35 by Shelbie Hare PA-C) Generalized anxiety disorder Hot flashes Encounter for annual routine gynecological examination Chronic idiopathic constipation Elevated LFTs Chronic pain syndrome Postlaminectomy syndrome of lumbar region Folic acid deficiency Obesity (BMI 30-39.9) Chronic low back pain with bilateral sciatica Pelvic pain in female Fibroids Encounter to discuss test results Palpitations Alkaline phosphatase elevation Annual physical exam Ankle swelling Arthritis Rotator cuff tear, right Shoulder pain Lumbar back pain Knee pain, left Pain in right axilla Right arm numbness Hematuria Peripheral vascular disease Lumbar radicular pain Fatty liver Gallbladder disease Anxiety Irritable bowel syndrome with constipation Hypercholesterolemia Obesity GERD (gastroesophageal reflux disease) Lumbar degenerative disc disease Vitamin D deficiency Migraine Allergic rhinitis Hypothyroid Surgical History (Updated 10/08/24 @ 06:30 by Karlie Gonzalez RN) History of cholecystectomy History of liver biopsy H/O colonoscopy H/O rotator cuff surgery History of bladder surgery History of tonsillectomy Hx of dilation and curettage History of lumbar discectomy Family History (Updated 09/03/24 @ 12:27 by Calin Marx MD) Mother Cancer Heart disease Brain cancer Aortic aneurysm Father Heart problem Maternal Grandfather Lung cancer Paternal Aunt Lung cancer Maternal Aunt Heart disease Breast cancer Sister Substance abuse Maternal Uncle Substance abuse Heart problem Maternal Grandmother Brain cancer Social History Housing: House Are you a primary child care to a significant other at home: No Do you presently have visiting nurse or other home services: No Alcohol intake: never Comment: counts correct Patient Tobacco Use Status: Never used Tobacco Tobacco use type: Cigarette e-Cigarette/Vaping Use: Never Used Second Hand Smoke Exposure: No service: No Current occupational status: employed 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 Abduction to 40 degrees. Assessment & Plan Assessment & Plan (1) Status post rotator cuff repair: Code(s): Z98.890 - Other specified postprocedural states Category: Surgical Plan: Status post revision rotator cuff. Overall doing well. Continue large repair protocol. Follow up 6 weeks Coding Level of Care Code Global (08240) Diagnoses Status post rotator cuff repair Z98.890
== END 2024-11-10 11:10 | disposition home or self-care (01) ==
LOC: HO.HOS 10:50
PROVIDERS: PCP Internal Medicine; Visit Provider Orthopaedic Surgery
DX: Z98.890 Other specified postprocedural states (principal)
CPT/HCPCS: 99024

== ENCOUNTER 2024-12-15 09:16 | Outpatient (REF) | payer OTHER, SELFPAY ==
[2024-12-15 11:39] LABS: MANUAL DIFF FLAG NO
[2024-12-15 11:46] LABS: Hematocrit 43.2 % (37.0-47.0); Hemoglobin 14.4 g/dl (12.0-16.0); Imm Gran Abs Auto 0.03 X10*3/uL (0.00-0.03); Imm Gran Pct Auto 0.4 % (0.0-0.4); Lymphocytes Absolute Auto 1.9 X10*3/uL (1.2-4.9); Mean Corpuscular HGB Conc 33.3 g/dl (31.0-35.0); Mean Corpuscular Hemoglobin 30.0 pg (27.0-33.0); Mean Corpuscular Volume 90.0 fL (80.0-98.0); NRBC Abs Auto 0.000 X10*3/uL (0.0-0.012); NRBC Pct Auto 0.0 /100WBC (0.0-0.2); Platelet Count 274 X10*3/uL (160-400); Red Blood Count 4.80 X10*6/uL (4.20-5.50); White Blood Count 7.4 X10*3/uL (4.8-10.8)
[2024-12-15 12:28] LABS: Alanine Aminotransferase 44 U/L (0-31); Albumin Level 4.4 g/dL (3.5-5.0); Alkaline Phosphatase 229 U/L (39-117); Anion Gap 12 (12-20); Aspartate Amino Transferase 38 U/L (5-31); Blood Urea Nitrogen 8 mg/dL (9-16); Calcium 9.7 mg/dL (8.4-10.2); Carbon Dioxide 27 mmol/L (22-29); Chloride 108 mmol/L (96-108); Cholesterol 179 mg/dL (<200); Estimated Glomerular Filt Rate > 60; Free T4 (Free Thyroxine) 1.50 ng/dL (0.71-1.85); HDL Cholesterol 36 mg/dL (>40); Potassium 4.1 mmol/L (3.3-5.1); Sodium 143 mmol/L (135-145); Thyroid Stimulating Hormone 0.51 uIU/mL (0.32-4.0); Total Protein 7.2 g/dL (6.5-8.0); Triglycerides 123 mg/dL (<150)
== END 2024-12-15 09:17 | disposition home or self-care (01) ==
LOC: HO.WFDLDS 09:16
PROVIDERS: Visit Provider Internal Medicine
DX: E78.00 Pure hypercholesterolemia, unspecified (principal); R39.9 Unspecified symptoms and signs involving the genitourinary system
CPT/HCPCS: 36415; 80053; 80061; 84439; 84443; 85025

== ENCOUNTER 2024-12-25 10:15 | Outpatient (AMB) | payer OTHER, SELFPAY ==
--- NOTE | 2024-12-25 10:20 | A.OFFVIS_ITS ---
Vital Signs 12/25/24 10:21 Height 5 ft 1 in Weight 220 lb BMI 41.6 Intake Visit Reasons: PO RT revision RTC repair 10/08/24 NE Intake Note: Mckayla is a 54 year old right hand dominant female who presents today for a post operative appointment s/p Right RTC repair revision 10/08/24. Patient reports that she is doing well, she is making slow progress. Continues to work w ith PT. She explains that she is getting a sharp/cramping pain in the anterior aspect of the shoulder and radiates down the bicep. This happens at random, when it happens it locks up her shoulder, increased pain with movements. Allergies oxycodone (Percocet) Allergy (Severe, Verified 11/10/24 11:01) rash HPI HPI PO RT revision RTC repair 10/08/24 NE: Details: Mckayla is a 54 year old right hand dominant female who presents today for a post operative appointment s/p Right RTC repair revision 10/08/24. Patient reports that she is doing well, she is making slow progress. Continues to work with PT. She explains that she is getting a sharp/cramping pain in the anterior aspect of the shoulder and radiates down the bicep. This happens at random, when it happens it locks up her shoulder, increased pain with movements. This is happened maybe 3 times since surgery. She does feel that she is improving significantly over the past 6 weeks. This is a large rotator cuff repair protocol. [facility] Medical History (Updated 10/03/24 @ 14:35 by Shelbie Hare PA-C) Generalized anxiety disorder Hot flashes Encounter for annual routine gynecological examination Chronic idiopathic constipation Elevated LFTs Chronic pain syndrome Postlaminectomy syndrome of lumbar region Folic acid deficiency Obesity (BMI 30-39.9) Chronic low back pain with bilateral sciatica Pelvic pain in female Fibroids Encounter to discuss test results Palpitations Alkaline phosphatase elevation Annual physical exam Ankle swelling Arthritis Rotator cuff tear, right Shoulder pain Lumbar back pain Knee pain, left Pain in right axilla Right arm numbness Hematuria Peripheral vascular disease Lumbar radicular pain Fatty liver Gallbladder disease Anxiety Irritable bowel syndrome with constipation Hypercholesterolemia Obesity GERD (gastroesophageal reflux disease) Lumbar degenerative disc disease Vitamin D deficiency Migraine Allergic rhinitis Hypothyroid Surgical History (Updated 11/10/24 @ 19:24 by Calin Marx MD) History of cholecystectomy History of liver biopsy H/O colonoscopy H/O rotator cuff surgery History of bladder surgery History of tonsillectomy Hx of dilation and curettage History of lumbar discectomy Family History (Updated 09/03/24 @ 12:27 by Calin Marx MD) Mother Cancer Heart disease Brain cancer Aortic aneurysm Father Heart problem Maternal Grandfather Lung cancer Paternal Aunt Lung cancer Maternal Aunt Heart disease Breast cancer Sister Substance abuse Maternal Uncle Substance abuse Heart problem Maternal Grandmother Brain cancer Social History Housing: House Are you a primary child care centre director to a significant other at home: No Do you presently have visiting nurse or other home services: No Alcohol intake: never Comment: counts correct Patient Tobacco Use Status: Never used Tobacco Tobacco use type: Cigarette e-Cigarette/Vaping Use: Never Used Second Hand Smoke Exposure: No service: No Current occupational status: employed 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 Doing well. Continue PT. Follow up in 3 months. She may resume work but no overhead lifting. Coding Level of Care Code Global (08920) Diagnoses Hx of repair of right rotator cuff Z98.890
[2024-12-25 10:21] VITALS: BMI 41.6
== END 2024-12-25 10:55 | disposition home or self-care (01) ==
LOC: HO.HOS 10:16
PROVIDERS: PCP Internal Medicine; Visit Provider Orthopaedic Surgery
DX: Z98.890 Other specified postprocedural states (principal)
CPT/HCPCS: 99024

== ENCOUNTER 2024-12-29 09:51 | Outpatient (AMB) | payer OTHER, SELFPAY ==
--- NOTE | 2024-12-29 09:55 | MHC.PC.OV ---
Vital Signs 12/29/24 09:56 Height 5 ft 1 in Weight 240 lb 2 oz BMI 45.4 BP 132/60 Blood Pressure Location Lt brachial Position Sitting Pulse 62 Pulse Source Pulse Oximeter Temp 97.1 F Temp Source Temporal Artery Scan Pulse Oximetry (%) 98 Oxygen Delivery Method Room Air Intake Visit Reasons: Cholesterol Intake Note: Patient is here to follow up on Cholesterol. Service Attendant Required: No Barber Or Beauty Shop Manager: Not Required per policy Accompanied by: Self / Same As Patient Allergies oxycodone (Percocet) Allergy (Severe, Verified 12/29/24 09:56) rash Medication List - Last Reconciled 12/29/24 by Calin Marx, cholecalciferol (vitamin D3) 50 mcg PO DAILY 90 days compress.stocking,knee,reg,lrg As directed 20-30 mm HG ibuprofen 600 mg PO Q8H PRN levothyroxine 100 mcg PO QAM omeprazole magnesium (Prilosec OTC) 20 mg PO DAILY simvastatin 20 mg PO DAILY 90 days Tobacco use date assessed: 12/29/24 Dental Screening Dental Screen Date: 08/04/24 [facility] Medical History (Updated 10/03/24 @ 14:35 by Shelbie Hare PA-C) Generalized anxiety disorder Hot flashes Encounter for annual routine gynecological examination Chronic idiopathic constipation Elevated LFTs Chronic pain syndrome Postlaminectomy syndrome of lumbar region Folic acid deficiency Obesity (BMI 30-39.9) Chronic low back pain with bilateral sciatica Pelvic pain in female Fibroids Encounter to discuss test results Palpitations Alkaline phosphatase elevation Annual physical exam Ankle swelling Arthritis Rotator cuff tear, right Shoulder pain Lumbar back pain Knee pain, left Pain in right axilla Right arm numbness Hematuria Peripheral vascular disease Lumbar radicular pain Fatty liver Gallbladder disease Anxiety Irritable bowel syndrome with constipation Hypercholesterolemia Obesity GERD (gastroesophageal reflux disease) Lumbar degenerative disc disease Vitamin D deficiency Migraine Allergic rhinitis Hypothyroid Surgical History (Updated 12/29/24 @ 10:01 by NADINE Grande) History of cholecystectomy History of liver biopsy H/O colonoscopy H/O rotator cuff surgery History of bladder surgery History of tonsillectomy Hx of dilation and curettage History of lumbar discectomy Family History Mother Cancer Heart disease Brain cancer Aortic aneurysm Father Heart problem Maternal Grandfather Lung cancer Paternal Aunt Lung cancer Maternal Aunt Heart disease Breast cancer Sister Substance abuse Maternal Uncle Substance abuse Heart problem Maternal Grandmother Brain cancer Social History Housing: House Are you a primary student career development specialist to a significant other at home: No Do you presently have visiting nurse or other home services: No Alcohol intake: never Comment: counts correct Patient Tobacco Use Status: Never used Tobacco Tobacco use type: Cigarette e-Cigarette/Vaping Use: Never Used Second Hand Smoke Exposure: No service: No Current occupational status: employed 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 1. Little interest or pleasure in doing things: several days 2. Feeling down, depressed, or hopeless: several days 3. Trouble falling or staying asleep, or sleeping too much: several days 4. Feeling tired or having little energy: several days 5. Poor appetite or overeating: several days 6. Feeling bad about yourself - or that you are a failure or have let yourself or your family down: not at all 7. Trouble concentrating on things, such as reading the newspaper or watching television: not at all 8. Moving or speaking so slowly that other people could have noticed. Or the opposite - being so fidgety or restless that you have been moving around a lot more than usual: not at all 9. Thoughts that you would be better off or of hurting yourself in some way: not at all Total score: 5 Depression Screening Interpretation: Positive Depression Screening Done: Yes Source: Developed by Drs. Hector Hou, Monica Torres, Reynaldo Medley and colleagues, with an educational bernard from [employer]. Thrive Questionnaire Date Thrive assessed: 12/22/24 I am a: Patient What is your living situation today?: I have a steady place to live Within the past 12 months, did the food you bought not last and you didn't have the money to get more?: Sometimes True Within the past 12 months, did you worry whether your food would run out before you got money to buy more?: I choose not to answer this question Do you have trouble paying for medicines?: I choose not to answer this question Do you have trouble getting transportation to medical appointments?: No Do you have trouble paying your heating and electricity bill?: I choose not to answer this question Do you have trouble taking care of your child, family member or friend?: No Do you have trouble with day-to-day activities such as bathing, preparing meals, shopping, managing finances, etc.?: No Are you currently unemployed and looking for a job?: No Are you interested in more education?: No Please select the resources that you would like help with: None Currently or been in a relationship where the following occur: No concerns reported THRIVE Score: 1 AUDIT C Alcohol Use Questionnaire (AUDIT-C) 1. How often do you have a drink containing alcohol?: Never 3. How often do you have six or more drinks on one occasion?: Never Total Score: 0 CAROLE-7 AMB Questionnaire CAROLE-7 Date CAROLE - 7 assessed: 12/29/24 Feeling nervous, anxious, or on edge: 0 = Not at all Not being able to stop or control worryin = Not at all Worrying too much about different things: 3 = Nearly every day Trouble relaxin = Nearly every day Being so restless that it is hard to sit still: 0 = Not at all Becoming easily annoyed or irritable: 1 = Several days Feeling afraid as if something awful might happen: 0 = Not at all Total CAROLE-7 score (0-4 normal; 5-9 mild; 10-14 moderate; 15-21 severe): 7 Source: Developed by Drs. Hector Hou, Monica Torres, Reynaldo Medley and colleagues, with an educational bernard from [employer]. Physical exam (Primary Care) Vital Signs: Last Vital Signs Temp 97.1 F 12/29/24 09:56 Pulse 62 12/29/24 09:56 BP 132/60 12/29/24 09:56 Pulse Ox 98 12/29/24 09:56 Oxygen Delivery Method Room Air 12/29/24 09:56 BMI result Body Mass Index 45.4 Tobacco/Smoking Status: Tobacco use Status Tobacco use date assessed 12/29/24 12/29/24 10:02 Patient Tobacco Use Status Never used Tobacco 12/29/24 10:02 Tobacco use type Cigarette 12/29/24 10:02 e-Cigarette/Vaping Use Never Used 12/29/24 10:02 PHQ-9: PHQ-9 Score PHQ-9: Total score 5 12/29/24 10:10 Depression Screening Interpretation: Positive Thrive Assessment: Date of Thrive Assessment Date Thrive assessed 12/22/24 12/29/24 10:02 Currently or been in a relationship where the following occur: No concerns reported Const General: alert; No acute distress Eyes Conjunctivae: conjunctivae normal Resp Auscultation: clear to auscultation bilaterally Cardio Rate: regular rate Rhythm: regular rhythm GI Inspection: Yes normal to inspection Extrem General: Yes normal to inspection and No edema Coding Level of Care Code Est Pt Level 4 (53218) Complex EM visit Add On G2211 Diagnoses Hypercholesterolemia E78.00 Impaired fasting glucose R73.01 Acquired hypothyroidism E03.9 Hypothyroidism type: acquired Morbid obesity E66.01 LUCERO (nonalcoholic steatohepatitis) K75.81 Status post rotator cuff repair Z98.890 Generalized anxiety disorder F41.1 Assessment & Plan Assessment & Plan (1) Hypercholesterolemia: Code(s): E78.00 - Pure hypercholesterolemia, unspecified Category: Medical Plan: Avoid fried foods, chicken skin, eggs, butter margarine, pastries and meat. Be it pork or beef they have a lot of cholesterol LDL goal of less than 130 and triglyceride of less than 150. On simvastatin 20 mg once a day (2) Impaired fasting glucose: Code(s): R73.01 - Impaired fasting glucose Category: Medical Plan: Decrease the amount of carbohydrate intake, pasta, bread, rice and potatoes are all sugar and that is aside from all the sweet stuff, remember that fruits are good but they are Sweet also. (3) Hypothyroid: Code(s): E03.9 - Hypothyroidism, unspecified Category: Medical Qualifiers: Hypothyroidism type: acquired Qualified Code(s): E03.9 - Hypothyroidism, unspecified Plan: Continue with thyroid medication (4) Morbid obesity: Code(s): E66.01 - Morbid (severe) obesity due to excess calories Category: Medical Plan: Diet and exercise (5) LUCERO (nonalcoholic steatohepatitis): Code(s): K75.81 - Nonalcoholic steatohepatitis (LUCERO) Category: Medical Plan: Low-fat diet and exercise (6) Status post rotator cuff repair: Comment: September 2024 Code(s): Z98.890 - Other specified postprocedural states Category: Surgical Plan: Patient follows up with orthopedics September 2024 surgery (7) Generalized anxiety disorder: Comment: [facility] autumn 07/2024 Code(s): F41.1 - Generalized anxiety disorder Category: Medical Plan: due to no work not able to devote time Plan History of Present Illness The patient is a 54-year-old female presenting for a follow-up visit. She has a history of morbid obesity, with a recent weight gain of 20 pounds, although there was some mention of a 5-pound gain as well. Her medical history includes hypothyroidism, hypercholesterolemia, gastroesophageal reflux disease (GERD), and lumbar post-laminectomy syndrome. The patient also has generalized anxiety disorder, peripheral vascular disease, hepatic steatosis, and impaired glucose tolerance. She underwent right rotator cuff repair in September 2024 following a fall injury, and she is currently stable post-surgery. Her blood work from December 15, 2024, showed normal blood count, normal electrolytes, normal renal function, and mildly elevated blood sugar at 106 mg/dL. Liver function tests revealed an elevation at 44, consistent with her hepatic steatosis, and her cholesterol levels are well-managed with an LDL of 119 mg/dL. Thyroid function tests are within normal limits. Preventative care measures are up to date, including mammogram and colonoscopy screenings. Health Maintenance - Mammogram up to date - Colonoscopy up to date - Cholesterol management with simvastatin 20 mg daily, LDL goal less than 130 mg/dL, triglycerides less than 150 mg/dL Social History Review of Systems Physical Exam Results - Labs: Normal blood count, normal electrolytes, normal renal function, mildly elevated blood sugar at 106 mg/dL, liver function elevation at 44, LDL at 119 mg/dL, normal thyroid numbers Plan The patient will continue with her current thyroid medication and simvastatin 20 mg daily to manage her cholesterol levels, aiming for an LDL goal of less than 130 mg/dL and triglycerides less than 150 mg/dL. A low-fat diet and regular exercise are recommended to address her morbid obesity and impaired glucose tolerance. Follow-up with orthopedics is scheduled for September 2024 to monitor her post-surgical status of the right rotator cuff repair. Patient was informed and verbally consented to the use of an ambient scribe for clinic note documentation during this visit. Discussion Notes Patient Instructions - Continue taking thyroid medication as prescribed. - Take simvastatin 20 mg daily to manage cholesterol. - Follow a low-fat diet and engage in regular exercise. - Attend follow-up appointment with orthopedics in September 2024.
[2024-12-29 09:56] VITALS: BP 132/60; PULSE 62; TEMP 36.2; O2SAT 98; BMI 45.4
== END 2024-12-29 10:21 | disposition home or self-care (01) ==
LOC: HO.HMCH 09:51
PROVIDERS: PCP Internal Medicine; Visit Provider Internal Medicine
DX: E78.00 Pure hypercholesterolemia, unspecified (principal); E66.01 Morbid (severe) obesity due to excess calories; Z68.42 Body mass index [BMI] 45.0-49.9, adult; R73.01 Impaired fasting glucose; E03.9 Hypothyroidism, unspecified; K75.81 Nonalcoholic steatohepatitis (NASH); Z98.890 Other specified postprocedural states; F41.1 Generalized anxiety disorder

== ENCOUNTER 2025-02-16 15:49 | Outpatient (AMB) | payer OTHER, SELFPAY ==
[2025-02-16 15:55] VITALS: BP 124/72; PULSE 80; O2SAT 98; BMI 44.6
--- NOTE | 2025-02-16 15:55 | A.OFFPC_ITS ---
Vital Signs 02/16/25 15:55 Height 5 ft 1 in Weight 236 lb BMI 44.6 BP 124/72 Blood Pressure Location Lt brachial Position Sitting Pulse 80 Pulse Source Pulse Oximeter Pulse Oximetry (%) 98 Oxygen Delivery Method Room Air Intake Visit Reasons: Annual exam Allergies oxycodone (Percocet) Allergy (Severe, Verified 02/16/25 15:56) rash Medication List - Last Reconciled 02/16/25 by Calin Marx MD cholecalciferol (vitamin D3) 50 mcg PO DAILY 90 days compress.stocking,knee,reg,lrg As directed 20-30 mm HG ibuprofen 600 mg PO Q8H PRN levothyroxine 100 mcg PO QAM omeprazole magnesium (Prilosec OTC) 20 mg PO DAILY simvastatin 20 mg PO DAILY 90 days Tobacco use date assessed: 12/29/24 Dental Screening Dental Screen Date: 08/04/24 [facility] Medical History (Updated 10/03/24 @ 14:35 by Shelbie Hare PA-C) Generalized anxiety disorder Hot flashes Encounter for annual routine gynecological examination Chronic idiopathic constipation Elevated LFTs Chronic pain syndrome Postlaminectomy syndrome of lumbar region Folic acid deficiency Obesity (BMI 30-39.9) Chronic low back pain with bilateral sciatica Pelvic pain in female Fibroids Encounter to discuss test results Palpitations Alkaline phosphatase elevation Annual physical exam Ankle swelling Arthritis Rotator cuff tear, right Shoulder pain Lumbar back pain Knee pain, left Pain in right axilla Right arm numbness Hematuria Peripheral vascular disease Lumbar radicular pain Fatty liver Gallbladder disease Anxiety Irritable bowel syndrome with constipation Hypercholesterolemia Obesity GERD (gastroesophageal reflux disease) Lumbar degenerative disc disease Vitamin D deficiency Migraine Allergic rhinitis Hypothyroid Surgical History (Updated 12/29/24 @ 10:01 by NADINE Grande) History of cholecystectomy History of liver biopsy H/O colonoscopy H/O rotator cuff surgery History of bladder surgery History of tonsillectomy Hx of dilation and curettage History of lumbar discectomy Family History Mother Cancer Heart disease Brain cancer Aortic aneurysm Father Heart problem Maternal Grandfather Lung cancer Paternal Aunt Lung cancer Maternal Aunt Heart disease Breast cancer Sister Substance abuse Maternal Uncle Substance abuse Heart problem Maternal Grandmother Brain cancer Social History (Reviewed 12/29/24 @ 09:56 by ELO Grande Housing: House Are you a primary manager wound care to a significant other at home: No Do you presently have visiting nurse or other home services: No Alcohol intake: never Comment: counts correct Patient Tobacco Use Status: Never used Tobacco Tobacco use type: Cigarette e-Cigarette/Vaping Use: Never Used Second Hand Smoke Exposure: No service: No Current occupational status: employed 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 Current occupational exposures/hazards: No Cognitive needs: No Hearing needs: No Vision needs: Yes (Glasses) Female Reproductive History Menstrual Age of Menarche: 11 Questionnaire Thrive Questionnaire Date Thrive assessed: 12/22/24 I am a: Patient What is your living situation today?: I have a steady place to live Within the past 12 months, did the food you bought not last and you didn't have the money to get more?: Sometimes True Within the past 12 months, did you worry whether your food would run out before you got money to buy more?: I choose not to answer this question Do you have trouble paying for medicines?: I choose not to answer this question Do you have trouble getting transportation to medical appointments?: No Do you have trouble paying your heating and electricity bill?: I choose not to answer this question Do you have trouble taking care of your child, family member or friend?: No Do you have trouble with day-to-day activities such as bathing, preparing meals, shopping, managing finances, etc.?: No Are you currently unemployed and looking for a job?: No Are you interested in more education?: No Please select the resources that you would like help with: None Currently or been in a relationship where the following occur: No concerns reported THRIVE Score: 1 CAROLE-7 AMB Questionnaire CAROLE-7 Date CAROLE - 7 assessed: 12/29/24 Source: Developed by Drs. Hector Hou, Monica Torres, Reynaldo Medley and colleagues, with an educational bernard from [employer]. Review of Systems Const Denies poor appetite and Denies weakness Eyes Denies no additional complaints ENT Reports Normal hearing present, Denies dizziness, Denies nasal congestion, Denies tinnitus and Denies sore throat Card Denies chest pain, Denies syncope, Denies rapid heart rate and Denies dyspnea Resp Denies cough and Denies dyspnea GI Denies change in stool character, Reports constipation, Denies diarrhea, Denies nausea and Denies vomiting Denies urinary frequency, Denies difficulty voiding and Denies dysuria Neuro Reports Normal hearing present, Denies confusion, Denies dizziness, Denies syncope and Denies weakness Psych Denies confusion Physical exam (Primary Care) Vital Signs: Last Vital Signs Pulse 80 02/16/25 15:55 BP 124/72 02/16/25 15:55 Pulse Ox 98 02/16/25 15:55 Oxygen Delivery Method Room Air 02/16/25 15:55 BMI result Body Mass Index 44.6 Tobacco/Smoking Status: Tobacco use Status Tobacco use date assessed 12/29/24 02/16/25 15:56 Patient Tobacco Use Status Never used Tobacco 02/16/25 15:56 Tobacco use type Cigarette 02/16/25 15:56 e-Cigarette/Vaping Use Never Used 02/16/25 15:56 Thrive Assessment: Date of Thrive Assessment Date Thrive assessed 12/22/24 02/16/25 15:56 Currently or been in a relationship where the following occur: No concerns reported Const General: No confusion Orientation/consciousness: No confusion HENMT Head: Yes normocephalic Ears: external ears normal and TM's normal bilaterally Face and sinus: Yes normal facial exam Mouth: moist mucous membranes Throat: Yes tonsils normal Eyes Conjunctivae: conjunctivae normal Pupils: Equal, round and reactive pupils present and Pupil accommodation reflex normal Direct Ophthalmoscopy: normal light reflex Neck Neck: No lymphadenopathy Thyroid: Thyroid normal Chest Chest palpation & inspection: normal inspection of the chest Resp Effort & Inspection: normal respiratory effort and no audible wheezes Auscultation: clear to auscultation bilaterally, no crackles, no wheezes and lung sounds not diminished Cardio Rate: regular rate Rhythm: regular rhythm Peripheral pulses: radial pulses present and dorsalis pedis present GI Palpation (GI): no masses Auscultation: normal bowel sounds and normoactive bowel sounds Rectal Exam - Female: deferred Skin General skin exam: no rashes or lesions noted Rashes: no rashes Neuro General: No confusion Cranial nerves: Yes Equal, round and reactive pupils present and Yes Normal hearing present Cognition (Neuro): normal cognition Gait exam (Neuro): Normal gait present Motor exam (neuro): 5/5 motor strength present throughout Deep tendon reflexes (DTR's): Right brachioradialis reflex intensity grade: 2+, Left brachioradialis reflex intensity grade: 2+, Right patellar reflex intensity grade: 2+ and Left patellar reflex intensity grade: 2+ Extrem General: No edema Coding Level of Care Code Est Pt Prev Care 40-64y(71633) Diagnoses Annual physical exam Z00.00 Hypercholesterolemia E78.00 Impaired fasting glucose R73.01 Acquired hypothyroidism E03.9 Hypothyroidism type: acquired Morbid obesity E66.01 Gastroesophageal reflux disease without esophagitis K21.9 Esophagitis presence: without esophagitis LUCERO (nonalcoholic steatohepatitis) K75.81 Generalized anxiety disorder F41.1 Lumbar disc herniation M51.26 Assessment & Plan Assessment & Plan (1) Annual physical exam: Code(s): Z00.00 - Encounter for general adult medical examination without abnormal findings Category: Medical Plan: Patient is advised to eat healthy, keep well hydrated, keep active and have adequate sleep. (2) Hypercholesterolemia: Code(s): E78.00 - Pure hypercholesterolemia, unspecified Category: Medical Plan: Avoid fried foods, chicken skin, eggs, butter margarine, pastries and meat. Be it pork or beef they have a lot of cholesterol LDL goal of less than 130 and triglyceride of less than 150 on simvastatin 20 mg once a day (3) Impaired fasting glucose: Code(s): R73.01 - Impaired fasting glucose Category: Medical Plan: Decrease the amount of carbohydrate intake, pasta, bread, rice and potatoes are all sugar and that is aside from all the sweet stuff, remember that fruits are good but they are Sweet also. (4) Hypothyroid: Code(s): E03.9 - Hypothyroidism, unspecified Category: Medical Qualifiers: Hypothyroidism type: acquired Qualified Code(s): E03.9 - Hypothyroidism, unspecified Plan: Continue with thyroid medication (5) Morbid obesity: Code(s): E66.01 - Morbid (severe) obesity due to excess calories Category: Medical Plan: Diet and exercise (6) GERD (gastroesophageal reflux disease): Code(s): K21.9 - Gastro-esophageal reflux disease without esophagitis Category: Medical Qualifiers: Esophagitis presence: without esophagitis Qualified Code(s): K21.9 - Gastro-esophageal reflux disease without esophagitis Plan: Avoid the foods that causes that usually spicy foods, tomato products, juices, coffee, soda and foods that your sensitive to. After eating do not lie down, allow 3-4 hours before in lie down. And keep the head of bed above 30 degrees to avoid the acid from going up. (7) LUCERO (nonalcoholic steatohepatitis): Code(s): K75.81 - Nonalcoholic steatohepatitis (LUCERO) Category: Medical Plan: Low-fat diet and exercise (8) Generalized anxiety disorder: Comment: [facility] autumn 07/2024 Code(s): F41.1 - Generalized anxiety disorder Category: Medical Plan: Continue with counseling and therapy. (9) Lumbar disc herniation: Comment: L4-L5 May 2022Jan2022 bilateral decompression with left-sided complete facetectomy and pars ectomy L4-L5 left transforaminal an annulotomy, diskectomy with bilateral [address] Robertson Code(s): M51.26 - Other intervertebral disc displacement, lumbar region Category: Medical Plan: Keep active Plan History of Present Illness The patient is a 55-year-old female presenting for a wellness visit and management of chronic conditions. The patient has a history of morbid obesity, with a recent weight loss of 4 pounds noted. She has been managing hypothyroidism with medication, and her thyroid levels are currently normal. The patient has hypercholesterolemia, with an LDL cholesterol level of 119 mg/dL. She is on simvastatin 20 mg daily, with a goal LDL of less than 130 mg/dL. The patient has a history of gastroesophageal reflux disease (GERD), managed with omeprazole as needed. She follows a no-fat diet and exercises regularly to manage symptoms. The patient has lumbar postlaminectomy syndrome and generalized anxiety disorder. She continues with counseling and therapy for anxiety management. The patient has peripheral vascular disease and hepatic steatosis, with mildly elevated liver enzymes noted in recent labs. The patient reports hearing impairment and is considering hearing aids, though cost is a concern. She has a family history of various cancers and heart disease, including brain and lung cancer, and heart attacks. Health Maintenance - Mammogram up to date as of April 2024 - Colonoscopy last performed in 2017 - Blood work last completed in November with normal results except for mildly elevated liver enzymes - Encouraged to maintain a no-fat diet and regular exercise for weight management and GERD control - Discussed potential benefits of shingles vaccination Social History - Family history includes multiple cases of cancer and heart disease - No alcohol or tobacco use reported - Reports hearing impairment, considering hearing aids but concerned about cost Review of Systems - General: Denies dizziness, syncope, or fever - Cardiovascular: Denies chest pain or palpitations - Respiratory: Denies dyspnea or cough - Gastrointestinal: Reports occasional nausea, denies vomiting or constipation - Neurological: Reports hearing impairment, denies headaches or dizziness Physical Exam General: Cooperative, healthy appearing, comfortable, no acute distress and well developed Orientation: Patient oriented x3 Limitations: No limitations Head: Normal to inspection Ears: Hearing problems noted, patient supposed to get hearing aids Nose: Normal external nose present Face and sinus: Normal facial exam Eyes: Appearance normal, both eyes and all related structures, watching for cataract Neck: Normal visual inspection and Yes full ROM Respiratory: Normal respiratory effort and able to speak in complete sentences. Clear to auscultation bilaterally Cardiovascular: Regular rate and rhythm. Normal S1 and S2 GI: Normal to inspection. Soft to palpation and nontender, occasional gas pain noted Skin: No rashes or lesions noted Neuro: Patient oriented x3 Extremities: Normal to inspection Results - Labs: Normal blood count, normal electrolytes, normal renal function, blood sugar 106 mg/dL, normal hemoglobin A1c, mildly elevated liver enzymes, LDL cholesterol 119 mg/dL, normal thyroid function Plan Patient was informed and verbally consented to the use of an ambient scribe for clinic note documentation during this visit. 1. Morbid Obesity The patient is advised to continue with a no-fat diet and regular exercise to aid in weight management. 2. Hypothyroidism The patient should continue with her current thyroid medication regimen, with follow-up blood tests scheduled in six months to monitor thyroid function. 3. Hypercholesterolemia The patient is to continue simvastatin 20 mg daily, with a target LDL cholesterol level of less than 130 mg/dL. 4. Gastroesophageal Reflux Disease (Gerd) The patient is advised to maintain a no-fat diet and exercise regularly, and to use omeprazole as needed for symptom control. 5. Generalized Anxiety Disorder The patient is encouraged to continue with counseling and therapy for anxiety management. 6. Hearing Impairment The patient is considering hearing aids but is concerned about the cost; no immediate intervention is planned. 7. Preventative Care The patient is up to date with her mammogram and is advised to consider the shingles vaccine for additional preventative care. Discussion Notes During the visit, I discussed the importance of maintaining a no-fat diet and regular exercise for weight management and GERD control. We reviewed the patient's current medication regimen, including simvastatin for hypercholesterolemia and thyroid medication for hypothyroidism, and emphasized the need for adherence. I also highlighted the benefits of the shingles vaccine and encouraged the patient to consider it as part of her preventative care. Patient Instructions - Continue with a no-fat diet and regular exercise. - Take simvastatin 20 mg daily as prescribed. - Use omeprazole as needed for GERD symptoms. - Follow up with blood tests in six months to monitor thyroid function. - Consider the shingles vaccine for additional preventative care. Orders: Orders Complete Blood Count Auto Diff 6 Months E03.9 - Hypothyroidism, unspecified Thyroid Stimulating Hormone 6 Months E03.9 - Hypothyroidism, unspecified Comprehensive Met. Panel 6 Months E03.9 - Hypothyroidism, unspecified Free T4 (Free Thyroxine) 6 Months E03.9 - Hypothyroidism, unspecified Lipid Panel 6 Months E03.9 - Hypothyroidism, unspecified, E78.00 - Pure hypercholesterolemia, unspecified Vitamin B12 and Folate 6 Months E03.9 - Hypothyroidism, unspecified Vitamin D 25-OH Total 6 Months E03.9 - Hypothyroidism, unspecified Hemoglobin A1c 6 Months E03.9 - Hypothyroidism, unspecified
== END 2025-02-16 16:40 | disposition home or self-care (01) ==
LOC: HO.HMCH 15:49
PROVIDERS: PCP Internal Medicine; Visit Provider Internal Medicine
DX: Z00.00 Encounter for general adult medical examination without abnormal findings (principal); E66.01 Morbid (severe) obesity due to excess calories; E78.00 Pure hypercholesterolemia, unspecified; Z68.41 Body mass index [BMI] 40.0-44.9, adult; R73.01 Impaired fasting glucose; E03.9 Hypothyroidism, unspecified; K21.9 Gastro-esophageal reflux disease without esophagitis; K75.81 Nonalcoholic steatohepatitis (NASH); F41.1 Generalized anxiety disorder; M51.26 Other intervertebral disc displacement, lumbar region

== ENCOUNTER 2025-03-26 07:57 | Outpatient (AMB) | payer OTHER, SELFPAY ==
[2025-03-26 08:06] VITALS: BP 118/70; BMI 45.4
--- NOTE | 2025-03-26 08:06 | A.OFFVIS_ITS ---
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 Currently not sexually active w/ due to medical concerns. Denies any vaginal dryness or irritation. STI testing offered; she declined. Attempting to eat a healthy diet with vitamin D and stays active with exercise. Last pap smear; 2020, negative. Last mammogram; April 2024. Colonoscopy is UTD. Family history of breast cancer. [facility] Medical History Generalized anxiety disorder Hot flashes Encounter for annual routine gynecological examination Chronic idiopathic constipation Elevated LFTs Chronic pain syndrome Postlaminectomy syndrome of lumbar region Folic acid deficiency Obesity (BMI 30-39.9) Chronic low back pain with bilateral sciatica Pelvic pain in female Fibroids Encounter to discuss test results Palpitations Alkaline phosphatase elevation Annual physical exam Ankle swelling Arthritis Rotator cuff tear, right Shoulder pain Lumbar back pain Knee pain, left Pain in right axilla Right arm numbness Hematuria Peripheral vascular disease Lumbar radicular pain Fatty liver Gallbladder disease Anxiety Irritable bowel syndrome with constipation Hypercholesterolemia Obesity GERD (gastroesophageal reflux disease) Lumbar degenerative disc disease Vitamin D deficiency Migraine Allergic rhinitis Hypothyroid Surgical History History of cholecystectomy History of liver biopsy H/O colonoscopy H/O rotator cuff surgery History of bladder surgery History of tonsillectomy Hx of dilation and curettage History of lumbar discectomy Family History Mother Cancer Heart disease Brain cancer Aortic aneurysm Father Heart problem Maternal Grandfather Lung cancer Paternal Aunt Lung cancer Maternal Aunt Heart disease Breast cancer Sister Substance abuse Maternal Uncle Substance abuse Heart problem Maternal Grandmother Brain cancer Social History Housing: House Are you a primary care transition coordinator to a significant other at home: No Do you presently have visiting nurse or other home services: No Alcohol intake: never Comment: counts correct Patient Tobacco Use Status: Never used Tobacco Tobacco use type: Cigarette e-Cigarette/Vaping Use: Never Used Second Hand Smoke Exposure: No service: No Current occupational status: employed 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 Current occupational exposures/hazards: No Cognitive needs: No Hearing needs: No Vision needs: Yes (Glasses) Female Reproductive History Menstrual Age of Menarche: 11 Menopause type: natural Date of last pap smear: 01/10/21 History of abnormal pap smear: No Date of Mammogram: 04/21/24 History of abnormal mammogram: No Review of Systems Const All systems reviewed & are unremarkable except as noted in HPI and below Reports as per HPI Eyes Reports no additional complaints ENT Reports no additional complaints Card Reports no additional complaints Resp Reports no additional complaints GI Reports as per HPI and Reports no additional complaints Reports as per HPI Musc Reports no additional complaints Skin/Breast Reports as per HPI Neuro Reports no additional complaints Psych Reports no additional complaints Endo Reports no additional complaints Remington/Lymph Reports no additional complaints Aller/Immun Reports no additional complaints Physical Exam Vital Signs: Last Vital Signs BP 118/70 03/26/25 08:06 BMI result Body Mass Index 45.4 Const General: cooperative, healthy appearing, no acute distress, well developed and alert Orientation/consciousness: patient oriented x3 HEENT Head: Yes normal to inspection Eyes General: appearance normal, both eyes and all related structures Neck Neck: Yes normal visual inspection Thyroid: Thyroid normal Chest Chest palpation & inspection: normal inspection of the chest and other (no puckering, dimpling, peau de orange, retraction, discharge, masses) Breast/axilla inspection: normal inspection of the breasts Breast/axilla palpation: normal palpation of the breasts Resp Effort & Inspection: normal respiratory effort GI Inspection: Yes normal to inspection Palpation (GI): Soft to palpation Rectal Exam - Female: deferred General: Yes bladder normal to palpation External Female Exam: normal external appearance and normal appearance of the urethra Speculum Exam - Vagina: normal appearance of the vagina, normal palpation, normal vaginal discharge and vagina atrophic Speculum Exam - Cervix: normal appearance of the cervix and normal palpation Bimanual exam- vagina & uterus: normal bimanual exam, normal palpation, uterine size normal, bladder normal to palpation, normal palpation and non-tender Bimanual Exam- Adnexa, other: no masses Skin General skin exam: no rashes or lesions noted Rashes: no rashes Neuro General: patient oriented x3 Cognition (Neuro): normal cognition Extrem General: Yes normal to inspection Psych Attitude: cooperative Thought process: Normal thought process present Assessment & Plan Assessment & Plan (1) Encounter for well woman exam with routine gynecological exam: Code(s): Z01.419 - Encounter for gynecological examination (general) (routine) without abnormal findings Category: Medical Plan Discussed: Current recommendations for pap smears per ASCCP guidelines. Breast awareness, periodic self breast exams and yearly mammogram. Maintain a healthy lifestyle, well balanced diet including Calcium 1,200 mg (handouts provided) and Vitamin D 600 IU daily, and routine exercise. Contact the office with any postmenopausal bleeding. Patient verbalizes understanding and agrees to the plan of care. She was given opportunity to ask questions and all questions were answered to the best of my ability. 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 This note is constructed using voice recognition software. While every effort has been made to ensure accuracy, real estate professional errors may have been included. Coding Level of Care Code Est Pt Prev Care 40-64y(16950) Diagnoses Encounter for well woman exam with routine gynecological exam Z01.419
== END 2025-03-26 08:40 | disposition home or self-care (01) ==
LOC: HO.HWS 07:58
PROVIDERS: PCP Internal Medicine; Visit Provider Advanced Practice Midwife
DX: Z01.419 Encounter for gynecological examination (general) (routine) without abnormal findings (principal)
CPT/HCPCS: 99396; 99459

== ENCOUNTER 2025-04-09 10:09 | Outpatient (AMB) | payer OTHER, SELFPAY ==
--- NOTE | 2025-04-09 10:19 | A.OFFVIS_ITS ---
Vital Signs 04/09/25 10:20 Height 5 ft 1 in Weight 240 lb BMI 45.3 Intake Visit Reasons: OV-RT revision RTC repair 10/08/24 NE Intake Note: Mckayla is a 54 year old right hand dominant female who presents today for a follow up about 6 months s/p Right RTC repair revision 10/08/24. Patient reports that she is having good and bad days. She reports sharp pain in the shoulder that is random. She also explains that she feels a dislocating sensation at the proximal aspect of her clavicle, particularly when she is driving and sitting at a desk - she feels that she needs to move her shoulder until she feels a pop at the same area of the clavicle. It is painful when this happens and is happening about 5x/week. Some occasional numbness in the right arm. She has returned to work on light duty. Allergies oxycodone (Percocet) Allergy (Severe, Verified 04/09/25 10:26) rash HPI HPI OV-RT revision RTC repair 10/08/24 NE: Details: Mckayla is a 54 year old right hand dominant female who presents today for a follow up about 6 months s/p Right RTC repair revision 10/08/24. She states that her shoulder feels pretty good. Her pain is improving. She does however feel a dislocating sensation at the medial aspect of her clavicle, particul peewee when she is driving and sitting at a desk - she feels that she needs to move her shoulder until she feels a pop at the same area of the clavicle. It is painful when this happens and is happening about 5x/week. Some occasional numbness in the right arm. She has returned to work on light duty. FORMERLY [facility], [facility]–1983 Medical History Generalized anxiety disorder Hot flashes Encounter for annual routine gynecological examination Chronic idiopathic constipation Elevated LFTs Chronic pain syndrome Postlaminectomy syndrome of lumbar region Folic acid deficiency Obesity (BMI 30-39.9) Chronic low back pain with bilateral sciatica Pelvic pain in female Fibroids Encounter to discuss test results Palpitations Alkaline phosphatase elevation Annual physical exam Ankle swelling Arthritis Rotator cuff tear, right Shoulder pain Lumbar back pain Knee pain, left Pain in right axilla Right arm numbness Hematuria Peripheral vascular disease Lumbar radicular pain Fatty liver Gallbladder disease Anxiety Irritable bowel syndrome with constipation Hypercholesterolemia Obesity GERD (gastroesophageal reflux disease) Lumbar degenerative disc disease Vitamin D deficiency Migraine Allergic rhinitis Hypothyroid Surgical History History of cholecystectomy History of liver biopsy H/O colonoscopy H/O rotator cuff surgery History of bladder surgery History of tonsillectomy Hx of dilation and curettage History of lumbar discectomy Family History Mother Cancer Heart disease Brain cancer Aortic aneurysm Father Heart problem Maternal Grandfather Lung cancer Paternal Aunt Lung cancer Maternal Aunt Heart disease Breast cancer Sister Substance abuse Maternal Uncle Substance abuse Heart problem Maternal Grandmother Brain cancer Social History Housing: House Are you a primary long term care pharmacist to a significant other at home: No Do you presently have visiting nurse or other home services: No Alcohol intake: never Comment: counts correct Patient Tobacco Use Status: Never used Tobacco Tobacco use type: Cigarette e-Cigarette/Vaping Use: Never Used Second Hand Smoke Exposure: No service: No Current occupational status: employed 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 Negative empty can. Negative Morton and Neer. She does have tenderness about the medial head of the clavicle without any prominence or suggestion of instability. Vital Signs: BMI result Body Mass Index 45.3 Assessment & Plan Assessment & Plan (1) Status post rotator cuff repair: Comment: September 2024 Code(s): Z98.890 - Other specified postprocedural states Category: Surgical Plan: Shoulder seems to be doing well. She is progressing well with therapy. Her motion is good and her strength is good. (2) Sternoclavicular joint subluxation: Code(s): S43.203A - Unspecified subluxation of unspecified sternoclavicular joint, initial encounter Category: Medical Plan: She has sharp pain over the sternoclavicular joint. This is a difficult area to image. I recommend CT to image. Coding Level of Care Code Est Pt Level 3 (71908) Global (65486) Diagnoses Status post rotator cuff repair Z98.890 Sternoclavicular joint subluxation S43.203A
[2025-04-09 10:20] VITALS: BMI 45.3
== END 2025-04-09 10:43 | disposition home or self-care (01) ==
LOC: HO.HOS 10:10
PROVIDERS: PCP Internal Medicine; Visit Provider Orthopaedic Surgery
DX: M25.511 Pain in right shoulder (principal); S43.201A Unspecified subluxation of right sternoclavicular joint, initial encounter; Z98.890 Other specified postprocedural states
CPT/HCPCS: 99213; 99499

== ENCOUNTER 2025-04-23 15:17 | Outpatient (AMB) | payer OTHER, SELFPAY ==
--- NOTE | 2025-04-23 15:19 | A.OFFPC_ITS ---
Vital Signs 04/23/25 15:20 Height 5 ft 1 in Weight 237 lb BMI 44.8 BP 128/82 Blood Pressure Location Lt brachial Position Sitting Respiration 18 Pulse 75 Pulse Source Pulse Oximeter Temp Source Temporal Artery Scan Pulse Oximetry (%) 98 Oxygen Delivery Method Room Air Intake Visit Reasons: right calf numbness Online Publisher Required: No Accompanied by: Self / Same As Patient Allergies oxycodone (Percocet) Allergy (Severe, Verified 04/23/25 15:40) rash Medication List - Last Reconciled 04/23/25 by JAZMYN Javier cholecalciferol (vitamin D3) 50 mcg PO DAILY 90 days ibuprofen 600 mg PO Q8H PRN levothyroxine 100 mcg PO QAM omeprazole magnesium (Prilosec OTC) 20 mg PO DAILY simvastatin 20 mg PO DAILY 90 days Tobacco use date assessed: 04/23/25 Dental Screening Dental Screen Date: 04/23/25 Did you have a dental visit in the last 12 months?: No Did you have a dental problem in the last 6 months where you did not have access to dental care?: No Was dental information given to patient?: No HPI HPI Comments History of Present Illness Details History of Present Illness The patient is a 55 year old female presenting with right calf numbness. She has experienced constant numbness on her left side since she had back problems and surgery, and she is concerned because her right side has recently started to feel similar, with numbness affecting her big toe, second toe, the sole of her foot, and the back of her calf. She reports no pain associated with the numbness, but has had occasional burning sensations on the bottom of her right foot. The patient has a history of back surgery three years ago, which provided relief for about a year before her back pain returned and progressively worsened. Her back pain has been more constant lately, localized to the tailbone area, and is particularly bothersome when she is trying to sleep. She also reports arthritis in her hips. Associated symptoms include feet swelling when she is standing for long periods, occasional restless leg-type symptoms at night, and stiffness with her first steps in the morning. She also reports a change in sensation with urination and bowel movements, where she has the urge but does not feel the urine or stool being expelled. Her medical history is significant for a prior back surgery. Health Maintenance - Recommended wearing compression stocki ngs to improve circulation in the lower extremities. - Advised to massage calves, potentially using Biofreeze, to alleviate stiffness and symptoms of plantar fasciitis. - Discussed the importance of wearing co mfortable shoes. 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 - She reports being on her feet for long periods. Results FORMERLY [facility] Medical History Generalized anxiety disorder Hot flashes Encounter for annual routine gynecological examination Chronic idiopathic constipation Elevated LFTs Chronic pain syndrome Postlaminectomy syndrome of lumbar region Folic acid deficiency Obesity (BMI 30-39.9) Chronic low back pain with bilateral sciatica Pelvic pain in female Fibroids Encounter to discuss test results Palpitations Alkaline phosphatase elevation Annual physical exam Ankle swelling Arthritis Rotator cuff tear, right Shoulder pain Lumbar back pain Knee pain, left Pain in right axilla Right arm numbness Hematuria Peripheral vascular disease Lumbar radicular pain Fatty liver Gallbladder disease Anxiety Irritable bowel syndrome with constipation Hypercholesterolemia Obesity GERD (gastroesophageal reflux disease) Lumbar degenerative disc disease Vitamin D deficiency Migraine Allergic rhinitis Hypothyroid Surgical History History of cholecystectomy History of liver biopsy H/O colonoscopy H/O rotator cuff surgery History of bladder surgery History of tonsillectomy Hx of dilation and curettage History of lumbar discectomy Family History Mother Cancer Heart disease Brain cancer Aortic aneurysm Father Heart problem Maternal Grandfather Lung cancer Paternal Aunt Lung cancer Maternal Aunt Heart disease Breast cancer Sister Substance abuse Maternal Uncle Substance abuse Heart problem Maternal Grandmother Brain cancer Social History Housing: House Are you a primary home care aide to a significant other at home: No Do you presently have visiting nurse or other home services: No Alcohol intake: never Comment: counts correct Patient Tobacco Use Status: Never used Tobacco Tobacco use type: Cigarette e-Cigarette/Vaping Use: Never Used Second Hand Smoke Exposure: No service: No Current occupational status: employed 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 Current occupational exposures/hazards: No Cognitive needs: No Hearing needs: No Vision needs: Yes (Glasses) Female Reproductive History Menstrual Age of Menarche: 11 Questionnaire Thrive Questionnaire Date Thrive assessed: 04/23/25 I am a: Patient What is your living situation today?: I have a steady place to live Within the past 12 months, did the food you bought not last and you didn't have the money to get more?: Sometimes True Within the past 12 months, did you worry whether your food would run out before you got money to buy more?: I choose not to answer this question Do you have trouble paying for medicines?: I choose not to answer this question Do you have trouble getting transportation to medical appointments?: No Do you have trouble paying your heating and electricity bill?: I choose not to answer this question Do you have trouble taking care of your child, family member or friend?: No Do you have trouble with day-to-day activities such as bathing, preparing meals, shopping, managing finances, etc.?: No Are you currently unemployed and looking for a job?: No Are you interested in more education?: No Please select the resources that you would like help with: None Currently or been in a relationship where the following occur: No concerns reported THRIVE Score: 1 CAROLE-7 AMB Questionnaire CAROLE-7 Date CAROLE - 7 assessed: 12/29/24 Source: Developed by Drs. Hector Hou, Monica Torres, Reynaldo Medley and colleagues, with an educational bernard from [employer]. Review of Systems Narrative Review of Systems - Constitutional: Reports always feeling tired. - Musculoskeletal: Reports constant low back pain, which has been worse lately, particularly in the tailbone area. - Musculoskeletal: Reports arthritis in her hips. - Musculoskeletal: Reports her feet swell when she is on them for a long time. - Neurological: Reports new numbness in the right great toe, second toe, sole of the foot, and back of the calf. - Neurological: Reports chronic, constant numbness on the left side post-back surgery. - Neurological: Reports occasional burning sensation on the bottom of her foot but denies tingling. - Neurological: Reports occasional nighttime symptoms of restless legs. - Genitourinary: Reports having the urge to urinate but sometimes does not feel the urine passing. - Gastrointestinal: Reports having the urge to defecate but sometimes does not feel the stool passing. - Skin: Reports waking up with bruises. Physical exam (Primary Care) Vital Signs: Last Vital Signs Pulse 75 04/23/25 15:20 Resp 18 04/23/25 15:20 BP 128/82 04/23/25 15:20 Pulse Ox 98 04/23/25 15:20 Oxygen Delivery Method Room Air 04/23/25 15:20 BMI result Body Mass Index 44.8 Tobacco/Smoking Status: Tobacco use Status Tobacco use date assessed 04/23/25 04/23/25 15:21 Patient Tobacco Use Status Never used Tobacco 04/23/25 15:21 Tobacco use type Cigarette 04/23/25 15:21 e-Cigarette/Vaping Use Never Used 04/23/25 15:21 Thrive Assessment: Date of Thrive Assessment Date Thrive assessed 04/23/25 04/23/25 15:21 Currently or been in a relationship where the following occur: No concerns reported Narrative Physical Exam - Respiratory: Lungs are clear to auscultation bilaterally. - Cardiovascular: Pedal pulses are noted to be good. - Musculoskeletal: Right calf is stiff to palpation. - Musculoskeletal: Straight leg raise on the right is positive for hip pain. - Musculoskeletal: Straight leg raise on the left is positive for lower back pain, without radiation. - Neurological: Sensation to light touch is present but altered on the right foot. Coding Level of Care Code Est Pt Level 4 (77396) Diagnoses Plantar fasciitis of right foot M72.2 Chronic midline low back pain without sciatica M54.50; G89.29 Back pain laterality: midline Sciatica presence: without sciatica Neuropathy G62.9 Peripheral vascular disease I73.9 Time Spent (min) 38 Assessment & Plan Assessment & Plan (1) Plantar fasciitis of right foot: Code(s): M72.2 - Plantar fascial fibromatosis Category: Medical (2) Chronic low back pain: Code(s): M54.50 - Low back pain, unspecified; G89.29 - Other chronic pain Category: Medical Qualifiers: Back pain laterality: midline Sciatica presence: without sciatica Qualified Code(s): M54.50 - Low back pain, unspecified; G89.29 - Other chronic pain (3) Neuropathy: Code(s): G62.9 - Polyneuropathy, unspecified Category: Medical (4) Peripheral vascular disease: Code(s): I73.9 - Peripheral vascular disease, unspecified Category: Medical Plan Plan Patient was informed and verbally consented to the use of an ambient scribe for clinic note documentation during this visit. 1. Right Lower Extremity Paresthesia And Plantar Fasciitis The differential diagnosis for the patient's right lower extremity numbness includes plantar fasciitis, neuropathy, and a circulatory issue. A radicular origin from her back is considered less likely as the symptoms skip dermatomal areas. A nerve conduction study of the right leg will be ordered to further evaluate. The patient is advised to massage her calves, possibly with Biofreeze, and to wear compression stockings to improve circulation and address symptoms of suspected plantar fasciitis. 2. Chronic Low Back Pain The patient reports worsening chronic low back pain, particularly in the tailbone area, which has increased in constancy since her back surgery about three years ago. Her role as a caregiver for her is noted as a contributing factor. A lumbar spine X-ray will be ordered for further evaluation. Gabapentin 100 mg is prescribed, to be taken up to three times daily as needed, to help with both back and leg nerve pain. The patient was counseled to start the medication at night due to potential drowsiness. Discussion Notes I explained to the patient my assessment that her right leg numbness could be due to several local issues such as plantar fasciitis, a circulation problem, or neuropathy, and that it was less likely to be stemming from her back at this time. To investigate, I informed her that I would order a nerve conduction study of her leg and an X-ray of her lumbar spine to evaluate her worsening back pain. We discussed starting gabapentin 100mg for her nerve-related pain, and I detailed the dosing regimen, advising her to start at night because it can cause fatigue and titrate as needed up to three times a day for symptom control. I also emphasized the importance of self-care measures, including massaging her calves, using compression stockings, and wearing comfortable shoes, to alleviate her symptoms. She can cancel her upcoming appointment on the but should keep her follow-up appointment in June. Patient Instructions - I have ordered a nerve conduction study for your right leg and an X-ray of your lower back. - You will be prescribed Gabapentin 100 mg for nerve pain. - Start by taking one pill at bedtime, as it may make you feel tired. - You can take this medication up to three times a day as needed for your symptoms. - It is very important to massage your calves and wear compression stockings to help with circulation and your foot symptoms. - Make sure to wear comfortable shoes. - You may cancel your provider appointment for the , but please keep your appointment scheduled in June. Orders: Orders NE nerve conduction velocity 04/23/25 R20.0 - Anesthesia of skin XR lumbar spine 2-3V 04/23/25 M54.50 - Low back pain, unspecified NE electromyogram (EMG) 04/23/25 R20.0 - Anesthesia of skin Medications: New gabapentin 100 mg PO TID PRN 90 caps 1RF nerve pain
[2025-04-23 15:20] VITALS: BP 128/82; PULSE 75; RESP 18; O2SAT 98; BMI 44.8
== END 2025-04-23 16:10 | disposition home or self-care (01) ==
LOC: HO.HMCH 15:18
DX: M72.2 Plantar fascial fibromatosis (principal); M54.50 Low back pain, unspecified; G89.29 Other chronic pain; G62.9 Polyneuropathy, unspecified; I73.9 Peripheral vascular disease, unspecified

== ENCOUNTER 2025-04-27 09:03 | Outpatient (REF) | payer OTHER, SELFPAY ==
--- NOTE | ~2025-04-27 | XR_ITS ---
EXAMINATION: XR LUMBOSACRAL SPINE CLINICAL INFORMATION: M54.50 - Low back pain, unspecified COMPARISON: X-ray 03/26/2024 TECHNIQUE: Three views of the lumbosacral spine. FINDINGS: Posterior spinal fusion hardware and intervertebral body device at L4-5. Hardware is intact. No suspicious perihardware lucency. No acute fracture or traumatic subluxation. Mild L3-4 disc degeneration. Multilevel facet degeneration. No suspicious bony findings. SI joints are symmetric. Right upper quadrant cholecystectomy clips.. XR/XR lumbar spine 2-3V IMPRESSION: 1. Status post L4-5 spinal fusion surgery. No evidence of hardware complication. 2. No acute osseous findings. 3. Degenerative changes as above. Electronically signed by: Pedro Soto MD 04/27/2025 12:19 PM [facility]
--- NOTE | ~2025-04-27 | XR_ITS ---
EXAMINATION: XR SHOULDER, LEFT CLINICAL INFORMATION: M25.519 - Pain in unspecified shoulder COMPARISON: None available. TECHNIQUE: AP external rotation, Grashey, scapular Y, and axillary views of the left shoulder. FINDINGS: No acute fracture or dislocation. Minimal acromioclavicular arthritis. Glenohumeral and acromioclavicular alignment is anatomic with preserved joint space. No abnormal soft tissue calcifications. XR/XR shoulder LT min 2V IMPRESSION: Minimal acromioclavicular arthritis. Electronically signed by: Pedro Soto MD 04/27/2025 10:31 AM [facility]
== END 2025-04-27 09:04 | disposition home or self-care (01) ==
LOC: HO.XRAY 09:03
PROVIDERS: PCP Internal Medicine
DX: M25.512 Pain in left shoulder (principal); M54.50 Low back pain, unspecified
CPT/HCPCS: 72100; 73030

== ENCOUNTER → 2025-04-27 09:08 | Outpatient (BNV) | payer OTHER, SELFPAY | PROVIDERS: PCP Internal Medicine; Visit Provider Radiology Diagnostic Ultrasound | DX: M51.360 Other intervertebral disc degeneration, lumbar region with discogenic back pain only (principal); M25.512 Pain in left shoulder | CPT/HCPCS: 72100; 73030 ==

== ENCOUNTER 2025-04-29 14:55 | Outpatient (REF) | payer OTHER, SELFPAY ==
--- NOTE | ~2025-04-29 | MM_ITS ---
EXAMINATION: MM SCREENING DIGITAL BREAST TOMOSYNTHESIS, BILATERAL CLINICAL INFORMATION: Screening. Asymptomatic. COMPARISON: Mammography: Comparison is made with available priors TECHNIQUE: Digital breast mammography with tomosynthesis is performed in both the craniocaudal and mediolateral oblique views along with computer-aided detection (CAD). FINDINGS: There are scattered areas of fibroglandular density. There are no significant masses, abnormal calcifications, or other abnormalities. MM/MM tomosynthesis screening BI IMPRESSION: No mammographic evidence of malignancy. ASSESSMENT: BI-RADS Category 1: Negative RECOMMENDATION: Routine annual mammography screening. 1 year F/U This examination should not preclude the clinical evaluation of a suspicious palpable abnormality. This patient's information was entered into a reminder system with a target due date for their next mammogram. Electronically signed by: Lorena Fang DO 05/01/2025 06:44 PM [facility]
== END 2025-04-29 14:56 | disposition home or self-care (01) ==
LOC: HO.MAMMO 14:55
PROVIDERS: PCP Internal Medicine; Visit Provider Internal Medicine
DX: Z12.31 Encounter for screening mammogram for malignant neoplasm of breast (principal)
CPT/HCPCS: 77063; 77067

== ENCOUNTER → 2025-04-29 15:00 | Outpatient (BNV) | payer OTHER, SELFPAY | PROVIDERS: PCP Internal Medicine; Visit Provider Internal Medicine | DX: Z12.31 Encounter for screening mammogram for malignant neoplasm of breast (principal) | CPT/HCPCS: 77063; 77067 ==